=== PATIENT | male | born 1955 | race Caucasian/White ===

== ENCOUNTER → 2021-07-04 12:48 | Outpatient (BNVA) | payer MEDICARE, SELFPAY | PROVIDERS: PCP Internal Medicine; Visit Provider Psychiatry & Neurology Neurology | DX: H81.10 Benign paroxysmal vertigo, unspecified ear (principal); G20 Parkinson's disease | CPT/HCPCS: 99212 ==

== ENCOUNTER → 2021-11-09 14:17 | Outpatient (BNVA) | payer MEDICARE, BC, SELFPAY | PROVIDERS: PCP Internal Medicine; Visit Provider Nurse Practitioner Family | DX: G20 Parkinson's disease (principal); F32.A Depression, unspecified; F51.5 Nightmare disorder; H81.10 Benign paroxysmal vertigo, unspecified ear; S06.9X9D Unspecified intracranial injury with loss of consciousness of unspecified duration, subsequent encounter | CPT/HCPCS: 99212 ==

== ENCOUNTER → 2022-05-23 15:25 | Outpatient (BNVA) | payer MEDICARE, BC, SELFPAY | PROVIDERS: PCP Internal Medicine; Visit Provider Psychiatry & Neurology Neurology | DX: G20 Parkinson's disease (principal); F32.A Depression, unspecified; F51.5 Nightmare disorder; H81.10 Benign paroxysmal vertigo, unspecified ear; S06.9X9D Unspecified intracranial injury with loss of consciousness of unspecified duration, subsequent encounter | CPT/HCPCS: 99212 ==

== ENCOUNTER → 2022-10-09 12:40 | Outpatient (BNVA) | payer MEDICARE, BC, SELFPAY | PROVIDERS: PCP Internal Medicine; Visit Provider Psychiatry & Neurology Neurology | DX: G20 Parkinson's disease (principal); H81.10 Benign paroxysmal vertigo, unspecified ear; F51.5 Nightmare disorder; F32.A Depression, unspecified; Z87.820 Personal history of traumatic brain injury | CPT/HCPCS: 99212 ==

== ENCOUNTER 2023-02-12 14:03 | Outpatient (AMB) | payer MEDICARE, BC, SELFPAY ==
--- NOTE | 2023-02-12 14:06 | MHC.OFFVIS ---
Intake Vital Signs 02/12/23 14:08 Height 6 ft Weight 220 lb 8 oz BMI 29.9 BP 122/72 Blood Pressure Location Rt brachial Position Sitting Respiration 16 Pulse 68 Pulse Source Pulse Oximeter Pulse Oximetry (%) 98 Oxygen Delivery Method Room Air Intake Visit Reasons: 4m follow up-confirmed Intake Note: Patient states he is feeling good today. Allergies No Known Allergies Allergy (Verified 02/12/23 14:05) Medication List - Last Reconciled 02/12/23 by Penny Colon MD acetaminophen (Tylenol Extra Strength) 500 mg PO Q6H PRN aspirin (Gabbie Low Dose Aspirin) 81 mg PO DAILY carbidopa-levodopa 25-100 mg (Sinemet) 1 tab PO QID celecoxib 200 mg PO DAILY citalopram 20 mg PO DAILY cyclobenzaprine 5 mg PO TID PRN divalproex (Depakote) 3 tabs bid PO 2 times a day; docusate sodium 100 mg PO DAILY ketoconazole 2% topical lidocaine 5% 2 patches topical DAILY lisinopril 30 mg PO DAILY lorazepam 0.5 mg PO TID PRN mirabegron ER (Myrbetriq) 50 mg PO DAILY oxycodone 5 mg PO BID PRN prazosin 2 mg PO BEDTIME sennosides (senna) 8.6 mg PO DAILY sildenafil 50 mg PO .prn PRN simvastatin 20 mg PO DAILY trazodone 150 mg PO BEDTIME PRN HPI HPI Comments History of Present Illness Details 67 -yr-old male presents for f/u visit.He is stable He had PT and feels his balance is ok and stopped using his cane .He is seeing pain clinic at [place] . He is also doing acupuncture for pain which is helping. Pt denies any significant interval medical history changes.No dizziness Pt's current PD medication regimen: Sinemet 1 tab QID. Do medication effects last between doses: Some wearing off around time of the next dose- may tremor more. Not bothersome enough to want to increase dose. ADL's: Ind Swallowing: Occasional fluids/saliva will go down wrong- mild. No h/o PNA. Cough: Occasional- mild Drooling: At night mild Orthostatic lightheadedness: None Constipation: None- eats raisin bran, prune juice, senna , dulcolax- which prevents any constipation. Freezing: None Stiffness: None Tremor: Stable, but worse if anxious or Sinemet dose is wearing off. Falls: None Hallucinations: None Memory: Memory is not good . 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 Sleep: Sleeps well w/ CPAP and Trazodone and Prazosin (uses for sleep and BP control).He still has vivid dreams but milder. Other: Had a case of left BPPV- which resolved w/ a course of vestibular tx. [facility] Medical History Arthritis Depression HTN (hypertension) Nightmares Occasional tremors Parkinsonism Seizures TBI (traumatic brain injury) Surgical History H/O brain surgery H/O shoulder surgery History of carpal tunnel release Family History Mother Stomach cancer Social History Alcohol intake: never Patient Tobacco Use Status: Never used Tobacco Physical Exam Vital Signs: Last Vital Signs Pulse 68 02/12/23 14:08 Resp 16 02/12/23 14:08 BP 122/72 02/12/23 14:08 Pulse Ox 98 02/12/23 14:08 Oxygen Delivery Method Room Air 02/12/23 14:08 BMI result Body Mass Index 29.9 Const General: cooperative and no acute distress Resp Effort & Inspection: normal respiratory effort and able to speak in complete sentences Neuro Other: Expression: Mild decreased expression Voice: Soft voice Tremor: none seen today Tone: right Ue 1 + cog wheel rigidity Dyskinesia: None FFM: Mild bradykinesia Foot taps: Bradykinesia Gait: Decreased arm swing , good stride can walk without a cane Psych: Pleasant affect. Psych Appearance: grossly normal Mental Status: mental status grossly normal Attitude: cooperative Thought process: Normal thought process present Assessment & Plan Assessment & Plan (1) Parkinsonism: Code(s): G20 - Parkinson's disease (2) TBI (traumatic brain injury): Code(s): S06.9X9A - Unspecified intracranial injury with loss of consciousness of unspecified duration, initial encounter (3) Depression: Code(s): F32.A - Depression, unspecified (4) Nightmares: Code(s): F51.5 - Nightmare disorder (5) Vertigo, benign paroxysmal: Code(s): H81.10 - Benign paroxysmal vertigo, unspecified ear Plan: Resolved. Plan continue exercises Continue sinemet 25/100 1 tab QID. Continue Prazosin. Medications: Refilled carbidopa-levodopa 25-100 mg (Sinemet) 1 tab PO QID 120 tabs 6RF Coding Level of Care Code Est Pt Level 4 (26124) Diagnoses Parkinsonism G20 TBI (traumatic brain injury) S06.9X9A Depression F32.A Nightmares F51.5 Vertigo, benign paroxysmal H81.10
[2023-02-12 14:08] VITALS: BP 122/72; PULSE 68; RESP 16; O2SAT 98; BMI 29.9
== END 2023-02-12 14:27 | disposition home or self-care (01) ==
PROVIDERS: Visit Provider Psychiatry & Neurology Neurology
DX: G20 Parkinson's disease (principal); S06.9X9A Unspecified intracranial injury with loss of consciousness of unspecified duration, initial encounter; F32.A Depression, unspecified; F51.5 Nightmare disorder; H81.10 Benign paroxysmal vertigo, unspecified ear
CPT/HCPCS: 99214

== ENCOUNTER → 2023-02-12 14:03 | Outpatient (BNVA) | payer MEDICARE, BC, SELFPAY | PROVIDERS: Visit Provider Psychiatry & Neurology Neurology | DX: G20 Parkinson's disease (principal); S06.9X9A Unspecified intracranial injury with loss of consciousness of unspecified duration, initial encounter; F32.A Depression, unspecified; F51.5 Nightmare disorder; H81.10 Benign paroxysmal vertigo, unspecified ear; Z79.899 Other long term (current) drug therapy | CPT/HCPCS: 99212 ==

== ENCOUNTER 2023-09-19 12:36 | Outpatient (AMB) | payer MEDICARE, BC, SELFPAY ==
--- NOTE | 2023-09-19 12:54 | A.OFFVIS_ITS ---
Intake Vital Signs 09/19/23 12:56 Height 6 ft Weight 203 lb BMI 27.5 BP 148/72 H Blood Pressure Location Rt brachial Position Sitting Respiration 16 Pulse 87 Pulse Source Pulse Oximeter Pulse Oximetry (%) 97 Oxygen Delivery Method Room Air Intake Visit Reasons: 6m follow up-CONF Intake Note: Pt presents for a 6 month follow up for Parkinsonism. [employer] Required: No Allergies No Known Allergies Allergy (Verified 09/19/23 12:55) Medication List - Last Reconciled 09/19/23 by Penny Colon MD acetaminophen (Tylenol Extra Strength) 500 mg PO Q6H PRN aspirin (Gabbie Low Dose Aspirin) 81 mg PO DAILY celecoxib 200 mg PO DAILY citalopram 20 mg PO DAILY cyclobenzaprine 5 mg PO TID PRN divalproex (Depakote) 3 tabs bid PO 2 times a day; docusate sodium 100 mg PO DAILY ketoconazole 2% topical lidocaine 5% 2 patches topical DAILY lisinopril 30 mg PO DAILY lorazepam 0.5 mg PO TID PRN mirabegron ER (Myrbetriq) 50 mg PO DAILY oxycodone 5 mg PO BID PRN prazosin 2 mg PO BEDTIME sennosides (senna) 8.6 mg PO DAILY sildenafil 50 mg PO .prn PRN simvastatin 20 mg PO DAILY Sinemet 25-100 mg (carbidopa-levodopa) 1 tab PO QID NS trazodone 150 mg PO BEDTIME PRN HPI HPI Comments History of Present Illness Details 68 -yr-old male presents for f/u visit.H garfield was admitte don August 23 for presyncope and bradycardia at [facility].He was at the dinner table, had sweating and generalized weakness and had gen body movements . He was awake - diagnosed with presyncope In ER his BP was high and had bradycardia.He was seen by cleaning staff supervisor. He had just started sinemet - different brand and the patient thinks he did not tolerate the new brand Pt denies any significant interval medical history changes.No dizziness Pt's current PD medication regimen: Sinemet 1 tab QID. Do medication effects last between doses: Some wearing off around time of the next dose- may tremor more. Not bothersome enough to want to increase dose. ADL's: Ind Swallowing: Occasional fluids/saliva will go down wrong- mild. No h/o PNA. Cough: Occasional- mild Drooling: At night mild Orthostatic lightheadedness: None Constipation: None- eats raisin bran, prune juice, senna , dulcolax- which prevents any constipation. Freezing: None Stiffness: None Tremor: Stable, but worse if anxious or Sinemet dose is wearing off. Falls: None Hallucinations: None Memory: Memory is not good . 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 Sleep: Sleeps well w/ CPAP and Trazodone and Prazosin (uses for sleep and BP control).He still has vivid dreams but milder. Other: Had a case of left BPPV- which resolved w/ a course of vestibular tx. [facility] Medical History Arthritis HTN (hypertension) Occasional tremors Seizures TBI (traumatic brain injury) Depression Nightmares Parkinsonism Surgical History H/O shoulder surgery History of carpal tunnel release H/O brain surgery Family History Mother Stomach cancer Social History Alcohol intake: never Patient Tobacco Use Status: Never used Tobacco Physical Exam Vital Signs: Last Vital Signs Pulse 87 09/19/23 12:56 Resp 16 09/19/23 12:56 BP 148/72 H 09/19/23 12:56 Pulse Ox 97 09/19/23 12:56 Oxygen Delivery Method Room Air 09/19/23 12:56 BMI result Body Mass Index 27.5 Const General: cooperative and no acute distress Resp Effort & Inspection: normal respiratory effort and able to speak in complete sentences Neuro Other: Expression: Mild decreased expression Voice: Soft voice Tremor: none seen today Tone: right Ue 1 + cog wheel rigidity Dyskinesia: None FFM: Mild bradykinesia Foot taps: Bradykinesia Gait: Decreased arm swing , good stride can walk without a cane Psych: Pleasant affect. Psych Appearance: grossly normal Mental Status: mental status grossly normal Attitude: cooperative Thought process: Normal thought process present Assessment & Plan Assessment & Plan (1) Parkinsonism: Code(s): G20 - Parkinson's disease (2) TBI (traumatic brain injury): Code(s): S06.9X9A - Unspecified intracranial injury with loss of consciousness of unspecified duration, initial encounter (3) Depression: Code(s): F32.A - Depression, unspecified (4) Nightmares: Code(s): F51.5 - Nightmare disorder (5) Vertigo, benign paroxysmal: Code(s): H81.10 - Benign paroxysmal vertigo, unspecified ear Plan: Resolved. Plan continue exercises Continue sinemet 25/100 1 tab QID.- BRAND NAME ONLY - patient ahd an adverse reaction to generic carbidopa/levodopa Continue Prazosin. Medications: Changed From carbidopa-levodopa 25-100 mg (Sinemet) 1 tab PO QID 120 tabs 6RF To Sinemet 25-100 mg (carbidopa-levodopa) Patient had a reaction to generic carbidopa/levodopa 1 tab PO QID 120 tabs 6RF NS From lisinopril 30 mg PO DAILY To lisinopril 20 mg PO DAILY Coding Level of Care Code Est Pt Level 4 (83318) Diagnoses Parkinsonism G20 TBI (traumatic brain injury) S06.9X9A Depression F32.A Nightmares F51.5 Vertigo, benign paroxysmal H81.10
[2023-09-19 12:56] VITALS: BP 148/72; PULSE 87; RESP 16; O2SAT 97; BMI 27.5
== END 2023-09-19 13:33 | disposition home or self-care (01) ==
PROVIDERS: PCP Internal Medicine; Visit Provider Psychiatry & Neurology Neurology
DX: G20.C Parkinsonism, unspecified (principal); F32.A Depression, unspecified; F51.5 Nightmare disorder; H81.12 Benign paroxysmal vertigo, left ear; Z87.820 Personal history of traumatic brain injury
CPT/HCPCS: 99214

== ENCOUNTER → 2023-09-19 12:36 | Outpatient (BNVA) | payer MEDICARE, BC, SELFPAY | PROVIDERS: PCP Internal Medicine; Visit Provider Psychiatry & Neurology Neurology | DX: S06.9X9A Unspecified intracranial injury with loss of consciousness of unspecified duration, initial encounter (principal); F32.A Depression, unspecified; F51.5 Nightmare disorder; H81.10 Benign paroxysmal vertigo, unspecified ear; G20.A1 Parkinson's disease without dyskinesia, without mention of fluctuations; X58.XXXA Exposure to other specified factors, initial encounter; Y93.9 Activity, unspecified; Y92.9 Unspecified place or not applicable; Y99.9 Unspecified external cause status | CPT/HCPCS: 99212 ==

== ENCOUNTER 2024-03-22 15:21 | Outpatient (AMB) | payer MEDICARE, BC, SELFPAY ==
--- NOTE | 2024-03-22 15:23 | MHC.OFFVIS ---
Vital Signs 03/22/24 15:24 Height 6 ft Weight 204 lb 4 oz BMI 27.7 BP 144/70 H Blood Pressure Location Rt brachial Position Sitting Respiration 16 Pulse 86 Pulse Source Pulse Oximeter Pulse Oximetry (%) 98 Oxygen Delivery Method Room Air Intake Visit Reasons: 6m follow up-CONF Intake Note: Pt presents tot he office for a 6 month follow up for Parkinsonism. [employer] Required: No Allergies No Known Allergies Allergy (Verified 03/22/24 15:24) Medication List - Last Reconciled 03/22/24 by Penny Colon MD acetaminophen (Tylenol Extra Strength) 500 mg PO Q6H PRN aspirin (Gabbie Low Dose Aspirin) 81 mg PO DAILY celecoxib 200 mg PO DAILY citalopram 20 mg PO DAILY cyclobenzaprine 5 mg PO TID PRN divalproex (Depakote) 3 tabs bid PO 2 times a day; docusate sodium 100 mg PO DAILY ketoconazole 2% topical lidocaine 5% 2 patches topical DAILY lisinopril 20 mg PO DAILY lorazepam 0.5 mg PO TID PRN mirabegron ER (Myrbetriq) 50 mg PO DAILY oxycodone 5 mg PO BID PRN prazosin 2 mg PO BEDTIME sennosides (senna) 8.6 mg PO DAILY sildenafil 50 mg PO .prn PRN simvastatin 20 mg PO DAILY Sinemet 25-100 mg (carbidopa-levodopa) 1 tab PO QID NS trazodone 150 mg PO BEDTIME PRN HPI Comments Details: 68 -yr-old male presents for f/u visit. He had a recent ( last week)emergency cholecystectomy and is doing well. Pt denies any significant interval medical history changes.No dizziness Pt's current PD medication regimen: Sinemet 1 tab QID. Do medication effects last between doses: Some wearing off around time of the next dose- may tremor more. Not bothersome enough to want to increase dose. ADL's: Ind Swallowing: Occasional fluids/saliva will go down wrong- mild. No h/o PNA. Cough: Occasional- mild Drooling: At night mild Orthostatic lightheadedness: None Constipation: None- eats raisin bran, prune juice, senna , dulcolax- which prevents any constipation. Freezing: None Stiffness: None Tremor: mild, but worse if anxious or Sinemet dose is wearing off. Falls: 1 fall when he was trying to step up on a bulkhead Gait- slower Hallucinations: None Memory: Memory is not good . 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 Sleep: Sleeps w/ CPAP and Trazodone and Prazosin (uses for sleep and BP control).He wakes up at 3 am and is not able to sleep. He still has vivid dreams but milder. Other: Had a case of left BPPV- which resolved w/ a course of vestibular tx. [facility] Medical History Arthritis HTN (hypertension) Occasional tremors Seizures TBI (traumatic brain injury) Depression Nightmares Parkinsonism Surgical History Hx laparoscopic cholecystectomy H/O shoulder surgery History of carpal tunnel release H/O brain surgery Family History Mother Stomach cancer Social History Alcohol intake: never Patient Tobacco Use Status: Never used Tobacco Physical Exam Vital Signs: Last Vital Signs Pulse 86 03/22/24 15:24 Resp 16 03/22/24 15:24 BP 144/70 H 03/22/24 15:24 Pulse Ox 98 03/22/24 15:24 Oxygen Delivery Method Room Air 03/22/24 15:24 BMI result Body Mass Index 27.7 Const General: cooperative and no acute distress Resp Effort & Inspection: normal respiratory effort and able to speak in complete sentences Neuro Other: Expression: Mild decreased expression Voice: Soft voice Tremor: none seen today Tone: right Ue 1 + cog wheel rigidity Dyskinesia: None FFM: Mild bradykinesia Foot taps: Bradykinesia Gait: Decreased arm swing , good stride can walk without a cane Psych: Pleasant affect. Psych Appearance: grossly normal Mental Status: mental status grossly normal Attitude: cooperative Thought process: Normal thought process present Assessment & Plan Assessment & Plan (1) Parkinsonism: Code(s): G20 - Parkinson's disease Category: Medical Qualifiers: Parkinsonism type: unspecified Qualified Code(s): G20.C - Parkinsonism, unspecified (2) TBI (traumatic brain injury): Code(s): S06.9X9A - Unspecified intracranial injury with loss of consciousness of unspecified duration, initial encounter Category: Medical (3) Depression: Code(s): F32.A - Depression, unspecified Category: Medical (4) Nightmares: Code(s): F51.5 - Nightmare disorder Category: Medical (5) Vertigo, benign paroxysmal: Code(s): H81.10 - Benign paroxysmal vertigo, unspecified ear Category: Medical Plan: Resolved. Plan Restart exercises after his post surgical recovery. Continue sinemet 25/100 1 tab QID.- BRAND NAME ONLY - patient had an adverse reaction to generic carbidopa/levodopa Continue Prazosin. Medications: Refilled Sinemet 25-100 mg (carbidopa-levodopa) Patient had a reaction to generic carbidopa/levodopa 1 tab PO QID 120 tabs 6RF NS Sinemet 25-100 mg (carbidopa-levodopa) Patient had a reaction to generic carbidopa/levodopa 1 tab PO QID 120 tabs 6RF NS Coding Level of Care Code Est Pt Level 4 (74034) Complex EM visit Add On G2211 Diagnoses Parkinsonism, unspecified Parkinsonism type G20.C Parkinsonism type: unspecified TBI (traumatic brain injury) S06.9X9A Depression F32.A Nightmares F51.5 Vertigo, benign paroxysmal H81.10
[2024-03-22 15:24] VITALS: BP 144/70; PULSE 86; RESP 16; O2SAT 98; BMI 27.7
== END 2024-03-22 15:51 | disposition home or self-care (01) ==
PROVIDERS: PCP Internal Medicine; Visit Provider Psychiatry & Neurology Neurology
DX: G20.C Parkinsonism, unspecified (principal); S06.9X9A Unspecified intracranial injury with loss of consciousness of unspecified duration, initial encounter; F32.A Depression, unspecified; F51.5 Nightmare disorder; H81.10 Benign paroxysmal vertigo, unspecified ear
CPT/HCPCS: 99214; G2211

== ENCOUNTER → 2024-03-22 15:21 | Outpatient (BNVA) | payer MEDICARE, BC, SELFPAY | PROVIDERS: PCP Internal Medicine; Visit Provider Psychiatry & Neurology Neurology | DX: S06.9X9A Unspecified intracranial injury with loss of consciousness of unspecified duration, initial encounter (principal); X58.XXXA Exposure to other specified factors, initial encounter; Y93.9 Activity, unspecified; Y92.9 Unspecified place or not applicable; Y99.9 Unspecified external cause status; G20.C Parkinsonism, unspecified; F51.5 Nightmare disorder; H81.10 Benign paroxysmal vertigo, unspecified ear; Z90.49 Acquired absence of other specified parts of digestive tract; F32.A Depression, unspecified | CPT/HCPCS: 99212 ==

== ENCOUNTER 2024-08-13 14:54 | Outpatient (AMB) | payer MEDICARE, BC, SELFPAY ==
--- NOTE | 2024-08-13 14:58 | MHC.OFFVIS ---
Vital Signs 08/13/24 14:59 Height 6 ft Weight 206 lb BMI 27.9 BP 134/80 Blood Pressure Location Rt brachial Position Sitting Intake Visit Reasons: 6m follow up-CONF Intake Note: patient following up for parkinson's. Sinemet medication given, had reaction to carbidopa Allergies No Known Allergies Allergy (Verified 08/13/24 15:03) Medication List - Last Reconciled 08/13/24 by Penny Colon MD acetaminophen (Tylenol Extra Strength) 500 mg PO Q6H PRN aspirin (Gabbie Low Dose Aspirin) 81 mg PO DAILY celecoxib 200 mg PO DAILY citalopram 20 mg PO DAILY cyclobenzaprine 5 mg PO TID PRN divalproex (Depakote) 3 tabs bid PO 2 times a day; docusate sodium 100 mg PO DAILY ketoconazole 2% topical lidocaine 5% 2 patches topical DAILY lisinopril 20 mg PO DAILY lorazepam 0.5 mg PO TID PRN magnesium 200 mg PO DAILY mirabegron ER (Myrbetriq) 50 mg PO DAILY oxycodone 5 mg PO BID PRN prazosin 2 mg PO BEDTIME sennosides (senna) 8.6 mg PO DAILY sildenafil 50 mg PO .prn PRN simvastatin 20 mg PO DAILY Sinemet 25-100 mg (carbidopa-levodopa) 1 tab PO QID NS trazodone 150 mg PO BEDTIME PRN HPI Comments Details: 69 -yr-old male presents for f/u visit. Pt's current PD medication regimen: Sinemet 1 tab QID. Do medication effects last between doses: Some wearing off around time of the next dose- may tremor more. Not bothersome enough to want to increase dose. ADL's: Ind Swallowing: Occasional fluids/saliva will go down wrong- mild.- scheduled for uvuloplasty on September 22 Cough: Occasional- mild Drooling: At night mild Orthostatic lightheadedness: None Constipation: None- eats raisin bran, prune juice, senna , dulcolax- which prevents any constipation. Freezing: None Stiffness: None Tremor: mild, but worse if anxious or Sinemet dose is wearing off. Falls: none , but has some near falls when he tries to turn Gait- slower Hallucinations: None Memory: Memory is not good . 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 Sleep: Sleeps w/ CPAP and Trazodone and Prazosin (uses for sleep and BP control).He wakes up at 3 am and is not able to sleep. He has occasional REM behavior disorder. [facility] Medical History Arthritis HTN (hypertension) Occasional tremors Seizures TBI (traumatic brain injury) Depression Nightmares Parkinsonism Surgical History Hx laparoscopic cholecystectomy H/O shoulder surgery History of carpal tunnel release H/O brain surgery Family History Mother Stomach cancer Social History Alcohol intake: never Patient Tobacco Use Status: Never used Tobacco Physical Exam Vital Signs: Last Vital Signs BP 134/80 08/13/24 14:59 BMI result Body Mass Index 27.9 Const General: cooperative and no acute distress Resp Effort & Inspection: normal respiratory effort and able to speak in complete sentences Neuro Other: Expression: Mild decreased expression Voice: normal Tremor: none seen today Tone: right Ue 1 + cog wheel rigidity Dyskinesia: None FFM: Mild bradykinesia Foot taps: Bradykinesia Gait: Decreased arm swing , good stride can walk without a cane Psych: Pleasant affect. Psych Appearance: grossly normal Mental Status: mental status grossly normal Attitude: cooperative Thought process: Normal thought process present Assessment & Plan Assessment & Plan (1) Parkinsonism: Code(s): G20 - Parkinson's disease Category: Medical Qualifiers: Parkinsonism type: unspecified Qualified Code(s): G20.C - Parkinsonism, unspecified (2) Depression: Code(s): F32.A - Depression, unspecified Category: Medical (3) Nightmares: Code(s): F51.5 - Nightmare disorder Category: Medical Plan Continue exercise Continue sinemet 25/100 1 tab QID.- BRAND NAME ONLY - patient had an adverse reaction to generic carbidopa/levodopa Continue Prazosin. Medications: Changed From Sinemet 25-100 mg (carbidopa-levodopa) Patient had a reaction to generic carbidopa/levodopa 1 tab PO QID 120 tabs 6RF NS To Sinemet 25-100 mg (carbidopa-levodopa) Patient had a reaction to generic carbidopa/levodopa 1 tab PO QID 90 days 360 tabs 6RF NS Coding Level of Care Code Est Pt Level 4 (10438) Complex EM visit Add On G2211 Diagnoses Parkinsonism, unspecified Parkinsonism type G20.C Parkinsonism type: unspecified Depression F32.A Nightmares F51.5
[2024-08-13 14:59] VITALS: BP 134/80; BMI 27.9
--- OUTSIDE RECORDS SUMMARY | 2024-08-13 15:03 | XMS_ITS | Encounter Summary ---
Author Name [facility] [facility] [place] Address [address] [place] [address] Care Team Providers Care Pbx Technician Name Role Phone NINO MAI Primary Care [...] Last's Name Patient's Relationship to Policy Last ANTHEM BCBS CT FEDERAL PREFERRED PROVIDER ORGANIZAT ION (PPO) BASIC SELF+ ONE Jun 23, 2020 113 [id number] [phone] STEPHEN SOMMERS PATIENT ANTHEM BCBS CT FEDERAL PREFERRED PROVIDER ORGANIZAT ION (PPO) STAND RAEANN SELF + ONE Jun 23, 2015 106 [id number] [phone] STEPHEN SOMMERS PATIENT ANTHEM BCBS FEDERAL PREFERRED PROVIDER ORGANIZAT ION (PPO) STAND RAEANN SELF+ ONE Jun 23, 2015 106 [id number] CRISTOPHER SOMMERSRayne JORDAN PATIENT BCBS [place] PREFERRED PROVIDER ORGANIZAT ION (PPO) PSHB BAS SELF PLUS 1 Jun 23, 2024 [id number] CRISTOPHER SOMMERSRayne JORDAN PATIENT [place] PREFERRED PROVIDER ORGANIZAT ION (PPO) STAND RAEANN SELF PLUS 1 Jun 23, 2015 [id number] STEPHEN SOMMERS PATIENT [place] PREFERRED PROVIDER ORGANIZAT ION (PPO) BASIC SELF+ ONE Jun 23, 2020 113 [id number] STEPHEN SOMMERS PATIENT [place] PREFERRED PROVIDER ORGANIZAT ION (PPO) STAND RAEANN SELF+ ONE Jun 23, 2015 106 [id number] [phone] STEPHEN SOMMERS PATIENT [place] DENTAL DENTAL INSURANCE BASIC Jun 23, 2020 DENTAL [id number] STEPHEN SOMMERS PATIENT [place] FEP BCBS PRESCRIPT ION CAR[place] FEPRX PLAN Jun 23, 2015 [id number] STEPHEN SOMMERS PATIENT [place] FEPRX PLAN PRESCRIPT ION [place] FEPRX Jun 23, 2015 [id number] [phone] STEPHEN SOMMERS PATIENT MEDICARE (WNR) MEDICARE () PART A May 23, 2020 PART A [id number] STEPHEN SOMMERS PATIENT MEDICARE (WNR) MEDICARE () PART B May 23, 2020 PART B [id number] STEPHEN SOMMERS PATIENT MEDICARE (WNR) MEDICARE () PART A May 23, 2020 PART A [id number] STEPHEN SOMMERS PATIENT MEDICARE (WNR) MEDICARE () PART B May 23, 2020 PART B [id number] STEPHEN SOMMERS PATIENT MEDICARE (WNR) MEDICARE () PART A May 23, 2020 PART A [id number] STEPHEN SOMMERS PATIENT MEDICARE (WNR) MEDICARE () PART B May 23, 2020 PART B [id number] [phone] [id number] STEPHEN SOMMERS PATIENT Selected Encounter This section includes the information on record at [place] for the Encounter. Date/Time Encounter Type Encounter Description Reason Provider Source Sep 11, 2023 10:04 AM QNHP OL DIG ASSMT&MGMT 11-20 CLINICAL PHARMACY ICD-10-CM G20.C Parkinsonism, unspecified NIDA AMOS IHE Encounter Template Text not used by [place] Assessments - Encounter Diagnoses This section includes the primary and secondary diagnoses documented for the Encounter. Date/Time Primary/Secondary Diagnosis Diagnosis Name Provider Source Sep 11, 2023 10:19 AM PRIMARY Parkinsonism, unspecified NIDA AMOS [facility] Plan of Treatment: Future Appointments (+ 6 months) and Future Tests (+/- 45 days) The Plan of Treatment section includes future care activities for the [facility] [place] [facility] This section includes future appointments and future orders which are active, pending or scheduled. Future Appointments This section includes appointments that were scheduled to occur 6 months from the date of the Encounter, up to a maximum of 20 appointments. The data comes from all [place] treatment facilities. Appointment Date/Time Appointment Type Appointme nt Facility Name Sep 19, 2023 12:55 PM AMBULATORY - MEDICINE [place] [facility] [place] [facility] Oct 02, 2023 01:00 PM AMBULATORY - MEDICINE [facility] [place] [facility] Oct 06, 2023 10:30 AM AMBULATORY - MEDICINE [facility] Oct 15, 2023 02:30 PM AMBULATORY - REHAB MEDICIN E [place] [facility] [place] [facility] Oct 17, 2023 07:55 PM AMBULATORY - MEDICINE [facility] [place] [facility] November 12, 2023 01:30 PM AMBULATORY - REHAB MEDICIN E [place] [facility] [place] [facility] November 13, 2023 02:00 PM AMBULATORY - PSYCHIATRY [facility] Dec 02, 2023 01:00 PM AMBULATORY - MEDICINE [facility] Dec 16, 2023 01:30 PM [facility] Jan 21, 2024 03:00 PM AMBULATORY - MEDICINE [place] [facility] [place] [facility] Feb 12, 2024 02:00 PM AMBULATORY - PSYCHIATRY [facility] Feb 20, 2024 08:30 AM [facility] Lab Results: +/- 30 days of the encounter This section includes the Chemistry and Hematology Lab Results on record with [place] for the patient. Radiology Reports and Pathology Reports are provided separately, in subsequent sections. Lab Results This section contains the Chemistry/Hematology Results that were resulted 30 days before or 30 daysafter the date of the Encounter. Date/Time Source Result Type Result - Unit Interpretation Reference Range Comment Sep 15, 2023 12:33 PM [facility] HEMOGLOBIN A1C PANEL Specimen Type: BLOOD Comment: Values obtained from A1C measurements can vary. For atypical A1C assays, a reported value of 7.0 could actually be between 6.72 and 7.28 if measured by a reference method. A reported value of 9.0 could actually be between 8.73 and 9.27. Ref: http://www.ngs p.org/CAPdata. asp Ordering Provider: HOWARD AVELAR Report Released Date/Time: Sep 08, 2023 01:58 PM Reporting Lab: [address] [address] Performing Lab: [address] [address] HEMOGLOBIN A1C 5.0 4.0-5.6 Sep 15, 2023 12:33 PM [facility] MAGNESIUM Specimen Type: SERUM No comment entered. Ordering Provider: HOWARD AVELAR Report Released Date/Time: Sep 08, 2023 01:58 PM Reporting Lab: [facility] [address] [address] Performing Lab: [address] [address] MAGNESIUM 1.9 mg/dL 1.6-2.6 Sep 15, 2023 12:33 PM [facility] TSH Specimen Type: SERUM No comment entered. Ordering Provider: HOWARD AVELAR Report Released Date/Time: Sep 08, 2023 01:58 PM Reporting Lab: [address] [address] Performing Lab: [address] [address] TSH 1.35 u[IU]/mL 0.35-5.00 Sep 15, 2023 12:33 PM [facility] CALCIUM Specimen Type: SERUM No comment entered. Ordering Provider: HOWARD AVELAR Report Released Date/Time: Sep 08, 2023 01:58 PM Reporting Lab: [facility] [address] [facility] [address] Performing Lab: [facility] [address] [address] CALCIUM 9.3 mg/dL 8.5-10.2 Sep 15, 2023 12:33 PM [facility] VITAMIN D (25-OH) Specimen Type: SERUM No comment entered. Ordering Provider: HOWARD AVELAR Report Released Date/Time: Sep 08, 2023 01:58 PM Reporting Lab: [facility]ETS [address] [address] Performing Lab: [facility]USE[address] [address] VITAMIN D (25-OH) 14 ng/mL L 20-50 Sep 15, 2023 12:33 PM [facility] LIPID PANEL, NON FASTING Specimen Type: SERUM No comment entered. Ordering Provider: HOWARD AVELAR Report Released Date/Time: Sep 08, 2023 01:58 PM Reporting Lab: [facility] [address] [facility] [address] Performing Lab: [facility]USE[address] [address] CHOLESTEROL 175 mg/dL TRIGLYCERIDE 192 mg/dL H 0-150 LDL calculated 88 mg/dL 0-129 CHOL/HDL 3.6 HDL CHOLESTEROL 49 mg/dL 40-60 Sep 15, 2023 12:33 PM [facility] LIVER FUNCTION Specimen Type: SERUM No comment entered. Ordering Provider: HOWARD AVELAR Report Released Date/Time: Sep 08, 2023 01:58 PM Reporting Lab: [facility]N [facility]ITAL[facility]ETS [address] [address] Performing Lab: [facility]ITALUSETS [address] [address] PROTEIN,TOTAL 6.7 g/dL 6.0-8.3 ALBUMIN 3.6 g/dL 3.5-5.0 ALKALINE PHOSPHATASE 35 U/L L 40-150 AST 11 U/L 5-34 ALT 8 U/L BILIRUBIN, TOTAL 0.4 mg/dL 0.2-1.2 Sep 15, 2023 12:33 PM [facility] PSA Specimen Type: SERUM No comment entered. Ordering Provider: HOWARD AVELAR Report Released Date/Time: Sep 08, 2023 02:00 PM Reporting Lab: [address] [address] Performing Lab: [address] [address] PSA 1.83 ng/mL 0.00-4.00 Sep 15, 2023 12:33 PM [facility] BASIC METABOLIC PANEL (non-fasting) Specimen Type: SERUM No comment entered. Ordering Provider: HOWARD AVELAR Report Released Date/Time: Sep 08, 2023 01:58 PM Reporting Lab: [facility] [address] [address] Performing Lab: [address] [address] UREA NITROGEN 20 mg/dL 7-25 GLUCOSE 108 mg/dL H 65-100 SODIUM 139 mmol/L 135-145 POTASSIUM 4.5 mmol/L 3.5-5.0 CHLORIDE 103 mmol/L 100-110 CO2 29 meq/L 20-30 CREATININE, Serum 0.86 mg/dL 0.50-1.40 eGFR(CKD-EPI 2020) >90 mL/min >60 Sep 15, 2023 12:33 PM [facility] URINALYSIS Specimen Type: URINE Comment: If Glucose = >500 and Ketones are positive, please alert the Physician. Ordering Provider: HOWARD AVELAR Report Released Date/Time: Sep 08, 2023 01:59 PM Reporting Lab: [address] [address] Performing Lab: [address] [place] [address] UA COLOR Yellow Yellow UA APPEARANCE Clear Clear UA GLUCOSE NEGATIVE mg/dL Negative UA KETONES TRACE mg/dL Negative UA BLOOD NEGATIVE mg/dL Negative UA PROTEIN 30 mg/dL Negative UA NITRITE NEGATIVE mg/dL Negative UA BILIRUBIN NEGATIVE mg/dL Negative UA SPECIFIC GRAVITY 1.044 H 1.016-1.02 2 UA pH 6.0 5.0-9.0 UA UROBILINOGEN <2.0 mg/dL <2.0 UA LEUKOCYTE NEGATIVE Negative Sep 15, 2023 12:33 PM [facility] CBC AND DIFF (AUTO) Specimen Type: BLOOD No comment entered. Ordering Provider: HOWARD AVELAR Report Released Date/Time: Sep 08, 2023 01:58 PM Reporting Lab: [address] [address] Performing Lab: [address] [address] WBC 6.55 10*3/uL 4.50-11.00 RBC 4.40 10*6/uL 4.23-5.66 HGB 13.6 g/dL 12.8-17 HCT 41.0 39.2-50.4 MCV 93.2 fL 82-99 MCHC 33.2 g/dL 30.8-35.1 PLT 172 10*3/uL 140-360 RDW-CV 11.5 L 12.0-16.0 Pratt, Abs 0.58 10*3/uL 0.30-1.10 MCH 30.9 pg 26.2-32.6 Neut % 49.8 43.7-75.8 Lymph % 38.8 14.0-42.3 Pratt % 8.9 5.1-13.7 Eos % 1.1 0.4-6.8 Baso % 0.9 0.1-2.0 Neut, Abs 3.27 10*3/uL 2.20-7.60 Lymph, Abs 2.54 10*3/uL 1.00-3.20 Eos, Abs 0.07 10*3/uL 0.03-0.44 Baso, Abs 0.06 10*3/uL 0.01-0.13 Immature Gran % 0.5 0.0-0.7 Immature Gran, Abs 0.03 10*3/uL 0.00-0.06 Advance Directives: All historical and current Section Date Range: From patient's date of to the date document was created. This section includes ALL of a patient's completed or amended VA Advance and Rescinded Directives. The entries below indicate that a directive exists for the patient, but an actual copy is not included with this document. The data comes from all [place] facilities. Date Advance Directives Provider Source Dec 25, 2010 ADVANCE DIRECTIVE DIONNE HOGUE [facility] Radiology Reports: +/- 30 days of the encounter Radiology Reports For cases when an order for radiology services may have been completed prior to the date of the Encounter, the report list includes the Radiology Reports that were completed up to 30 days before dateof the Encounter. For cases when an order for radiology services may have been completed after the date of the Encounter, the report list also includes the Radiology Reports that were completed up to30 days after date of the Encounter. The data comes from all [place] treatment facilities. Date/Time Radiology Report Provider Source Oct 09, 2023 01:36 PM HIP 2-3 VIEWS (RIGHT) WITH OR WITHOUT PELVIS: CARA SOMMERS [id number] -[id number] M Exm Date: OCT 09, 2023@13:36 Req Phys: HOWARD AVELAR Loc: CWM/SO/PACT 1 SEWER CLEANER (Req'g Loc) Img Loc: [facility] 1 Service: Unknown (Case [id number] COMPLETE) HIP 2-3 VIEWS (RIGHT) WITH OR WIT(RAD Detailed) CPT:01712 CPT Modifiers : RT RIGHT SIDE Reason for Study: fall onto right hip/back. Persistant pain Clinical History: Parkinsons. chronic back pain Report Status: Verified Date Reported: OCT 10, 2023 Date Verified: OCT 10, 2023 Desktop Support Engineer E-Sig: Report: HIP 2-3 VIEWS (RIGHT) WITH OR WITHOUT PELVIS HISTORY: fall onto right hip/back. Persistent pain COMPARISON: None TECHNIQUE: Single view of the pelvis and 2 view(s) of the right hip, submitted to the [place] National Teleradiology Program (NTP) for interpretation. FINDINGS: No displaced fracture or traumatic malalignment of the right hip. Bilateral hip arthrosis. No radiopaque foreign bodies in the soft tissues. Impression: No displaced fracture or traumatic malalignment of the right hip. READING PHYSICIAN: Jorge [id number] 10/10/2023 10:26 PDT [facility] National Teleradiology Program [phone] (For Medical Practitioner Use Only) Attention Patients / Veterans: If you have questions or concerns about these test results, please contact your ordering provider or primary care team. Primary Diagnostic Code: NO ALERT REQUIRED Primary Interpreting Staff: RADIOLOGY,OUTSIDE SERVICE, Staff Physician / RADIOLOGY,OUTSIDE SERVICE [place] [facility] [place] [facility] Oct 09, 2023 01:36 PM SPINE LUMBOSACRAL MIN 2 VIEWS: CARA SOMMERS [id number] -[id number] M Exm Date: OCT 09, 2023@13:36 Req Phys: HOWARD AVELAR Loc: CWM/SO/PACT 1 SEWER CLEANER (Req'g Loc) Img Loc: [facility] 1 Service: Unknown (Case [id number] COMPLETE) SPINE LUMBOSACRAL MIN 2 VIEWS (RAD Detailed) CPT:25617 Reason for Study: fall onto right hip/back. Persistant pain Clinical History: Parkinsons. chronic back pain Report Status: Verified Date Reported: OCT 10, 2023 Date Verified: OCT 10, 2023 Desktop Support Engineer E-Sig: Report: SPINE LUMBOSACRAL MIN 2 VIEWS HISTORY: fall onto right hip/back. Persistent pain COMPARISON: 03/15/2016 lumbar MRI TECHNIQUE: 3 view(s) of the lumbar spine, submitted to the [place] National Teleradiology Program (NTP) for interpretation. FINDINGS: Five [id number]-[id number] lumbar-type vertebrae. Acute angulation of the sacrum, which appears to have been present on the prior lumbar MRI. Normal alignment with preserved lumbar lordosis. No significant listhesis. Mild disc space narrowing of the L5-S1 vertebral bodies. Unremarkable sacroiliac joints. No significant vascular calcifications. Normal bowel gas pattern. Impression: 1. No displaced fracture of the lumbar spine. 2. Acute angulation of the sacrum, which was partially imaged on a 03/15/2016 lumbar MRI and is favored to reflect sequelae of prior trauma. However if there is point tenderness in this location on physical exam, follow up pelvic CT could be performed to exclude superimposed acute sacral fracture. READING PHYSICIAN: Jorge [id number] 10/10/2023 10:30 PDT [facility] National Teleradiology Program [phone] (For Medical Practitioner Use Only) Attention Patients / Veterans: If you have questions or concerns about these test results, please contact your ordering provider or primary care team. Primary Diagnostic Code: SIGNIFICANT ABNORMALITY, ATTN NEEDED Primary Interpreting Staff: RADIOLOGY,OUTSIDE SERVICE, Staff Physician / RADIOLOGY,OUTSIDE SERVICE [place] [facility] Encounter Notes: All associated encounter notes This section contains the clinical notes associated to the Encounter. Date/Time Encounter Note(s) Provider Source Sep 11, 2023 10:04 AM PHARMACY CONSULT: LOCAL TITLE: CONSULT REPORT/PRIOR AUTH FACILITY PADR STANDARD TITLE: PHARMACY CONSULT DATE OF NOTE: SEP 11, 2023@10:04 ENTRY DATE: SEP 11, 2023@10:04:14 AUTHOR: TATY AMOS COSIGNER: URGENCY: STATUS: COMPLETED The medical record has been reviewed with regard to this restricted drug request. Medication requested: CARBIDOPA 25/LEVODOPA (SINEMET) 100MG TAB *BRAND NAME* Medication indication: Parkinsons Medical history relevant to this request: Pt with Parkinsons, receiving Neurology care nonVA. NonVA Neurology notes not available for review. Pt has also been receiving carbidopa/levodopa nonVA. Per consult: Adverse reaction to generic Sinemet including presyncope and autonomic dysfunction requiring hospitalization Hospital course per notes: Patient is a 68-year-old male with history of Parkinson's disease, ? traumatic brain injury, hypertension who presented to the emergency room with his for an episode of presyncope and found to have sinus bradycardia in 50s. Presyncope likely from recent change in medicine to generic carbidopa- levodopa. Will send new prescript for brand name to pharmacy. Orthostatic vitals normal. Symptoms improved overnight. Telemetry with HRs 70-80s without further symptoms. Cardiology evaluated and no further interventions. At this time, unable to provide approval for BRAND ONLY Sinemet as additional information is needed. It is unclear if pt had a recent change to carbidopa/levodopa dosing or formulation (i.e. SA to IR) that may have contributed to this event or other change to medications resulting in potential for increase in levodopa which may have resulted in orthostasis. It is unlikely that a change from brand to generic would be the cause of a new ADR. If receiving IR formulation, may consider SA formulation for decrease potential for orthostasis. The request does not meet criteria - Compelling evidence for the requested indication is lacking /caesar/ Taty Amos, PharmD, [facility] Clinical Statistical Secretary Signed: 09/11/2023 10:19 TATY AMOS [facility]
--- OUTSIDE RECORDS SUMMARY | 2024-08-13 15:03 | XMS_ITS | Encounter Summary ---
Author Name [facility] [place] [facility] [place] Address [address] [place] [id number] Care Team Providers Care Director Of Strategic Partnerships Name Role Phone NINO MAI Primary Care [...] BASIC SELF+ ONE Jun 23, 2020 [id number] [phone] STEPHEN SOMMERS PATIENT ANTHEM BCBS CT FEDERAL PREFERRED PROVIDER ORGANIZAT ION (PPO) STAND RAEANN SELF + ONE Jun 23, 2015 106 [id number] [phone] STEPHEN SOMMERS PATIENT ANTHEM BCBS FEDERAL PREFERRED PROVIDER ORGANIZAT ION (PPO) STAND RAEANN SELF+ ONE Jun 23, 2015 106 [id number] CRISTOPHER SOMMERSRayne JORDAN PATIENT BCBS [place] FEP PREFERRED PROVIDER ORGANIZAT ION (PPO) PSHB BAS SELF PLUS 1 Jun 23, 2024 [id number] STEPHEN SOMMERS PATIENT [place] PREFERRED PROVIDER ORGANIZAT ION (PPO) STAND RAEANN SELF PLUS 1 Jun 23, 2015 106 [id number] STEPHEN SOMMERS PATIENT [place] PREFERRED PROVIDER ORGANIZAT ION (PPO) BASIC SELF+ ONE Jun 23, 2020 113 [id number] 62 STEPHEN SOMMERS PATIENT [place] PREFERRED PROVIDER ORGANIZAT ION (PPO) STAND RAEANN SELF+ ONE Jun 23, 2015 106 [id number] 62 STEPHEN SOMMERS PATIENT [place] FEP DENTAL DENTAL INSURANCE BASIC Jun 23, 2020 DENTAL [id number] STEPHEN SOMMERS PATIENT [place] FEP BCBS PRESCRIPT ION CAREM ARK FEPRX PLAN Jun 23, 2015 [id number] STEPHEN SOMMERS PATIENT [place] FEPRX PLAN PRESCRIPT ION CAREM [place] FEPRX Jun 23, 2015 [id number] STEPHEN SOMMERS PATIENT MEDICARE (WNR) MEDICARE () PART A May 23, 2020 PART A [id number] STEPHEN SOMMERS PATIENT MEDICARE (WNR) MEDICARE () PART B May 23, 2020 PART B [id number] STEPHEN SOMMERS PATIENT MEDICARE (WNR) MEDICARE () PART A May 23, 2020 PART A [id number] STEPHEN SOMMERS PATIENT MEDICARE (WNR) MEDICARE () PART B May 23, 2020 PART B [id number] STEPHEN SOMMERS PATIENT MEDICARE (WNR) MEDICARE () PART A May 23, 2020 PART A [id number] STEPHEN SOMMERS PATIENT MEDICARE (WNR) MEDICARE () PART B May 23, 2020 PART B [id number] STEPHEN SOMMERS PATIENT Selected Encounter This section includes the information on record at [place] for the Encounter. Date/Time Encounter Type Encounter Description Reason Provider Source Dec 16, 2023 01:30 PM OFF/OP EST MAY X REQ PHY/QHP PRIMARY CARE/MEDICINE ICD-10-CM I10 Essential (primary) hypertension [place] [facility] Encounter Template Text not used by [facility] Assessments - Encounter Diagnoses This section includes the primary and secondary diagnoses documented for the Encounter. Date/Time Primary/Secondary Diagnosis Diagnosis Name Provider Source Jan 13, 2024 01:23 PM PRIMARY Essential (primary) hypertension [facility] Plan of Treatment: Future Appointments (+ 6 months) and Future Tests (+/- 45 days) The Plan of Treatment section includes future care activities for the patient from all [place] treatmentfacilities. This section includes future appointments and future orders which are active, pending or scheduled. Future Appointments This section includes appointments that were scheduled to occur 6 months from the date of the Encounter, up to a maximum of 20 appointments. The data comes from all [place] treatment facilities. Appointment Date/Time Appointment Type Appointme nt Facility Name Jan 21, 2024 03:00 PM AMBULATORY - MEDICINE [facility] [place] [facility] Feb 12, 2024 02:00 PM AMBULATORY - PSYCHIATRY [facility] Feb 20, 2024 08:30 AM AMBULATORY - [place] [facility]IC[facility] [place] [facility] [place] [facility] Mar 26, 2024 08:00 AM AMBULATORY - MEDICINE [facility] [place] [facility] Apr 06, 2024 10:50 AM AMBULATORY - MEDICINE [facility] [place] [facility] Apr 19, 2024 03:30 PM AMBULATORY - MEDICINE [facility] [place] [facility] May 26, 2024 02:30 PM [facility] Lab Results: +/- 30 days of the encounter This section includes the Chemistry and Hematology Lab Results on record with [place] for the patient. Radiology Reports and Pathology Reports are provided separately, in subsequent sections. Lab Results This section contains the Chemistry/Hematology Results that were resulted 30 days before or 30 daysafter the date of the Encounter. Date/Time Source Result Type Result - Unit Interpretation Reference Range Comment November 18, 2023 12:55 PM [facility] VALPROIC ACID Specimen Type: PLASMA No comment entered. Ordering Provider: VALERIANO HURT Report Released Date/Time: Aug 21, 2023 04:03 PM Reporting Lab: [facility] [address] [id number] Performing Lab: [place] [facility] [address] [address] VALPROIC ACID 64.9 ug/mL 50.0-120.0 Vital Signs: All taken on the encounter date This section contains inpatient and outpatient Vital Signs collected on the date of the Encounter. Date/Time Temperature Pulse Blood Pressure Respiratory Rate SP02 Pain Height Weight Body Mass Index Source Dec 16, 2023 01:20 PM 90 135/76 16 [address] [facility] Social History: Smoking Status (Most current) and Tobacco Use (All prior to encounter date) This section includes the most current, and the historical, smoking and tobacco- related health factors from the [place] facility where the Encounter took place. Current Smoking Status This section includes the most current smoking, or tobacco-related health factor, from the [place] facility where the Encounter took place. Date/Time Current Smoking Status Comment Facil ity Dec 20, 2020 01:30 PM VA-TOBACCO NEVER USED [facility] Tobacco Use History This section includes a history of the smoking, or tobacco-related health factors, that were collected on or before the date of the Encounter. The data comes from the [place] facility where the Encounter took place. Date/Time Smoking Status/Tobacco Use Comment F acility Dec 08, 2019 09:02 AM VA-TOBACCO FORMER USER [facility] Dec 08, 2019 09:02 AM VA-TOBACCO QUIT 15 YRS OR MORE [facility] Sep 10, 2018 07:42 AM VA-TOBACCO FORMER USER [facility] Sep 10, 2018 07:42 AM VA-TOBACCO QUIT 15 YRS OR MORE [facility] Dec 05, 2017 02:07 PM QUIT TOBACCO USE > 7 YEARS AGO [facility] Jan 17, 2017 09:55 AM QUIT TOBACCO USE > 7 YEARS AGO [facility] Jan 30, 2016 08:10 AM QUIT TOBACCO USE > 7 YEARS AGO quit 1988 [facility] Dec 25, 2010 10:36 AM QUIT TOBACCO USE > 7 YEARS AGO Pt. stated he quit in 1988! [facility] Advance Directives: All historical and current Section Date Range: From patient's date of to the date document was created. This section includes ALL of a patient's completed or amended [place] Advance and Rescinded Directives. The entries below indicate that a directive exists for the patient, but an actual copy is not included with this document. The data comes from all [place] facilities. Date Advance Directives Provider Source Dec 25, 2010 ADVANCE DIRECTIVE DIONNE HOGUE [facility] Encounter Notes: All associated encounter notes [...] identity was verified using two identifiers, per [place] Policy: Full Name, Full SSN CARA SOMMERS [...] NEGATIVE Bilirubin, Urine (AX 4280): NEGATIVE Specific Mentcle, (AX 4280): 1.044 H pH, Urine (HY3920): 6.0 Urobilinogen, Urine (AX 4280): <2.0 Leukocyte [...] 30.9 Neut %: 49.8 Lymph %: 38.8 Mcdowell %: 8.9 Eos %: 1.1 Baso %: 0.9 Neut, Abs: 3.27 Lymph, Abs: 2.54 Mcdowell, Abs: 0.58 Eos, Abs: 0.07 Baso, Abs: 0.06 Immature Granulocytes %: 0.5 Immature Granulocytes, Abs: 0.03 Knowledge Assessment: good Patient received education on the following topics today: HTN/Stroke & his personal risk factors Diet: Caffeine Intake: Alcohol Intake: Tobacco: Exercise: Other habits: Life style modifications encouraged: Barriers to learning: None If other, list here: Strategy/motivation for lifestyle change: Referral to [facility] peer partner: No Patient verbalized understanding: Yes Patient agreed with plan: Yes PCP notified: Yes P: Return to clinic/ Return to PCP clinic Clinician plan: As needed. Total time spent in pt care and education was 30 minutes. /caesar/ SAMMY [place] RN REGISTERED NURSE Signed: 12/16/2023 14:11 SAMMY [place]
--- OUTSIDE RECORDS SUMMARY | 2024-08-13 15:03 | XMS_ITS | Encounter Summary ---
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 reconciliation. INCLUDED IN THIS LIST: Alphabetical list of active outpatient prescriptions dispensed from this [place] (local) and dispensed from another [place] or [facility] facility (remote) as well as inpatient orders (local, pending and active), local clinic medications, locally documented non-VA medications, and local prescriptions that have or been discontinued in the past 90 days. - Discrepancies were identified, addressed, and discussed with the patient/caregiver at this encounter. Discrepancies: chart updated - All changes in medications, including all non-VA/Herbal/OTC medications were entered into [facility]S. - If there were any medications the patient should no longer take, they were discontinued. - The patient/caregiver was instructed to update this list, discard old lists, and take this list to the next appointment, whether with a VA or non-VA provider. BMI>30/>24.99 High Risk: At this visit, the health risks of obesity were reviewed and discussed with the , and the benefits of a weight management treatment program, such as [facility] was discussed and offered to the [place]. After discussing the health risks of being overweight or obese and providing information about available weight management treatment, and offering a referral to [facility] or another weight management treatment program outside the [facility], the patient DECLINES REFERRAL to [facility] or any other weight management treatment program at this time. HTN Assess for Elevated BP>=140/90: Repeat blood pressure: 160/90 The patient's blood pressure is usually adequately controlled. No medication changes are indicated at this time. Comment: f/u nursing visit in 2 weeks /caesar/ NINO MAI MD PHYSICIAN Signed: 12/07/2023 12:09 Receipt Acknowledged By: 12/08/2023 09:28 /edwardo PETTY 12/08/2023 ADDENDUM STATUS: COMPLETED POST OFFICE CLERK REQUESTED RECORDS. /edwardo PETTY Signed: 12/08/2023 09:28 12/09/2023 ADDENDUM STATUS: COMPLETED MRI lumbar spine report received, available in PCP rightfax folder for review. /edwardo Owens RN Registered Nurse Signed: 12/09/2023 10:37 Receipt Acknowledged By: 01/17/2024 21:57 /edwardo MAI MD PHYSICIAN 03/19/2024 ADDENDUM STATUS: COMPLETED Discharge note from [facility] dated 03/13/2024 received, sent to [facility]. [place] admitted for acute cholecystitis, had laparoscopic cholecystecomy, discharged to home next day. Also received ED note dated 03/16/2024, sent to [facility]. [place] experiencing throat discomfort after uvula injury during intubation for above. Advised to follow up with ENT. /es/ Macario Lefer-Quick, RN Registered Nurse Signed: 03/19/2024 08:49 DANILO MAI [place]
--- OUTSIDE RECORDS SUMMARY | 2024-08-13 15:03 | XMS_ITS | Encounter Summary ---
Author Name [facility] [place] [facility] [place] Address [address] [place] [address] Care Team Providers Care Wafer Slicer Name Role Phone NINO MAI Primary Care [...] BASIC SELF+ ONE Jun 23, 2020 113 [id number] [phone] STEPHEN SOMMERS PATIENT ANTHEM BCBS CT FEDERAL PREFERRED PROVIDER ORGANIZAT ION (PPO) STAND RAEANN SELF + ONE Jun 23, 2015 106 [id number] [phone] STEPHEN SOMMERS PATIENT ANTHEM BCBS FEDERAL PREFERRED PROVIDER ORGANIZAT ION (PPO) STAND RAEANN SELF+ ONE Jun 23, 2015 106 [id number] CRISTOPHER SOMMERSRayne JORDAN PATIENT BCBS [place] FEP PREFERRED PROVIDER ORGANIZAT ION (PPO) PSHB BAS SELF PLUS 1 Jun 23, 2024 [id number] STEPHEN SOMMERS PATIENT [place] F[place] PREFERRED PROVIDER ORGANIZAT ION (PPO) STAND RAEANN SELF PLUS 1 Jun 23, 2015 106 [id number] STEPHEN SOMMERS PATIENT [place] FEP PREFERRED PROVIDER ORGANIZAT ION (PPO) BASIC SELF+ ONE Jun 23, 2020 113 [id number] STEPHEN SOMMERS PATIENT [place] F[place] PREFERRED PROVIDER ORGANIZAT ION (PPO) STAND RAEANN SELF+ ONE Jun 23, 2015 106 [id number] [phone] STEPHEN SOMMERS PATIENT [place] FEP DENTAL DENTAL INSURANCE BASIC Jun 23, 2020 DENTAL [id number] STEPHEN SOMMERS PATIENT [place] FEP BCBS PRESCRIPT ION CAREM ARK FEPRX PLAN Jun 23, 2015 [id number] STEPHEN SOMMERS PATIENT [place] FEPRX PLAN PRESCRIPT ION CAREM ARK FEPRX Jun 23, 2015 [id number] STEPHEN SOMMERS PATIENT MEDICARE (WNR) MEDICARE () PART A May 23, 2020 PART A [id number] STEPHEN SOMMERS PATIENT MEDICARE (WNR) MEDICARE () PART B May 23, 2020 PART B [id number] STEPHEN SOMMERS PATIENT MEDICARE (WNR) MEDICARE () PART A May 23, 2020 PART A [id number] STEPHEN SOMMERS PATIENT MEDICARE (WNR) MEDICARE () PART B May 23, 2020 PART B [id number] STEPHEN SOMMERS PATIENT MEDICARE (WNR) MEDICARE () PART A May 23, 2020 PART A [id number] STEPHEN SOMMERS PATIENT MEDICARE (WNR) MEDICARE () PART B May 23, 2020 PART B [id number] [id number] STEPHEN SOMMERS PATIENT Selected Encounter This section includes the information on record at [place] for the Encounter. Date/Time Encounter Type Encounter Description Reason Pro vider Source Jul 20, 2024 01:37 PM Outpatient Encounter PRIMARY CARE/MEDICINE IHE Encounter Template Text not used by [place] Plan of Treatment: Future Appointments (+ 6 months) and Future Tests (+/- 45 days) The Plan of Treatment section includes future care activities for the patient [facility] [place] [facility] This section includes future appointments and future orders which are active, pending or scheduled. Future Appointments This section includes appointments that were scheduled to occur 6 months from the date of the Encounter, up to a maximum of 20 appointments. The data comes from all [facility]. Appointment Date/Time Appointment Type Appointme nt Facility Name Jul 28, 2024 09:30 AM [facility] Jul 30, 2024 02:00 PM AMBULATORY - MEDICINE [facility] Aug 27, 2024 02:30 PM AMBULATORY - PSYCHIATRY [facility] Aug 30, 2024 02:30 PM AMBULATORY - MEDICINE [facility] Oct 18, 2024 08:00 AM AMBULATORY - NONE [facility] Active, Pending, and Scheduled Orders This section includes a listing of several types of active, pending, and scheduled orders, including clinic medications orders, diagnostic test orders, procedure orders and consult orders; where the start date of the order is 45 days before the date of the Encounter or 45 days after the date of theEncounter. The data comes from all [facility]. Test Date/Time Test Type Test Details Facility Name Jul 23, 2024 12:00 AM Laboratory - Chemistry Order URINALYSIS URINE [facility] Jul 23, 2024 12:00 AM Laboratory - Chemistry Order PSA BLOOD (SST-SERUM) [facility] Jul 23, 2024 12:00 AM Laboratory - Chemistry Order LIPID PANEL FASTING BLOOD (SST-SERUM) [facility] Jul 23, 2024 12:00 AM Laboratory - Chemistry Order LIVER FUNCTION BLOOD (SST-SERUM) [facility] Jul 23, 2024 12:00 AM Laboratory - Chemistry Order CBC AND DIFF (AUTO) BLOOD (LAV-BLOOD) [facility] Jul 23, 2024 12:00 AM Laboratory - Chemistry Order BASIC METABOLIC PANEL (fasting) BLOOD (SST-SERUM) [facility] Jul 23, 2024 12:00 AM Laboratory - Chemistry Order HEMOGLOBIN A1C PANEL BLOOD (LAV-BLOOD) [facility] Jul 23, 2024 12:00 AM Laboratory - Chemistry Order [facility] 04[facility]32 PM Consult Order RESPIRATORY THERAPY/ NHM OUTPT Cons Personal Vehicle Advisor's Choice [facility] Social History: Smoking Status (Most current) and Tobacco Use (All prior to encounter date) This section includes the most current, and the historical, smoking and tobacco- related health factors from the [place] facility where the Encounter took place. Current Smoking Status This section includes the most current smoking, or tobacco-related health factor, from the [place] facility where the Encounter took place. Date/Time Current Smoking Status Comment Facil ity Apr 17, 2023 01:59 PM [place]-TOBACCO QUIT 15 YRS OR MORE [facility] Tobacco Use History This section includes a history of the smoking, or tobacco-related health factors, that were collected on or before the date of the Encounter. The data comes from the [place] facility where the Encounter took place. Date/Time Smoking Status/Tobacco Use Comment F acility Apr 17, 2023 01:59 PM [place]-TOBACCO QUIT 15 YRS OR MORE [facility] Jan 09, 2022 08:40 AM [place]-TOBACCO FORMER USER [facility] Jan 09, 2022 08:40 AM [place]-TOBACCO QUIT 15 YRS OR MORE [facility] Advance Directives: All historical and current Section Date Range: From patient's date of to the date document was created. This section includes ALL of a patient's completed or amended [place] Advance and Rescinded Directives. The entries below indicate that a directive exists for the patient, but an actual copy is not included with this document. The data comes from all [place] facilities. Date Advance Directives Provider Source Dec 25, 2010 ADVANCE DIRECTIVE DIONNE HOGUE [facility] Encounter Notes: All associated encounter notes This section contains the clinical notes associated to the Encounter. Date/Time Encounter Note(s) Provider Source Jul 20, 2024 01:37 PM MEDICATION MGT NOT E: LOCAL TITLE: OUTPATIENT MEDICATION REQUEST STANDARD TITLE: MEDICATION MGT NOTE DATE OF NOTE: JUL 20, 2024@13:37 ENTRY DATE: JUL 20, 2024@13:37:17 AUTHOR: SIMIN WASHINGTON COSIGNER: URGENCY: STATUS: COMPLETED Medication Request Date of Request: Jun Is this a New Medication? No PLEASE RENEW AND MAIL 1) ACETAMINOPHEN 500MG TAB TAKE TWO TABLETS BY MOUTH TWICE ACTIVE DAILY Indication: FOR PAIN /es/ SIMIN WASHINGTON LPN LPN Signed: 07/20/2024 13:38 Receipt Acknowledged By: 07/22/2024 00:19 /caesar/ NINO MAI MD PHYSICIAN SIMIN WASHINGTON
--- OUTSIDE RECORDS SUMMARY | 2024-08-13 15:04 | XMS_ITS ---
Author Name [facility] Organization [facility] [place] Address [address] [place] [address] Care Team Providers Care Network Consultant Name Role Phone NINO MAI Primary Care [...] BASIC SELF+ ONE Jun 23, 2020 113 [id number] [phone] STEPHEN SOMMERS PATIENT ANTHEM BCBS CT FEDERAL PREFERRED PROVIDER ORGANIZAT ION (PPO) STAND RAEANN SELF + ONE Jun 23, 2015 106 [id number] [phone] STEPHEN SOMMERS PATIENT ANTHEM BCBS FEDERAL PREFERRED PROVIDER ORGANIZAT ION (PPO) STAND RAEANN SELF+ ONE Jun 23, 2015 106 [id number] STEPHEN SOMMERS PATIENT BCBS [place] F[place] PREFERRED PROVIDER ORGANIZAT ION (PPO) PSHB BAS SELF PLUS 1 Jun 23, 2024 [id number] STEPHEN SOMMERS PATIENT [place] PREFERRED PROVIDER ORGANIZAT ION (PPO) STAND RAEANN SELF PLUS 1 Jun 23, 2015 106 [id number] STEPHEN SOMMERS PATIENT [place] PREFERRED PROVIDER ORGANIZAT ION (PPO) BASIC SELF+ ONE Jun 23, 2020 113 [id number] STEPHEN SOMMERS PATIENT [place] PREFERRED PROVIDER ORGANIZAT ION (PPO) STAND RAEANN SELF+ ONE Jun 23, 2015 106 [id number] STEPHEN SOMMERS PATIENT [place] DENTAL DENTAL INSURANCE BASIC Jun 23, 2020 DENTAL [id number] [phone] STEPHEN SOMMERS PATIENT [place] FEP BCBS PRESCRIPT ION CAREM ARK FEPRX PLAN Jun 23, 2015 [id number] STEPHEN SOMMERS PATIENT [place] FEPRX PLAN PRESCRIPT ION CAREM [place] FEPRX Jun 23, 2015 [id number] [phone] STEPHEN SOMMERS PATIENT MEDICARE (WNR) MEDICARE () PART A May 23, 2020 PART A [id number] STEPHEN SOMMERS PATIENT MEDICARE (WNR) MEDICARE () PART B May 23, 2020 PART B [id number] STEPHEN SOMMERS PATIENT MEDICARE (WNR) MEDICARE () PART A May 23, 2020 PART A [id number] STEPHEN SOMMERS PATIENT MEDICARE (WNR) MEDICARE () PART B May 23, 2020 PART B [id number] STEPHEN SOMMERS PATIENT MEDICARE (WNR) MEDICARE () PART A May 23, 2020 PART A [id number] STEPHEN SOMMERS PATIENT MEDICARE (WNR) MEDICARE () PART B May 23, 2020 PART B [id number] [phone] STEPHEN SOMMERS PATIENT Selected Encounter This section includes the information on record at DC for the Encounter. Date/Time Encounter Type Encounter Description Reason Provider Source Jul 28, 2024 09:30 AM OFFICE O/P EST LOW 20 MIN PM&RS PHYSICIAN ICD-10-CM G20.C Parkinsonism, unspecified BIBI GLASGOW [facility] Encounter Template Text not used by DC Assessments - Encounter Diagnoses This section includes the primary and secondary diagnoses documented for the Encounter. Date/Time Primary/Secondary Diagnosis Diagnosis Name Provider Source Jul 31, 2024 08:47 AM PRIMARY Parkinsonism, unspecified BIBI GLASGOW [facility] Jul 31, 2024 08:47 AM SECONDARY Other spondylosis, lumbar region BIBI GLASGOW [facility] Plan of Treatment: Future Appointments (+ 6 months) and Future Tests (+/- 45 days) The Plan of Treatment section includes future care activities for the patient from all [facility] This section includes future appointments and future orders which are active, pending or scheduled. Future Appointments This section includes appointments that were scheduled to occur 6 months from the date of the Encounter, up to a maximum of 20 appointments. The data comes from all [facility]. Appointment Date/Time Appointment Type Appointme nt Facility Name Jul 30, 2024 02:00 PM AMBULATORY - MEDICINE [facility] Aug 27, 2024 02:30 PM AMBULATORY - PSYCHIATRY [facility] Aug 30, 2024 02:30 PM AMBULATORY - MEDICINE [facility] Oct 18, 2024 08:00 AM AMBULATORY - NONE [facility] Active, Pending, and Scheduled Orders This section includes a listing of several types of active, pending, and scheduled orders, including clinic medications orders, diagnostic test orders, procedure orders and consult orders; where the start date of the order is 45 days before the date of the Encounter or 45 days after the date of theEncounter. The data comes from all [facility]. Test Date/Time Test Type Test Details Facility Name Jul 23, 2024 12:00 AM Laboratory - Chemistry Order URINALYSIS URINE [facility] Jul 23, 2024 12:00 AM Laboratory - Chemistry Order PSA BLOOD (SST-SERUM) [facility] Jul 23, 2024 12:00 AM Laboratory - Chemistry Order LIPID PANEL FASTING BLOOD (SST-SERUM) [facility] Jul 23, 2024 12:00 AM Laboratory - Chemistry Order LIVER FUNCTION BLOOD (SST-SERUM) [facility] Jul 23, 2024 12:00 AM Laboratory - Chemistry Order CBC AND DIFF (AUTO) BLOOD (LAV-BLOOD) [facility] Jul 23, 2024 12:00 AM Laboratory - Chemistry Order BASIC METABOLIC PANEL (fasting) BLOOD (SST-SERUM) [facility] Jul 23, 2024 12:00 AM Laboratory - Chemistry Order HEMOGLOBIN A1C PANEL BLOOD (LAV-BLOOD) [facility] Jul 23, 2024 12:00 AM Laboratory - Chemistry Order TSH BLOOD (SST-SERUM) [facility] Aug 02, 2024 04:32 PM Consult Order RESPIRATORY THERAPY/ [facility]M OUTPT Cons Resource Development Director's Choice [facility] Social History: Smoking Status (Most current) and Tobacco Use (All prior to encounter date) This section includes the most current, and the historical, smoking and tobacco- related health factors from the [place] facility where the Encounter took place. Current Smoking Status This section includes the most current smoking, or tobacco-related health factor, from the [place] facility where the Encounter took place. Date/Time Current Smoking Status Comment Facil ity Apr 17, 2023 01:59 PM DC-TOBACCO QUIT 15 YRS OR MORE [facility] Tobacco Use History This section includes a history of the smoking, or tobacco-related health factors, that were collected on or before the date of the Encounter. The data comes from the [place] facility where the Encounter took place. Date/Time Smoking Status/Tobacco Use Comment F acility Apr 17, 2023 01:59 PM DC-TOBACCO QUIT 15 YRS OR MORE [facility] Jan 09, 2022 08:40 AM DC-TOBACCO FORMER USER [facility] Jan 09, 2022 08:40 AM DC-TOBACCO QUIT 15 YRS OR MORE [facility] Advance Directives: All historical and current Section Date Range: From patient's date of to the date document was created. This section includes ALL of a patient's completed or amended [place] Advance and Rescinded Directives. The entries below indicate that a directive exists for the patient, but an actual copy is not included with this document. The data comes from all [place] facilities. Date Advance Directives Provider Source Dec 25, 2010 [facility] Encounter Notes: All associated encounter notes This section contains the clinical notes associated to the Encounter. Date/Time Encounter Note(s) Provider Source Jul 28, 2024 09:39 AM PHYSICAL MEDICINE REHAB PHYSICIAN NOTE: LOCAL TITLE: PM&R FOLLOW-UP STANDARD TITLE: PHYSICAL MEDICINE REHAB PHYSICIAN NOTE DATE OF NOTE: JUL 28, 2024@09:39 ENTRY DATE: JUL 28, 2024@09:40:21 AUTHOR: RIO GLASGOW COSIGNER: URGENCY: STATUS: COMPLETED [facility] Video Connect (VVC) Standard Documentation VVC Clinician Resources Only: E911 (Emergency Call Relay Center): [phone] National Veterans Crisis Line - 988 then press #1. CW Suicide Coordinator [phone], Ext. [phone]; Back-up Ext. [phone] [place] Police, Forrest RIVERA [phone] Introduction: Visit is being conducted by DC Blyk. identified with 2 identifiers: [X] Full Name [X] Date of [ ] VA ID Card Emergency Plan: confirmed and/or provided the following information in case of emergency or technology failure. PATIENT PHONE - [phone] PHONE NUMBER [CELLULAR] - Is patient phone number correct, if not, enter below: Interior's phone number: CARA SOMMERS [address], [place], [address] Interior's present location and address for appointment: home Interior's emergency contact name and phone number: on file reported that location is private and safe: Yes Informed Consent: Interior informed of the risks and benefits of Telehealth video care. has the right to refuse video services. If refuses video visit, a [id number] visit will be scheduled. verbalized consent for this video visit: Yes Interior provided consent for any other persons present for visit: N/A If yes, who and relationship to patient: Secure visit: Visit was locked for security and privacy:Yes Subjective: Significant improvement after L5-S1 interlaminar injection. Patient reports the followin% improvement after epidural injection. He is walking more comfortably and standing more comfortably. He is not having nearly the same degree of back pain. Much of his pain was associated with axial spine pain. Last radicular symptoms. He notices that pain levels usually are not exceeding greater than 5 out of 10 on an analog scale at their worst. More typically he has had a 3. He generally feels the back is much better than it had been. Even at the time of the previous injection he felt that his back had considerably improved. Both he and his are working on weight reduction due to some health concerns that she has had. He is doing his best to aid in that. He did have questions today regarding healthful eating habits. Medications reviewed and reconciled Objective: Patient appears well and does not appear to be ill, converses appropriately, nondysarthric. is capable of transitioning without demonstration of severe dyscomfort. speech. Breathing unlabored. No appearance of distress A/P: 69-year-old with discogenic low back pain and lumbar radiculopathy. The radicular symptoms have dissipated. Low back pain is minimal at this time. He will proceed with epidural injection, repeat caudal to be scheduled in October. Encouraged to continue with walking program. Additionally encouraged to work on regulating diet. We did offer him the opportunity to meet with a road supervisor of engines but he declined. Several of books were suggested that may aid in understanding the importance of fiber rich diet and optimizing metabolism. For repeat FAIZA in Oct, 2024 Follow up: The has the following upcoming VA bookings and is on the following medications : 07/30/2024 14:00 SPR PODIATRY 1 08/12/2024 14:00 CWM/SO/VVC/MHC/LARROW 08/30/2024 14:30 CWM/SO/PACT 5 04/25/2025 15:30 NHM OPTOMETRY 1 PM MDM: 25 minutes Rio Glasgow PA-C Medication Reconciliation: Outpatient: Has the patient been taking medications as documented in the EMLR? YES: The patient has been taking medications as documented in the EMLR. Essential Medication List for Review used to complete this medication reconciliation. INCLUDED IN THIS LIST: Alphabetical list of active outpatient prescriptions dispensed from this VA (local) and dispensed from another VA or DoD facility (remote) as well as inpatient orders (local, pending and active), local clinic medications, locally documented non-VA medications, and local prescriptions that have or been discontinued in the past 90 days. - All changes in medications, including all non-VA/Herbal/OTC medications were entered into CPRS. - If there were any medications the patient should no longer take, they were discontinued. - The patient/caregiver was instructed to update this list, discard old lists, and take this list to the next appointment, whether with a VA or non-VA provider. JLV Link Data on this list may not be complete. Please check JLV. Allergies/ADRs (Tool #5) FACILITY ALLERGY/ADR -------- [facility] NO KNOWN ALLERGIES [facility] No Known Allergies Med [facility] Jeffy (Tool #1) INCLUDED IN THIS LIST: Alphabetical list of active outpatient prescriptions dispensed from this DC (local) and dispensed from another DC or DoD facility (remote) as well as inpatient orders (local pending and active), local clinic medications, locally documented non-VA medications, and local prescriptions that have or been discontinued in the past 90 days. Non-VA Meds Last Documented On: Apr 17, 2023 NOTE The display of VA prescriptions dispensed from another VA or DoD facility (remote) is limited to active outpatient prescription entries matched to National Drug File at the originating site and may not include some items such as investigational drugs, compounds, etc. NOT INCLUDED IN THIS LIST: Medications self-entered by the patient into personal health records (i.e. [employer]) are NOT included in this list. Non-VA medications documented outside this DC, remote inpatient orders (regardless of status) and remote clinic medications are NOT included in this list. The patient and provider must always discuss medications the patient is taking, regardless of where the medication was dispensed or obtained. OUTPT ACETAMINOPHEN 500MG TAB (Status = Discontinued) TAKE TWO TABLETS BY MOUTH TWICE DAILY FOR PAIN Rx# [id number] Last Released: 02/19/24 Qty/Days Supply: Rx Expiration Date: 09/29/24 Refills Remainin Indication: FOR PAIN OUTPT ACETAMINOPHEN 500MG TAB (Status = Active) TAKE TWO TABLETS BY MOUTH TWICE DAILY FOR PAIN Rx# [id number] Last Released: Qt Supply: Rx Expiration Date: 07/23/25 Refills Remainin Indication: FOR PAIN Non-VA ASPIRIN 81MG EC TAB TAKE ONE TABLET BY MOUTH ONCE DAILY Non-VA CARBIDOPA 25/LEVODOPA 100MG TAB 100MG TABLET TAKE ONE TABLET BY MOUTH FOUR TIMES A DAY Medication prescribed by Non-VA provider. Indication: FOR PARKINSON SYMPTOMS OUTPT CHOLECALCIF 25MCG (D3-1,000UNIT) TAB (Status = Active/Suspended) TAKE ONE TABLET BY MOUTH ONCE DAILY FOR VITAMIN SUPPLEMENTATION Rx# [id number] Last Released: 05/12/24 Qty/Days Supply: Rx Expiration Date: 12/02/24 Refills Remainin Indication: FOR VITAMIN D DEFICIENCY OUTPT CITALOPRAM HYDROBROMIDE 20MG TAB (Status = Active/Suspended) TAKE ONE TAB BY MOUTH ONCE DAILY FOR MOOD Rx# [id number] Last Released: 07/13/24 Qty/Days Supply: Rx Expiration Date: 02/12/25 Refills Remainin OUTPT DOCUSATE NA 100MG CAP (Status = Active/Suspended) TAKE ONE CAPSULE BY MOUTH ONCE DAILY FOR CONSTIPATION TO SOFTEN STOOL Rx# [id number] Last Released: 05/25/24 Qty/Days Supply: Rx Expiration Date: 12/02/24 Refills Remainin Indication: FOR CONSTIPATION OUTPT FLUTICASONE PROP 50MCG 120D NASAL INHL (Status = Active/Suspended) INSTILL 2 SPRAYS INTO EACH NOSTRIL ONCE DAILY FOR NASAL IRRITATION/INFLAMMATION Rx# [id number] Last Released: 07/13/24 Qty/Days Supply: 07/22 Rx Expiration Date: 12/02/24 Refills Remainin Indication: FOR NASAL IRRITATION/INFLAMMATION OUTPT KETOROLAC TROMETHAMINE 0.5% OPH SOLN (Status = ) INSTILL 1 DROP DIRECTED TWICE DAILY INTO OPERATIVE EYE STARTING 2 DAYS BEFORE SURGERY Rx# [id number] Last Released: 09/18/23 Qty/Days Supply: Rx Expiration Date: 07/22/24 Refills Remainin OUTPT LISINOPRIL 20MG TAB (Status = Discontinued) TAKE ONE TABLET BY MOUTH ONCE DAILY FOR HIGH BLOOD PRESSURE TO CONTROL BLOOD PRESSURE Rx# [id number] Last Released: 05/12/24 Qty/Days Supply: Rx Expiration Date: 09/08/24 Refills Remainin Indication: FOR HIGH BLOOD PRESSURE OUTPT LISINOPRIL 20MG TAB (Status = Discontinued) TAKE ONE TABLET BY MOUTH ONCE DAILY FOR HIGH BLOOD PRESSURE TO CONTROL BLOOD PRESSURE Rx# [id number] Last Released: Qt Supply: Rx Expiration Date: 06/05/25 Refills Remainin Indication: FOR HIGH BLOOD PRESSURE OUTPT LISINOPRIL 20MG TAB (Status = Active/Suspended) TAKE ONE TABLET BY MOUTH ONCE DAILY FOR HIGH BLOOD PRESSURE TO CONTROL BLOOD PRESSURE Rx# [id number] Last Released: Qt Supply: Rx Expiration Date: 07/23/25 Refills Remainin Indication: FOR HIGH BLOOD PRESSURE OUTPT MIRABEGRON 50MG SA TAB (Status = Active/Suspended) TAKE ONE TABLET BY MOUTH ONCE DAILY FOR OVERACTIVE BLADDER Rx# [id number] Last Released: 06/02/24 Qty/Days Supply: Rx Expiration Date: 12/31/24 Refills Remainin Indication: FOR OVERACTIVE BLADDER Non-VA OTHER CAP/TAB TAKE MAGNESIUM BY MOUTH ONCE DAILY OUTPT PRAZOSIN HCL 2MG CAP (Status = Active) TAKE THREE CAPSULES BY MOUTH AT BEDTIME -FOR NIGHTMARES (OFF-LABEL) DO NOT TAKE ON NIGHTS THAT YOU TAKE SILDENAFIL Rx# [id number] Last Released: 04/23/24 Qty/Days Supply: Rx Expiration Date: 02/12/25 Refills Remainin OUTPT SENNOSIDES 8.6MG TAB (Status = Active/Suspended) TAKE TWO TABLETS BY MOUTH ONCE DAILY FOR CONSTIPATION Rx# [id number] Last Released: 05/12/24 Qty/Days Supply: 200 Rx Expiration Date: 12/02/24 Refills Remainin Indication: FOR CONSTIPATION OUTPT TRAZODONE HCL 50MG TAB (Status = Active) TAKE ONE TO THREE TABLETS BY MOUTH AT BEDTIME NEEDED FOR INSOMNIA ASSOCIATED WITH DEPRESSION FOR SLEEP Rx# [id number] Last Released: 07/09/24 Qty/Days Supply: 90 Rx Expiration Date: 12/31/24 Refills Remainin Indication: FOR INSOMNIA ASSOCIATED WITH DEPRESSION OUTPT VALPROIC ACID 250MG CAP (Status = Active/Suspended) TAKE THREE CAPSULES BY MOUTH TWICE DAILY FOR MOOD Rx# [id number] Last Released: 06/11/24 Qty/Days Supply: 540 Rx Expiration Date: 02/12/25 Refills Remainin SUPPLIES /caesar/ RIO GLASGOW [facility] Signed: 07/28/2024 11:02 RIO GLASGOW CNTL [facility]
--- OUTSIDE RECORDS SUMMARY | 2024-08-13 15:04 | XMS_ITS | Encounter Summary ---
Author Name [facility] [place] [facility] [place] [facility] [place] [facility] [place] Address [address] [place] [address] Care Team Providers Care Customer Data Technician Name Role Phone NINO MAI Primary [...] BASIC SELF+ ONE Jun 23, 2020 113 [id number] [phone] STEPHEN SOMMERS PATIENT ANTHEM BCBS CT FEDERAL PREFERRED PROVIDER ORGANIZAT ION (PPO) STAND RAEANN SELF + ONE Jun 23, 2015 106 [id number] [phone] STEPHEN SOMMERS PATIENT ANTHEM BCBS FEDERAL PREFERRED PROVIDER ORGANIZAT ION (PPO) STAND RAEANN SELF+ ONE Jun 23, 2015 106 [id number] STEPHEN SOMMERS PATIENT BCBS [place] FEP PREFERRED PROVIDER ORGANIZAT ION (PPO) PSHB BAS SELF PLUS 1 Jun 23, 2024 [id number] STEPHEN SOMMERS PATIENT BCBS [place] F[place] PREFERRED PROVIDER ORGANIZAT ION (PPO) STAND RAEANN SELF PLUS 1 Jun 23, 2015 106 [id number] STEPHEN SOMMERS PATIENT [place] PREFERRED PROVIDER ORGANIZAT ION (PPO) BASIC SELF+ ONE Jun 23, 2020 113 [id number] [phone] STEPHEN SOMMERS PATIENT [place] PREFERRED PROVIDER ORGANIZAT ION (PPO) STAND RAEANN SELF+ ONE Jun 23, 2015 106 [id number] STEPHEN SOMMERS PATIENT [place] DENTAL DENTAL INSURANCE BASIC Jun 23, 2020 DENTAL [id number] STEPHEN SOMMERS PATIENT [place] FEP BCBS PRESCRIPT ION CAREM ARK FEPRX PLAN Jun 23, 2015 [id number] STEPHEN SOMMERS PATIENT [place] FEPRX PLAN PRESCRIPT ION CAR[place] FEPRX Jun 23, 2015 [id number] STEPHEN SOMMERS PATIENT MEDICARE (WNR) MEDICARE () PART A May 23, 2020 PART A [id number] STEPHEN SOMMERS PATIENT MEDICARE (WNR) MEDICARE () PART B May 23, 2020 PART B [id number] STEPHEN SOMMERS PATIENT MEDICARE (WNR) MEDICARE () PART A May 23, 2020 PART A [id number] STEPHEN SOMMERS PATIENT MEDICARE (WNR) MEDICARE () PART B May 23, 2020 PART B [id number] [phone] [id number] STEPHEN SOMMERS PATIENT MEDICARE (WNR) MEDICARE () PART A May 23, 2020 PART A [id number] STEPHEN SOMMERS PATIENT MEDICARE (WNR) MEDICARE () PART B May 23, 2020 PART B [id number] STEPHEN SOMMERS PATIENT Selected Encounter This section includes the information on record at [place] for the Encounter. Date/Time Encounter Type Encounter Description Reason Provider Source Aug 21, 2023 02:00 PM OFFICE O/P EST MOD 30 MIN [facility] - IND ICD-10-CM F06.30 Mood disorder due to known physiological condition, shrutip VALERIANO HURT [facility] Encounter Template Text not used by [place] Assessments - Encounter Diagnoses This section includes the primary and secondary diagnoses documented for the Encounter. Date/Time Primary/Secondary Diagnosis Diagnosis Name Provider Source Dec 06, 2023 05:46 AM PRIMARY Mood disorder due to known physiological condition, shrutip VALERIANO HURT [facility] Dec 06, 2023 05:46 AM SECONDARY Anxiety disorder, unspecified VALERIANO HURT [facility] Dec 06, 2023 05:46 AM SECONDARY Personal history of traumatic brain injury VALERIANO HURT [facility] Plan of Treatment: Future Appointments (+ 6 months) and Future Tests (+/- 45 days) The Plan of Treatment section includes future care activities for the [facility] [place] [facility] This section includes future appointments and future orders which are active, pending or scheduled. Future Appointments This section includes appointments that were scheduled to occur 6 months from the date of the Encounter, up to a maximum of 20 appointments. The data comes from all [place] treatment facilities. Appointment Date/Time Appointment Type Appointme nt Facility Name Sep 02, 2023 10:20 AM AMBULATORY - MEDICINE [place] [facility] [place] [facility] Sep 08, 2023 02:30 PM AMBULATORY - MEDICINE [facility] [place] [facility] Sep 19, 2023 12:55 PM AMBULATORY - MEDICINE [facility] [place] [facility] Oct 02, 2023 01:00 PM AMBULATORY - MEDICINE [place] [facility] [place] [facility] Oct 06, 2023 10:30 AM [facility] Oct 15, 2023 02:30 PM [facility] [place] [facility] Oct 17, 2023 07:55 PM AMBULATORY - MEDICINE [facility] [place] [facility] November 12, 2023 01:30 PM AMBULATORY - REHAB MEDICIN [facility] [place] [facility] November 13, 2023 02:00 PM AMBULATORY - PSYCHIATRY [facility] Dec 02, 2023 01:00 PM [facility] - MEDICINE [facility] Dec 16, 2023 01:30 PM AMBULATORY - MEDICINE [facility] Jan 21, 2024 03:00 PM AMBULATORY - MEDICINE [facility] [place] [facility] Feb 12, 2024 02:00 PM AMBULATORY - PSYCHIATRY [facility] Lab Results: +/- 30 days of the encounter This section includes the Chemistry and Hematology Lab Results on record with [place] for the patient. Radiology Reports and Pathology Reports are provided separately, in subsequent sections. Lab Results This section contains the Chemistry/Hematology Results that were resulted 30 days before or 30 daysafter the date of the Encounter. Date/Time Source Result Type Result - Unit Interpretation Reference Range Comment Sep 15, 2023 12:33 PM [facility] HEMOGLOBIN A1C PANEL Specimen Type: BLOOD Comment: [...] Sep 08, 2023 01:58 PM Reporting Lab: [address] [address] Performing Lab: [address] [address] HEMOGLOBIN A1C 5.0 4.0-5.6 Sep 15, 2023 12:33 PM [facility] MAGNESIUM Specimen Type: SERUM No comment entered. Ordering Provider: HOWARD AVELAR Report Released Date/Time: Sep 08, 2023 01:58 PM Reporting Lab: [address] [address] Performing Lab: [facility] [address] MAGNESIUM 1.9 mg/dL 1.6-2.6 Sep 15, 2023 12:33 PM [facility] TSH Specimen Type: SERUM No comment entered. Ordering Provider: HOWARD AVELAR Report Released Date/Time: Sep 08, 2023 01:58 PM Reporting Lab: [address] [address] Performing Lab: [facility] [place] [facility] [address] [address] TSH 1.35 u[IU]/mL 0.35-5.00 Sep 15, 2023 12:33 PM [facility] CALCIUM Specimen Type: SERUM No comment entered. Ordering Provider: HOWARD AVELAR Report Released Date/Time: Sep 08, 2023 01:58 PM Reporting Lab: [facility] [address] [address] Performing Lab: [facility] [address] [address] CALCIUM 9.3 mg/dL 8.5-10.2 Sep 15, 2023 12:33 PM [facility] VITAMIN D (25-OH) Specimen Type: SERUM No comment entered. Ordering Provider: HOWARD AVELAR Report Released Date/Time: Sep 08, 2023 01:58 PM Reporting Lab: [facility] [address] [address] Performing Lab: [facility]ITAL[facility] [address] [address] VITAMIN D (25-OH) 14 ng/mL L 20-50 Sep 15, 2023 12:33 PM [facility] LIPID PANEL, NON FASTING Specimen Type: SERUM No comment entered. Ordering Provider: HOWARD AVELAR Report Released Date/Time: Sep 08, 2023 01:58 PM Reporting Lab: [facility] [place] [facility] [address] [address] Performing Lab: [facility]ERN [facility]ITAL[facility] [address] [address] CHOLESTEROL 175 mg/dL TRIGLYCERIDE 192 mg/dL H 0-150 LDL calculated 88 mg/dL 0-129 CHOL/HDL 3.6 HDL CHOLESTEROL 49 mg/dL 40-60 Sep 15, 2023 12:33 PM [facility] LIVER FUNCTION Specimen Type: SERUM No comment entered. Ordering Provider: HOWARD AVELAR Report Released Date/Time: Sep 08, 2023 01:58 PM Reporting Lab: [address] [address] Performing Lab: [address] [address] PROTEIN,TOTAL 6.7 g/dL 6.0-8.3 ALBUMIN 3.6 g/dL 3.5-5.0 ALKALINE PHOSPHATASE 35 U/L L 40-150 AST 11 U/L 5-34 ALT 8 U/L BILIRUBIN, TOTAL 0.4 mg/dL 0.2-1.2 Sep 15, 2023 12:33 PM [facility] PSA Specimen Type: SERUM No comment entered. Ordering Provider: HOWARD AVELAR Report Released Date/Time: Sep 08, 2023 02:00 PM Reporting Lab: [address] [address] Performing Lab: [address] [address] PSA 1.83 ng/mL 0.00-4.00 Sep 15, 2023 12:33 PM [facility] BASIC METABOLIC PANEL (non-fasting) Specimen Type: SERUM No comment entered. Ordering Provider: HOWARD AVELAR Report Released Date/Time: Sep 08, 2023 01:58 PM Reporting Lab: [address] [address] Performing Lab: [address] [address] UREA NITROGEN 20 mg/dL 7-25 GLUCOSE 108 mg/dL H 65-100 SODIUM 139 mmol/L 135-145 POTASSIUM 4.5 mmol/L 3.5-5.0 CHLORIDE 103 mmol/L 100-110 CO2 29 meq/L 20-30 CREATININE, Serum 0.86 mg/dL 0.50-1.40 eGFR(CKD-EPI 2020) >90 mL/min >60 Sep 15, 2023 12:33 PM [facility] URINALYSIS Specimen Type: URINE Comment: If Glucose = >500 and Ketones are positive, please alert the Physician. Ordering Provider: HOWARD AVELAR Report Released Date/Time: Sep 08, 2023 01:59 PM Reporting Lab: [address] [address] Performing Lab: [address] [address] UA COLOR Yellow Yellow UA APPEARANCE Clear Clear UA GLUCOSE NEGATIVE mg/dL Negative UA KETONES TRACE mg/dL Negative UA BLOOD NEGATIVE mg/dL Negative UA PROTEIN 30 mg/dL Negative UA NITRITE NEGATIVE mg/dL Negative UA BILIRUBIN NEGATIVE mg/dL Negative UA SPECIFIC GRAVITY 1.044 H 1.016-1.02 2 UA pH 6.0 5.0-9.0 UA UROBILINOGEN <2.0 mg/dL <2.0 UA LEUKOCYTE NEGATIVE Negative Sep 15, 2023 12:33 PM [facility] CBC AND DIFF (AUTO) Specimen Type: BLOOD No comment entered. Ordering Provider: HOWARD AVELAR Report Released Date/Time: Sep 08, 2023 01:58 PM Reporting Lab: [address] [address] Performing Lab: [address] [address] WBC 6.55 10*3/uL 4.50-11.00 RBC 4.40 10*6/uL 4.23-5.66 HGB 13.6 g/dL 12.8-17 HCT 41.0 39.2-50.4 MCV 93.2 fL 82-99 MCHC 33.2 g/dL 30.8-35.1 PLT 172 10*3/uL 140-360 RDW-CV 11.5 L 12.0-16.0 Rains, Abs 0.58 10*3/uL 0.30-1.10 MCH 30.9 pg 26.2-32.6 Neut % 49.8 43.7-75.8 Lymph % 38.8 14.0-42.3 Rains % 8.9 5.1-13.7 Eos % 1.1 0.4-6.8 Baso % 0.9 0.1-2.0 Neut, Abs 3.27 10*3/uL 2.20-7.60 Lymph, Abs 2.54 10*3/uL 1.00-3.20 Eos, Abs 0.07 10*3/uL 0.03-0.44 Baso, Abs 0.06 10*3/uL 0.01-0.13 Immature Gran % 0.5 0.0-0.7 Immature Gran, Abs 0.03 10*3/uL 0.00-0.06 Social History: Smoking Status (Most current) and Tobacco Use (All prior to encounter date) This section includes the most current, and the historical, smoking and tobacco- related health factors from the [place] facility where the Encounter took place. Current Smoking Status This section includes the most current smoking, or tobacco-related health factor, from the [place] facility where the Encounter took place. Date/Time Current Smoking Status Comment Facil [facility] Dec 20, 2020 01:30 PM VA-TOBACCO NEVER USED [facility] Tobacco Use History This section includes a history of the smoking, or tobacco-related health factors, that were collected on or before the date of the Encounter. The data comes from the [place] facility where the Encounter took place. Date/Time Smoking Status/Tobacco Use Comment F acility Dec 08, 2019 09:02 AM VA-TOBACCO FORMER USER [facility] Dec 08, 2019 09:02 AM VA-TOBACCO QUIT 15 YRS OR MORE [facility] Sep 10, 2018 07:42 AM VA-TOBACCO FORMER USER [facility] Sep 10, 2018 07:42 AM VA-TOBACCO QUIT 15 YRS OR MORE [facility] Dec 05, 2017 02:07 PM QUIT TOBACCO USE > 7 YEARS AGO [facility] Jan 17, 2017 09:55 AM QUIT TOBACCO USE > 7 YEARS AGO [facility] Jan 30, 2016 08:10 AM QUIT TOBACCO USE > 7 YEARS AGO quit 1988 [facility] Dec 25, 2010 10:36 AM QUIT TOBACCO USE > 7 YEARS AGO Pt. stated he quit in 1988! [facility] Advance Directives: All historical and current Section Date Range: From patient's date of to the date document was created. This section includes ALL of a patient's completed or amended [place] Advance and Rescinded Directives. The entries below indicate that a directive exists for the patient, but an actual copy is not included with this document. The data comes from all [facility]. Date Advance Directives Provider Source Dec 25, 2010 ADVANCE DIRECTIVE DIONNE HOGUE [facility] Radiology Reports: +/- 30 days of the [...] the Encounter. The data comes from all [place] treatment facilities. Date/Time Radiology Report Provider Source Jul 23, 2023 09:28 AM FLUOROSCOPIC REFUGIO NCE OF NEEDLE/SPINE: CARA SOMMERS [id number] [id number] M Exm Date: JUL 23, 2023@09:28 Req Phys: ABILIO HAGAN THI Pat Loc: [facility]/NO/MED REHAB/SPINE INJ (Re Img Loc: [facility] Service: Unknown (Case [id number] COMPLETE) FLUOROSCOPIC GUIDANCE OF NEEDLE/S(RAD Detailed) CPT:27606 Reason for Study: Medial branch blocks Clinical History: Report Status: Verified Date Reported: JUL 23, 2023 Date Verified: JUL 23, 2023 Accounting Consultant E-Sig:/ES/ARIAN MARQUES JR Report: Study: Pain injection of the lumbar spine. Findings: Fluoroscopic guidance was provided to Pain Management for interventional pain injection. No dictation provided for this study. Images captured for documentation only. Total fluoroscopy time used was 51.2 seconds. Total cumulative dose is 20.73 mGy. Impression: Fluoroscopic guidance for interventional pain injection. Primary Diagnostic Code: No immediate attention required Primary Interpreting Staff: ARIAN MARQUES JR, Radiologist (Accounting Consultant) /ARIAN BERG JR [facility] Encounter Notes: All associated encounter notes This section contains the clinical notes associated to the Encounter. Date/Time Encounter Note(s) Provider Source Aug 21, 2023 03:49 PM TELEHEALTH NOTE: LOCAL TITLE: [facility] VIDEO CONNECT PSYCHIATRIST NOTE STANDARD TITLE: TELEHEALTH NOTE DATE OF NOTE: AUG 21, 2023@15:49 ENTRY DATE: AUG 21, 2023@15:49:46 AUTHOR: VALERIANO HURT EXP COSIGNER: URGENCY: STATUS: COMPLETED [facility] Video Connect (VVC) Standard Documentation VVC Clinician Resources Only: E911 (Emergency Call Relay Center): [phone] National [facility] Crisis Line - 988 then press #1. MIGUEL Suicide Coordinator [phone], Ext. [phone]; Back-up Ext. [phone] [place] Police, Forrest RIVERA [phone] Introduction: Visit is being conducted by [place] [facility]. identified with 2 identifiers: [X] Full Name [X] Date of [ ] VA ID Card Emergency Plan: confirmed and/or provided the following information in case of emergency or technology failure. PATIENT PHONE - [phone] PHONE NUMBER [CELLULAR] - Is patient phone number correct, if not, enter below: [place]'s phone number: CARA SOMMERS [address], [place], [address] [place]'s present location and address for appointment: home 's emergency contact name and phone number: see cover [place] reported that location is private and safe: Yes Informed Consent: informed of the risks and benefits of Telehealth video care. has the right to refuse video services. If refuses video visit, a [id number] visit will be scheduled. verbalized consent for this video visit: Yes [place] provided consent for any other persons present for visit: Yes If yes, who and relationship to patient: Secure visit: Visit was locked for security and privacy:Yes Time spent: 21-30 minutes >16 mins supportive therapy. The presents today for follow-up. PATIENT REPORT: [place] presents with good self-care. Mood is good. He denies depressed mood. He denies symptoms of hypomania, though notes that he's becoming more goal-driven )he minimizes, states it's due to change of season). has no concerns beyond just her keeping an eye on this. Chronic low back pain is a stressor--he has a consult for RFA (radiofrequency ablation) next week. He has not had n acuouncture visit lately due to cataract surgery (which was successful). He is conversational. He is hopeful. He brightens appropriately. has motivations and interests. He denies irritability. Sleep is good. 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 Further, he and have been doing projects around the house. He does not report current anger or irritability. He feels that he's maintained the skills he learned in group. He is using his light therapy box on most days. Anxiety is manageable. He sees Neurology regularly (Dr. Penny Colon). He denies dizziness. He has good supports. He hopes to get back to [place] this summer ([place] [facility]--[address] He is aware of need for follow-up VPA level. presents with good self-care. He was cooperative with questions asked. Cognitive exam was grossly intact. TP was logical and organized. TC was pertinent to topic. Speech was of regular rate, rhythm, volume, and somewhat monotone. Mood was even. Affect was full and with good range. He denied SI and HI. Insight and judgment were intact. SOCIAL HISTORY: [employer] FROM Jan TO Dec spends some time discussing the dysfunction in his family. His 91 yo father lives with his sister. He rarely gets to see him. His children live in [place]. He reports a good relationship with them. He and his like to spend time in [place] (her parents, now , lived there) SUICIDE RISK ASSESSMENT: SUICIDE INQUIRY: IDEATION: Denies ideation. Do you currently have any homicidal ideation? No ACTIVE OUTPATIENT MEDICATIONS (including Supplies): Active Outpatient Medications (including Supplies): ACETAMINOPHEN 500MG TAB TAKE TWO TABLETS BY MOUTH TWICE ACTIVE DAILY FOR PAIN CELECOXIB 200MG CAP TAKE ONE CAPSULE BY MOUTH ONCE DAILY ACTIVE NEEDED FOR ARTHRITIS CITALOPRAM HYDROBROMIDE 20MG TAB TAKE ONE TAB BY MOUTH ACTIVE ONCE DAILY FOR MOOD CITALOPRAM HYDROBROMIDE 20MG TAB TAKE ONE TAB BY MOUTH PENDING ONCE DAILY FOR MOOD DICLOFENAC NA 1% TOP GEL APPLY 4 GRAMS TOPICALLY FOUR ACTIVE TIMES A DAY FOR OSTEOARTHRITIS - USE DOSING CARD PROVIDED IN BOX APPLY TO LOWER BACK DOCUSATE NA 100MG CAP TAKE ONE CAPSULE BY MOUTH ONCE DAILY ACTIVE (S) FOR CONSTIPATION TO SOFTEN STOOL FLUTICASONE PROP 50MCG 120D NASAL INHL INSTILL 2 SPRAYS ACTIVE INTO EACH NOSTRIL ONCE DAILY FOR NASAL IRRITATION/INFLAMMATION KETOROLAC TROMETHAMINE 0.5% OPH SOLN INSTILL 1 DROP ACTIVE (S) DIRECTED TWICE DAILY INTO OPERATIVE EYE STARTING 2 DAYS BEFORE SURGERY LISINOPRIL 30MG TAB TAKE ONE TABLET BY MOUTH ONCE DAILY TO ACTIVE (S) CONTROL BLOOD PRESSURE MIRABEGRON 50MG SA TAB TAKE ONE TABLET BY MOUTH ONCE DAILY ACTIVE (S) FOR OVERACTIVE BLADDER PRAZOSIN HCL 2MG CAP TAKE THREE CAPSULES BY MOUTH AT ACTIVE BEDTIME -FOR NIGHTMARES (OFF-LABEL) DO NOT TAKE ON NIGHTS THAT YOU TAKE SILDENAFIL PRAZOSIN HCL 2MG CAP TAKE THREE CAPSULES BY MOUTH AT PENDING BEDTIME -FOR NIGHTMARES (OFF-LABEL) DO NOT TAKE ON NIGHTS THAT YOU TAKE SILDENAFIL SIMVASTATIN 20MG TAB TAKE ONE TABLET BY MOUTH AT BEDTIME ACTIVE (S) FOR CHOLESTEROL TRAZODONE HCL 50MG TAB TAKE ONE TO THREE TABLETS BY MOUTH ACTIVE AT BEDTIME NEEDED FOR INSOMNIA ASSOCIATED WITH DEPRESSION FOR SLEEP VALPROIC ACID 250MG CAP TAKE THREE CAPSULES BY MOUTH TWICE ACTIVE (S) DAILY FOR MOOD VALPROIC ACID 250MG CAP TAKE THREE CAPSULES BY MOUTH TWICE PENDING DAILY FOR MOOD Non-VA ASPIRIN 81MG EC TAB 81MG BY MOUTH ONCE DAILY ACTIVE Non-VA CARBIDOPA 25/LEVODOPA 100MG TAB 1 TABLET BY MOUTH ACTIVE FOUR TIMES A DAY Non-VA OTHER CAP/TAB MAGNESIUM BY MOUTH ONCE DAILY ACTIVE ALLERGIES: Patient has answered NKA I discussed the findings and plan with the patient. I educated the patient about their mental health condition. repeated back the plan and education. 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 He is doing well on this dose. Level 90.2 on 12/06/22 at this dose. CBC with diff and liver panel reviewed and is normal 10/30/22. Note also that there is a long literature to support use of Depakote in TBI. I previously increased from 30 to 60-days to help prevent medicine from running out. Will recheck VPA level at next visit. He is aware. --Continue citalopram 20mg daily for mood and anxiety and because feels it is helpful for irritability (he had trouble cutting in half to make 15mg). Note hat previous episodes of anger/ reactivity probably more due to TBI and not underlying mood disorder. He is educated about signs/ symptoms of yolette/hypomania and instructed to let me know should he develop any. --Continue Trazodone 50mg to 150mg QHS PRN for sleep. He uses his CPAP nightly. Presently this is prescribed by PCP. --Continue prazosin 6mg QHS for nightmares (off-label). He feels that this is helpful. He checks his BP at least once daily at home. PCP increased dose to 6mg in early 2021. I am cautious to increase highger given risk of orthostatic hypotension in elderly male with PD. He reports occasional balance issues 2/2 to PD and does NOT feel prazosin is contributory. He is encouraged to take his time getting up. We reviewed proper safety precautions for one with PD. --Has not required lorazepam in many months. Previosuly he did well with 0.5mg bid PRN for acute anxiety. He has not required any yet but has on-hand if needed. See previous note for discussion of risks. He sees Neurology regularly (Dr. Penny Colon). Light box for phototherapy for SAD--he uses from time to time, more so in dark months. Individual therapy with Dr. Rosales--on hiatus for now, as he feels it is not necessary at the moment. Support provided. He attended Anger Management. Continue to assess for PTSD. reports extreme bullying in and especially at [employer]--reports intrusive thoughts (espeically nightmares), hypervigilence, and avoidance (avoids situations/ conversations, sensitive to rejection and has trouble with trusting others). Encouraged healthy diet and exercise. The patient denied suicidal and violent ideation, but the suicide prevention information and hotline were reviewed with the patient. The patient also understands to call 911 or to go to ER in the event of an emergency. I completed a thorough risk assessment today and in my clinical opinion he is at low risk for harm to self or others. The rationale for the psychiatric medications and the alternatives to treatment were discussed with the patient. The side effect profile of the psychiatric medications was reviewed with the patient. This also included discussion of potential drug interactions with the psychiatric medication. Patient demonstrated reasonable understanding of the medication side effects and the above issues. The benefits of psychiatric medications outweigh risks for this patient. I asked the patient to call the clinic or to come to open access if the patient does not like the effect of psychiatric medication or if has side effects with psychiatric medication. He is aware of side effects and risks associated with BZD. He does not drink. See previous note for full discussion regarding BZD. Follow-up with PCP for regular health maintenance. FOLLOW-UP: 12 weeks, sooner if needed REMINDERS: Medication Reconciliation: Outpatient: Has the patient been taking medications as documented in the EMLR? YES: The patient has been taking medications as documented in the EMLR. Essential Medication List for Review used to complete this medication reconciliation. INCLUDED IN THIS LIST: Alphabetical list of active outpatient prescriptions [facility] from this [facility] (local) and dispensed from another [place] or [facility] facility (remote) as well as inpatient orders [...] whether with a [facility] or non-[facility] provider. /caesar/ VALERIANO HURT DO Psychiatrist Signed: 08/21/2023 16:01 Receipt Acknowledged By: 08/22/2023 07:44 /caesar/ June Stovall [employer] VALERIANO HURT
--- OUTSIDE RECORDS SUMMARY | 2024-08-13 15:04 | XMS_ITS | Continuity of Care Document ---
Author Name [facility] Organization [facility] Care Team Providers Care Shirrer Name Role Phone [facility] Unavailable Unavailable Problems Combined list of problems from Department of Defense and Veterans Affairs facilities. It does not include entries that were removed or entered in error. Problem Status Onset Date Problem Type Date of Resolution Comments Source Anxiety (SNOMED [place] 09980734) Active Condition November 01, 2019 Entered By: VALERIANO HURT Comment: reviewedMar 23, 2021 Entered By: VALERIANO HURT Comment: reviewed [place] Carpal Tunnel Syndrome Active Condition Dec 25, 2010 Entered By: GABBY KOTHARI Comment: s/p harry repair [place] Constipation [facility] Cyst, ganglion Active Condition Dec Entered By: GABBY KOTHARI Comment: excised left 5th digit [place] Erectile dysfunction Active Condition [place] Hiatal hernia Active Condition [facility] Hydrocele Active Condition [place] Hyperlipidemia Active Condition [facility] Hypertension Active [facility] 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, 2010 Entered By: GABBY KOTHARI Comment: s/p right craniotomy for excision '88.due to injury [place] Lipomatosis Active Condition [facility] back pain Active Condition Aug Entered By: GABBY KOTHARI Comment: see 02/06/16 note for details [place] Low back pain Active Condition Aug Entered By: SE CRISTOPHER JONES Comment: Pain Team consult August 21, 2022 for low back pain, Parkinson's, increasing interference with activitites [place] Low Back Pain Active Condition [facility] 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 Mar 01 Entered By: VALERIANO HURT Comment: reviewedFe2020 Entered By: VALERIANO HURT Comment: reviewed [place] Overactive bladder Active Condition [place] Pain in joint involving shoulder region (ICD-9-CM 719.41) Active Condition [facility] Parkinson's disease Active Condition [facility] PD - Parkinson's disease Active Condition [place] Postnasal drip Active Condition [facility] Psoriasis Active Condition [place] Seasonal affective disorder Active Condition [facility] Shoulder Surgery Active Condition Dec 25, 2010 Entered By: GABBY KOTHARI Comment: right 1970' [place] Traumatic brain injury Active Condition Feb 06, 2016 Entered By: GABBY KOTHARI Comment: in the M[place] 30+ years ago. 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 Diagnosis [place] Diagnosis: ICD-10-CM G20.C Parkinsonism, unspecified Active Diagnosis [facility] Diagnosis: ICD-10-CM M51.86 Other intervertebral disc disorders, lumbar region Active Diagnosis [facility] Diagnosis: ICD-10-CM Z46.0 Encounter for fit/adjst of spectacles and contact lenses Active Diagnosis [facility] Diagnosis: ICD-10-CM Z96.1 Presence of intraocular lens Active Diagnosis [facility] Diagnosis: ICD-10-CM M54.9 Dorsalgia, unspecified Active Diagnosis [facility] Diagnosis: ICD-10-CM F06.30 Mood disorder due to known physiological condition, unsp Active Diagnosis [facility] Diagnosis: ICD-10-CM M54.50 Low back pain, unspecified Active Diagnosis [facility] Diagnosis: ICD-10-CM I10 Essential (primary) hypertension Active Diagnosis [place] Diagnosis: ICD-10-CM M47.896 Other spondylosis, lumbar region Active Diagnosis [facility] Diagnosis: ICD-10-CM Z87.820 Personal history of traumatic brain injury Active Diagnosis [place] Diagnosis: ICD-10-CM M51.16 Intervertebral disc disorders w radiculopathy, lumbar region Active Diagnosis [facility] [place] Diagnosis: ICD-10-CM Z46.1 Encounter for fitting and adjustment of hearing aid Active Diagnosis [facility] Diagnosis: ICD-10-CM M47.816 Spondylosis w/o myelopathy or radiculopathy, lumbar region Active Diagnosis [facility] Diagnosis: ICD-10-CM Z01.818 Encounter for other preprocedural examination Active Diagnosis [place] Diagnosis: ICD-10-CM G47.30 Sleep apnea, unspecified Active Diagnosis [facility] [place] [facility] Diagnosis: ICD-10-CM H25.813 Combined forms of age-related cataract, bilateral Active Diagnosis [facility] [place] Medications Combined list of outpatient medications from Department of Defense and Veterans Affairs facilities.Medications provided include 1) outpatient medications from the last 15 months, and 2) patient-reported medications. Medication Details Route Status Patient Instructions Prescription Expires Prescription Number Last Dispense Date Ordering Provider Order Date Order Qty Source ACETAMINOPH EN 500MG TAB TAKE TWO TABLETS BY MOUTH TWICE DAILY FOR PAIN ORAL SUSPEND ED 07/23/2025 [id number] NINO FRANCO 2024 100 [facility] ACETAMINOPH EN 500MG TAB TAKE TWO TABLETS BY MOUTH TWICE DAILY FOR PAIN ORAL DISCONT [facility] 09/29/2024 [id number] NINO FRANCO 2023 100 [facility] ACETAMINOPH EN 500MG TAB TAKE TWO TABLETS BY MOUTH TWICE DAILY FOR PAIN ORAL DISCONT [facility] 03/06/2024 [id number] AMINA KOTHARI [address] [place], [place] [address]N [facility] ASPIRIN 81MG TAB,EC TAKE ONE TABLET BY MOUTH ONCE DAILY ORAL ACTIVE AMINA KOTHARI 2020 [facility] CARBIDOPA 25MG/LEVODO PA 100MG TAB TAKE ONE TABLET BY MOUTH FOUR TIMES A DAY ORAL ACTIVE HO [facility]IL[facility] 2022 [facility] CELECOXIB 200MG CAP TAKE ONE CAPSULE BY MOUTH ONCE DAILY NEEDED FOR ARTHRITI S ORAL 02/28/2024 [id number] 4 TAYEAMINA HARRISON 2022 30 [facility] CHOLECALCIF JORI 25MCG (1,000UNIT) TAB TAKE ONE TABLET BY MOUTH ONCE DAILY FOR VITAMIN SUPPLEME NTATION ORAL ACTIVE 12/02/2024 [id number] DIALLO MONAHAN TYEJean-PierrePRIYANKJean-PierreSOFY Alba 2023 100 [place] CITALOPRAM HYDROBROMID E 20MG TAB TAKE ONE TAB BY MOUTH ONCE DAILY FOR MOOD ORAL ACTIVE 02/12/2025 [id number] 5 GEOFFREY HURT 2023 30 [place] CITALOPRAM HYDROBROMID E 20MG TAB TAKE ONE TAB BY MOUTH ONCE DAILY FOR MOOD ORAL DISCONT INUED 11/13/2024 [id number] GEOFFREY HURT NAREN 2023 30 [place] CITALOPRAM HYDROBROMID E 20MG TAB TAKE ONE TAB BY MOUTH ONCE DAILY FOR MOOD ORAL DISCONT INUED 08/21/2024 [id number] GEOFFREY HURT 2023 30 [place] CITALOPRAM HYDROBROMID E 20MG TAB TAKE ONE TAB BY MOUTH ONCE DAILY FOR MOOD ORAL DISCONT INUED 05/22/2024 [id number] 4 GEOFFREY HURT 2022 30 [place] CYCLOBENZAP RINE HCL 5MG TAB TAKE ONE TABLET BY MOUTH TWICE DAILY NEEDED FOR MUSCLE SPASM ORAL DISCONT INUED 06/13/2024 [id number] MINAL LIMA 2022 60 [facility] DEXAMETHASO NE 0.1%/TOBRAM YCIN 0.3% SUSP,OPH INSTILL 1 DROP INTO EACH EYE FOUR TIMES A DAY FOR 2 WEEKS FOR INFLAMMA TION OF THE EYE OPHTHA LMIC 08/03/2023 [id number] AMINA KOTHARI 2023 5 [place] DOCUSATE NA 100MG CAP TAKE ONE CAPSULE BY MOUTH ONCE DAILY FOR CONSTIPA TION TO SOFTEN STOOL ORAL SUSPEND ED 12/02/2024 [id number] 5 NINO FRANCO 2023 100 [place] DOCUSATE NA 100MG CAP TAKE ONE CAPSULE BY MOUTH ONCE DAILY FOR CONSTIPA TION TO SOFTEN STOOL ORAL DISCONT INUED 07/10/2024 [id number] AMINA KOTHARI 2023 100 [place] DOCUSATE NA 100MG CAP TAKE ONE CAPSULE BY MOUTH ONCE DAILY TO SOFTEN STOOL ORAL DISCONT INUED (EDIT) 04/10/2024 [id number] AMINA KOTHARI 2022 100 [facility] FLUTICASONE PROPIONATE 50MCG/SPRAY SOLN,NASAL, 16GM INSTILL 2 SPRAYS INTO EACH NOSTRIL ONCE DAILY FOR NASAL IRRITATI ON/INFLA MMATION NASAL ACTIVE 12/02/2024 [id number] 5 NINO FRANCO 2023 1 [place] FLUTICASONE PROPIONATE 50MCG/SPRAY SOLN,NASAL, 16GM INSTILL 2 SPRAYS INTO EACH NOSTRIL ONCE DAILY FOR NASAL IRRITATI ON/INFLA MMATION NASAL DISCONT INUED 07/10/2024 [id number] AMINA KOTHARI 2023 1 [place] KETOROLAC TROMETHAMIN E 0.5% SOLN,OPH INSTILL 1 DROP DIRECTED TWICE DAILY INTO OPERATIV E EYE STARTING 2 DAYS BEFORE SURGERY NOT APPLIC ABLE 07/22/2024 [id number] Isela MEEK OSEPH 2023 10 [facility] LISINOPRIL 20MG TAB TAKE ONE TABLET BY MOUTH ONCE DAILY FOR HIGH BLOOD PRESSURE TO CONTROL BLOOD PRESSURE ORAL ACTIVE 07/23/2025 [id number] 5 SARANYAMARQUISE GILBERTALONSOTYE MCDANIELJean-PierrePRIYANKLEWIS M 2024 90 [place] LISINOPRIL 20MG TAB TAKE ONE TABLET BY MOUTH ONCE DAILY FOR HIGH BLOOD PRESSURE TO CONTROL BLOOD PRESSURE ORAL DISCONT INUED 06/05/2025 [id number] 5 SARANYAKARINATYE DÍAZJean-PierrePRIYANKJean-PierreSOFY Willis 2024 90 [place] LISINOPRIL 20MG TAB TAKE ONE TABLET BY MOUTH ONCE DAILY FOR HIGH BLOOD PRESSURE TO CONTROL BLOOD PRESSURE ORAL DISCONT INUED 09/08/2024 [id number] Raquel AVELAR 2023 90 [place] LISINOPRIL 30MG TAB TAKE ONE TABLET BY MOUTH ONCE DAILY TO CONTROL BLOOD PRESSURE ORAL DISCONT INUED (EDIT) 07/10/2024 [id number] AMINA KOTHARI 2023 90 [place] MIRABEGRON 50MG TAB,SA TAKE ONE TABLET BY MOUTH ONCE DAILY FOR OVERACTI VE BLADDER ORAL SUSPEND ED 12/31/2024 [id number] 5 CONRADSHARRON MONAHAN TYEJean-PierrePRIYANKJean-PierreSOFY M 2023 90 [place] MIRABEGRON 50MG TAB,SA TAKE ONE TABLET BY MOUTH ONCE DAILY FOR OVERACTI VE BLADDER ORAL DISCONT INUED 07/10/2024 [id number] AMINA KOTHARI 2023 90 [place] MIRABEGRON 50MG TAB,SA TAKE ONE TABLET BY MOUTH ONCE DAILY FOR OVERACTI VE BLADDER ORAL DISCONT INUED (EDIT) 01/10/2024 [id number] AMINA KOTHARI 2022 90 [facility] OTHER CAP/TAB TAKE MAGNESIU M BY MOUTH ONCE DAILY ORAL ACTIVE AMINA KOTHARI 2022 [place] PRAZOSIN HCL 2MG CAP TAKE THREE CAPSULES BY MOUTH AT BEDTIME -FOR NIGHTMAR ES (OFF-LAB EL) DO NOT TAKE ON NIGHTS THAT YOU TAKE SILDENAF IL ORAL ACTIVE 02/12/2025 [id number] GEOFFREY HURT 2023 90 [place] PRAZOSIN HCL 2MG CAP TAKE THREE CAPSULES BY MOUTH AT BEDTIME -FOR NIGHTMAR ES (OFF-LAB EL) DO NOT TAKE ON NIGHTS THAT YOU TAKE SILDENAF IL ORAL DISCONT INUED 11/13/2024 [id number] 4 GEOFFREY HURT NAREN 2023 90 [place] PRAZOSIN HCL 2MG CAP TAKE THREE CAPSULES BY MOUTH AT BEDTIME -FOR NIGHTMAR ES (OFF-LAB EL) DO NOT TAKE ON NIGHTS THAT YOU TAKE SILDENAF IL ORAL DISCONT INUED 08/21/2024 [id number] 4 GEOFFREY HURT 2023 90 [place] PRAZOSIN HCL 2MG CAP TAKE THREE CAPSULES BY MOUTH AT BEDTIME -FOR NIGHTMAR ES (OFF-LAB EL) DO NOT TAKE ON NIGHTS THAT YOU TAKE SILDENAF IL ORAL DISCONT INUED 05/22/2024 [id number] GEOFFREY HURT NAREN 2022 90 [place] SENNOSIDES 8.6MG TAB TAKE TWO TABLETS BY MOUTH ONCE DAILY FOR CONSTIPA TION ORAL ACTIVE 12/02/2024 [id number] NINO FRANCO 2023 200 [place] SIMVASTATIN 20MG TAB TAKE ONE TABLET BY MOUTH AT BEDTIME FOR CHOLESTE ROL ORAL 04/17/2024 [id number] AMINA KOTHARI 2022 90 [place] TRAZODONE HCL 50MG TAB TAKE ONE TO THREE TABLETS BY MOUTH AT BEDTIME NEEDED FOR INSOMNIA ASSOCIAT ED WITH DEPRESSI ON FOR SLEEP ORAL ACTIVE 12/31/2024 [id number] NINO FRANCO 2023 90 [place] TRAZODONE HCL 50MG TAB TAKE ONE TO THREE TABLETS BY MOUTH AT BEDTIME NEEDED FOR INSOMNIA ASSOCIAT ED WITH DEPRESSI ON FOR SLEEP ORAL DISCONT INUED 07/10/2024 [id number] AMINA KOTHARI 2023 90 [place] VALPROIC ACID 250MG CAP TAKE THREE CAPSULES BY MOUTH TWICE DAILY FOR MOOD ORAL SUSPEND ED 02/12/2025 [id number] 5 GEOFFREY HURT 2023 540 [place] VALPROIC ACID 250MG CAP TAKE THREE CAPSULES BY MOUTH TWICE DAILY FOR MOOD ORAL DISCONT INUED 11/13/2024 [id number] 4 GEOFFREY HURT NAREN 2023 540 [place] VALPROIC ACID 250MG CAP TAKE THREE CAPSULES BY MOUTH TWICE DAILY FOR MOOD ORAL DISCONT INUED 08/21/2024 [id number] 4 GEOFFREY HURT 2023 540 [place] VALPROIC ACID 250MG CAP TAKE THREE CAPSULES BY MOUTH TWICE DAILY FOR MOOD ORAL DISCONT INUED 05/22/2024 [id number] GEOFFREY HURT 2023 540 [place] VALPROIC ACID 250MG CAP TAKE THREE CAPSULES BY MOUTH TWICE DAILY FOR MOOD ORAL DISCONT INUED 02/21/2024 [id number] GEOFFREY HURT 2022 540 [place] Immunizations Combined list of available immunizations from the Department of Defense and Veterans Affairs facilities. Immunization Series Date Given Administered By Site Reaction Lot Number CVX Code Drug Ore Roaster Status Comments Source COVID-19 ([place]ER[place]), MRNA, LNP-S, PF, 50 MCG/0.5 ML (AGES 12+ YEARS) 1 2022 312 complet ed [place] [facility] IN[facility]ZA, UNSPECIFIED FORMULATION 2022 88 complet ed [place] [facility] INFLUENZA VACCINE, QUADRIVALENT, ADJUVANTED 2021 205 complet ed [place] PNEUMOCOCCAL CONJUGATE PCV20, POLYSACCHARID E [id number] CONJUGATE, ADJUVANT, PF 2021 216 complet ed [place] COVID-19 ([place]ERNA), MRNA, LNP-S, PF, 100 MCG/0.5ML DOSE OR 50 MCG/0.25ML DOSE 3 2021 207 complet ed MOD; [id number]; 2 [place] COVID-19 (MODERNA), MRNA, LNP-S, PF, 100 MCG OR 50 MCG DOSE 3 2020 207 complet ed MOD; [id number]; 2 [place] INFLUENZA, UNSPECIFIED FORMULATION 2020 88 complet ed [facility] COVID-19 ([place]), MRNA, LNP-S, PF, 100 MCG/0.5 ML DOSE 2 2020 207 complet ed MOD; [id number]; 1 [place] COVID-19 (MODERNA), MRNA, LNP-S, PF, 100 MCG/0.5 ML DOSE 1 2020 207 complet ed MOD; [id number]; 1 [place] INFLUENZA, UNSPECIFIED FORMULATION 2019 88 complet ed [facility] ZOSTER RECOMBINANT 2 2019 187 complet ed [place] TD (ADULT), 2 LF TETANUS TOXOID, PRESERVATIVE FREE, ADSORBED 2019 09 complet ed Site: Left Deltoid [place] ZOSTER RECOMBINANT 1 2019 187 complet ed [place] INFLUENZA, SEASONAL, INJECTABLE 2016 141 complet ed cvs [facility] FLU,3 YRS (HISTORICAL) 2015 88 complet ed [facility] ZOSTER (HISTORICAL) 2014 121 complet ed [facility] FLU,3 YRS (HISTORICAL) 2013 88 complet ed [facility] FLU,3 YRS (HISTORICAL) 2011 88 complet ed [facility] FLU,3 YRS (HISTORICAL) 2010 88 complet ed [facility] FLU,3 YRS (HISTORICAL) 2009 88 complet ed Pt. was seenby his civilian provider for his vaccine! [facility] TD(ADULT) UNSPECIFIED FORMULATION 2009 139 complet ed Pt. is a employee of the [employer] system and got vaccinate d! [place] [facility] [place] [facility] DTAP, UNSPECIFIED FORMULATION 2009 107 complet ed [place] [facility] [place] [facility] Results Combined list of recent chemistry, hematology and other laboratory results from Department of Defense and Veterans Affairs, ranging from 15 months to all on record, depending upon the facility. Order Name Results Value Reference Range Date Interpretation Specimen Comments Source VALPROIC ACID VALPROATE [MASS/VOLUM E] IN SERUM OR PLASMA 64.9 ug/mL 50.0 - 120.0 11/17 Specimen Type: PLASMA No comment entered. Ordering Provider: ROSELYN HURT Report Released Date/Time: Aug 21, 2023 04:03 PM Reporting Lab: [facility] [place] [facility] [address] [address] Performing Lab: [facility] [place] [address] [address] [place] HEMOGLOBI N A1C PANEL HEMOGLOBIN A1C/HEMOGLO BIN.TOTAL IN BLOOD BY HPLC 5.0 4.0 - 5.6 09/14 Specimen Type: BLOOD Comment: Values obtained from A1C measurement s can vary. For atypical A1C assays, a reported value of 7.0 could actually be between 6.72 and 7.28 if measured by a reference method. A reported value of 9.0 could actually be between 8.73 and 9.27. Ref: http://www. ngsp.org/[place] Pdata.asp Ordering Provider: ELVIA AVELAR A Report Released Date/Time: Sep 08, 2023 01:58 PM Reporting Lab: [facility] [place] [place] [facility] [address] [address] Performing Lab: [facility] [place] [place] [address] [address] [facility] [place] [facility] TSH THYROTROPIN [UNITS/VOLU ME] IN SERUM OR PLASMA 1.35 u[IU]/ mL 0.35 - 5.00 09/14 Specimen Type: SERUM No comment entered. Ordering Provider: ELVIA AVELAR A Report Released Date/Time: Sep 08, 2023 01:58 PM Reporting Lab: [facility] [address] [address] Performing Lab: [facility]ITALTRN [facility] [address] [address] [facility] MAGNESIUM MAGNESIUM [MASS/VOLUM E] IN SERUM OR PLASMA 1.9 mg/dL 1.6 - 2.6 09/14 Specimen Type: SERUM No comment entered. Ordering Provider: ELVIA AVELAR A Report Released Date/Time: Sep 08, 2023 01:58 PM Reporting Lab: [facility]ITALRUSA [facility]N [facility] [address] [address] Performing Lab: [facility] [address] [address] [facility] CALCIUM CALCIUM [MASS/VOLUM E] IN SERUM OR PLASMA 9.3 mg/dL 8.5 - 10.2 09/14 Specimen Type: SERUM No comment entered. Ordering Provider: ELVIA AVELAR A Report Released Date/Time: Sep 08, 2023 01:58 PM Reporting Lab: [facility] [address] [address] Performing Lab: [facility]ITALRUSA [facility]PITALN [facility]EN[facility] [address] [address] [facility] VITAMIN D (25-OH) 25-HYDROXYV ITAMIN D3 [MASS/VOLUM E] IN SERUM OR PLASMA 14 ng/mL 20 - 50 09/14 L Specimen Type: SERUM No comment entered. Ordering Provider: ELVIA AVELAR A Report Released Date/Time: Sep 08, 2023 01:58 PM Reporting Lab: [facility]ITALRUSA [facility]OSPITALN [facility] [address] [address] Performing Lab: [facility]N [facility]EN[facility] [address] [address] [facility] LIPID PANEL, NON FASTING CHOLESTEROL [MASS/VOLUM E] IN SERUM OR PLASMA 175 mg/dL 09/14 Specimen Type: SERUM No comment entered. Ordering Provider: ELVIA AVELAR A Report Released Date/Time: Sep 08, 2023 01:58 PM Reporting Lab: [facility] [place] [facility] [address] [address] Performing Lab: [facility] [place] [facility] [address] [address] [place] [facility] [place] [facility] LIPID PANEL, NON FASTING TRIGLYCERID E [MASS/VOLUM E] IN SERUM OR PLASMA 192 mg/dL 0 - 150 09/14 H Specimen Type: SERUM No comment entered. Ordering Provider: ELVIA AVELAR A Report Released Date/Time: Sep 08, 2023 01:58 PM Reporting Lab: [place] [facility] [place] [facility] [address] [address] Performing Lab: [facility] [facility] [address] [address] [facility] [place] [place] [facility] LIPID PANEL, NON FASTING CHOLESTEROL IN LDL [MASS/VOLUM E] IN SERUM OR PLASMA BY CALCULATION 88 mg/dL 0 - 129 09/14 Specimen Type: SERUM No comment entered. Ordering Provider: ELVIA AVELAR A Report Released Date/Time: Sep 08, 2023 01:58 PM Reporting Lab: [facility] [place] [facility] [address] [address] Performing Lab: [facility] [place] [facility] [address] [address] [facility] [place] [place] [facility] LIPID PANEL, NON FASTING CHOLESTEROL .TOTAL/CHOL ESTEROL IN HDL [MASS RATIO] IN SERUM OR PLASMA 3.6 09/14 Specimen Type: SERUM No comment entered. Ordering Provider: ELVIA AVELAR A Report Released Date/Time: Sep 08, 2023 01:58 PM Reporting Lab: [facility] [place] [facility] [address] [address] Performing Lab: [facility] [facility] [address] [address] [place] [facility] [place] [facility] LIPID PANEL, NON FASTING CHOLESTEROL IN HDL [MASS/VOLUM E] IN SERUM OR PLASMA 49 mg/dL 40 - 60 09/14 Specimen Type: SERUM No comment entered. Ordering Provider: ELVIA AVELAR A Report Released Date/Time: Sep 08, 2023 01:58 PM Reporting Lab: [facility] [place] [facility] [address] [address] Performing Lab: [facility] [facility] [address] [address] [facility] [place] [facility] PSA PROSTATE SPECIFIC AG [MASS/VOLUM E] IN SERUM OR PLASMA 1.83 ng/mL 0.00 - 4.00 09/14 Specimen Type: SERUM No comment entered. Ordering Provider: ELVIA AVELAR A Report Released Date/Time: Sep 08, 2023 02:00 PM Reporting Lab: [facility] [place] [facility] [address] [address] Performing Lab: [facility] [place] [facility] [address] [address] [place] [facility] [facility] LIVER FUNCTION PROTEIN [MASS/VOLUM E] IN SERUM OR PLASMA 6.7 g/dL 6.0 - 8.3 09/14 Specimen Type: SERUM No comment entered. Ordering Provider: ELVIA AVELAR A Report Released Date/Time: Sep 08, 2023 01:58 PM Reporting Lab: [facility] [place] [place] [facility] [address] [address] Performing Lab: [facility] [place] [facility] [address] [address] [facility] [facility] LIVER FUNCTION ALBUMIN [MASS/VOLUM E] IN SERUM OR PLASMA 3.6 g/dL 3.5 - 5.0 09/14 Specimen Type: SERUM No comment entered. Ordering Provider: ELVIA AVELAR A Report Released Date/Time: Sep 08, 2023 01:58 PM Reporting Lab: [facility] [place] [facility] [address] [address] Performing Lab: [facility] [place] [place] [facility] [address] [address] [facility] [place] [facility] LIVER FUNCTION ALKALINE PHOSPHATASE [ENZYMATIC ACTIVITY/VO LUME] IN SERUM OR PLASMA 35 U/L 40 - 150 09/14 L Specimen Type: SERUM No comment entered. Ordering Provider: ELVIA AVELAR A Report Released Date/Time: Sep 08, 2023 01:58 PM Reporting Lab: [facility] [place] [facility] [address] [phone] Performing Lab: [facility] [place] [facility] [address] [address] [facility] [place] [facility] LIVER FUNCTION ASPARTATE AMINOTRANSF ERASE [ENZYMATIC ACTIVITY/VO LUME] IN SERUM OR PLASMA 11 U/L 5 - 34 09/14 Specimen Type: SERUM No comment entered. Ordering Provider: ELVIA AVELAR A Report Released Date/Time: Sep 08, 2023 01:58 PM Reporting Lab: [facility] [place] [address] [address] Performing Lab: [facility] [place] [address] [address] [facility] [place] [facility] LIVER FUNCTION ALANINE AMINOTRANSF ERASE [ENZYMATIC ACTIVITY/VO LUME] IN SERUM OR PLASMA 8 U/L 09/14 Specimen Type: SERUM No comment entered. Ordering Provider: ELVIA AVELAR A Report Released Date/Time: Sep 08, 2023 01:58 PM Reporting Lab: [facility] [place] [address] [address] Performing Lab: [facility] [place] [address] [address] [facility] [place] [facility] LIVER FUNCTION BILIRUBIN.T OTAL [MASS/VOLUM E] IN SERUM OR PLASMA 0.4 mg/dL 0.2 - 1.2 09/14 Specimen Type: SERUM No comment entered. Ordering Provider: ELVIA AVELAR A Report Released Date/Time: Sep 08, 2023 01:58 PM Reporting Lab: [facility] [place] [address] [address] Performing Lab: [facility] [place] [facility] [address] [address] [facility] BASIC METABOLIC PANEL (non-fast ing) UREA NITROGEN [MASS/VOLUM E] IN SERUM OR PLASMA 20 mg/dL 7 - 25 09/14 Specimen Type: SERUM No comment entered. Ordering Provider: ELVIA AVELAR A Report Released Date/Time: Sep 08, 2023 01:58 PM Reporting Lab: [facility]ENUSE[address] [address] Performing Lab: [facility]N [facility]ENUSE[address] [address] [facility] BASIC METABOLIC PANEL (non-fast ing) GLUCOSE [MASS/VOLUM E] IN SERUM OR PLASMA 108 mg/dL 65 - 100 09/14 H Specimen Type: SERUM No comment entered. Ordering Provider: ELVIA AVELAR A Report Released Date/Time: Sep 08, 2023 01:58 PM Reporting Lab: [facility]ENUSE[address] [address] Performing Lab: [facility] [address] [address] [facility] BASIC METABOLIC PANEL (non-fast ing) SODIUM [MOLES/VOLU ME] IN SERUM OR PLASMA 139 mmol/L 135 - 145 09/14 Specimen Type: SERUM No comment entered. Ordering Provider: ELVIA AVELAR A Report Released Date/Time: Sep 08, 2023 01:58 PM Reporting Lab: [facility]ITALRL TRN [facility]ILDRENUSE[address] [address] Performing Lab: [facility]N [facility]DRENUSE[address] [address] [facility] BASIC METABOLIC PANEL (non-fast ing) POTASSIUM [MOLES/VOLU ME] IN SERUM OR PLASMA 4.5 mmol/L 3.5 - 5.0 09/14 Specimen Type: SERUM No comment entered. Ordering Provider: ELVIA AVELAR A Report Released Date/Time: Sep 08, 2023 01:58 PM Reporting Lab: [facility] [place] [facility] [address] [address] Performing Lab: [facility] [place] [facility] [address] [address] [place] [facility] [place] [facility] BASIC METABOLIC PANEL (non-fast ing) CHLORIDE [MOLES/VOLU ME] IN SERUM OR PLASMA 103 mmol/L 100 - 110 09/14 Specimen Type: SERUM No comment entered. Ordering Provider: ELVIA AVELAR A Report Released Date/Time: Sep 08, 2023 01:58 PM Reporting Lab: [facility] [place] [facility] [address] [address] Performing Lab: [place] [facility] [place] [facility] [address] [address] [facility]ENUSE [facility] BASIC METABOLIC PANEL (non-fast ing) CARBON DIOXIDE, TOTAL [MOLES/VOLU ME] IN SERUM OR PLASMA 29 meq/L 20 - 30 09/14 Specimen Type: SERUM No comment entered. Ordering Provider: ELVIA AVELAR A Report Released Date/Time: Sep 08, 2023 01:58 PM Reporting Lab: [facility] [place] [facility] [address] [address] Performing Lab: [place] [facility] [place] [facility] [address] [address] [facility]ENUSE [facility] BASIC METABOLIC PANEL (non-fast ing) CREATININE [MASS/VOLUM E] IN SERUM OR PLASMA 0.86 mg/dL 0.50 - 1.40 09/14 Specimen Type: SERUM No comment entered. Ordering Provider: ELVIA AVELAR A Report Released Date/Time: Sep 08, 2023 01:58 PM Reporting Lab: [facility] [place] [facility] [address] [address] Performing Lab: [place] [facility] [facility] [address] [address] [facility] [place] [place] [facility] BASIC METABOLIC PANEL (non-fast ing) GLOMERULAR FILTRATION RATE/1.73 SQ M.PREDICTED [VOLUME RATE/AREA] IN SERUM, PLASMA OR BLOOD BY CREATININE- BASED FORMULA (CKD-EPI 2020) >90mL/ min 60 09/14 Specimen Type: SERUM No comment entered. Ordering Provider: ELVIA AVELAR Report Released Date/Time: Sep 08, 2023 01:58 PM Reporting Lab: [facility] [place] [facility] [address] [address] Performing Lab: [facility] [place] [facility] [address] [address] [facility] [place] [facility] Vital Signs Combined list of inpatient and outpatient Vital Signs from Department of Defense and Veterans Affairs, ranging from 12 months to all on record, depending upon the facility. Vital Sign Value Date Comments Source SYSTOLIC BLOOD PRESSURE 150 05/26/20 14:22:57 [facility] [place] [facility] DIASTOLIC BLOOD PRESSURE 88 14:22:57 [facility] [place] [facility] PULSE OXIMETRY 97 05/26/2024 14:22:57 [facility] [place] [facility] PAIN 2 05/26/2024 14:22:57 [facility] [place] [facility] PULSE 75 05/26/2024 14:22:57 [facility] [place] [facility] RESPIRATION 20 05/26/2024 14:22:57 [facility] [place] [facility] SYSTOLIC BLOOD PRESSURE 135 12/16/19 24 13:20:38 [place] DIASTOLIC BLOOD PRESSURE 76 024 13:20:38 [place] PULSE OXIMETRY 97 12/16/2023 13:20:38 [place] PULSE 90 12/16/2023 13:20:38 [place] RESPIRATION 16 12/16/2023 13:20:38 [place] SYSTOLIC BLOOD PRESSURE 160 12/02/19 13:32:34 [place] DIASTOLIC BLOOD PRESSURE 90 024 13:32:34 [place] PULSE OXIMETRY 97 12/02/2023 13:32:34 [place] WEIGHT 208 12/02/2023 13:32:34 [place] BMI 28 kg/m2 12/02/2023 13:32:34 [place] TEMPERATURE 98 12/02/2023 13:32:34 [place] PULSE 72 12/02/2023 13:32:34 [place] PULSE OXIMETRY 94 11/12/2023 13:26:18 [facility] [place] [facility] WEIGHT 202 11/12/2023 13:26:18 [facility] [place] [facility] BMI 27 kg/m2 11/12/2023 13:26:18 [facility] [place] [facility] PAIN 8 11/12/2023 13:26:18 [facility] [place] [facility] PULSE 84 11/12/2023 13:26:18 [facility] [place] [facility] RESPIRATION 20 11/12/2023 13:26:18 [facility] [place] [facility] SYSTOLIC BLOOD PRESSURE 174 10/06/19 24 10:41:46 [place] DIASTOLIC BLOOD PRESSURE 102 024 10:41:46 [place] PULSE OXIMETRY 96 10/06/2023 10:41:46 [place] WEIGHT 200 10/06/2023 10:41:46 [place] BMI 27 kg/m2 10/06/2023 10:41:46 [place] TEMPERATURE 97.4 10/06/2023 10:41:46 [place] PULSE 90 10/06/2023 10:41:46 [place] RESPIRATION 20 10/06/2023 10:41:46 [place] Encounters Combined list of: 1) Encounters from Department of Veterans Affairs facilities going backup to the last 18 months, not all [place] inpatient encounters are included; 2) Encounters from the Department of Defense facilities going backup to 280 months. 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, unsCHARLOTTE Summers 02/20 [facility] [place] [facility] [place] En[facility] [id number] 02/26 [facility] [place] [facility] [place] [facility] Outpatient Encounter [id number] 02/27 [facility] [place] [facility] [facility] [place] OFF[facility] O/P EST MOD 30-39 MIN [id number] Diagnos is: ICD-10- CM M54.50 Low back pain, unspeci fied KUPFERSCHM ID,BRENT B 02/27 [facility] [place] [facility] [place] En[facility] [id number] 02/28 [facility] [place] [facility] [place] En[facility] [id number] 03/05 [facility] [place] [facility] [place] En[facility] [id number] 03/10 [facility] [place] [facility] [place] En[facility] [id number] 03/19 [facility] [place] [facility] [place] Encounter [id number] 04/03 [facility] [place] [facility] [facility] [place] En[facility] [id number] 04/09 [facility] [place] [place] Encounter [id number] 04/14 [facility] [place] [facility] [facility] [place] EYE EXAM&TX ESTAB PT 1/>VST [id number] Diagnos is: ICD-10- CM H25.813 Combine d forms of age-rel ated catarac t, bilater al MERHAR,FLORI H B 04/15 [facility] [place] [facility] [place] [facility] Outpatient Encounter [id number] 04/15 [facility] [place] [facility] [facility] [place] [facility] FIT SPECTACLES MULTIFOCAL [id number] Diagnos is: ICD-10- CM Z46.0 Encount er for fit/adj st of spectac les and contact lenses JEANETH SANDOVAL 04/15 [facility] [place] [facility] [place] [facility] Outpatient Encounter [id number] 04/17 [facility] [place] [facility] OFFICE O/P EST LOW 20-29 MIN [id number] Diagnos is: ICD-10- CM G20.C Dariusz onism, unspeci fied PAULA KOTHARI 04/17 [place] [facility] [place] [facility] OFFICE O/P EST LOW 20-29 MIN [id number] Diagnos is: ICD-10- CM M47.896 Other spondyl osis, lumbar region Raquel LIMA 04/18 [facility] [place] [facility] [place] [facility] SPECIAL SUPPLIES PHYS/QHP [id number] Diagnos is: ICD-10- CM G47.30 Sleep apnea, unspeci fied BRENDA LEHMAN E 04/29 [facility] [place] [facility] [place] [facility] OFFICE O/P EST HI 40-54 MIN [id number] Diagnos is: ICD-10- CM 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, lumbar region ABILIO HAGAN 04/30 [facility] [place] [facility] [place] En[facility] [id number] 04/30 [facility] [place] [facility] [facility] [place] En[facility] [id number] 05/01 [facility] [place] [facility] [place] En[facility] [id number] Raquel LIMA 05/16 [facility] [place] Encounter [id number] Diagnos is: ICD-10- CM M47.896 Other spondyl osis, lumbar region Raquel LIMA 05/16 [facility] [place] [facility] OFFICE O/P EST MOD 30-39 MIN [id number] Diagnos is: ICD-10- CM F06.30 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, unsp LARZULMA,CHARLOTTE AN 05/22 [place] [facility] [id number] 05/28 [facility] [place] [place] [facility] OFFICE O/P EST MOD 30-39 MIN [id number] Diagnos is: ICD-10- CM M54.50 Low back pain, unspeci fied KUPFERSCHM ID,BRENT B 05/29 [facility] [place] [place] [facility] OFFICE O/P EST LOW 20-29 MIN [id number] Diagnos is: ICD-10- CM M54.50 Low back pain, unspeci fied Raquel LIMA 06/13 [facility] [place] En[facility] [id number] 06/27 [facility] [place] [place] Encounter [id number] 07/04 [facility] [place] En[facility] [id number] 07/09 [facility] [place] [place] En[facility] [id number] 07/09 [facility] [place] [facility] [place] En[facility] [id number] 07/10 [facility] [place] [facility] OFFICE O/P EST MOD 30 MIN [id number] Diagnos is: ICD-10- CM Z01.818 Encount er for other preproc edural examina PAULA Sierra 07/10 [place] [facility] Encounter [id number] 07/15 [facility] [place] En[facility] [id number] 07/22 [facility] [place] [facility] [place] OFFICE O/P EST HI 40 MIN [id number] Diagnos is: ICD-10- CM 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, lumbar region ABILIO HAGAN 07/23 [facility] [place] En[facility] [id number] 07/23 [facility] [place] En[facility] [id number] 07/30 [facility] [place] [facility] [facility] En[facility] [id number] 07/31 [facility] [place] OFF[facility] O/P EST MOD 30 MIN [id number] Diagnos is: ICD-10- CM M47.896 Other spondyl osis, lumbar region Raquel LIMA 08/01 [facility] [place] En[facility] [id number] 08/15 [facility] [place] [place] OFFICE O/P EST MOD 30 MIN [id number] Diagnos is: ICD-10- CM F06.30 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, unsp LICHA,CHARLOTTE AN [place] [facility] En[facility] [id number] 08/25 [facility] [place] En[facility] [id number] 08/25 [facility] [place] En[facility] [id number] 08/26 [facility] [place] En[facility] [id number] 09/01 [facility] [place] En[facility] [id number] 09/01 [facility] [place] [facility] [facility] En[facility] [id number] 09/04 [facility] [place] [facility] [facility] [id number] Diagnos is: ICD-10- CM G20.C Dariusz onism, unspeci fied VALENTINO,DA VID A 09/07 [place] [facility] En[facility] [id number] 09/07 [facility] [place] [facility] [place] [facility] QNHP OL DIG ASSMT&MGMT - [id number] Diagnos is: ICD-10- CM G20.C Dariusz onism, unspeci fied JORGE ATKINS ISTIE J 09/10 [facility] [place] En[facility] [id number] 09/12 [facility] [place] En[facility] [id number] 09/18 [facility] [place] En[facility] [id number] 09/18 [facility] [place] En[facility] [id number] 09/28 [facility] [place] [id number] 09/30 [facility] [place] [facility] [place] [facility] OFFICE O/P EST MOD 30 MIN [id number] Diagnos is: ICD-10- CM M54.50 Low back pain, unspeci fied KUPFERSCHM ID,BRENT B 10/01 [facility] [place] En[facility] [id number] 10/05 [facility] [place] [place] OFF[place] O/P [place] HI 40 MIN [id number] Diagnos is: ICD-10- CM G20.C Dariusz onism, unspeci fied AVELAR,DA VID A 10/05 [place] [facility] HEARING AID REPAIR/MOD IFYING [id number] Diagnos is: ICD-10- CM Z46.1 Encount er for fitting and adjustm ent of hearing aid KAIN BEATTY 10/14 [facility] En[facility] [id number] 10/16 [facility] [place] En[facility] [id number] 10/23 [facility] [place] OFFICE O/[place] HI 40 MIN [id number] Diagnos is: ICD-10- CM 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, lumbar region HAGAN,QUE ERVIN THI 11/11 [facility] [place] En[facility] [id number] 11/11 [facility] [place] OFFICE O/P EST MOD 30 MIN [id number] Diagnos is: ICD-10- CM Z87.820 Persona l history of traumat ic brain injury CHARLOTTE HURT 11/12 [place] [facility] HC PRO PHONE CALL 5-10 MIN [id number] Diagnos is: ICD-10- CM M47.896 Other spondyl osis, lumbar region RA CAMMY MONTENEGRO 11/27 [facility] En[facility] [id number] 12/01 [facility] [place] [place] [facility] [place] OFF[place] O/P EST MOD 30 MIN [id number] Diagnos is: ICD-10- CM I10 Essenti al (primar y) hyperte nsion NADMARQUISEB GRETA,OG LANETTE M 12[facility]01 [facility] EST OCTOBER X REQ PHY/QHP [id number] Diagnos is: ICD-10- CM I10 Essenti al (primar y) hyperte nsion SAMMY BRENNAN 12/15 [place] [facility] En[facility] [id number] 12/15 [facility] En[facility] [id number] 12/16 [facility] Encounter [id number] 12/22 [facility] [place] En[facility] [id number] 12/28 [facility] Encounter [id number] 01/19 [facility] OFF[facility] O/P EST MOD 30 MIN [id number] Diagnos is: ICD-10- CM M54.50 Low back pain, unspeci fied BOONESCHM ID,BRENT B 01/20 [facility] En[facility] [id number] 01/26 [facility] [place] [facility] [place] OFFICE O/P EST MOD 30 MIN [id number] Diagnos is: ICD-10- CM F06.30 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, unsp LICHA,CHARLOTTE AN 02/11 [place] [facility] OFFICE O/P EST LOW 20 MIN [id number] Diagnos is: ICD-10- CM M54.9 Dorsalg ia, unspeci fiRaquel Van 02/19 [facility] En[facility] [id number] 02/23 [facility] En[facility] [id number] 1.03/12 [facility] En[facility] [id number] 03/12 [facility] En[facility] [id number] 03/15 [facility] En[facility] [id number]/16 [facility] En[facility] [id number] 03/17 [facility] En[facility] [id number] 03/19 [facility] En[facility] [id number] 03/26 [facility] Out[facility] Encounter [id number] 04/06 [facility] Encounter [id number] 1.04/06 [facility] COMPRE OPH EXAM EST PT 1/ [id number] 1. Diagnos is: ICD-10- CM Z96.1 Presenc e of intraoc ular lens MERHAR,FLORI H B 04/19 [facility] FIT SPECTACLES MULTIFOCAL [id number] 1. Diagnos is: ICD-10- CM Z46.0 Encount er for fit/adj st of spectac les and contact lenses MERHAR,FLORI H B 04/19 [facility] OFFICE O/P EST HI 40 MIN [id number] Diagnos is: ICD-10- CM M51.86 Other interve rtebral disc disorde rs, lumbar region ABILIO HAGAN THI 05/26 [facility] Out[facility] Encounter [id number] 05/26 [facility] Out[facility]counter [id number] 06/01 [facility] Out[facility]counter [id number] 07/20 [facility] Outpatient Encounter [id number] 07/20 [facility] [facility] Out[facility]counter [id number]/20 [facility]counter [id number]/21 [facility] Out[facility]counter [id number] 07/23 [facility] OFFICE O/P EST LOW 20 MIN [id number] Diagnos is: ICD-10- CM G20.C Dariusz onism, unspeci Raquel Tobin 07/28 [facility] NEW LOW 30 MIN [id number] Diagnos is: ICD-10- CM M72.2 Plantar fascial fibroma MARGARITA Garcia 07/30 [facility] [place] Social History Combined list of available smoking, tobacco, and other social history from [facility] and [facility] facilities. Social History Type Response Date Comment Source Tobacco smoking status [facility] FORMER USER 04/17/2023 [facility] History of tobacco use VA-TOBACCO QUIT 15 YRS OR MORE 04/17/2023 [facility] History of tobacco use VA-TOBACCO FORMER USER 01/09/2022 [facility] History of tobacco use [facility] NEVER USED 12/20/2020 [place] History of tobacco use [place] FORMER US[place] 12/08/2019 [place] History of tobacco use [place] FORMER US[place] 09/10/2018 [place] History of tobacco use QUIT TOBACCO USE > 7 YEARS AGO 12/05/2017 [place] History of tobacco use QUIT TOBACCO USE > 7 YEARS AGO 01/17/2017 [place] History of tobacco use QUIT TOBACCO USE > 7 YEARS AGO 01/30/2016 quit 1988 [place] History of tobacco use QUIT TOBACCO USE > 7 YEARS AGO 12/25/2010 Pt. stated he quit in 1988! [place] Plan of Care List of future care activities from [facility] facilities. Additional future care activities may be listed in the Assessment and Plan section. Date/Time Care Activity Care Activity Detail Facili 08/27/2024 AMBULATORY - PSYCHIATRY AMBULATORY - PSYC HIATRY [place] 08/30/2024 AMBULATORY - MEDICINE AMBULATORY - MEDICI [place] 10/18/2024 AMBULATORY - NONE AMBULATORY - NONE [place] [facility] RAIMUNDON RUBÉN [facility] 07/23/2024 Laboratory - Surgical Supervisor ry Order URINALYSIS URINE [facility] 07/23/2024 Laboratory - Surgical Supervisor ry Order PSA BLOOD (SST-SERUM) [facility] 07/23/2024 Laboratory - Surgical Supervisor ry Order BASIC METABOLIC PANEL (fasting) BLOOD (SST-SERUM) [facility] 07/23/2024 Laboratory - Surgical Supervisor ry Order LIPID PANEL FASTING BLOOD (SST-SERUM) [facility] 07/23/2024 Laboratory - Surgical Supervisor ry Order CBC AND DIFF (AUTO) BLOOD (LAV-BLOOD) [facility] 07/23/2024 Laboratory - Surgical Supervisor ry Order LIVER FUNCTION BLOOD (SST-SERUM) [facility] 07/23/2024 Laboratory - Surgical Supervisor ry Order HEMOGLOBIN A1C PANEL BLOOD (LAV-BLOOD) [facility] 07/23/2024 Laboratory - Surgical Supervisor ry Order TSH BLOOD (SST-SERUM) [facility] 08/02/2024 Consult Order RESPIRATORY THER APY/ NHM OUTPT Cons [facility] [place] [facility] Advance Directives List of completed, amended, or rescinded Advance Directives on record at [facility] facilities. An actual copy of the Directive is not included. Date Advance Directive Provider Source 12/25/2010 ADVANCE DIRECTIVE DIONNE HOGUE
--- OUTSIDE RECORDS SUMMARY | 2024-08-13 15:04 | XMS_ITS | Clinical Summary ---
Author Organization [facility] Address [address] [place], [place] [id number] Care Team Providers Care Ip Architect Name Role Phone Basilio Saini MD Primary Care Provider [phone] Allergies No known active allergies Medications Medication Sig Dispensed Refills Start Date End Date Status valproic acid (DEPAKENE) 250 MG capsule 0 06/10/2018 Active traZODone (DESYREL) 100 MG tablet 0 06/08/2018 Active lisinopril (PRINIVIL,ZESTRIL) tablet 40 mg 0 04/30/2018 Active carbidopa-levodopa (SINEMET) 25-100 MG per tablet Take 1 tablet by mouth 3 (three) times a day. 6 06/22/2018 Active MYRBETRIQ 50 MG TB24 0 05/21/2018 Acti ve prazosin (MINIPRESS) 2 MG capsule 0 06/10/2018 Active Active Problems Problem Noted Date Diagnosed Date Postop check 09/11/2018 Subacromial bursitis 07/01/2018 Calcific tendinitis of right shoulder 07/01/2018 Family History Medical History Relation Name Comments Arthritis Mother Relation Name Status Comments Mother Social History Tobacco Use Types Packs/Day Years Used Date Smoking Tobacco: Former Cigarettes Smokeless Tobacco: Never Alcohol Use Standard Drinks/Week Comments No 0 (1 standard drink = 0.6 oz pur e alcohol) Sex and Gender Information Value Date Recorded Sex Assigned at Not on file Gender Identity Not on file Sexual Orientation Not on file Last Filed Vital Signs Vital Sign Reading Time Taken Comments Blood Pressure - - Pulse - - Temperature - - Respiratory Rate - - Oxygen Saturation - - Inhaled Oxygen Concentration - - Weight 102.1 kg (225 lb) 07/01/2018 10:34 AM EST Height 182.9 cm (6') 07/01/2018 10:34 AM EST Body Mass Index 30.52 07/01/2018 10:34 AM EST Plan of Treatment Health Maintenance Due Date Last Done Comments Hepatitis C Screening 1955 COVID-19 Vaccine (#1) 1955 Depression Screening 1967 BMI Counseling 1973 Preventative Health Evaluation 1973 DTap / Tdap / Td (1 - Tdap) 1974 Colon Cancer Screening (Colonoscopy) 2000 Shingrix-Zoster Vaccine (1 of 2) 2005 Fall Risk Assessment 2020 Pneumococcal Vaccine (1 of 1 - PCV) 2020 Influenza Vaccine (#1) 2024 RSV Adult > 60+ Yrs or Pregn ant (1 - 1-dose 75+ series) 2030 Hepatitis B Vaccines Aged Out No long er eligible based on patient's age to complete this topic RSV Ped < 20 months Aged Out No longe r eligible based on patient's age to complete this topic Care Teams Ip Architect Relationship Specialty Start Date End Date Basilio Saini MD [address] [place] [address] PCP - General Internal Medicine 06/02/18
--- OUTSIDE RECORDS SUMMARY | 2024-08-13 15:04 | XMS_ITS ---
Author Name [facility] [place] Address [address] [place] [address] Care Team Providers Care Product Development Assistant Name Role Phone NINO MAI Primary Care [...] BASIC SELF+ ONE Jun 23, 2020 [id number] [phone] STEPHEN SOMMERS PATIENT ANTHEM BCBS CT FEDERAL PREFERRED PROVIDER ORGANIZAT ION (PPO) STAND RAEANN SELF + ONE Jun 23, 2015 106 [id number] [phone] STEPHEN SOMMERS PATIENT ANTHEM BCBS FEDERAL PREFERRED PROVIDER ORGANIZAT ION (PPO) STAND RAEANN SELF+ ONE Jun 23, 2015 106 [id number] STEPHEN SOMMERS PATIENT BCBS [place] FEP PREFERRED PROVIDER ORGANIZAT ION (PPO) PSHB BAS SELF PLUS 1 Jun 23, 2024 [id number] STEPHEN SOMMERS PATIENT BCBS [place] F[place] PREFERRED PROVIDER ORGANIZAT ION (PPO) STAND RAEANN SELF PLUS 1 Jun 23, 2015 106 [id number] STEPHEN SOMMERS PATIENT [place] F[place] PREFERRED PROVIDER ORGANIZAT ION (PPO) BASIC SELF+ ONE Jun 23, 2020 113 [id number] STEPHEN SOMMERS PATIENT [place] PREFERRED PROVIDER ORGANIZAT ION (PPO) STAND RAEANN SELF+ ONE Jun 23, 2015 106 [id number] STEPHEN SOMMERS PATIENT [place] F[place] DENTAL DENTAL INSURANCE BASIC Jun 23, 2020 DENTAL [id number] [phone] STEPHEN SOMMERS PATIENT [place] FEP BCBS PRESCRIPT ION CAREM ARK FEPRX PLAN Jun 23, 2015 [id number] STEPHEN SOMMERS PATIENT [place] FEPRX PLAN PRESCRIPT ION CAREM ARK FEPRX Jun 23, 2015 [id number] [phone] STEPHEN SOMMERS PATIENT MEDICARE (WNR) MEDICARE () PART A May 23, 2020 PART A [id number] STEPHEN SOMMERS PATIENT MEDICARE (WNR) MEDICARE () PART B May 23, 2020 PART B [id number] STEPHEN SOMMERS PATIENT MEDICARE (WNR) MEDICARE () PART A May 23, 2020 PART A [id number] STEPHEN SOMMERS PATIENT MEDICARE (WNR) MEDICARE () PART B May 23, 2020 PART B [id number] STEPHEN SOMMERS PATIENT MEDICARE (WNR) MEDICARE () PART A May 23, 2020 PART A [id number] STEPHEN SOMMERS PATIENT MEDICARE (WNR) MEDICARE () PART B May 23, 2020 PART B [id number] [phone] [id number] STEPHEN SOMMERS PATIENT Selected Encounter This section includes the information on record at [place] for the Encounter. Date/Time Encounter Type Encounter Description Reason Provider Source Jan 21, 2024 03:00 PM OFFICE O/P EST MOD 30 MIN PAIN CLINIC ICD-10-CM M54.50 Low back pain, unspecified KUPFERSCHMID,S ETH B IHE Encounter Template Text not used by [place] Assessments - Encounter Diagnoses This section includes the primary and secondary diagnoses documented for the Encounter. Date/Time Primary/Secondary Diagnosis Diagnosis Name Provider Source Jan 21, 2024 03:41 PM PRIMARY Low back pain, unspecified [facility] Jan 21, 2024 03:41 PM SECONDARY Mood disorder due to known physiological condition, unsp [facility] Plan of Treatment: Future Appointments (+ 6 months) and Future Tests (+/- 45 days) The Plan of Treatment section includes future care activities for the patient from all [place] [facility]. This section includes future appointments and future orders which are active, pending or scheduled. Future Appointments This section includes appointments that were scheduled to occur 6 months from the date of the Encounter, up to a maximum of 20 appointments. The data comes from all [place] treatment facilities. Appointment Date/Time Appointment Type Appointme Facility Name Feb 12, 2024 02:00 PM AMBULATORY - PSYCHIATRY [facility] Feb 20, 2024 08:30 AM [facility] Mar 26, 2024 08:00 AM AMBULATORY - MEDICINE [facility] [place] [facility] Apr 06, 2024 10:50 AM AMBULATORY - MEDICINE [facility] [place] [facility] Apr 19, 2024 03:30 PM AMBULATORY - MEDICINE [facility] [place] [facility] May 26, 2024 02:30 PM [facility] Social History: Smoking Status (Most current) and Tobacco Use (All prior to encounter date) This section includes the most current, and the historical, smoking and tobacco- related health factors from the [facility] facility where the Encounter took place. Current Smoking Status This section includes the most current smoking, or tobacco-related health factor, from the [place] facility where the Encounter took place. Date/Time Current Smoking Status Sri arguelles Apr 17, 2023 01:59 PM VA-TOBACCO FORMER USER [facility] Tobacco Use History This section includes a history of the smoking, or tobacco-related health factors, that were collected on or before the date of the Encounter. The data comes from the [place] facility where the Encounter took place. Date/Time Smoking Status/Tobacco Use Comment Shreyas hernandes Apr 17, 2023 01:59 PM AR-TOBACCO QUIT 15 YRS OR MORE [facility] Jan 09, 2022 08:40 AM AR-TOBACCO FORMER USER [facility] Jan 09, 2022 08:40 AM AR-TOBACCO QUIT 15 YRS OR MORE [facility] Advance Directives: All historical and current Section Date Range: From patient's date of to the date document was created. This section includes ALL of a patient's completed or amended [place] Advance and Rescinded Directives. The entries below indicate that a directive exists for the patient, but an actual copy is not included with this document. The data comes from all [place] facilities. Date Advance Directives Provider Source Dec 25, 2010 ADVANCE DIRECTIVE DIONNE HOGUE [facility] Encounter Notes: All associated encounter notes This section contains the clinical notes associated to the Encounter. Date/Time Encounter Note(s) Provider Source Jan 21, 2024 03:04 PM PAIN MEDICINE OUTPATIENT NOTE: LOCAL TITLE: PAIN CLINIC NOTE STANDARD TITLE: PAIN MEDICINE OUTPATIENT NOTE DATE OF NOTE: JAN 21, 2024@15:04 ENTRY DATE: JAN 21, 2024@15:04:48 AUTHOR: BRENT JONES EXP COSIGNER: URGENCY: STATUS: COMPLETED CURRENT ======= Epidural injection in October was very helpful, still working. Able to do activities. Back is still killing me. Going to [facility] for additional injections to see if RFAs may help. Out with friends a lot but pain can interfere. Admitted August 23 for 3 days due to Parkinson med reaction. Anatoliy present. PAIN-RELATED MEDICATIONS Acetaminophen Celecoxib Citalopram Diclofenac gel Prazosin Trazodone Valproic acid for mood stabilization Oxycodone 5 mg, #16 per month PAIN-RELATED CONDITIONS Low back pain Parkinson's History of TBI Depression Sleep apnea, CPAP SOCIAL HISTORY Joined service at 17; injured back after 2 years. General discharge, honorable (3 months early) 2013, Anatoliy (4th ) and are involved Muslim. Baptized in 1988. 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 ) 3rd marriage 23 years, then . Daughter by first marriage, 3 grandchildren - in [place], 7 great grandchildren! Remote relationship. 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 PLAN === Mr. Sommers is a 67 year old with Parkinson's Disease, and worsening, chronic low back pain. He remains an active person. Moving to a healthier diet with less sugar, less saturated fats, salt; lost weight (225 to 199). Does not need walking staff as much. 01/21/2024 CHRONIC BACK PAIN Lasting relief from [facility] in October Not using oxycodone MOOD Stable Parkinson's Stable No follow up needed. He can call in case of change. 10/02/2023 PAIN, PARKINSON'S, BIPOLAR DISORDER, SLEEP APNEA waiting for injections and possible RFAs. F/U November after he knows if treatments worked. Continues to minimize use of oxycodone. -Concerned about possible effect on his bipolar. Social and active with rastafari. and I formulated the plan through shared medical-decision making. [place] repeated the plan back to me and had no further questions at end of appointment. APPOINTMENT LENGTH: 30 minutes FOLLOW-UP: Not needed 02/12/2024 14:00 CWM/SO/VVC/MHC/LARROW 04/19/2024 15:30 CWM/NO/OPTOMETRY/MERHAR 07/20/2024 13:30 CWM/SO/PACT 5 === MEDICATION and RECONCILIATION === Active Outpatient Medications (including Supplies): Active Outpatient Medications Status 1) ACETAMINOPHEN 500MG TAB TAKE TWO TABLETS BY MOUTH ACTIVE TWICE DAILY FOR PAIN 2) CELECOXIB 200MG CAP TAKE ONE CAPSULE BY MOUTH ONCE ACTIVE DAILY NEEDED FOR ARTHRITIS 3) CHOLECALCIF 25MCG (D3-1,000UNIT) TAB TAKE ONE TABLET ACTIVE (S) BY MOUTH ONCE DAILY FOR VITAMIN SUPPLEMENTATION [...] TAKE TWO TABLETS BY MOUTH ONCE ACTIVE (S) DAILY FOR CONSTIPATION 12) SIMVASTATIN 20MG TAB TAKE ONE TABLET BY MOUTH AT ACTIVE BEDTIME FOR CHOLESTEROL 13) TRAZODONE HCL 50MG TAB TAKE ONE TO THREE TABLETS BY ACTIVE MOUTH AT BEDTIME NEEDED FOR INSOMNIA ASSOCIATED WITH DEPRESSION FOR SLEEP 14) VALPROIC ACID 250MG CAP TAKE THREE CAPSULES BY MOUTH ACTIVE (S) TWICE DAILY FOR MOOD Active Non-VA Medications Status 1) Non-VA ASPIRIN 81MG EC TAB 81MG BY MOUTH ONCE DAILY ACTIVE 2) Non-VA CARBIDOPA 25/LEVODOPA 100MG TAB 1 TABLET BY ACTIVE MOUTH FOUR TIMES A DAY 3) Non-VA OTHER CAP/TAB MAGNESIUM BY MOUTH ONCE DAILY ACTIVE 17 Total Medications ACTIVE PROBLEMS Active problems - Computerized Problem List is the source for the followin. Constipation 2. Vitamin D Deficiency ([facility] [id number]) 3. Overactive bladder 4. Postnasal drip 5. PD - Parkinson's disease 6. Low back pain 7. Seasonal affective disorder 8. Erectile dysfunction 9. Parkinson's disease 10. Hypertension 11. Traumatic brain injury 12. Hyperlipidemia 13. Low back pain 14. Mood disorder due to a general medical condition 15. Pain in joint involving shoulder region 16. Low Back Pain 17. Hydrocele 18. Hiatal hernia 19. leptomeningeal cyst 20. Carpal Tunnel Syndrome 21. Ulnar Neuropathy 22. Shoulder Surgery 23. Cyst, ganglion 24. Psoriasis 25. Anxiety (SNOMED CT 19842307) 26. Lipomatosis Appointment length includes time with , completing clinical reminders, reviewing relevant information in EMR, review of PDMP, ordering appropriate tests, prescribing medications, coordinating care, and completing the medical record. [place] [facility] (VVC) Standard Documentation V[facility] Clinician Resources Only: E911 (Emergency Call Relay Center): [phone] [employer] Crisis Line - 988 then press #1. MIGUEL Suicide Coordinator [phone], Ext. [phone]; Back-up Ext. [phone] [place] Police, [place] RIVERA [phone] Introduction: Visit is being conducted by [place] [facility]. identified with 2 identifiers: [X] Full Name [X] Date of [ ] VA ID Card Emergency Plan: confirmed and/or provided the following information in case of emergency or technology failure. PATIENT PHONE - [phone] PHONE NUMBER [CELLULAR] - Is patient phone number correct, if not, enter below: [place]'s phone number: CARA SOMMERS [address], [place], [address] 's present location and address for appointment: Home [place]'s emergency contact name and phone number: Listed [place] reported that location is private and safe: Yes Informed Consent: [place] informed of the risks and benefits of Telehealth video care. has the right to refuse video services. If refuses video visit, a [id number] visit will be scheduled. [place] verbalized consent for this video visit: Yes provided consent for any other persons present for visit: No If yes, who and relationship to patient: Secure visit: Visit was locked for security and privacy:Yes VVC appointment completed by telephone due to technical difficulties on side. /caesar/ BRENT JONES MD PHYSICIAN Signed: 01/21/2024 15:41 BRENT JONES [place] [facility]
--- OUTSIDE RECORDS SUMMARY | 2024-08-13 15:04 | XMS_ITS | Encounter Summary ---
Author Name [facility] [place] [facility] [place] [facility] [facility] [place] Address [address] [place] [address] Care Team Providers Care It Integration Architect Name Role Phone NINO MAI Primary Care [...] Policy Last's Name Patient's Relationship to Policy Lsat ANTHEM BCBS CT FEDERAL PREFERRED PROVIDER ORGANIZAT ION (PPO) BASIC SELF+ ONE Jun 23, 2020 113 [id number] [phone] STEPHEN SOMMERS PATIENT ANTHEM BCBS CT FEDERAL PREFERRED PROVIDER ORGANIZAT ION (PPO) STAND RAEANN SELF + ONE Jun 23, 2015 106 [id number] [phone] STEPHEN SOMMERS PATIENT ANTHEM BCBS FEDERAL PREFERRED PROVIDER ORGANIZAT ION (PPO) STAND RAEANN SELF+ ONE Jun 23, 2015 106 [id number] STEPHEN SOMMERS PATIENT BCBS [place] F[place] PREFERRED PROVIDER ORGANIZAT ION (PPO) PSHB BAS SELF PLUS 1 Jun 23, 2024 [id number] STEPHEN SOMMERS PATIENT [place]BS [place] PREFERRED PROVIDER ORGANIZAT ION (PPO) STAND RAEANN SELF PLUS 1 Jun 23, 2015 106 [id number] STEPHEN SOMMERS PATIENT [place] PREFERRED PROVIDER ORGANIZAT ION (PPO) BASIC SELF+ ONE Jun 23, 2020 113 [id number] [phone] STEPHEN SOMMERS PATIENT [place] PREFERRED PROVIDER ORGANIZAT ION (PPO) STAND RAEANN SELF+ ONE Jun 23, 2015 106 [id number] STEPHEN SOMMERS PATIENT [place] DENTAL DENTAL INSURANCE BASIC Jun 23, 2020 DENTAL [id number] [phone] STEPHEN SOMMERS PATIENT [place] FEP BCBS PRESCRIPT ION CAREM ARK FEPRX PLAN Jun 23, 2015 [id number] STEPHEN SOMMERS PATIENT [place] FEPRX PLAN PRESCRIPT ION CAR[place] FEPRX Jun 23, 2015 [id number] STEPHEN SOMMERS PATIENT MEDICARE (WNR) MEDICARE () PART A May 23, 2020 PART A [id number] STEPHEN SOMMERS PATIENT MEDICARE (WNR) MEDICARE () PART B May 23, 2020 PART B [id number] STEPHEN SOMMERS PATIENT MEDICARE (WNR) MEDICARE () PART B May 23, 2020 PART B [id number] STEPHEN SOMMERS PATIENT MEDICARE (WNR) MEDICARE () PART A May 23, 2020 PART A [id number] STEPHEN SOMMERS PATIENT MEDICARE (WNR) MEDICARE () PART A May 23, 2020 PART A [id number] STEPHEN SOMMERS PATIENT MEDICARE (WNR) MEDICARE () PART B May 23, 2020 PART B [id number] STEPHEN SOMMERS PATIENT Selected Encounter This section includes the information on record at [place] for the Encounter. Date/Time Encounter Type Encounter Description Reason Provider Source November 13, 2023 02:00 PM OFFICE O/P EST MOD 30 MIN [facility] - IND ICD-10-CM Z87.820 Personal history of traumatic brain injury VALERIANO HURT [place] Encounter Template Text not used by [facility] Assessments - Encounter Diagnoses This section includes the primary and secondary diagnoses documented for the Encounter. Date/Time Primary/Secondary Diagnosis Diagnosis Name Provider Source Dec 06, 2023 05:54 AM PRIMARY Personal history of traumatic brain injury VALERIANO HURT [facility] Dec 06, 2023 05:54 AM SECONDARY Anxiety disorder, unspecified VALERIANO HURT [facility] Dec 06, 2023 05:54 AM SECONDARY Mood disorder due to known physiological condition, unsp VALERIANO HURT [facility] Dec 06, 2023 05:54 AM SECONDARY Parkinsonism, unspecified VALERIANO HURT [facility] Plan of Treatment: Future Appointments (+ 6 months) and Future Tests (+/- 45 days) The Plan of Treatment section includes future care activities for the patient from all [place] treatmentfacilities. This section includes future appointments and future orders which are active, pending or scheduled. Future Appointments This section includes appointments that were scheduled to occur 6 months from the date of the Encounter, up to a maximum of 20 appointments. The data comes from all [place] treatment facilities. Appointment Date/Time Appointment Type Appointme nt Facility Name Dec 02, 2023 01:00 PM AMBULATORY - MEDICINE [facility] Dec 16, 2023 01:30 PM AMBULATORY - MEDICINE [facility] Jan 21, 2024 03:00 PM [facility] [place] [facility] [facility] [place] [facility] Feb 12, 2024 02:00 PM AMBULATORY - PSYCHIATRY [facility] Feb 20, 2024 08:30 AM AMBUL[facility] - [place] [facility] [facility] [place] [facility] Mar 26, 2024 08:00 AM [place] [facility] [place] [facility] Apr 06, 2024 10:50 AM [facility] [place] [facility] [place] [facility] Apr 19, 2024 03:30 PM [place] [facility] [place] [facility] Lab Results: +/- 30 days of the encounter This section includes the Chemistry and Hematology Lab Results on record with [place] for the patient. Radiology Reports and Pathology Reports are provided separately, in subsequent sections. Lab Results This section contains the Chemistry/Hematology Results that were resulted 30 days before or 30 daysafter the date of the Encounter. Date/Time Source Result Type Result - Unit Interpretation Reference Range Comment November 18, 2023 12:55 PM [facility] VALPROIC ACID Specimen Type: PLASMA No comment entered. Ordering Provider: VALERIANO HURT Report Released Date/Time: Aug 21, 2023 04:03 PM Reporting Lab[facility] [address] [facility] [address] Performing Lab: [facility] [address] [facility] [address] VALPROIC ACID 64.9 ug/mL 50.0-120.0 Social History: Smoking Status (Most current) and Tobacco Use (All prior to encounter date) This section includes the most current, and the historical, smoking and tobacco- related health factors from the [place] facility where the Encounter took place. Current Smoking Status This section includes the most current smoking, or tobacco-related health factor, from the [place] facility where the Encounter took place. Date/Time Current Smoking Status Comment Facil Dec 20, 2020 01:30 PM VA-TOBACCO NEVER USED [facility] Tobacco Use History This section includes a history of the smoking, or tobacco-related health factors, that were collected on or before the date of the Encounter. The data comes from the [place] facility where the Encounter took place. Date/Time Smoking Status/Tobacco Use Comment F acility Dec 08, 2019 09:02 AM VA-TOBACCO FORMER USER [facility] Dec 08, 2019 09:02 AM VA-TOBACCO QUIT 15 YRS OR MORE [facility] Sep 10, 2018 07:42 AM VA-TOBACCO FORMER USER [facility] Sep 10, 2018 07:42 AM VA-TOBACCO QUIT 15 YRS OR MORE [facility] Dec 05, 2017 02:07 PM QUIT TOBACCO USE > 7 YEARS AGO [facility] Jan 17, 2017 09:55 AM QUIT TOBACCO USE > 7 YEARS AGO [facility] Jan 30, 2016 08:10 AM QUIT TOBACCO USE > 7 YEARS AGO quit 1988 [facility] Dec 25, 2010 10:36 AM QUIT TOBACCO USE > 7 YEARS AGO Pt. stated he quit in 1988! [facility] Advance Directives: All historical and current Section Date Range: From patient's date of to the date document was created. This section includes ALL of a patient's completed or amended [place] Advance and Rescinded Directives. The entries below indicate that a directive exists for the patient, but an actual copy is not included with this document. The data comes from all [facility] facilities. Date Advance Directives Provider Source Dec 25, 2010 ADVANCE DIRECTIVE [facility]ION[facility] HOG[facility] Radiology Reports: +/- 30 days [...] the Encounter. The data comes from all [place] treatment facilities. Date/Time Radiology Report Provider Source November 12, 2023 02:01 PM FLUOROSCOPIC REFUGIO NCE OF NEEDLE/SPINE: CARA SOMMERS [id number] -[id number] M Exm Date: NOVEMBER 12, 2023@14:01 Req Phys: ABILIO HAGAN Loc: [facility]/NO/MED REHAB/SPINE INJ (Re Img Loc: [facility]/BUILDING 1 Service: Unknown [facility] , (Case [id number] COMPLETE) FLUOROSCOPIC GUIDANCE OF NEEDLE/S(RAD Detailed) CPT:84343 Reason for Study: interlaminar epidural steroid injection Clinical History: Report Status: Verified Date Reported: NOVEMBER 12, 2023 Date Verified: NOVEMBER 12, 2023 Production Laborer E-Sig:/ES/ARIAN MARQUES JR Report: Study: Pain injection [...] Primary Interpreting Staff: ARIAN MARQUES JR, Radiologist (Production Laborer) /ARIAN BERG JR [facility] Oct 17, 2023 07:55 PM OUTSIDE MRI LUMBAR SPINE: CARA SOMMERS [id number] -[id number] M Exm Date: OCT 17, 2023@19:55 Req Phys: HOWARD AVELAR Loc: [facility]/SO/PACT 1 [facility] OPERATOR (Req'g Loc) Img Loc: OUTSIDE GENERAL RADIOLOGY Service: Unknown (Case [id number] COMPLETE) OUTSIDE MRI LUMBAR SPINE (RAD Detailed) CPT:79509 Reason for Study: Low back pain Clinical History: Report Status: Electronically Filed Date Reported: OCT 17, 2023 Report: Community care exam; see CPRS/JLV for outside radiology report/results Impression: Community care exam; see CPRS/JLV for outside radiology report/results Primary Diagnostic Code: VERIFIED BY: / *ELECTRONICALLY FILED* [facility] Encounter Notes: All associated encounter notes This section contains the clinical notes associated to the Encounter. Date/Time Encounter Note(s) Provider Source November 13, 2023 03:21 PM TELEHEALTH NOTE: LOCAL TITLE: [facility] NOTE STANDARD TITLE: TELEHEALTH NOTE DATE OF NOTE: NOVEMBER 13, 2023@15:21 ENTRY DATE: NOVEMBER 13, 2023@15:21:31 AUTHOR: VALERIANO HURT EXP COSIGNER: URGENCY: STATUS: COMPLETED [facility] ([facility]) Standard Documentation [facility] Clinician Resources Only: E911 (Emergency Call Relay Center): [phone] National Veterans Crisis Line - 988 then press #1. [facility] Suicide Coordinator [phone], Ext. [phone]; Back-up Ext. [phone] [place] PoliceMIGUEL [place] [phone] Introduction: Visit is being conducted by [place] [employer]. Venus identified with 2 identifiers: [X] Full Name [X] Date of [ ] VA ID Card Emergency Plan: Venus confirmed and/or provided the following information in case of emergency or technology failure. PATIENT PHONE - [phone] PHONE NUMBER [CELLULAR] - Is patient phone number correct, if not, enter below: 's phone number: CARA SOMMERS [address], [place], [address] Venus's present location and address for appointment: home Venus's emergency contact name and phone number: see cover reported that location is private and safe: Yes Informed Consent: Venus informed of the risks and benefits of Telehealth video care. has the right to refuse video services. If refuses video visit, a uzje-yo-[id number] visit will be scheduled. Venus verbalized consent for this video visit: Yes Venus provided consent for any other persons present for visit: Yes If yes, who and relationship to patient: Secure visit: Visit was locked for security and privacy:Yes Time spent: 21-30 minutes >16 mins supportive therapy. The presents today for follow-up. His is present for a portion of the interview. PATIENT REPORT: presents with good self-care. There are no symptoms of yolette or psyhcosis. Mood is fair. He discusses recent uptick in anger/ irritability. There are stressors. Several friends and family in [place] have passed. discusses how he's had a hard time accepting some physical limitations he's encountered due to his Parkinson Disease. They changed congregations at their [employer], and this too has been an adjustment for Lorenzo. Chronic pain is a stressor. he had a back injection yesterday, and he is hopeful. He has a f/up appointment regarding potential RFA (radiofrequency ablation). There is no depression. There is no hopelessness or subjective sense of helplessness. He is conversational. He is hopeful. He brightens appropriately. Venus has motivations and interests. He enjoys fishing. Sleep is good. We discussed his skills learned in Anger Managament. I offered to refer him again--he declines. He's not interested offer of linking him with therapist. He sees Neurology regularly (Dr. Penny Colon). He denies dizziness. He has good supports. He is aware of need for follow-up VPA level. presents with good self-care. He was cooperative with questions asked. Cognitive exam was grossly intact. TP was logical and organized. TC was pertinent to topic. Speech was of regular rate, rhythm, volume, and somewhat monotone. Mood was fair. Affect was restrcited. He denied SI and HI. Insight and judgment were intact. SOCIAL HISTORY: [facility] FROM Jan TO Dec Roddy spends some time discussing the dysfunction in his family. His 91 yo father lives with his sister. He rarely gets to see him. His children live in [place]. He reports a good relationship with them. He and his like to spend time in [place] (her parents, now , lived there) SUICIDE [...] BY MOUTH PENDING ONCE DAILY FOR MOOD DOCUSATE NA 100MG CAP TAKE ONE CAPSULE BY MOUTH ONCE DAILY ACTIVE (S) FOR CONSTIPATION TO SOFTEN STOOL FLUTICASONE PROP 50MCG 120D NASAL INHL INSTILL 2 SPRAYS ACTIVE INTO EACH NOSTRIL ONCE DAILY FOR NASAL IRRITATION/INFLAMMATION KETOROLAC TROMETHAMINE 0.5% OPH SOLN INSTILL 1 DROP ACTIVE DIRECTED TWICE DAILY INTO OPERATIVE EYE STARTING 2 DAYS BEFORE SURGERY LISINOPRIL 20MG TAB TAKE ONE TABLET BY MOUTH ONCE DAILY ACTIVE (S) FOR HIGH BLOOD PRESSURE TO CONTROL BLOOD PRESSURE MIRABEGRON 50MG SA TAB [...] ONE TABLET BY MOUTH AT BEDTIME ACTIVE FOR CHOLESTEROL TRAZODONE HCL 50MG TAB TAKE ONE TO THREE TABLETS BY MOUTH ACTIVE AT BEDTIME NEEDED FOR INSOMNIA ASSOCIATED WITH DEPRESSION FOR SLEEP VALPROIC ACID 250MG CAP TAKE THREE CAPSULES BY MOUTH TWICE ACTIVE DAILY FOR MOOD VALPROIC ACID 250MG CAP [...] and at [employer]) Secondary: Parkinson Disease PLAN: Recent anger/ irritability appear situationally-bound and due to recent adjustment in [employer] and NOT due to bipolar disorder. He presents with fair mood/ not depressed and without symptoms of yolette or psychosis. --Continue Valproic acid 750mg bid for mood. He is doing well on this dose. Level 90.2 on 12/06/22 at this dose. CBC with diff and liver panel reviewed and is normal 08/26/23. Note also that there is a long literature to support use of Depakote in TBI. I previously increased from 30 to 60-days to help prevent medicine from running out. Venus came for labwork recently but VPA order was not drawn. He agrees to come back within the next 1- 2 weeks to have this blood work done. --Continue citalopram 20mg daily for mood and [...] proper safety precautions for one with PD. T/c quetiapine for irritability should it get to the point angélica crume felt medication is necessary. For now will monitor. I encouraged skills. He declines offer to do Anger Management again. He declines offer to link with individual therapist. --Has not required lorazepam in many months. [...] maintenance. FOLLOW-UP: 12 weeks, sooner if needed Medication Reconciliation: Outpatient: Has the patient been [...] provider. /caesar/ VALERIANO HURT DO Psychiatrist Signed: 11/13/2023 15:33 VALERIANO HURT
--- OUTSIDE RECORDS SUMMARY | 2024-08-13 15:04 | XMS_ITS | Encounter Summary ---
Author Name [facility] [place] [facility] [place] Address [address] [place] [address] Care Team Providers Care Legend Maker Name Role Phone NINO MAI Primary Care [...] BASIC SELF+ ONE Jun 23, 2020 113 [id number] [phone] STEPHEN SOMMERS PATIENT ANTHEM BCBS CT FEDERAL PREFERRED PROVIDER ORGANIZAT ION (PPO) STAND RAEANN SELF + ONE Jun 23, 2015 106 [id number] STEPHEN SOMMERS PATIENT ANTHEM BCBS FEDERAL PREFERRED PROVIDER ORGANIZAT ION (PPO) STAND RAEANN SELF+ ONE Jun 23, 2015 106 [id number] STEPHEN SOMMERS PATIENT BCBS [place] FEP PREFERRED PROVIDER ORGANIZAT ION (PPO) PSHB BAS SELF PLUS 1 Jun 23, 2024 [id number] STEPHEN SOMMERS PATIENT BCBS [place] FEP PREFERRED PROVIDER ORGANIZAT ION (PPO) STAND RAEANN SELF PLUS 1 Jun 23, 2015 106 [id number] 62 STEPHEN SOMMERS PATIENT [place] F[place] PREFERRED PROVIDER ORGANIZAT ION (PPO) BASIC SELF+ ONE Jun 23, 2020 113 [id number] 62 STEPHEN SOMMERS PATIENT [place] PREFERRED PROVIDER ORGANIZAT ION (PPO) STAND RAEANN SELF+ ONE Jun 23, 2015 106 [id number] 62 STEPHEN SOMMERS PATIENT [place] DENTAL DENTAL INSURANCE BASIC Jun 23, 2020 DENTAL [id number] 62 STEPHEN SOMMERS PATIENT [employer] FEP BCBS PRESCRIPT ION CAREM ARK FEPRX PLAN Jun 23, 2015 [id number] STEPHEN SOMMERS PATIENT [employer] FEPRX PLAN PRESCRIPT ION CAREM ARK FEPRX Jun 23, 2015 [id number] 62 STEPHEN SOMMERS PATIENT MEDICARE (WNR) MEDICARE () PART A May 23, 2020 PART A [id number] STEPHEN SOMMERS PATIENT MEDICARE (WNR) MEDICARE () PART B May 23, 2020 PART B [id number] [id number] STEPHEN SOMMERS PATIENT MEDICARE (WNR) MEDICARE () PART A May 23, 2020 PART A [id number] STEPHEN SOMMERS PATIENT MEDICARE (WNR) MEDICARE () PART B May 23, 2020 PART B [id number] STEPHEN SOMMERS PATIENT MEDICARE (WNR) MEDICARE () PART A May 23, 2020 PART A [id number] STEPHEN SOMMERS PATIENT MEDICARE (WNR) MEDICARE () PART B May 23, 2020 PART B [id number] STEPHEN SOMMERS PATIENT Selected Encounter This section includes the information on record at [place] for the Encounter. Date/Time Encounter Type Encounter Description Reason Provider Source Jul 30, 2024 02:00 PM OFFICE O/P NEW LOW 30 MIN PODIATRY ICD-10-CM M72.2 Plantar fascial fibromatosis CIRILO WHITTINGTON [facility] Encounter Template Text not used by [facility] Assessments - Encounter Diagnoses This section includes the primary and secondary diagnoses documented for the Encounter. Date/Time Primary/Secondary Diagnosis Diagnosis Name Provider Source Jul 30, 2024 04:14 PM PRIMARY Plantar fascial fibromatosis CIRILO WHITTINGTON Jul 30, 2024 04:14 PM SECONDARY Pain in right foot CIRILO WHITTINGTON [place] Plan of Treatment: Future Appointments (+ 6 months) and Future Tests (+/- 45 days) The Plan of Treatment section includes future care activities for the patient [facility] [place] [facility] This section includes future appointments and future orders which are active, pending or scheduled. Future Appointments This section includes appointments that were scheduled to occur 6 months from the date of the Encounter, up to a maximum of 20 appointments. The data comes from all [place] treatment facilities. Appointment Date/Time Appointment Type Appointme nt Facility Name Aug 27, 2024 02:30 PM AMBULATORY - PSYCHIATRY [facility] Aug 30, 2024 02:30 PM AMBULATORY - MEDICINE [facility] Oct 18, 2024 08:00 AM AM[facility]ULATORY - NONE [facility] Active, Pending, and Scheduled Orders This section includes a listing of several types of active, pending, and scheduled orders, including clinic medications orders, diagnostic test orders, procedure orders and consult orders; where the start date of the order is 45 days before the date of the Encounter or 45 days after the date of theEncounter. The data comes from all [place] [facility]. Test Date/Time Test Type Test Details Facility Name Jul 23, 2024 12:00 AM Laboratory - Chemistry Order URINALYSIS URINE [facility] Jul 23, 2024 12:00 AM Laboratory - Chemistry Order PSA BLOOD (SST-SERUM) [facility] Jul 23, 2024 12:00 AM Laboratory - Chemistry Order BASIC METABOLIC PANEL (fasting) BLOOD (SST-SERUM) [facility] Jul 23, 2024 12:00 AM Laboratory - Chemistry Order LIPID PANEL FASTING BLOOD (SST-SERUM) [facility] Jul 23, 2024 12:00 AM Laboratory - Chemistry Order LIVER FUNCTION BLOOD (SST-SERUM) [facility] Jul 23, 2024 12:00 AM Laboratory - Chemistry Order CBC AND DIFF (AUTO) BLOOD (LAV-BLOOD) [facility] Jul 23, 2024 12:00 AM Laboratory - Chemistry Order HEMOGLOBIN A1C PANEL BLOOD (LAV-BLOOD) [facility] Jul 23, 2024 12:00 AM Laboratory - Chemistry Order TSH BLOOD (SST-SERUM) [facility] Aug 02, 2024 04:32 PM Consult Order RESPIRATORY THERAPY/ [facility] OUTPT Cons Dress Marker's Choice [facility] Social History: Smoking Status (Most current) and Tobacco Use (All prior to encounter date) This section includes the most current, and the historical, smoking and tobacco- related health factors from the [place] facility where the Encounter took place. Current Smoking Status This section includes the most current smoking, or tobacco-related health factor, from the [place] facility where the Encounter took place. Date/Time Current Smoking Status Comment Facil [facility] Dec 20, 2020 01:30 PM VA-TOBACCO NEVER USED [place] Tobacco Use History This section includes a history of the smoking, or tobacco-related health factors, that were collected on or before the date of the Encounter. The data comes from the [place] facility where the Encounter took place. Date/Time Smoking Status/Tobacco Use Comment F acility Dec 08, 2019 09:02 AM VA-TOBACCO FORMER USER [place] Dec 08, 2019 09:02 AM VA-TOBACCO QUIT 15 YRS OR MORE [place] Sep 10, 2018 07:42 AM VA-TOBACCO FORMER USER [place] Sep 10, 2018 07:42 AM VA-TOBACCO QUIT 15 YRS OR MORE [place] Dec 05, 2017 02:07 PM QUIT TOBACCO USE > 7 YEARS AGO [place] Jan 17, 2017 09:55 AM QUIT TOBACCO USE > 7 YEARS AGO [place] Jan 30, 2016 08:10 AM QUIT TOBACCO USE > 7 YEARS AGO quit 1988 [place] Dec 25, 2010 10:36 AM QUIT TOBACCO USE > 7 YEARS AGO Pt. stated he quit in 1988! [place] Advance Directives: All historical and current Section Date Range: From patient's date of to the date document was created. This section includes ALL of a patient's completed or amended [place] Advance and Rescinded Directives. The entries below indicate that a directive exists for the patient, but an actual copy is not included with this document. The data comes from all [facility]. Date Advance Directives Provider Source Dec 25, 2010 ADVANCE DIRECTIVE DIONNE HOGUE [facility] Encounter Notes: All associated encounter notes This section contains the clinical notes associated to the Encounter. Date/Time Encounter Note(s) Provider Source Jul 30, 2024 12:46 PM PODIATRY CONSULT: LOCAL TITLE: CONSULT REPORT/PODIATRY STANDARD TITLE: PODIATRY CONSULT DATE OF NOTE: JUL 30, 2024@12:46 ENTRY DATE: JUL 30, 2024@12:46:14 AUTHOR: CIRILO WHITTINGTON EXP COSIGNER: URGENCY: STATUS: COMPLETED NAME: CARA SOMMERS DATE: JUL 30, 2024 : May PCP: NINO MAI LAST SEEN: INITIAL CONSULT VISIT TODAY NOTE: HAS RECEIVED BOTH COVID VACCINE DOSES +3 BOOSTERS AT [facility] HPI: Pt. is a 69 yo alert WDWN CAUC MALE who presents for initial podiatric examination with Dr. Whittington for treatment of a presenting complaint of a painful PLANTAR FASCIITIS-HEEL SPUR PER PCP infected ingrown toenail. Patient has NOT BEEN SEEN BY PODIATRY FOR THIS CONDITION Patient has been referred by: DR. MAI Location of symptoms are: MEDIAL PLANTAR RT CALCANEUS POST TRAUMA SEVERAL WEEKS AGO BUT WAS ALSO SEEN BY 'S METER TESTER AND X-RAYS REVEALED A PLANTAR CALCANEAL SPUR AND HE WAS PROVIDED WITH OTC INSERTS THAT ARE SOMEWHAT EFFECTIVE IN PAIN RELIEF Onset of symptoms has been FEB 2024 due to this being a recent condition that has been exacerbating over the past few weeks. Duration of symptoms is daily with periods of exacerbation and remission. Description of symptoms is of A SHARP SHOOTING PAIN UPON INITIAL WEIGHT BEARING AFTER PERIODS OF REST (POST- STATIS DYSKINESIA). Contributing factors are: shoes and increased activity TRAUMA. Previous treatment: OUTSIDE METER TESTER: INJECTION (NOT EFFECTIVE) INSERTS (MILDLY EFFECTIVE) & X-RAYS PMH: Active problems - Computerized Problem List is the source for the followin. Constipation 2. Vitamin D Deficiency ([facility] [id number]) 3. Overactive bladder 4. Postnasal drip 5. [...] ganglion 24. Psoriasis 25. Anxiety (SNOMED CT [id number]) 26. Lipomatosis *NOTE: REVIEWED ABOVE, NOTING NON-CONTRIBUTORY TO THE CC Family History: Non-contributory Social History: N/A Current medications: Active Outpatient Medications (including Supplies): *NOTE: DENIES ANY RECENT CHANGES IN MEDS UPON QUESTIONING TODAY-SEE RECONCILIATION PERFOMED THIS DATE BELOW TOBACCO USE = NONE Active Outpatient Medications Status ====== 1) ACETAMINOPHEN 500MG TAB TAKE TWO TABLETS BY MOUTH TWICE ACTIVE DAILY Indication: FOR PAIN 2) CHOLECALCIF 25MCG (D3-1,000UNIT) TAB TAKE ONE TABLET BY ACTIVE (S) MOUTH ONCE DAILY FOR VITAMIN SUPPLEMENTATION Indication: FOR VITAMIN D DEFICIENCY 3) CITALOPRAM HYDROBROMIDE 20MG TAB TAKE ONE TAB BY MOUTH ONCE ACTIVE (S) DAILY FOR MOOD 4) DOCUSATE NA 100MG CAP TAKE ONE CAPSULE BY MOUTH ONCE DAILY ACTIVE (S) TO SOFTEN STOOL Indication: FOR CONSTIPATION 5) FLUTICASONE PROP 50MCG 120D NASAL INHL INSTILL 2 SPRAYS INTO ACTIVE (S) EACH NOSTRIL ONCE DAILY Indication: FOR NASAL IRRITATION/INFLAMMATION 6) LISINOPRIL 20MG TAB TAKE ONE TABLET BY MOUTH ONCE DAILY TO ACTIVE (S) CONTROL BLOOD PRESSURE Indication: FOR HIGH BLOOD PRESSURE 7) MIRABEGRON 50MG SA TAB TAKE ONE TABLET BY MOUTH ONCE DAILY ACTIVE (S) Indication: FOR OVERACTIVE BLADDER 8) PRAZOSIN HCL 2MG CAP TAKE THREE CAPSULES BY MOUTH AT BEDTIME ACTIVE -FOR NIGHTMARES (OFF-LABEL) DO NOT TAKE ON NIGHTS THAT YOU TAKE SILDENAFIL 9) SENNOSIDES 8.6MG TAB TAKE TWO TABLETS BY MOUTH ONCE DAILY ACTIVE (S) Indication: FOR CONSTIPATION 10) TRAZODONE HCL 50MG TAB TAKE ONE TO THREE TABLETS BY MOUTH AT ACTIVE BEDTIME NEEDED FOR SLEEP Indication: FOR INSOMNIA ASSOCIATED WITH DEPRESSION 11) VALPROIC ACID 250MG CAP TAKE THREE CAPSULES BY MOUTH TWICE ACTIVE (S) DAILY FOR MOOD Active Non-VA Medications Status ====== 1) Non-VA ASPIRIN 81MG EC TAB 81MG BY MOUTH ONCE DAILY ACTIVE 2) Non-VA CARBIDOPA 25/LEVODOPA 100MG TAB 1 TABLET BY MOUTH ACTIVE FOUR TIMES A DAY Indication: FOR PARKINSON SYMPTOMS 3) Non-VA OTHER CAP/TAB MAGNESIUM BY MOUTH ONCE DAILY ACTIVE 14 Total Medications Allergies:Patient has answered NKA Previous Surgery/Hospitalization: N/A TO THE CC HEIGHT:208 lb [94.35 kg] (12/02/2023 13:32) WEIGHT:72 in [182.9 cm] (10/05/2020 16:23) REVIEW OF SYSTEMS: DEFERRED BEING NON-CONTRIBUTORY TO THE CC & I HAVE REVIEWED THE PCP NOTES & PMH WELL. O: DERMATOLOGICAL: Exam reveals skin color, TEMP & text to be WNL. There is absence of hair noted. Nails are WNLAND NOT IN NEED OF ATTENTION AT THIS TIMEE. There are no superficial painful hyperkeratotic lesions noted at this time. There are no rashes, ulcers, indurations or nodules noted. VASCULAR: Exam reveals DP & PT pulses to be +2equal & symmetrical bilateral. CFT is < 3 sec x 10. There are no superficial varices noted and there is no edema noted. MUSCULOSKELETAL: Exam reveals muscle strength and tone to be equal & symmetrical bilaterally & WNL for an individual of this age and present physical-medical condition. There is pain free ROM at all joints distal to and including the ankle. THERE IS A LLD WITH THE RT 1/4'-1/2 SHORTER THAN THE LEFT NEUROLOGICAL: Exam reveals S/D, vibratory, light touch & proprioception sensations to be equal & symmetrical bilaterally & WNL for an individual of this age and present physical-medical status. Protective sensation utilizing a [place]-Isabel lOg monofilament is 10/10 bilateral. BIOMECHANICAL: Exam is deferred at this time due to the presence of pain. A: Clinical Impression is painful PLANTAR FASCIITIS IN TH EPRESENCE OF PLANTAR CAKCANEAL SPUR RT FOOT. P: Treatment consists of STS CASTING FOR CUSTOM ORTHOSES & DISPENSING A PAIR OF M 10-10 1/2 POWER STEP INSERTS IN AN ATTEMPT TO PROVIDE MORE IMMEDIATE RELIEF. All care rendered without complications & the patient is progressing well after podiatric care this date and will be scheduled for REASSESSMENTY AFTER RECEIVING ECUSTOM ORTHOSES IN 4-6 WEEKS AND W/C IF IN NEED OF CARE PRIOR TO THAT TIME. Return to Clinic: W/C *DISCUSSED NEW PROTOCOLS AND W/C ANATOLIY FOR RESCHEDULING WHEN APPROPRIATE I DISCUSSED THE FINDINGS & PLAN WITH PATIENT (UNCHANGED SINCE PREVIOUS VISIT) & PATIENT AGREES AND UNDERSTANDS PLAN Medication Reconciliation: PERFORMED TODAY - SEE BELOW. Outpatient: Has the patient been taking medications as documented in the EMLR? YES: The patient has been taking medications as documented in the EMLR. Essential Medication List for Review used to complete this medication reconciliation. INCLUDED IN THIS LIST: Alphabetical list of active outpatient prescriptions dispensed from this [place] (local) and dispensed from another [place] or DoD facility (remote) as well as [...] complete. Please check JLV. Allergies/ADRs (Tool #5) Suicide Screen: C-SSRS Screening [place]-Suicide Severity Rating Scale (C-SSRS Screener) 1. Over the past month, have you wished you were or wished you could go to sleep and not wake up? No 2. Over the past month, have you had any actual thoughts of killing yourself? No 3. Over the past month, have you been thinking about how you might do this? Response not required due to responses to other questions. 4. Over the past month, have you had these thoughts and had some intention of acting on them? Response not required due to responses to other questions. 5. Over the past month, have you started to work out or worked out the details of how to kill yourself? Response not required due to responses to other questions. 6. If yes, at any time in the past month did you intend to carry out this plan? Response not required due to responses to other questions. 7. In your lifetime, have you ever done anything, started to do anything, or prepared to do anything to end your life (for example, collected pills, obtained a gun, gave away valuables, went to the roof but didn't jump)? No 8. If YES, was this within the past 3 months? Response not required due to responses to other questions. /caesar/ CIRILO WHITTINGTON DPM METER TESTER Signed: 07/30/2024 16:15 CIRILO WHITTINGTON
--- OUTSIDE RECORDS SUMMARY | 2024-08-13 15:05 | XMS_ITS | Encounter Summary ---
Author Name [facility] [place] [facility] [place] Address [address] [place] [address] Care Team Providers Care Dust Collector Treater Name Role Phone NINO MAI Primary Care [...] BASIC SELF+ ONE Jun 23, 2020 113 [id number] [phone] STEPHEN SOMMERS PATIENT ANTHEM BCBS CT FEDERAL PREFERRED PROVIDER ORGANIZAT ION (PPO) STAND RAEANN SELF + ONE Jun 23, 2015 106 [id number] STEPHEN SOMMERS PATIENT ANTHEM BCBS FEDERAL PREFERRED PROVIDER ORGANIZAT ION (PPO) STAND RAEANN SELF+ ONE Jun 23, 2015 106 [id number] 62 CRISTOPHER SOMMERSRayne JORDAN PATIENT BCBS [place] FEP PREFERRED PROVIDER ORGANIZAT ION (PPO) PSHB BAS SELF PLUS 1 Jun 23, 2024 33C [id number] STEPHEN SOMMERS PATIENT BCBS [place] FEP PREFERRED PROVIDER ORGANIZAT ION (PPO) STAND RAEANN SELF PLUS 1 Jun 23, 2015 [id number] STEPHEN SOMMERS PATIENT [place] F[place] PREFERRED PROVIDER ORGANIZAT ION (PPO) BASIC SELF+ ONE Jun 23, 2020 113 [id number] 62 STEPHEN SOMMERS PATIENT [place] PREFERRED PROVIDER ORGANIZAT ION (PPO) STAND RAEANN SELF+ ONE Jun 23, 2015 106 [id number] 62 STEPHEN SOMMERS PATIENT [place] DENTAL DENTAL INSURANCE BASIC Jun 23, 2020 DENTAL [id number] STEPHEN SOMMERS PATIENT [place] FEP BCBS PRESCRIPT ION CAREM ARK FEPRX PLAN Jun 23, 2015 [id number] STEPHEN SOMMERS PATIENT [place] FEPRX PLAN PRESCRIPT ION CAREM ARK FEPRX Jun 23, 2015 [id number] 62 STEPHEN SOMMERS PATIENT MEDICARE (WNR) MEDICARE () PART A May 23, 2020 PART A [id number] STEPHEN SOMMERS PATIENT MEDICARE (WNR) MEDICARE () PART B May 23, 2020 PART B [id number] STEPHEN SOMMERS PATIENT MEDICARE (WNR) MEDICARE () PART A May 23, 2020 PART A [id number] STEPHEN SOMMERS PATIENT MEDICARE (WNR) MEDICARE () PART B May 23, 2020 PART B [id number] STEPHEN SOMMERS PATIENT MEDICARE (WNR) MEDICARE () PART A May 23, 2020 PART A [id number] STEPHEN SOMMERS PATIENT MEDICARE (WNR) MEDICARE () PART B May 23, 2020 PART B [id number] STEPHEN SOMMERS PATIENT Selected Encounter This section includes the information on record at [place] for the Encounter. Date/Time Encounter Type Encounter Description Reason Pro vider Source Jul 20, 2024 08:49 AM Outpatient Encounter PRIMARY CARE/MEDICINE [facility] Encounter Template Text not used by [place] Plan of Treatment: Future Appointments (+ 6 months) and Future Tests (+/- 45 days) The Plan of Treatment section includes future care activities for the patient from all [place] [facility] This section includes future appointments and future orders which are active, pending or scheduled. Future Appointments This section includes appointments that were scheduled to occur 6 months from the date of the Encounter, up to a maximum of 20 appointments. The data comes from all [facility]. Appointment Date/Time Appointment Type Appointme nt Facility Name Jul 28, 2024 09:30 AM [facility] Jul 30, 2024 02:00 PM AMBULATORY - MEDICINE [facility] Aug 27, 2024 02:30 PM AMBULATORY - PSYCHIATRY [facility] Aug 30, 2024 02:30 PM AMBULATORY - MEDICINE [facility] Oct 18, 2024 08:00 AM AMBULATORY - NONE [facility] Active, Pending, and Scheduled Orders This section includes a listing of several types of active, pending, and scheduled orders, including clinic medications orders, diagnostic test orders, procedure orders and consult orders; where the start date of the order is 45 days before the date of the Encounter or 45 days after the date of theEncounter. The data comes from all [facility]. Test Date/Time Test Type Test Details Facility Name Jul 23, 2024 12:00 AM Laboratory - Chemistry Order URINALYSIS URINE [facility] Jul 23, 2024 12:00 AM Laboratory - Chemistry Order PSA BLOOD (SST-SERUM) [facility] Jul 23, 2024 12:00 AM Laboratory - Chemistry Order BASIC METABOLIC PANEL (fasting) BLOOD (SST-SERUM) [facility] Jul 23, 2024 12:00 AM Laboratory - Chemistry Order LIPID PANEL FASTING BLOOD (SST-SERUM) [facility] Jul 23, 2024 12:00 AM Laboratory - Chemistry Order LIVER FUNCTION BLOOD (SST-SERUM) [facility] Jul 23, 2024 12:00 AM Laboratory - Chemistry Order CBC AND DIFF (AUTO) BLOOD (LAV-BLOOD) [facility] Jul 23, 2024 12:00 AM Laboratory - Chemistry Order HEMOGLOBIN A1C PANEL BLOOD (LAV-BLOOD) [facility] Jul 23, 2024 12:00 AM Laboratory - Chemistry [facility] Consult Order RESPIRATORY THERAPY/ [facility] OUTPT Cons Hydraulic Assembler's Choice [facility] Social History: Smoking Status (Most current) and Tobacco Use (All prior to encounter date) This section includes the most current, and the historical, smoking and tobacco- related health factors from the [place] facility where the Encounter took place. Current Smoking Status This section includes the most current smoking, or tobacco-related health factor, from the [place] facility where the Encounter took place. Date/Time Current Smoking Status Comment Facil ity Apr 17, 2023 01:59 PM VA-TOBACCO FORMER USER [facility] Tobacco Use History This section includes a history of the smoking, or tobacco-related health factors, that were collected on or before the date of the Encounter. The data comes from the [place] facility where the Encounter took place. Date/Time Smoking Status/Tobacco Use Comment F acility Apr 17, 2023 01:59 PM VA-TOBACCO QUIT 15 YRS OR MORE [facility] Jan 09, 2022 08:40 AM [facility] Jan 09, 2022 08:40 AM [place]-TOBACCO QUIT 15 YRS OR MORE [facility] Advance Directives: All historical and current Section Date Range: From patient's date of to the date document was created. This section includes ALL of a patient's completed or amended [place] Advance and Rescinded Directives. The entries below indicate that a directive exists for the patient, but an actual copy is not included with this document. The data comes from all [place] facilities. Date Advance Directives Provider Source Dec 25, 2010 ADVANCE [address] DIONNE HOGUE [facility] Encounter Notes: All associated encounter notes This section contains the clinical notes associated to the Encounter. Date/Time Encounter Note(s) Provider Source Jul 20, 2024 08:49 AM ADMINISTRATIVE NOT E: LOCAL TITLE: ADMINISTRATIVE NOTE STANDARD TITLE: ADMINISTRATIVE NOTE DATE OF NOTE: JUL 20, 2024@08:49 ENTRY DATE: JUL 20, 2024@08:49:47 AUTHOR: OLIVA MALAVE EXP COSIGNER: URGENCY: STATUS: COMPLETED ADMINISTRATIVE NOTE Has ADDENDA Called to reschedule appointment with Primary Care PHONE NUMBER [[email or web address]] - PATIENT PHONE - [phone] Appointment type: Office, [facility] ====== OTHER:Informed Vet that his appt scheduled for 1:30pm today was cancelled. PT requested the below refills/Renewals mailed. Tylenol Lisinopril Upcoming Appointments: 07/28/2024 09:30 CWM/NO/VVC/MED REHAB PROV 08/12/2024 14:00 CWM/SO/VVC/MHC/LARROW 04/25/2025 15:30 NHM OPTOMETRY 1 PM /es/ Oliva Malave ADVANCED PASTRY COOK APPRENTICE Signed: 07/20/2024 08:52 Receipt Acknowledged By: 07/20/2024 13:38 /caesar/ SIMIN WASHINGTON LPN LPN 07/22/2024 00:20 /es/ NINO MAI MD PHYSICIAN 07/23/2024 19:14 /es/ RAY ANDERSN,RN-BC REGISTERED NURSE (RN) for [place] 07/20/2024 ADDENDUM STATUS: COMPLETED Med request initiated for Tylenol, however lisinopril is active/ suspend at this time. /caesar/ SIMIN WASHINGTON LPN LPN Signed: 07/20/2024 13:39 OLIVA MALAVE
--- OUTSIDE RECORDS SUMMARY | 2024-08-13 15:05 | XMS_ITS | Encounter Summary ---
Author Name [facility] [place] Organization [facility] [place] Address [address] [place] [address] Care Team Providers Care Lien Searcher Name Role Phone NINO MAI Primary Care [...] BASIC SELF+ ONE Jun 23, 2020 113 [id number] [phone] STEPHEN SOMMERS PATIENT ANTHEM BCBS CT FEDERAL PREFERRED PROVIDER ORGANIZAT ION (PPO) STAND RAEANN SELF + ONE Jun 23, 2015 106 [id number] [phone] STEPHEN SOMMERS PATIENT ANTHEM BCBS FEDERAL PREFERRED PROVIDER ORGANIZAT ION (PPO) STAND RAEANN SELF+ ONE Jun 23, 2015 106 [id number] STEPHEN SOMMERS PATIENT BCBS [place] FEP PREFERRED PROVIDER ORGANIZAT ION (PPO) PSHB BAS SELF PLUS 1 Jun 23, [phone] [id number] STEPHEN SOMMERS PATIENT [place] F[place] PREFERRED PROVIDER ORGANIZAT ION (PPO) STAND RAEANN SELF PLUS 1 Jun 23, 2015 106 [id number] 62 STEPHEN SOMMERS PATIENT [place] PREFERRED PROVIDER ORGANIZAT ION (PPO) BASIC SELF+ ONE Jun 23, 2020 113 [id number] 62 STEPHEN SOMMERS PATIENT [place] PREFERRED PROVIDER ORGANIZAT ION (PPO) STAND RAEANN SELF+ ONE Jun 23, 2015 106 [id number] 62 STEPHEN SOMMERS PATIENT [place] F[place] DENTAL DENTAL INSURANCE BASIC Jun 23, 2020 DENTAL [id number] [phone] STEPHEN SOMMERS PATIENT [place] FEP BCBS PRESCRIPT ION CAREM ARK FEPRX PLAN Jun 23, 2015 [id number] STEPHEN SOMMERS PATIENT [place] FEPRX PLAN PRESCRIPT ION CAR[employer] FEPRX Jun 23, 2015 [id number] STEPHEN SOMMERS PATIENT MEDICARE (WNR) MEDICARE () PART A May 23, 2020 PART A [id number] STEPHEN SOMMERS PATIENT MEDICARE (WNR) MEDICARE () PART B May 23, 2020 PART B [id number] STEPHEN SOMMERS PATIENT MEDICARE (WNR) MEDICARE () PART A May 23, 2020 PART A [id number] [id number] STEPHEN SOMMERS PATIENT MEDICARE (WNR) MEDICARE () PART B May 23, 2020 PART B [id number] STEPHEN SOMMERS PATIENT MEDICARE (WNR) MEDICARE () PART A May 23, 2020 PART A [id number] STEPHEN SOMMERS PATIENT MEDICARE (WNR) MEDICARE (M) PART B May 23, 2020 PART B [id number] STEPHEN SOMMERS PATIENT Selected Encounter This section includes the information on record at [place] for the Encounter. Date/Time Encounter Type Encounter Description Reason Pro vider Source Jul 20, 2024 01:30 PM Outpatient Encounter PRIMARY CARE/MEDICINE IHE Encounter Template Text not used by [place] Plan of Treatment: Future Appointments (+ 6 months) and Future Tests (+/- 45 days) The Plan of Treatment section includes future care activities for the patient from all [place] [facility]. This section includes future appointments and future orders which are active, pending or scheduled. Future Appointments This section includes appointments that were scheduled to occur 6 months from the date of the Encounter, up to a maximum of 20 appointments. The data comes from all [facility]. Appointment Date/Time Appointment Type Appointme nt Facility Name Jul 28, 2024 09:30 AM [facility] Jul 30, 2024 02:00 PM AMBULATORY - MEDICINE [facility] Aug 27, 2024 02:30 PM AMBULATORY - PSYCHIATRY [facility] Aug 30, 2024 02:30 PM AMBULATORY - MEDICINE [facility] Oct 18, 2024 08:00 AM AMBULATORY - NONE [facility] Active, Pending, and Scheduled Orders This section includes a listing of several types of active, pending, and scheduled orders, including clinic medications orders, diagnostic test orders, procedure orders and consult orders; where the start date of the order is 45 days before the date of the Encounter or 45 days after the date of theEncounter. The data comes from all [facility]. Test Date/Time Test Type Test Details Facility Name Jul 23, 2024 12:00 AM Laboratory - Chemistry Order URINALYSIS URINE [facility] Jul 23, 2024 12:00 AM Laboratory - Chemistry Order PSA BLOOD (SST-SERUM) [facility] Jul 23, 2024 12:00 AM Laboratory - Chemistry Order BASIC METABOLIC PANEL (fasting) BLOOD (SST-SERUM) [facility] Jul 23, 2024 12:00 AM Laboratory - Chemistry Order LIPID PANEL FASTING BLOOD (SST-SERUM) [facility] Jul 23, 2024 12:00 AM Laboratory - Chemistry Order LIVER FUNCTION BLOOD (SST-SERUM) [facility] Jul 23, 2024 12:00 AM Laboratory - Chemistry Order CBC AND DIFF (AUTO) BLOOD (LAV-BLOOD) [facility] Jul 23, 2024 12:00 AM Laboratory - Chemistry Order HEMOGLOBIN A1C PANEL BLOOD (LAV-BLOOD) [facility] Jul 23, 2024 12:00 AM Laboratory - Chemistry Order TSH BLOOD (SST-SERUM) [facility] Aug 02, 2024 04:32 PM Consult Order RESPIRATORY THERAPY/ [facility] OUTPT Cons Disability Examiner's Choice [place] [facility] Social History: Smoking Status (Most current) and Tobacco Use (All prior to encounter date) This section includes the most current, and the historical, smoking and tobacco- related health factors from the [place] facility where the Encounter took place. Current Smoking Status This section includes the most current smoking, or tobacco-related health factor, from the [place] facility where the Encounter took place. Date/Time Current Smoking Status Comment Facil it Dec 20, 2020 01:30 PM VA-TOBACCO NEVER USED [facility] Tobacco Use History This section includes a history of the smoking, or tobacco-related health factors, that were collected on or before the date of the Encounter. The data comes from the [place] facility where the Encounter took place. Date/Time Smoking Status/Tobacco Use Comment F acility Dec 08, 2019 09:02 AM VA-TOBACCO FORMER USER [facility] Dec 08, 2019 09:02 AM VA-TOBACCO QUIT 15 YRS OR MORE [facility] Sep 10, 2018 07:42 AM VA-TOBACCO FORMER USER [facility] Sep 10, 2018 07:42 AM VA-TOBACCO QUIT 15 YRS OR MORE [facility] Dec 05, 2017 02:07 PM QUIT TOBACCO USE > 7 YEARS AGO [facility] Jan 17, 2017 09:55 AM QUIT TOBACCO USE > 7 YEARS AGO [facility] Jan 30, 2016 08:10 AM QUIT TOBACCO USE > 7 YEARS AGO quit 1988 [facility] Dec 25, 2010 10:36 AM QUIT TOBACCO USE > 7 YEARS AGO Pt. stated he quit in 1988! [facility] Advance Directives: All historical and current Section Date Range: From patient's date of to the date document was created. This section includes ALL of a patient's completed or amended [place] Advance and Rescinded Directives. The entries below indicate that a directive exists for the patient, but an actual copy is not included with this document. The data comes from all [facility]. Date Advance Directives Provider Source Dec 25, 2010 ADVANCE DIRECTIVE DIONNE HOGUE [facility] Encounter Notes: All associated encounter notes This section contains the clinical notes associated to the Encounter. Date/Time Encounter Note(s) Provider Source Jul 19, 2024 02:52 PM ADMINISTRATIVE NOT E: LOCAL TITLE: ADMINISTRATIVE NOTE STANDARD TITLE: ADMINISTRATIVE NOTE DATE OF NOTE: JUL 19, 2024@14:52 ENTRY DATE: JUL 19, 2024@14:52:24 AUTHOR: GRETCHEN ERICKSON EXP COSIGNER: URGENCY: STATUS: COMPLETED [facility] [address] [place] [id number] [phone] * CARA ANISHA SOMMERS [address] [place] [id number] Date: JUL 19, 2024 re: This is a reminder of your upcoming PCP appt with NINO MAI Appointment Date: Jun@13:30 Appointment Type: In-person visit Fasting blood work NON fasting blood work LEFT MESSAGE ON VOICEMAIL TO CONFIRM APPT Sincerely, Office Staff for: NINO MAI Primary Care Provider [facility] [address] [place] [id number] T [phone] F [phone] Upcoming Appointments: 07/20/2024 13:30 CWM/SO/PACT 5 07/28/2024 09:30 CWM/NO/VVC/MED REHAB PROV 08/12/2024 14:00 CWM/SO/VVC/MHC/LARROW 04/25/2025 15:30 NHM OPTOMETRY 1 PM APPOINTMENT [facility] [place] (SPOPC OR SO = [place], [address] [place] [address]) (GOPC OR GO = [address]) (NHM or NO = [facility]) (VVC - Video Call) (Tel-X Telephone Visit) (TH - Telehealth) /caesar/ GRETCHEN PETTY Signed: 07/19/2024 14:53 GRETCHEN ERICKSON
--- OUTSIDE RECORDS SUMMARY | 2024-08-13 15:05 | XMS_ITS ---
Author Name [facility] [place] [facility] [place] Address [address] [place] [address] Care Team Providers Care Mail Agent Name Role Phone NINO MAI Primary Care [...] BASIC SELF+ ONE Jun 23, 2020 113 [id number] [phone] STEPHEN SOMMERS PATIENT ANTHEM BCBS CT FEDERAL PREFERRED PROVIDER ORGANIZAT ION (PPO) STAND RAEANN SELF + ONE Jun 23, 2015 106 [id number] [phone] STEPHEN SOMMERS PATIENT ANTHEM BCBS FEDERAL PREFERRED PROVIDER ORGANIZAT ION (PPO) STAND RAEANN SELF+ ONE Jun 23, 2015 106 [id number] STEPHEN SOMMERS PATIENT BCBS [place] FEP PREFERRED PROVIDER ORGANIZAT ION (PPO) PSHB BAS SELF PLUS 1 Jun 23, 2024 [id number] STEPHEN SOMMERS PATIENT BCBS [place] F[place] PREFERRED PROVIDER ORGANIZAT ION (PPO) STAND RAEANN SELF PLUS 1 Jun 23, 2015 106 [id number] STEPHEN SOMMERS PATIENT [place] PREFERRED PROVIDER ORGANIZAT ION (PPO) BASIC SELF+ ONE Jun 23, 2020 113 [id number] STEPHEN SOMMERS PATIENT [place] PREFERRED PROVIDER ORGANIZAT ION (PPO) STAND RAEANN SELF+ ONE Jun 23, 2015 106 [id number] 62 STEPHEN SOMMERS PATIENT [place] DENTAL DENTAL INSURANCE BASIC Jun 23, 2020 DENTAL [id number] [phone] STEPHEN SOMMERS PATIENT [place] FEP BCBS PRESCRIPT ION CAREM ARK FEPRX PLAN Jun 23, 2015 [id number] STEPHEN SOMMERS PATIENT [place] FEPRX PLAN PRESCRIPT ION CAREM AR[place] FEPRX Jun 23, 2015 [id number] [phone] STEPHEN SOMMERS PATIENT MEDICARE (WNR) MEDICARE () PART A May 23, 2020 PART A [id number] STEPHEN SOMMERS PATIENT MEDICARE (WNR) MEDICARE () PART B May 23, 2020 PART B [id number] STEPHEN SOMMERS PATIENT MEDICARE (WNR) MEDICARE () PART A May 23, 2020 PART A [id number] STEPHEN SOMMERS PATIENT MEDICARE (WNR) MEDICARE () PART B May 23, 2020 PART B [id number] STEPHEN SOMMERS PATIENT MEDICARE (WNR) MEDICARE () PART A May 23, 2020 PART A [id number] STEPHEN SOMMERS PATIENT MEDICARE (WNR) MEDICARE () PART B May 23, 2020 PART B [id number] STEPHEN SOMMERS PATIENT Selected Encounter This section includes the information on record at [place] for the Encounter. Date/Time Encounter Type Encounter Description Reason Provider Source May 26, 2024 02:30 PM OFFICE O/P EST HI 40 MIN PM&RS PHYSICIAN ICD-10-CM M51.86 Other intervertebral disc disorders, lumbar region ABILIO HAGAN [facility] Encounter Template Text not used by [place] Assessments - Encounter Diagnoses This section includes the primary and secondary diagnoses documented for the Encounter. Date/Time Primary/Secondary Diagnosis Diagnosis Name Provider Source Jul 06, 2024 11:26 AM PRIMARY Other intervertebral disc disorders, lumbar region [facility] [place] [facility] Jul 06, 2024 11:26 AM SECONDARY Low back pain, unspecified [facility] [place] [facility] Jul 06, 2024 11:26 AM SECONDARY Spondylosis w/o myelopathy or radiculopathy, lumbar region [facility] [place] [facility] Plan of Treatment: Future Appointments (+ 6 months) and Future Tests (+/- 45 days) The Plan of Treatment section includes future care activities for the patient from [facility] [place] [facility] This section includes future appointments and future orders which are active, pending or scheduled. Future Appointments This section includes appointments that were scheduled to occur 6 months from the date of the Encounter, up to a maximum of 20 appointments. The data comes from all [place] treatment facilities. Appointment Date/Time Appointment Type Appointme nt Facility Name Jul 28, 2024 09:30 AM [facility] [place] [facility] Jul 30, 2024 02:00 PM AMBULATORY - MEDICINE [facility] Aug 27, 2024 02:30 PM AMBULATORY - PSYCHIATRY [facility] Aug 30, 2024 02:30 PM AMBULATORY - MEDICINE [facility] Oct 18, 2024 08:00 AM AMBULATORY - NONE [facility] Active, Pending, and Scheduled Orders This section includes a listing of several types of active, pending, and scheduled orders, including clinic medications orders, diagnostic test orders, procedure orders and consult orders; where the start date of the order is 45 days before the date of the Encounter or 45 days after the date of theEncounter. The data comes from all [place] treatment [facility]. Test Date/Time Test Type Test Details Facility Name Apr 17, 2024 12:00 AM Laboratory - Chemi stry Order URINALYSIS URINE [facility] Apr 17, 2024 12:00 AM Laboratory - Chemi stry Order PSA BLOOD (SST-SERUM) [facility] Apr 17, 2024 12:00 AM Laboratory - Chemi stry Order LIPID PANEL FASTING BLOOD (SST-SERUM) [facility] Apr 17, 2024 12:00 AM Laboratory - Chemi stry Order BASIC METABOLIC PANEL (fasting) BLOOD (SST-SERUM) [facility] Apr 17, 2024 12:00 AM Laboratory - Chemi stry Order LIVER FUNCTION BLOOD (SST-SERUM) [facility] Apr 17, 2024 12:00 AM Laboratory - Chemi stry Order CBC AND DIFF (AUTO) BLOOD (LAV-BLOOD) [facility] Apr 17, 2024 12:00 AM Laboratory - Chemi stry Order HEMOGLOBIN A1C PANEL BLOOD (LAV-BLOOD) [facility] Apr 17, 2024 12:00 AM Laboratory - Chemi stry Order TSH BLOOD (SST-SERUM) [facility] Vital Signs: All taken on the encounter date This section contains inpatient and outpatient Vital Signs collected on the date of the Encounter. Date/Time Temperature Pulse Blood Pressure Respiratory Rate SP02 Pain Height Weight Body Mass Index Source May 26, 2024 03:27 PM 78 138/72 20 97 0 [place] [facility] May 26, 2024 02:22 PM 75 150/88 20 97 2 [facility] Social History: Smoking Status (Most current) and Tobacco Use (All prior to encounter date) This section includes the most current, and the historical, smoking and tobacco- related health factors from the [place] facility where the Encounter took place. Current Smoking Status This section includes the most current smoking, or tobacco-related health factor, from the [place] facility where the Encounter took place. Date/Time Current Smoking Status Comment Facil ity Apr 17, 2023 01:59 PM VA-TOBACCO FORMER USER [place] [facility] Tobacco Use History This section includes a history of the smoking, or tobacco-related health factors, that were collected on or before the date of the Encounter. The data comes from the [place] facility where the Encounter took place. Date/Time Smoking Status/Tobacco Use Comment F acility Apr 17, 2023 01:59 PM VA-TOBACCO QUIT 15 YRS OR MORE [place] [facility] Jan 09, 2022 08:40 AM [place]-TOBACCO FORMER USER [facility] Jan 09, 2022 08:40 AM [place]-TO[place]AC[place] QUIT 15 YRS OR MORE [facility] Advance Directives: All historical and current Section Date Range: From patient's date of to the date document was created. This section includes ALL of a patient's completed or amended [place] Advance and Rescinded Directives. The entries below indicate that a directive exists for the patient, but an actual copy is not included with this document. The data comes from all [place] facilities. Date Advance Directives Provider Source Dec 25, 2010 ADVANCE DIRECTIVE DIONNE HOGUE Marisol VEGA [facility] Radiology Reports: +/- 30 days of [...] the Encounter. The data comes from all [place] treatment facilities. Date/Time Radiology Report Provider Source May 26, 2024 03:06 PM FLUOROSCOPIC REFUGIO NCE OF NEEDLE/SPINE: CARA SOMMERS [id number] -[id number] M Exm Date: MAY 26, 2024@15:06 Req Phys: ABILIO HAGAN THI Pat Loc: CWM/NO/MED REHAB/SPINE INJ (Re Img Loc: [facility]/BUILDING 1 Service: Unknown [place] [address] (Case [id number] COMPLETE) FLUOROSCOPIC GUIDANCE OF NEEDLE/S(RAD Detailed) CPT:88463 Reason for Study: interlaminar epidural steroid injection Clinical History: Report Status: Verified Date Reported: MAY 26, 2024 Date Verified: MAY 26, 2024 Finishing Pan Operator E-Sig:/ES/ARIAN MARQUES JR Report: Study: Pain injection of the lumbar spine. Findings: Fluoroscopic guidance was provided to Pain Management for interventional pain injection. No dictation provided for this study. Images captured for documentation only. Total fluoroscopy time used was 8.2 seconds. Total cumulative air kerma dose is 4.89 mGy. Impression: Fluoroscopic guidance for interventional pain injection. Primary Diagnostic Code: No immediate attention required Primary Interpreting Staff: ARIAN MARQUES JR, Radiologist (Finishing Pan Operator) /ARIAN BERG JR [facility] Encounter Notes: All associated encounter notes This section contains the clinical notes associated to the Encounter. Date/Time Encounter Note(s) Provider Source May 26, 2024 03:01 PM PHYSICAL MEDICINE REHAB NOTE: LOCAL TITLE: PM&R BACK/JOINT PROCEDURE NOTE STANDARD TITLE: PHYSICAL MEDICINE REHAB NOTE DATE OF NOTE: MAY 26, 2024@15:01 ENTRY DATE: MAY 26, 2024@15:01:29 AUTHOR: ABILIO HAGAN EXP COSIGNER: URGENCY: STATUS: COMPLETED PROCEDURE NOTE: LUMBAR/SACRAL TRANSFORAMINAL EPIDURAL STEROID INJECTION PROCEDURE: 1) L5-S1 interlaminar epidural steroid injection 2) Fluoroscopic needle guidance REASON FOR PROCEDURE: Low back pain due to lumbar disc degeneration and lumbar spondylosis PHYSICIAN: Abilio Hagan DO MEDICATIONS INJECTED: 8 mg of Dexamethasone + 1 ml of 1% Lidocaine + 2 mL of 0.9% preservative-free normal saline. Lot #: [id number] Exp: LOCAL ANESTHETIC INJECTED: 1 mL of 1% lidocaine Total lidocaine used: 20 mg CONTRAST AGENT USED: 1 mL of Omnipaque 300 Contrast AGENT WASTED: 0 mL of Omnipaque 300 SEDATION MEDICATIONS: None ESTIMATED BLOOD LOSS: None COMPLICATIONS: None HISTORY: Carmel presents today for follow-up of chronic low back pain. Patient had significant (over 80%) pain relief status post L5-S1 interlaminar epidural steroid injection 11/12/2023 lasting until at least February when pain slowly started to return. He reports having had cholecystectomy on 03/12/2024 with decreased activities during the recovery period. After this time, he developed right plantar fasciitis, which contributed to increased pain in the right low back. Presently, pain is only in the low back without radiation into the lower extremities. Pain wrosens with prolonged sitting and improves when laying down. Pain is rated at 3/10 on average, but can be moderately severe with activities. Denies any new weakness, numbness, or in the lower extremities. Denies fever, chills, recent vaccinations, or tingling recent illnesses. Request to proceed with today's injection. EXAM: Awake, alert, in no apparent distress. Tenderness in the lumbosacral region, right>left, with PSM hypertonicity. Mildly decreased ROM in all planes tested. Symmetrical reflexes, no sensory deficits. Gets up from a seated position and on/off exam table with mild difficulties. No focal weakness of the lower extremities. Ambulates with a slightly forward flexed posture and some degree of rigidity. INFORMED CONSENT: verbal and written consent in iMed. TIME OUT NOTE TIME: MAY 26, 2024@15:05 correctly stated: [X]Full name: CARA SOMMERS [X]Last 4 of #: [id number] [X]: May STAFF NAME: Alberta Zamora LPN LOCATION: Marked site of injection on low back. TECHNIQUE: Time-out was taken to identify the correct patient, procedure and side prior to starting the procedure. Lying in a prone position, the patient was prepped and draped in the usual sterile fashion using ChloraPrep and a fenestrated drape. The area to be injected was determined under fluoroscopic guidance. Local anesthetic was given by raising a skin wheal and going down to the hub of a 30-gauge 0.5-inch needle. A 3.5-inch 20-gauge Tuohy needle was introduced under intermittent fluoroscopic guidance. The needle was advanced through the ligamentum flavum using the loss of resistance technique. Once the tip of the needle was thought to be in the desired position, the Omnipaque 300 was injected and showed epidural spread and there was no vascular runoff. After a negative aspiration, the medication was then injected. The procedure was completed without complications and was tolerated well. The patient was monitored after the procedure. The patient (or responsible democrat) was given post-procedure and discharge instructions to follow at home. The patient was discharged in stable condition. Pre-procedure pain level: 3/10 Post-procedure pain level: 0/10 ASSESSMENT/PLAN: 68-year-old presenting with lumbar spondylosis and intervertebral disc degeneration. - L5-S1 interlaminar injection provided. - Discharge instructions provided. - Follow-up with PM&R PA in 2-4 weeks. - Continue to work on pacing of activities, as well as strengthening and maintaining mobility given history of Parkinson's disease. Daily ambulation as tolerated, rest breaks as needed. - No change with medications. - Contact me with any issues/questions MDM: 45 minutes Medication Reconciliation: Outpatient: Has the patient been taking medications as documented in the EMLR? YES: The patient has been taking medications as documented in the EMLR. Essential Medication List for Review used to complete this medication reconciliation. INCLUDED IN THIS LIST: Alphabetical list of active outpatient prescriptions dispensed from this [place] (local) and dispensed from another [place] or [place] facility (remote) as well as [...] with a VA or non-VA provider. /caesar/ ABILIO HAGAN DO NUTRITIONAL ASSISTANT Signed: 05/26/2024 15:43 ABILIO HAGAN [place] [facility] [place] [facility] May 26, 2024 03:00 PM DISCHARGE NOTE: LOCAL TITLE: DISCHARGE INSTRUCTIONS/OUTPATIENT STANDARD TITLE: DISCHARGE NOTE DATE OF NOTE: MAY 26, 2024@15:00 ENTRY DATE: MAY 26, 2024@15:00:17 AUTHOR: ABILIO HAGAN EXP COSIGNER: URGENCY: STATUS: COMPLETED Your ATTENDING PHYSICIAN for today's injection is: Abilio Hagan DO Reason for Visit: L5-S1 interlaminar epidural steroid injection - Physical/Activity Limitations: No strenous activity for 24 Hours - Diet: Resume Previous Diet - Medication reconciliation performed. Active Outpatient Medications (including Supplies): Active Outpatient Medications Status 1) ACETAMINOPHEN 500MG TAB TAKE TWO TABLETS BY MOUTH ACTIVE TWICE DAILY FOR PAIN 2) CHOLECALCIF 25MCG (D3-1,000UNIT) TAB TAKE ONE TABLET ACTIVE BY MOUTH ONCE DAILY FOR VITAMIN SUPPLEMENTATION 3) CITALOPRAM HYDROBROMIDE 20MG TAB TAKE ONE TAB BY ACTIVE MOUTH ONCE DAILY FOR MOOD 4) DOCUSATE NA 100MG CAP TAKE ONE CAPSULE BY MOUTH ONCE ACTIVE DAILY FOR CONSTIPATION TO SOFTEN STOOL 5) FLUTICASONE PROP 50MCG 120D NASAL INHL INSTILL 2 ACTIVE SPRAYS INTO EACH NOSTRIL ONCE DAILY FOR NASAL IRRITATION/INFLAMMATION 6) KETOROLAC TROMETHAMINE 0.5% OPH SOLN INSTILL 1 DROP ACTIVE DIRECTED TWICE DAILY INTO OPERATIVE EYE STARTING 2 DAYS BEFORE SURGERY 7) LISINOPRIL 20MG TAB TAKE ONE TABLET BY MOUTH ONCE ACTIVE DAILY FOR HIGH BLOOD PRESSURE TO CONTROL BLOOD PRESSURE 8) MIRABEGRON 50MG SA TAB TAKE ONE TABLET BY MOUTH ONCE ACTIVE (S) DAILY FOR OVERACTIVE BLADDER 9) PRAZOSIN HCL 2MG CAP TAKE THREE CAPSULES BY MOUTH AT ACTIVE BEDTIME -FOR NIGHTMARES (OFF-LABEL) DO NOT TAKE ON NIGHTS THAT YOU TAKE SILDENAFIL 10) SENNOSIDES 8.6MG TAB TAKE TWO TABLETS BY MOUTH ONCE ACTIVE DAILY FOR CONSTIPATION 11) TRAZODONE HCL 50MG TAB TAKE ONE TO THREE TABLETS BY ACTIVE MOUTH AT BEDTIME NEEDED FOR INSOMNIA ASSOCIATED WITH DEPRESSION FOR SLEEP 12) VALPROIC ACID 250MG CAP TAKE THREE CAPSULES BY MOUTH ACTIVE (S) TWICE DAILY FOR MOOD Active Non-VA Medications Status 1) Non-VA ASPIRIN 81MG EC TAB 81MG BY MOUTH ONCE DAILY ACTIVE 2) Non-VA CARBIDOPA 25/LEVODOPA 100MG TAB 1 TABLET BY ACTIVE MOUTH FOUR TIMES A DAY 3) Non-VA OTHER CAP/TAB MAGNESIUM BY MOUTH ONCE DAILY ACTIVE 15 Total Medications No changes to current medications Resume your prior meds at you next regular scheduled dose except Aspirin, Plavix, Warfarin which can be restarted the next day if you are taking these medications. Medication Education 1. Take medications in the exact amount ordered by the clinician. Do not take more or less. 2. Keep each medication in the original and separate containers. 3. Ice every 2 hours as needed for post injection soreness/pain. Keep on for 15 minutes. Do not use heat within the first 48 hours unless specifically instructed by your doctor. 4. Keep a complete list of all your medications and share with all your health care providers, include all over the counter medications, vitamins or supplements. 5. Do not drink alcoholic beverage, drive or operate machinery, cook or make important decisions for twenty-four (24) hours. A responsible adult should remain with you for the next twenty-four hours and you should REST quietly during this time. Recommended plan for follow up: As scheduled Please call TELEPHONE ASSISTANCE if you experience: Fever 101.5, Dizziness or light-headedness, Redness, discharge, warmth to the touch or foul smelling discharge from wound, Shortness of breath, Nausea, vomiting, diarrhea, or no bowel movement for more than 48 hrs, Newly onset headache, Changes in behavior If you feel the medications are making you sick, your symptoms worsen or you are experiencing problems contact: TELEPHONE ASSISTANCE at [phone] or extension [phone] Or [phone] extension [phone] (MOE Pinzon) or extension [phone] (PETRA Madden) If you are in an emotional crisis, feeling suicidal or having any troubling or self-destructive or violent impulses - please call [phone] (or [phone]); press 1 for Veterans to ask for help 24hours per day. Discharge Instructions printed and given to patient: No. Verbal instructions provided due to COVID-19 restrictions. Patient/Caregiver verbalizes understanding of discharge instructions: Yes Diagnostic studies discussed with patient: N/A I have discussed these instructions with the patient/responsible adult and/or demonstrated appropriate care for the patient post discharge. A copy of these discharge instructions have been printed and given to the patient at the time of discharge. /caesar/ ABILIO HAGAN DO NUTRITIONAL ASSISTANT Signed: 05/26/2024 15:00 ABILIO HAGAN [facility]
--- OUTSIDE RECORDS SUMMARY | 2024-08-13 15:05 | XMS_ITS | Encounter Summary ---
Author Name [facility] [place] [facility] [place] [facility] [place] [facility] [place] Address [address] [place] [address] Care Team Providers [facility] [place] Expedition Guide Name Role Phone NINO MAI Primary Care [...] BASIC SELF+ ONE Jun 23, 2020 [id number] [phone] STEPHEN SOMMERS PATIENT ANTHEM BCBS CT FEDERAL PREFERRED PROVIDER ORGANIZAT ION (PPO) STAND RAEANN SELF + ONE Jun 23, 2015 106 [id number] [phone] STEPHEN SOMMERS PATIENT ANTHEM BCBS FEDERAL PREFERRED PROVIDER ORGANIZAT ION (PPO) STAND RAEANN SELF+ ONE Jun 23, 2015 106 [id number] STEPHEN SOMMERS PATIENT BCBS [place] FEP PREFERRED PROVIDER ORGANIZAT ION (PPO) PSHB BAS SELF PLUS 1 Jun 23, 2024 [id number] STEPHEN SOMMERS PATIENT BCBS [place] F[place] PREFERRED PROVIDER ORGANIZAT ION (PPO) STAND RAEANN SELF PLUS 1 Jun 23, 2015 106 [id number] STEPHEN SOMMERS PATIENT [place] PREFERRED PROVIDER ORGANIZAT ION (PPO) BASIC SELF+ ONE Jun 23, 2020 113 [id number] STEPHEN SOMMERS PATIENT [place] PREFERRED PROVIDER ORGANIZAT ION (PPO) STAND RAEANN SELF+ ONE Jun 23, 2015 106 [id number] [phone] STEPHEN SOMMERS PATIENT [place] F[place] DENTAL DENTAL INSURANCE BASIC Jun 23, 2020 DENTAL [id number] [phone] STEPHEN SOMMERS PATIENT [place] FEP BCBS PRESCRIPT ION CAREM ARK FEPRX PLAN Jun 23, 2015 [id number] STEPHEN SOMMERS PATIENT [place] FEPRX PLAN PRESCRIPT ION CAREM ARK FEPRX Jun 23, 2015 [id number] STEPHEN SOMMERS PATIENT MEDICARE (WNR) MEDICARE () PART A May 23, 2020 PART A [id number] STEPHEN SOMMERS PATIENT MEDICARE (WNR) MEDICARE () PART B May 23, 2020 PART B [id number] STEPHEN SOMMERS PATIENT MEDICARE (WNR) MEDICARE () PART A May 23, 2020 PART A [id number] STEPHEN SOMMERS PATIENT MEDICARE (WNR) MEDICARE () PART B May 23, 2020 PART B [id number] [phone] [id number] STEPHEN SOMMERS PATIENT MEDICARE (WNR) MEDICARE () PART A May 23, 2020 PART A [id number] STEPHEN SOMMERS PATIENT MEDICARE (WNR) MEDICARE () PART B May 23, 2020 PART B [id number] STEPHEN SOMMERS PATIENT Selected Encounter This section includes the information on record at [place] for the Encounter. Date/Time Encounter Type Encounter Description Reason Provider Source Oct 06, 2023 10:30 AM OFFICE O/P EST HI 40 MIN PRIMARY CARE/MEDICINE ICD-10-CM G20.C Parkinsonism, unspecified HOWARD AVELAR Haylee Encounter Template Text not used by [place] Assessments - Encounter Diagnoses This section includes the primary and secondary diagnoses documented for the Encounter. Date/Time Primary/Secondary Diagnosis Diagnosis Name Provider Source October 29, 2023 11:08 AM PRIMARY Parkinsonism, unspecified HOWARD AVELAR October 29, 2023 11:08 AM SECONDARY Essential (primary) hypertension HOWARD AVELAR [place] October 29, 2023 11:08 AM SECONDARY Low back pain, unspecified HOWARD AVELAR [place] Plan of Treatment: Future Appointments (+ 6 months) and Future Tests (+/- 45 days) The Plan of Treatment section includes future care activities for the patient from all [place] [facility]. This section includes future appointments and future orders which are active, pending or scheduled. Future Appointments This section includes appointments that were scheduled to occur 6 months from the date of the Encounter, up to a maximum of 20 appointments. The data comes from all [place] treatment facilities. Appointment Date/Time Appointment Type Appointme nt Facility Name Oct 15, 2023 02:30 PM AMBULATORY - [facility]ICIN [facility] [place] [facility] Oct 17, 2023 07:55 PM AMBULATORY - MEDICINE [place] [facility] [place] [facility] November 12, 2023 01:30 PM AMBULATORY - REHAB MEDICIN E [facility] [place] [facility] November 13, 2023 02:00 PM AMBULATORY - PSYCHIATRY [facility] Dec 02, 2023 01:00 PM AMBULATORY - MEDICINE [facility] Dec 16, 2023 01:30 PM AMBULATORY - MEDICINE [facility] Jan 21, 2024 03:00 PM AMBULATORY - MEDICINE [place] [facility] [place] [facility] Feb 12, 2024 02:00 PM AMBULATORY - PSYCHIATRY [facility] Feb 20, 2024 08:30 AM AMBULATORY - REHAB MEDICIN E [facility] [place] [facility] Mar 26, 2024 08:00 AM AMBULATORY - MEDICINE [place] [facility] [place] [facility] Apr 06, 2024 10:50 AM AMBULATORY - MEDICINE NM [facility] [place] [facility] Lab Results: +/- 30 days of the encounter This section includes the Chemistry and Hematology Lab Results on record with [place] for the patient. Radiology Reports and Pathology Reports are provided separately, in subsequent sections. Lab Results This section contains the Chemistry/Hematology Results that were resulted 30 days before or 30 daysafter the date of the Encounter. Date/Time Source Result Type Result - Unit Interpretation Reference Range Comment Sep 15, 2023 12:33 PM [facility] HEMOGLOBIN A1C PANEL Specimen Type: BLOOD [...] Sep 08, 2023 01:58 PM Reporting Lab: [address] [address] Performing Lab: [facility] [address] HEMOGLOBIN A1C 5.0 4.0-5.6 Sep 15, 2023 12:33 PM [facility] MAGNESIUM Specimen Type: SERUM No comment entered. Ordering Provider: HOWARD AVELAR Report Released Date/Time: Sep 08, 2023 01:58 PM Reporting Lab: [facility] [address] [address] Performing Lab: [facility] [address] MAGNESIUM 1.9 mg/dL 1.6-2.6 Sep 15, 2023 12:33 PM [facility] TSH Specimen Type: SERUM No comment entered. Ordering Provider: HOWARD AVELAR Report Released Date/Time: Sep 08, 2023 01:58 PM Reporting Lab[facility] [address] [address] Performing Lab: [facility] [address] [address] TSH 1.35 u[IU]/mL 0.35-5.00 Sep 15, 2023 12:33 PM [facility] CALCIUM Specimen Type: SERUM No comment entered. Ordering Provider: HOWARD AVELAR Report Released Date/Time: Sep 08, 2023 01:58 PM Reporting Lab: [facility] [place] [facility] [address] [facility] [address] Performing Lab: [facility] [place] [facility] [address] [facility] [address] CALCIUM 9.3 mg/dL 8.5-10.2 Sep 15, 2023 12:33 PM [facility] VITAMIN D (25-OH) Specimen Type: SERUM No comment entered. Ordering Provider: HOWARD AVELAR Report Released Date/Time: Sep 08, 2023 01:58 PM Reporting Lab: [facility] [place] [facility] [address] [facility] [address] Performing Lab: [facility] [address] [address] VITAMIN D (25-OH) 14 ng/mL L 20-50 Sep 15, 2023 12:33 PM [facility] LIPID PANEL, NON FASTING Specimen Type: SERUM No comment entered. Ordering Provider: HOWARD AVELAR Report Released Date/Time: Sep 08, 2023 01:58 PM Reporting Lab: [facility] [address] [facility] [address] Performing Lab: [facility] [address] [address] CHOLESTEROL 175 mg/dL TRIGLYCERIDE 192 mg/dL H 0-150 LDL calculated 88 mg/dL 0-129 CHOL/HDL 3.6 HDL CHOLESTEROL 49 mg/dL 40-60 Sep 15, 2023 12:33 PM [facility] PSA Specimen Type: SERUM No comment entered. Ordering Provider: HOWARD AVELAR Report Released Date/Time: Sep 08, 2023 02:00 PM Reporting Lab: [facility] [address] [address] Performing Lab: [facility] [address] [address] PSA 1.83 ng/mL 0.00-4.00 Sep 15, 2023 12:33 PM [facility] LIVER FUNCTION Specimen Type: SERUM No comment entered. Ordering Provider: HOWARD AVELAR Report Released Date/Time: Sep 08, 2023 01:58 PM Reporting Lab: [address] [address] Performing Lab: [address] [address] PROTEIN,TOTAL 6.7 g/dL 6.0-8.3 ALBUMIN 3.6 g/dL 3.5-5.0 ALKALINE PHOSPHATASE 35 U/L L 40-150 AST 11 U/L 5-34 ALT 8 U/L BILIRUBIN, TOTAL 0.4 mg/dL 0.2-1.2 Sep 15, 2023 12:33 PM [facility] BASIC METABOLIC PANEL (non-fasting) Specimen Type: SERUM No comment entered. Ordering Provider: HOWARD AVELAR Report Released Date/Time: Sep 08, 2023 01:58 PM Reporting Lab: [address] [address] Performing Lab: [address] [address] UREA NITROGEN 20 mg/dL 7-25 GLUCOSE 108 mg/dL H 65-100 SODIUM 139 mmol/L 135-145 POTASSIUM 4.5 mmol/L 3.5-5.0 CHLORIDE 103 mmol/L 100-110 CO2 29 meq/L 20-30 CREATININE, Serum 0.86 mg/dL 0.50-1.40 eGFR(CKD-EPI 2020) >90 mL/min >60 Sep 15, 2023 12:33 PM [facility] URINALYSIS Specimen Type: URINE Comment: If Glucose = >500 and Ketones are positive, please alert the Physician. Ordering Provider: HOWARD AVELAR Report Released Date/Time: Sep 08, 2023 01:59 PM Reporting Lab: [address] [address] Performing Lab: [facility] [address] [facility] [address] UA COLOR Yellow Yellow UA APPEARANCE Clear Clear UA GLUCOSE NEGATIVE mg/dL Negative UA KETONES TRACE mg/dL Negative UA BLOOD NEGATIVE mg/dL Negative UA PROTEIN 30 mg/dL Negative UA NITRITE NEGATIVE mg/dL Negative UA BILIRUBIN NEGATIVE mg/dL Negative UA SPECIFIC GRAVITY 1.044 H 1.016-1.02 2 UA pH 6.0 5.0-9.0 UA UROBILINOGEN <2.0 mg/dL <2.0 UA LEUKOCYTE NEGATIVE Negative Sep 15, 2023 12:33 PM [facility] CBC AND DIFF (AUTO) Specimen Type: BLOOD No comment entered. Ordering Provider: HOWARD AVELAR Report Released Date/Time: Sep 08, 2023 01:58 PM Reporting Lab: [facility] [address] [facility] [address] Performing Lab: [facility] [address] [address] WBC 6.55 10*3/uL 4.50-11.00 RBC 4.40 10*6/uL 4.23-5.66 HGB 13.6 g/dL 12.8-17 HCT 41.0 39.2-50.4 MCV 93.2 fL 82-99 MCHC 33.2 g/dL 30.8-35.1 PLT 172 10*3/uL 140-360 RDW-CV 11.5 L 12.0-16.0 [place], Abs 0.58 10*3/uL 0.30-1.10 MCH 30.9 pg 26.2-32.6 Neut % 49.8 43.7-75.8 Lymph % 38.8 14.0-42.3 [place] % 8.9 5.1-13.7 Eos % 1.1 0.4-6.8 Baso % 0.9 0.1-2.0 Neut, Abs 3.27 10*3/uL 2.20-7.60 Lymph, Abs 2.54 10*3/uL 1.00-3.20 Eos, Abs 0.07 10*3/uL 0.03-0.44 Baso, Abs 0.06 10*3/uL 0.01-0.13 Immature Gran % 0.5 0.0-0.7 Immature Gran, Abs 0.03 10*3/uL 0.00-0.06 Vital Signs: All taken on the encounter date This section contains inpatient and outpatient Vital Signs collected on the date of the Encounter. Date/Time Temperature Pulse Blood Pressure Respiratory Rate SP02 Pain Height Weight Body Mass Index Source Oct 06, 2023 10:44 AM 150/87 [facility] Oct 06, 2023 10:41 AM 206 28 [facility] Oct 06, 2023 10:41 AM 97.4 90 174/102 20 96 200 27 [facility] Social History: Smoking Status (Most current) and Tobacco Use (All prior to encounter date) This section includes the most current, and the historical, smoking and tobacco- related health factors from the [place] facility where the Encounter took place. Current Smoking Status This section includes the most current smoking, or tobacco-related health factor, from the [place] facility where the Encounter took place. Date/Time Current Smoking Status Comment Facil [facility] Dec 20, 2020 01:30 PM VA-TOBACCO NEVER USED [facility] Tobacco Use History This section includes a history of the smoking, or tobacco-related health factors, that were collected on or before the date of the Encounter. The data comes from the [place] facility where the Encounter took place. Date/Time Smoking Status/Tobacco Use Comment F acility Dec 08, 2019 09:02 AM VA-TOBACCO FORMER USER [facility] Dec 08, 2019 09:02 AM VA-TOBACCO QUIT 15 YRS OR MORE [facility] Sep 10, 2018 07:42 AM VA-TOBACCO FORMER USER [facility] Sep 10, 2018 07:42 AM VA-TOBACCO QUIT 15 YRS OR MORE [facility] Dec 05, 2017 02:07 PM QUIT TOBACCO USE > 7 YEARS AGO [facility] Jan 17, 2017 09:55 AM QUIT TOBACCO USE > 7 YEARS AGO [facility] Jan 30, 2016 08:10 AM QUIT TOBACCO USE > 7 YEARS AGO quit 1988 [facility] Dec 25, 2010 10:36 AM QUIT TOBACCO USE > 7 YEARS AGO Pt. stated he quit in 1988! [facility] Advance Directives: All historical and current Section Date Range: From patient's date of to the date document was created. This section includes ALL of a patient's completed or amended [place] Advance and Rescinded Directives. The entries below indicate that a directive exists for the patient, but an actual copy is not included with this document. The data comes from all [place] facilities. Date Advance Directives Provider Source Dec 25, 2010 ADVANCE DIRECTIVE DIONNE HOGUE [facility] Radiology Reports: +/- 30 days of [...] the Encounter. The data comes from all [place] treatment facilities. Date/Time Radiology Report Provider Source Oct 17, 2023 07:55 PM OUTSIDE MRI LUMBAR SPINE: CARA SOMMERS [id number] -1955 M Exm Date: OCT 17, 2023@19:55 Req Phys: HOWARD AVELAR Loc: [facility]WM/SO/PACT 1 INTERSTATE PLANNER (Req'g Loc) Img Loc: OUTSIDE GENERAL RADIOLOGY Service: Unknown (Case [id number] COMPLETE) OUTSIDE MRI LUMBAR SPINE (RAD Detailed) CPT:29651 Reason for Study: Low back pain Clinical History: Report Status: Electronically Filed Date Reported: OCT 17, 2023 Report: Community care exam; see CPRS/JLV for outside radiology report/results Impression: Community care exam; see CPRS/JLV for outside radiology report/results Primary Diagnostic Code: VERIFIED BY: / *ELECTRONICALLY FILED* [facility] Oct 09, 2023 01:36 PM HIP 2-3 VIEWS (RIGHT) WITH OR WITHOUT PELVIS: CARA SOMMERS [id number] -1955 M Exm Date: OCT 09, 2023@13:36 Req Phys: HOWARD AVELAR Loc: CWM/SO/PACT 1 INTERSTATE PLANNER (Req'g Loc) Img Loc: [facility] 1 Service: Unknown (Case [id number] COMPLETE) HIP 2-3 VIEWS (RIGHT) WITH OR WIT(RAD Detailed) CPT:03728 CPT Modifiers : RT RIGHT SIDE Reason for Study: fall onto right hip/back. Persistant pain Clinical History: Parkinsons. chronic back pain Report Status: Verified Date Reported: OCT 10, 2023 Date Verified: OCT 10, 2023 Jack Winder E-Sig: Report: HIP 2-3 VIEWS (RIGHT) WITH OR WITHOUT PELVIS HISTORY: fall onto right hip/back. Persistent pain COMPARISON: None TECHNIQUE: Single view of the pelvis and 2 view(s) of the right hip, submitted to the [place] [employer] [facility] ([facility]) for interpretation. FINDINGS: No displaced fracture or traumatic malalignment of the right hip. Bilateral hip arthrosis. No radiopaque foreign bodies in the soft tissues. Impression: No displaced fracture or traumatic malalignment of the right hip. READING PHYSICIAN: Jorge Contreras -[phone] 10/10/2023 10:26 PDT [facility] [employer] [facility] [phone] (For Medical Practitioner Use Only) Attention Patients / Veterans: If you have questions or concerns about these test results, please contact your ordering provider or primary care team. Primary Diagnostic Code: NO ALERT REQUIRED Primary Interpreting Staff: RADIOLOGY,OUTSIDE SERVICE, Staff Physician / RADIOLOGY,OUTSIDE SERVICE [facility] [place] [facility] Oct 09, 2023 01:36 PM SPINE LUMBOSACRAL MIN 2 VIEWS: CARA SOMMERS [id number] -1955 M Exm Date: OCT 09, 2023@13:36 Req Phys: HOWARD AVELAR Loc: CWM/SO/PACT 1 [facility]STATE PLANNER (Req'g Loc) Img Loc: [facility] 1 Service: Unknown (Case [id number] COMPLETE) SPINE LUMBOSACRAL MIN 2 VIEWS (RAD Detailed) CPT:70299 Reason for Study: fall onto right hip/back. Persistant pain Clinical History: Parkinsons. chronic back pain Report Status: Verified Date Reported: OCT 10, 2023 Date Verified: OCT 10, 2023 Jack Winder E-Sig: Report: SPINE LUMBOSACRAL MIN 2 VIEWS HISTORY: fall onto right hip/back. Persistent pain COMPARISON: 03/15/2016 lumbar MRI TECHNIQUE: 3 view(s) of the lumbar spine, submitted to the [place] [employer] [facility] ([facility]) for interpretation. FINDINGS: Five [id number] lumbar-type vertebrae. Acute angulation of the sacrum, [...] superimposed acute sacral fracture. READING PHYSICIAN: Jorge Contreras -[phone] 10/10/2023 10:30 PDT [facility] [phone] (For Medical Practitioner Use Only) Attention Patients / Veterans: If you have questions or concerns about these test results, please contact your ordering provider or primary care team. Primary Diagnostic Code: SIGNIFICANT ABNORMALITY, ATTN NEEDED Primary Interpreting Staff: RADIOLOGY,OUTSIDE SERVICE, Staff Physician / RADIOLOGY,OUTSIDE SERVICE [facility] Encounter Notes: All associated encounter notes This section contains the clinical notes associated to the Encounter. Date/Time Encounter Note(s) Provider Source Oct 06, 2023 11:10 AM PRIMARY CARE NURSE PRACTITIONER OUTPATIENT NOTE: LOCAL TITLE: NURSE PRACTITIONER OUTPATIENT NOTE STANDARD TITLE: PRIMARY CARE NURSE PRACTITIONER OUTPATIENT NOTE DATE OF NOTE: OCT 06, 2023@11:10 ENTRY DATE: OCT 06, 2023@11:10:13 AUTHOR: HOWARD AVELAR COSIGNER: URGENCY: STATUS: COMPLETED NURSE PRACTITIONER OUTPATIENT NOTE Has ADDENDA PRIMARY CARE VISIT CARA ANISHA SOMMERS, is a 68 yo WHITE MALE [place] who presents at the [place] [facility]. TYPE OF VISIT: Face to face 68-year-old male with Parkinson's disease, HTN, HLD, chronic back pain, anxiety, and history of TBI presented to the outpatient clinic regular follow-up. He was hospitalized 3/3 for presyncope and bradycardia. Symptoms were thought secondary to autonomic dysfunction as a result of of generic Sinemet. He was switched to brand-name Sinemet by neurology and has experienced no symptoms since. On discharge, lisinopril was changed to 15 mg every other day and 30 mg on opposite days. He underwent bilateral cataract procedure in July. Today he is accompanied by his . He is reporting a fall a couple of weeks ago onto his buttocks. Today he complains of pain in the right hip and lower back intermittently. Taking Tylenol for relief. No lower extremity weakness or bowel/bladder incontinence. No tingling in the extremities. No recent labs to review. I do note proteinuria in 2022. All medications were reconciled during this visit. Recent labs and diagnostic studies were reviewed with the . All medications were reconciled during this visit. HEALTHCARE PROVIDERS: Social Hx: MARITAL STATUS - HISTORY: PERIOD OF SERVICE - [facility] FROM Jan TO Dec COMBAT SERVICE INDICATED: No MEDICAL HISTORY Active Problem Postnasal drip R09.82 07/10/2023 GABBY KOTHARI PD - Parkinson's disease G20.C 04/17/2023 GABBY KOTHARI Low back pain M54.50 08/29/2022 GABBY KOTHAIR Seasonal affective disorder R69. 05/29/2020 VALERIANO HURT Erectile dysfunction F52.21 02/18/2019 GABBY KOTHARI Parkinson's disease G20. 02/19/2018 GABBY KOTHARI Hypertension I10. 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 12/25/2010 GABBY KOTHARI Carpal Tunnel Syndrome 354.0 12/25/2010 GABBY KOTHARI Ulnar Neuropathy 354.2 12/25/2010 GABBY KOTHARI Shoulder Surgery 799.9 12/25/2010 GABBY KOTHARI Cyst, ganglion 727.43 12/25/2010 GABBY KOTHARI Psoriasis 696.1 12/25/2010 GABBY KOTHARI Anxiety (SNOMED CT [id number]) F41.9 03/23/2021 VALERIANO HURT Lipomatosis 272.8 12/25/2010 GABBY KOTHARI VITAL SIGNS: Temperature 97.4 F [36.3 C] (10/06/2023 10:41) Blood Pressure 150/87 (10/06/2023 10:44) Pulse 90 (10/06/2023 10:41) Respiration 20 (10/06/2023 10:41) Pain 2 (07/23/2023 10:11) BMI BMI: 28.0 Weight 206 lb [93.44 kg] (10/06/2023 10:41) Pulse Oximetry 96% (10/06/2023 10:41) ASSISTIVE DEVICES: REVIEW OF SYSTEMS: CONSTITUTIONAL: No fevers, chills, weight loss/gain ENT: No sore throat, sneezing, congestion, rhinorrhea, anosmia, or ageusia. CARDIOVASCULAR: No chest pain, palpitations, or increased pedal edema RESPIRATORY: No SOB, cough, sputum, wheeze. GASTROINTESTINAL: Denies abd pain, N/V/D. No melena or hematochezia. No tenesmus or constipation. GENITOURINARY: No burning micturition. No urinary frequency or urgency. No nocturia. MUSCULOSKELETAL: No myalgias or arthralgias. PSYCHIATRIC: No new anxiety or depression. No sleep disturbance. NEUROLOGIC: No headaches, dizziness, numbness or tingling in the extremities, or unilateral weakness. EXAMINATION General: Well-appearing in no obvious distress. Mental Status: Alert and oriented x4. Head: Normocephalic. Eyes: PERRLA. EOMI. Anicteric sclerae. ENT: Moist oral mucosa. Posterior pharynx unremarkable Neck: Supple. No JVD. No LAD. No bruit. Lungs: CTA. Normal chest excursion. Eupneic respirations. CV: Heart tones S1, S2. RRR. No M/G/R. No peripheral edema GI: Abdomen is soft and nontender. No palpable mass. : No CVA tenderness. Ext/Back: No lower back point tenderness. No gross deformities. Neuro: CN II through XII grossly intact. Normal speech. Normal gait. Integument: Skin warm and dry. No rashes or lesions on visible areas. Psych: Normal mood and affect. Normal judgment. ALLERGIES: ========= Patient has answered NKA >> HEALTH MAINTENANCE PREVENTIVE MEDICINE GOALS Info Only: [facility] [employer] DUE NOW BMI>30/>24.99 High Risk Jul 09 Medication Reconciliation DUE NOW HTN Assess for Elevated BP>=140/90 DUE NOW ASSESSMENT/PLAN: Active problems - Computerized Problem List is the source for the followin. Postnasal drip 2. PD - Parkinson's disease: Recently hospitalized with presyncope and bradycardia due to underlying autonomic dysfunction in the face of PD. Neurology thought symptoms were secondary to generic Sinemet and recommended brand-name Sinemet. Still awaiting recent office visit notes from neurology. 3. Low back pain: Chronic issue. States he fell a couple of weeks ago onto his buttock and now complains of intermittent right lower back pain. No point tenderness on exam. He denies any lower extremity weakness, tingling, numbness, or bowel or bladder incontinence. Using acetaminophen for pain relief which has been effective. Will obtain x-ray of LS spine and hip. 4. Seasonal affective disorder 5. Erectile dysfunction 6. Parkinson's disease 7. Hypertension: Blood pressure above target today at 150/87. Asymptomatic without headache, visual disturbance, dizziness, chest pain. Recently switched lisinopril to 20 mg daily. Agrees to keep a log at home and return to the clinic in 1 month for blood pressure check and labs. 8. Traumatic brain injury 9. Hyperlipidemia: Continue simvastatin 20 mg daily. 10. Low back pain 11. Mood disorder due to a general medical condition 12. Pain in joint involving shoulder region 13. Low Back Pain 14. Hydrocele 15. 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 Shoulder Surgery 20. Cyst, ganglion 21. Psoriasis 22. Anxiety (SNOMED CT [id number]): Maintained by [facility] on valproic acid and trazodone. 23. Lipomatosis FOLLOW UP: RTC Below & sooner PRN UPCOMING APPOINTMENTS: 10/24/2023 08:30 C[facility]/NO/VVC/MED REHAB PROV 11/13/2023 14:00 [facility]/SO/VVC/MHC/LARROW 11/28/2023 14:00 [facility]/SO/VVC/MHC/LARROW 12/02/2023 13:00 [facility]/SO/PACT 5 12/18/2023 13:30 [facility]/NO/VVC/PAIN [facility] 04/19/2024 15:30 CWM/NO/OPTOMETRY/MERHAR 40 minutes spent in patient evaluation, data review, and patient education. All medications were reconciled during this visit. No barriers; Patient understands and agrees to current treatment plan. If pt has any questions, concerns, or changes in current health status he/she will call [facility] /caesar/ HOWARD AVELAR NP NURSE PRACTITIONER Signed: 10/13/2023 09:12 10/13/2023 ADDENDUM STATUS: COMPLETED X-rays of right hip and LS-spine resulted. Hip without evidence of acute fracture. LS spine as follows: 1. No displaced fracture of the lumbar spine. 2. Acute angulation of the sacrum, which was partially imaged on a 03/15/2016 lumbar MRI and is favored to reflect sequelae of prior trauma. However if there is point tenderness in this location on physical exam, follow up pelvic CT could be performed to exclude superimposed acute sacral fracture. Appears to be an old injury potentially aggravated by the fall a couple of weeks ago. He is having no lower extremity weakness, numbness, or tingling. Will redo MRI LS spine to rule out any acute pathology requiring intervention. /caesar/ HWOARD AVELAR NP NURSE PRACTITIONER Signed: 10/13/2023 09:18 HOWARD AVELAR
--- OUTSIDE RECORDS SUMMARY | 2024-08-13 15:05 | XMS_ITS ---
Author Name [facility] Address [address] [place] [address] Care Team Providers Care Linoleum Installer Name Role Phone NINO MAI Primary Care [...] BASIC SELF+ ONE Jun 23, 2020 113 [id number] [phone] STEPHEN SOMMERS PATIENT ANTHEM BCBS CT FEDERAL PREFERRED PROVIDER ORGANIZAT ION (PPO) STAND RAEANN SELF + ONE Jun 23, 2015 106 [id number] [phone] STEPHEN SOMMERS PATIENT ANTHEM BCBS FEDERAL PREFERRED PROVIDER ORGANIZAT ION (PPO) STAND RAEANN SELF+ ONE Jun 23, 2015 106 [id number] CRISTOPHER SOMMERSRayne JORDAN PATIENT BCBS [place] FEP PREFERRED PROVIDER ORGANIZAT ION (PPO) PSHB BAS SELF PLUS 1 Jun 23, [id number] [id number] STEPHEN SOMMERS PATIENT [place]BS [place] F[place] PREFERRED PROVIDER ORGANIZAT ION (PPO) STAND RAEANN SELF PLUS 1 Jun 23, 2015 106 [id number] STEPHEN SOMMERS PATIENT [place] FEP PREFERRED PROVIDER ORGANIZAT ION (PPO) BASIC SELF+ ONE Jun 23, 2020 113 [id number] [phone] STEPHEN SOMMERS PATIENT [place] FEP PREFERRED PROVIDER ORGANIZAT ION (PPO) STAND RAEANN SELF+ ONE Jun 23, 2015 106 [id number] STEPHEN SOMMERS PATIENT [place] FEP DENTAL DENTAL INSURANCE BASIC Jun 23, 2020 DENTAL [id number] [phone] STEPHEN SOMMERS PATIENT [place] FEP BCBS PRESCRIPT ION CAREM ARK FEPRX PLAN Jun 23, 2015 [id number] STEPHEN SOMMERS PATIENT [place] FEPRX PLAN PRESCRIPT ION CAR[place] FEPRX Jun 23, 2015 [id number] STEPHEN SOMMERS PATIENT MEDICARE (WNR) MEDICARE () PART A May 23, 2020 PART A [id number] STEPHEN SOMMERS PATIENT MEDICARE (WNR) MEDICARE () PART B May 23, 2020 PART B [id number] STEPHEN SOMMERS PATIENT MEDICARE (WNR) MEDICARE () PART A May 23, 2020 PART A [id number] STEPHEN SOMMERS PATIENT MEDICARE (WNR) MEDICARE () PART B May 23, 2020 PART B [id number] STEPHEN SOMMERS PATIENT MEDICARE (WNR) MEDICARE () PART A May 23, 2020 PART A [id number] [phone] STEPHEN SOMMERS PATIENT MEDICARE (WNR) MEDICARE () PART B May 23, 2020 PART B [id number] STEPHEN SOMMERS PATIENT Selected Encounter This section includes the information on record at [place] for the Encounter. Date/Time Encounter Type Encounter Description Reason Pro vider Source Jul 23, 2024 12:59 PM Outpatient Encounter PRIMARY CARE/MEDICINE IHE Encounter Template Text not used by [place] Plan of Treatment: Future Appointments (+ 6 months) and Future Tests (+/- 45 days) The Plan of Treatment section includes [facility] care activities [facility] the [facility] This section includes future appointments and future orders which are active, pending or scheduled. Future Appointments This section includes appointments that were scheduled to occur 6 months from the date of the Encounter, up to a maximum of 20 appointments. The data comes from all [facility]. Appointment Date/Time Appointment Type Appointme nt Facility Name Jul 28, 2024 09:30 AM [facility] Jul 30, 2024 02:00 PM AMBULATORY - MEDICINE [facility] Aug 27, 2024 02:30 PM AMBULATORY - PSYCHIATRY [facility] Aug 30, 2024 02:30 PM AMBULATORY - MEDICINE [facility] Oct 18, 2024 08:00 AM AMBULATORY - NONE [facility] Active, Pending, and Scheduled Orders This section includes a listing of several types of active, pending, and scheduled orders, including clinic medications orders, diagnostic test orders, procedure orders and consult orders; where the start date of the order is 45 days before the date of the Encounter or 45 days after the date of theEncounter. The data comes from all [facility]. Test Date/Time Test Type Test Details Facility Name Jul 23, 2024 12:00 AM Laboratory - Chemistry Order URINALYSIS URINE [facility] Jul 23, 2024 12:00 AM Laboratory - Chemistry Order PSA BLOOD (SST-SERUM) [facility] Jul 23, 2024 12:00 AM Laboratory - Chemistry Order BASIC METABOLIC PANEL (fasting) BLOOD (SST-SERUM) [facility] Jul 23, 2024 12:00 AM Laboratory - Chemistry Order LIPID PANEL FASTING BLOOD (SST-SERUM) [facility] Jul 23, 2024 12:00 AM Laboratory - Chemistry Order LIVER FUNCTION BLOOD (SST-SERUM) [facility] Jul 23, 2024 12:00 AM Laboratory - Chemistry Order CBC AND DIFF (AUTO) BLOOD (LAV-BLOOD) [facility] Jul 23, 2024 12:00 AM Laboratory - Chemistry Order HEMOGLOBIN A1C PANEL BLOOD (LAV-BLOOD) [facility] Jul 23, 2024 12:00 AM Laboratory - Chemistry [facility] Consult Order RESPIRATORY THERAPY/ [facility] OUTPT [facility] [employer] [place] [facility] Social History: Smoking Status (Most current) and Tobacco Use (All prior to encounter date) This section includes the most current, and the historical, smoking and tobacco- related health factors from the [place] facility where the Encounter took place. Current Smoking Status This section includes the most current smoking, or tobacco-related health factor, from the [place] facility where the Encounter took place. Date/Time Current Smoking Status Comment Facil ity Apr 17, 2023 01:59 PM VA-TOBACCO FORMER USER [facility] Tobacco Use History This section includes a history of the smoking, or tobacco-related health factors, that were collected on or before the date of the Encounter. The data comes from the [place] facility where the Encounter took place. Date/Time Smoking Status/Tobacco Use Comment F acility Apr 17, 2023 01:59 PM [facility] 15 [facility]RS [facility] Jan 09, 2022 08:40 AM [facility] Jan 09, 2022 08:40 AM HI-TOBACCO QUIT 15 YRS OR MORE [facility] Advance Directives: All historical and current Section Date Range: From patient's date of to the date document was created. This section includes ALL of a patient's completed or amended [place] Advance and Rescinded Directives. The entries below indicate that a directive exists for the patient, but an actual copy is not included with this document. The data comes from all [place] facilities. Date Advance Directives Provider Source Dec 25, 2010 ADVANCE DIRECTIVE DIONNE HOGUE [facility] Encounter Notes: All associated encounter notes This section contains the clinical notes associated to the Encounter. Date/Time Encounter Note(s) Provider Source Jul 23, 2024 12:59 PM PRIMARY CARE NOTE: LOCAL TITLE: WALK-IN NOTE PRIMARY CARE (T) STANDARD TITLE: PRIMARY CARE NOTE DATE OF NOTE: JUL 23, 2024@12:59 ENTRY DATE: JUL 23, 2024@13:01:15 AUTHOR: GRETCHEN ERICKSON EXP COSIGNER: URGENCY: STATUS: COMPLETED <====Click to Start Advanced Medical Support [place] presents to the Primary Care clinic with the following request: [ ]Medication Renewal/Refill [ ]Consultation with Team RN [ ]Symptoms [ X ]Other The states they are: [ ]Waiting [ X ]Not Waiting No Walk in visit scheduled with PACT Nurse [ X ] At this encounter the [place]'s demographics were verified. [ X ] At this encounter the 's Insurance information was verified. [ X ] At this encounter the below scheduled visits for the were discussed and appointment reminder card was offered. Future appointments: 07/28/2024 09:30 [facility] 1 08/12/2024 14:00 CWM/SO/[facility]VC/MHC/LARROW 04/25/2025 15:30 [facility] OPTOMETRY 1 PM 1. 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 [facility] Informed to contact ENT provider and have Preop clearance form faxed over. [facility] [id number] [address], [address] [facility] [address] [phone] [facility] [phone] 2. [place] requesting referral to Pain Management Nurse. He has Plantar Fascitis since February. Had cortisone injection but getting worse. 3. has CPAP machine from [employer]. He has had it over 8 years and is stating he should be due to have a new one. 4. is requesting labwork and a PSA. His last labs were done in August of 2023. /es/ GRETCHEN PETTY Signed: 07/23/2024 13:09 Receipt Acknowledged By: 07/26/2024 09:21 /es/ SIMIN WASHINGTON LPN LPN 07/23/2024 13:25 /es/ CATARINO GANT RN REGISTERED NURSE for GRETCHEN ODEN
--- OUTSIDE RECORDS SUMMARY | 2024-08-13 15:05 | XMS_ITS | Encounter Summary ---
Author Name [facility] [place] [facility] [place] Address [address] [place] [address] Care Team Providers Care Mechanical Engineering Intern Name Role Phone NINO MAI Primary Care [...] BASIC SELF+ ONE Jun 23, 2020 113 [id number] [phone] STEPHEN SOMMERS PATIENT ANTHEM BCBS CT FEDERAL PREFERRED PROVIDER ORGANIZAT ION (PPO) STAND RAEANN SELF + ONE Jun 23, 2015 106 [id number] [phone] STEPHEN SOMMERS PATIENT ANTHEM BCBS FEDERAL PREFERRED PROVIDER ORGANIZAT ION (PPO) STAND RAEANN SELF+ ONE Jun 23, 2015 106 [id number] STEPHEN SOMMERS PATIENT BCBS [place] FEP PREFERRED PROVIDER ORGANIZAT ION (PPO) PSHB BAS SELF PLUS 1 Jun 23, 2024 [id number] STEPHEN SOMMERS PATIENT BCBS [place] F[place] PREFERRED PROVIDER ORGANIZAT ION (PPO) STAND RAEANN SELF PLUS 1 Jun 23, 2015 106 [id number] STEPHEN SOMMERS PATIENT [place] PREFERRED PROVIDER ORGANIZAT ION (PPO) BASIC SELF+ ONE Jun 23, 2020 113 [id number] [phone] STEPHEN SOMMERS PATIENT [place] PREFERRED PROVIDER ORGANIZAT ION (PPO) STAND RAEANN SELF+ ONE Jun 23, 2015 106 [id number] [phone] STEPHEN SOMMERS PATIENT [place] DENTAL DENTAL INSURANCE BASIC Jun 23, 2020 DENTAL [id number] STEPHEN SOMMERS PATIENT [place] FEP BCBS PRESCRIPT ION CAREM ARK FEPRX PLAN Jun 23, 2015 [id number] STEPHEN SOMMERS PATIENT [place] FEPRX PLAN PRESCRIPT ION CAREM ARK FEPRX Jun 23, 2015 [id number] STEPHEN SOMMERS PATIENT MEDICARE (WNR) MEDICARE () PART A May 23, 2020 PART A [id number] STEPHEN SOMMERS PATIENT MEDICARE (WNR) MEDICARE () PART B May 23, 2020 PART B [id number] STEPEHN SOMMERS PATIENT MEDICARE (WNR) MEDICARE () PART A May 23, 2020 PART A [id number] [phone] STEPHEN SOMMERS PATIENT MEDICARE (WNR) MEDICARE () PART B May 23, 2020 PART B [id number] STEPHEN SOMMERS PATIENT MEDICARE (WNR) MEDICARE () PART A May 23, 2020 PART A [id number] STEPHEN SOMMERS PATIENT MEDICARE (WNR) MEDICARE () PART B May 23, 2020 PART B [id number] STEPHEN SOMMERS PATIENT Selected Encounter This section includes the information on record at [place] for the Encounter. Date/Time Encounter Type Encounter Description Reason Provider Source Sep 08, 2023 02:30 PM OFFICE O/P EST HI 40 MIN PRIMARY CARE/MEDICINE ICD-10-CM G20.C Parkinsonism, unspecified HOWARD AVELAR [facility] Encounter Template Text not used by [place] Assessments - Encounter Diagnoses This section includes the primary and secondary diagnoses documented for the Encounter. Date/Time Primary/Secondary Diagnosis Diagnosis Name Provider Source Sep 19, 2023 09:14 AM PRIMARY Parkinsonism, unspecified HOWARD AVELAR [place] Sep 19, 2023 09:14 AM SECONDARY Essential (primary) hypertension HOWARD AVELAR [place] Sep 19, 2023 09:14 AM SECONDARY Hyperlipidemia, unspecified HOWARD AVELAR [place] Sep 19, 2023 09:14 AM SECONDARY Low back pain, unspecified HOWARD AVELAR [place] Plan of Treatment: Future Appointments (+ 6 months) and Future Tests (+/- 45 days) The Plan of Treatment section includes future care activities for the patient from all [place] [facility]. This section includes future appointments and future orders which are active, pending or scheduled. Future Appointments This section includes appointments that were scheduled to occur 6 months from the date of the Encounter, up to a maximum of 20 appointments. The data comes from all [place] treatment facilities. Appointment Date/Time Appointment Type Appointme nt Facility Name Sep 19, 2023 12:55 PM [place]ORY [place] [facility] [place] [facility] Oct 02, 2023 01:00 PM AM[place]IC[place] [facility] [place] [facility] Oct 06, 2023 10:30 AM [facility]ULATORY - MEDICINE [facility] Oct 15, 2023 02:30 PM AMBULATORY - [facility]H[place] MEDICIN [place] [facility] [place] [facility] Oct 17, 2023 07:55 PM AM[place]ULATORY [place]ICINE [place] [facility] [place] [facility] November 12, 2023 01:30 PM AMBULATORY - REHAB MEDICIN E [facility] [place] [facility] November 13, 2023 02:00 PM AMBULATORY - PSYCHIATRY [facility] Dec 02, 2023 01:00 PM [facility]ULATORY - MEDICINE [facility] Dec 16, 2023 01:30 PM AMBULATORY - MEDICINE [facility] Jan 21, 2024 03:00 PM AMBUL[place]ORY [place]ICINE [place] [facility] [place] [facility] Feb 12, 2024 02:00 PM AMBULATORY - PSYCHIATRY [facility] Feb 20, 2024 08:30 AM [facility]BUL[facility] Lab Results: +/- 30 days of the encounter This section includes the Chemistry and Hematology Lab Results on record with [place] for the patient. Radiology Reports and Pathology Reports are provided separately, in subsequent sections. Lab Results This section contains the Chemistry/Hematology Results that were resulted 30 days before or 30 daysafter the date of the Encounter. Date/Time Source Result Type Result - Unit Interpretation Reference Range Comment Sep 15, 2023 12:33 PM [facility] HEMOGLOBIN A1C PANEL Specimen Type: BLOOD [...] Sep 08, 2023 01:58 PM Reporting [facility] [address] [address] Performing Lab: [facility] [address] [address] HEMOGLOBIN A1C 5.0 4.0-5.6 Sep 15, 2023 12:33 PM [facility] MAGNESIUM Specimen Type: SERUM No comment entered. Ordering Provider: HOWARD AVELAR Report Released Date/Time: Sep 08, 2023 01:58 PM Reporting Lab: [facility] [place] [facility] [address] [address] Performing Lab: [facility] [address] [address] MAGNESIUM 1.9 mg/dL 1.6-2.6 Sep 15, 2023 12:33 [address] [facility] TSH Specimen Type: SERUM No comment entered. Ordering Provider: HOWARD AVELAR Report Released Date/Time: Sep 08, 2023 01:58 PM Reporting Lab: [facility] [address] [address] Performing Lab: [facility] [address] [address] TSH 1.35 u[IU]/mL 0.35-5.00 Sep 15, 2023 12:33 [address] [facility] CALCIUM Specimen Type: SERUM No comment entered. Ordering Provider: HOWARD AVELAR Report Released Date/Time: Sep 08, 2023 01:58 PM Reporting Lab: [facility] [address] [address] Performing Lab: [facility] [address] [address] CALCIUM 9.3 mg/dL 8.5-10.2 Sep 15, 2023 12:33 PM [facility] VITAMIN D (25-OH) Specimen Type: SERUM No comment entered. Ordering Provider: HOWARD AVELAR Report Released Date/Time: Sep 08, 2023 01:58 PM Reporting Lab: [facility] [address] [address] Performing Lab: [facility] [address] [address] VITAMIN D (25-OH) 14 ng/mL L 20-50 Sep 15, 2023 12:33 PM [facility] LIPID PANEL, NON FASTING Specimen Type: SERUM No comment entered. Ordering Provider: HOWARD AVELAR Report Released Date/Time: Sep 08, 2023 01:58 PM Reporting Lab: [facility] [address] [address] Performing Lab: [facility] [address] [address] CHOLESTEROL 175 mg/dL TRIGLYCERIDE 192 mg/dL H 0-150 LDL calculated 88 mg/dL 0-129 CHOL/HDL 3.6 HDL CHOLESTEROL 49 mg/dL 40-60 Sep 15, 2023 12:33 PM [facility] PSA Specimen Type: SERUM No comment entered. Ordering Provider: HOWARD AVELAR Report Released Date/Time: Sep 08, 2023 02:00 PM Reporting Lab: [facility] [address] [address] Performing Lab: [address] [address] PSA 1.83 ng/mL 0.00-4.00 Sep 15, 2023 12:33 PM [facility] LIVER FUNCTION Specimen Type: SERUM No comment entered. Ordering Provider: HOWARD AVELAR Report Released Date/Time: Sep 08, 2023 01:58 PM Reporting Lab: [address] [address] Performing Lab: [address] [address] PROTEIN,TOTAL 6.7 g/dL 6.0-8.3 ALBUMIN 3.6 g/dL 3.5-5.0 ALKALINE PHOSPHATASE 35 U/L L 40-150 AST 11 U/L 5-34 ALT 8 U/L BILIRUBIN, TOTAL 0.4 mg/dL 0.2-1.2 Sep 15, 2023 12:33 PM [facility] BASIC METABOLIC PANEL (non-fasting) Specimen Type: SERUM No comment entered. Ordering Provider: HOWARD AVELAR Report Released Date/Time: Sep 08, 2023 01:58 PM Reporting Lab: [address] [address] Performing Lab: [address] [address] UREA NITROGEN 20 mg/dL 7-25 GLUCOSE 108 mg/dL H 65-100 SODIUM 139 mmol/L 135-145 POTASSIUM 4.5 mmol/L 3.5-5.0 CHLORIDE 103 mmol/L 100-110 CO2 29 meq/L 20-30 CREATININE, Serum 0.86 mg/dL 0.50-1.40 eGFR(CKD-EPI 2020) >90 mL/min >60 Sep 15, 2023 12:33 PM [facility] URINALYSIS Specimen Type: URINE Comment: If Glucose = >500 and Ketones are positive, please alert the Physician. Ordering Provider: HOWARD AVELAR Report Released Date/Time: Sep 08, 2023 01:59 PM Reporting Lab: [address] [address] Performing Lab: [address] [address] UA COLOR Yellow Yellow UA APPEARANCE Clear Clear UA GLUCOSE NEGATIVE mg/dL Negative UA KETONES TRACE mg/dL Negative UA BLOOD NEGATIVE mg/dL Negative UA PROTEIN 30 mg/dL Negative UA NITRITE NEGATIVE mg/dL Negative UA BILIRUBIN NEGATIVE mg/dL Negative UA SPECIFIC GRAVITY 1.044 H 1.016-1.02 2 UA pH 6.0 5.0-9.0 UA UROBILINOGEN <2.0 mg/dL <2.0 UA LEUKOCYTE NEGATIVE Negative Sep 15, 2023 12:33 PM [facility] CBC AND DIFF (AUTO) Specimen Type: BLOOD No comment entered. Ordering Provider: HOWARD AVELAR Report Released Date/Time: Sep 08, 2023 01:58 PM Reporting Lab: [address] [address] Performing Lab: [address] [address] WBC 6.55 10*3/uL 4.50-11.00 RBC 4.40 10*6/uL 4.23-5.66 HGB 13.6 g/dL 12.8-17 HCT 41.0 39.2-50.4 MCV 93.2 fL 82-99 MCHC 33.2 g/dL 30.8-35.1 PLT 172 10*3/uL 140-360 RDW-CV 11.5 L 12.0-16.0 Dauphin, Abs 0.58 10*3/uL 0.30-1.10 MCH 30.9 pg 26.2-32.6 Neut % 49.8 43.7-75.8 Lymph % 38.8 14.0-42.3 [place]hin % 8.9 5.1-13.7 Eos % 1.1 0.4-6.8 [...] and tobacco- related health factors from the [place] facility where the Encounter took place. Current Smoking Status This section includes the most current smoking, or tobacco-related health factor, from the [place] facility where the Encounter took place. Date/Time Current Smoking Status Comment Facil [facility] Dec 20, 2020 01:30 PM VA-TOBACCO NEVER USED [place] Tobacco Use History This section includes a history of the smoking, or tobacco-related health factors, that were collected on or before the date of the Encounter. The data comes from the [place] facility where the Encounter took place. Date/Time Smoking Status/Tobacco Use Comment F acility Dec 08, 2019 09:02 AM VA-TOBACCO FORMER USER [place] Dec 08, 2019 09:02 AM VA-TOBACCO QUIT 15 YRS OR MORE [place] Sep 10, 2018 07:42 AM VA-TOBACCO FORMER USER [place] Sep 10, 2018 07:42 AM VA-TOBACCO QUIT 15 YRS OR MORE [place] Dec 05, 2017 02:07 PM QUIT TOBACCO USE > 7 YEARS AGO [place] Jan 17, 2017 09:55 AM QUIT TOBACCO USE > 7 YEARS AGO [place] Jan 30, 2016 08:10 AM QUIT TOBACCO USE > 7 YEARS AGO quit 1988 [place] Dec 25, 2010 10:36 AM QUIT TOBACCO USE > 7 YEARS AGO Pt. stated he quit in 1988! [place] Advance Directives: All historical and current Section Date Range: From patient's date of to the date document was created. This section includes ALL of a patient's completed or amended [place] Advance and Rescinded Directives. The entries below indicate that a directive exists for the patient, but an actual copy is not included with this document. The data comes from all [facility]. Date Advance Directives Provider Source Dec 25, 2010 ADVANCE DIRECTIVE DIONNE HOGUE [facility] Encounter Notes: All associated encounter notes This section contains the clinical notes associated to the Encounter. Date/Time Encounter Note(s) Provider Source Sep 12, 2023 10:16 AM ADDENDUM: LOCAL TITLE: Addendum STANDARD TITLE: ADDENDUM DATE OF NOTE: SEP 12, 2023@10:16:44 ENTRY DATE: SEP 12, 2023@10:16:45 AUTHOR: HOWARD AVELAR COSIGNER: URGENCY: STATUS: COMPLETED Prior authorization consult for brand-name Sinemet was denied by pharmacist. I attempted to telephone the patient to advise him of this outcome but, unfortunately was only able to leave a voice message requesting he call the clinic back. /es/ HOWARD AVELAR NP NURSE PRACTITIONER Signed: 09/12/2023 10:18 Receipt Acknowledged By: 09/16/2023 11:43 /caesar/ CLEMENTE GAMEZ RN REGISTERED NURSE ======== --- Original Document --- 09/08/23 NURSE PRACTITIONER OUTPATIENT NOTE: PRIMARY CARE VISIT CARA SOMMERS, is a 68 yo WHITE MALE [place] who [facility] the [place] [facility]. TYPE OF VISIT: Face to face [...] Today he is accompanied by his . The patient reports he is feeling fine since discharge. He is concerned about obtaining brand-name Sinemet [facility] as this was recommended by neurology. No recent labs to review. I do note proteinuria in 2022. All medications were reconciled during this visit. HEALTHCARE PROVIDERS: PCP: [facility] MH: [facility], Dr. Reyes Neuro: Dr. Freeman; f/u appointment next week Social Hx: The is and lives with his . He stopped smoking in 1987. No alcohol or MJ. Walks regularly. HISTORY: PERIOD OF SERVICE - [employer] FROM Jan TO Dec COMBAT SERVICE INDICATED: No VITAL SIGNS: Temperature 98.3 F [36.8 C] (09/08/2023 15:24) Blood Pressure 134/76 (09/08/2023 15:24) Pulse 81 (09/08/2023 15:24) Respiration 20 (09/08/2023 15:24) Pain 2 (07/23/2023 10:11) BMI BMI: 27.5 Weight 202 lb [91.63 kg] (09/08/2023 15:24) Pulse Oximetry 96% (09/08/2023 15:24) ASSISTIVE DEVICES: None REVIEW OF SYSTEMS: CONSTITUTIONAL: No fevers, chills, [...] Neck: Supple. No JVD. No LAD. No bruit appreciated. Lungs: CTA. Normal chest excursion. Eupneic respirations. CV: Heart tones S1, S2. RRR. No M/G/R. No peripheral edema GI: Abdomen is soft and nontender. No palpable mass. : No CVA tenderness. Ext: No cyanosis or clubbing. No gross deformities. Neuro: Mild tremor. CN II through XII grossly intact. Normal speech. Integument: Skin warm and dry. No concerning lesions or rashes. Psych: Normal mood and affect. Normal judgment. ALLERGIES: ========= Patient has answered NKA >> HEALTH MAINTENANCE PREVENTIVE MEDICINE GOALS Info Only: [facility] Video Connect Capable DUE NOW BMI>30/>24.99 High Risk Jul 09 Medication Reconciliation DUE NOW ASSESSMENT/PLAN: Active problems - Computerized Problem List is the source for the followin. Postnasal drip 2. PD - Parkinson's disease: Recently hospitalized with presyncope and bradycardia due to underlying autonomic dysfunction in the face of PD. Neurology thought symptoms were secondary to generic Sinemet and recommended brand-name Sinemet. He would like to receive [facility] med through the [facility]. Prior authorization request placed. Requesting most recent office visit notes from neurology. 3. Low back pain: Managed at home with acetaminophen and heating pad. 4. Seasonal affective disorder 5. Erectile dysfunction 6. Parkinson's disease 7. Hypertension: Blood pressure on target today 134/76. He has switched his dose of her hospital recommendations to 15 and 30 mg on alternating days. I will change to 20 mg daily for consistency and to decrease chance for medication error. The patient agrees to this change. He will keep a log at home and return to the clinic in 1 month for blood pressure check and labs. 8. Traumatic brain injury 9. Hyperlipidemia: Continue simvastatin 20 mg daily. Check LFTs and lipid panel today. 10. Low back pain 11. Mood disorder due to a general medical condition 12. Pain in joint involving shoulder region 13. Low Back Pain 14. Hydrocele 15. 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 Shoulder Surgery 20. Cyst, ganglion 21. Psoriasis 22. Anxiety (SNOMED CT 74814953): Maintained by [facility] on valproic acid and trazodone. 23. Lipomatosis FOLLOW UP: RTC Below & sooner PRN UPCOMING APPOINTMENTS: 10/02/2023 13:00 CWM/NO/VVC/PAIN MD CLINIC 10/06/2023 10:30 CWM/SO/PACT EIGHT SENIOR CONSTRUCTION ESTIMATOR 10/31/2023 08:30 CWM/NO/VVC/MED REHAB PROV 11/13/2023 14:00 CWM/SO/VVC/MHC/LARROW 11/28/2023 14:00 CWM/SO/VVC/MHC/LARROW 04/19/2024 15:30 CWM/NO/OPTOMETRY/MERHAR 04/20/2024 14:30 CWM/SO/PACT 4 45 minutes spent in patient evaluation, data review, and patient education. All medications were reconciled during this visit. No barriers; Patient understands and agrees to current treatment plan. If pt has any questions, concerns, or changes in current health status he/she will call or come in to the [facility]. /edwardo AVELAR NP NURSE PRACTITIONER Signed: 09/12/2023 10:13 09/12/2023 ADDENDUM STATUS: COMPLETED Team: Please request office visit notes from neurology, Dr. Freeman. Thank you. /caesar/ HOWARD AVELAR NP NURSE PRACTITIONER Signed: 09/12/2023 10:13 Receipt Acknowledged By: 09/12/2023 11:19 /caesar/ DINESH SALDAÑA ADVANCE LASTING FLOORWORKER 09/12/2023 ADDENDUM STATUS: COMPLETED THIS GIN POLE OPERATOR SENT FAX REQUEST TO [phone] DR JAMMIE ARMENTA NEUROLOGY and SLEEP ON 09/09/23 10:06am 2ND REQUEST SENT 09/12/23 /edwardo SALDAÑA ADVANCE LASTING FLOORWORKER Signed: 09/12/2023 11:19 HOWARD AVELAR [facility] 22, 2024 10:13 AM ADDENDUM: LOCAL TITLE: Addendum STANDARD TITLE: ADDENDUM DATE OF NOTE: SEP 12, 2023@10:13:12 ENTRY DATE: SEP 12, 2023@10:13:12 AUTHOR: HOWARD AVELAR COSIGNER: URGENCY: STATUS: COMPLETED Team: Please request office visit notes from neurology, Dr. Freeman. Thank you. /es/ HOWARD AVELAR NP NURSE PRACTITIONER Signed: 09/12/2023 10:13 Receipt Acknowledged By: 09/12/2023 11:19 /es/ DINESH SALDAÑA PANA LASTING FLOORWORKER ======== --- Original Document --- 09/08/23 NURSE PRACTITIONER OUTPATIENT NOTE: PRIMARY CARE VISIT CARA SOMMERS, is a 68 yo WHITE MALE [place] who [facility] the [place] [facility]. TYPE OF VISIT: Face to face [...] Today he is accompanied by his . The patient reports he is feeling fine since discharge. He is concerned about obtaining brand-name Sinemet [facility] the [facility] as this was recommended by neurology. No recent labs to review. I do note proteinuria in 2022. All medications were reconciled during this visit. HEALTHCARE PROVIDERS: PCP: [facility] MH: Dr. Amy DEWEY Neuro: Dr. Freeman; f/u appointment next week Social Hx: The is and lives with his . He stopped smoking in 1987. No alcohol or MJ. Walks regularly. HISTORY: PERIOD OF SERVICE - [employer] FROM Jan TO Dec COMBAT SERVICE INDICATED: No VITAL SIGNS: Temperature 98.3 F [36.8 C] (09/08/2023 15:24) Blood Pressure 134/76 (09/08/2023 15:24) Pulse 81 (09/08/2023 15:24) Respiration 20 (09/08/2023 15:24) Pain 2 (07/23/2023 10:11) BMI BMI: 27.5 Weight 202 lb [91.63 kg] (09/08/2023 15:24) Pulse Oximetry 96% (09/08/2023 15:24) ASSISTIVE DEVICES: None REVIEW OF SYSTEMS: CONSTITUTIONAL: No fevers, chills, [...] Neck: Supple. No JVD. No LAD. No bruit appreciated. Lungs: CTA. Normal chest excursion. Eupneic respirations. CV: Heart tones S1, S2. RRR. No M/G/R. No peripheral edema GI: Abdomen is soft and nontender. No palpable mass. : No CVA tenderness. Ext: No cyanosis or clubbing. No gross deformities. Neuro: Mild tremor. CN II through XII grossly intact. Normal speech. Integument: Skin warm and dry. No concerning lesions or rashes. Psych: Normal mood and affect. Normal judgment. ALLERGIES: ========= Patient has answered NKA >> HEALTH MAINTENANCE PREVENTIVE MEDICINE GOALS Info Only: [facility] Video Connect Capable DUE NOW BMI>30/>24.99 High Risk Jul 09 Medication Reconciliation DUE NOW ASSESSMENT/PLAN: Active problems - Computerized Problem List is the source for the followin. Postnasal drip 2. PD - Parkinson's disease: Recently hospitalized with presyncope and bradycardia due to underlying autonomic dysfunction in the face of PD. Neurology thought symptoms were secondary to generic Sinemet and recommended brand-name Sinemet. He would [facility] to [facility]. Prior authorization request placed. Requesting most recent office visit notes from neurology. 3. Low back pain: Managed at home with acetaminophen and heating pad. 4. Seasonal affective disorder 5. Erectile dysfunction 6. Parkinson's disease 7. Hypertension: Blood pressure on target today 134/76. He has switched his dose of her hospital recommendations to 15 and 30 mg on alternating days. I will change to 20 mg daily for consistency and to decrease chance for medication error. The patient agrees to this change. He will keep a log at home and return to the clinic in 1 month for blood pressure check and labs. 8. Traumatic brain injury 9. Hyperlipidemia: Continue simvastatin 20 mg daily. Check LFTs and lipid panel today. 10. Low back pain 11. Mood disorder due to a general medical condition 12. Pain in joint involving shoulder region 13. Low Back Pain 14. Hydrocele 15. 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 Shoulder Surgery 20. Cyst, ganglion 21. Psoriasis 22. Anxiety (SNOMED CT 76031923): Maintained by [facility] on valproic acid and trazodone. 23. Lipomatosis FOLLOW UP: RTC Below & sooner PRN UPCOMING APPOINTMENTS: 10/02/2023 13:00 CWM/NO/VVC/PAIN MD CLINIC 10/06/2023 10:30 CWM/SO/PACT EIGHT SENIOR CONSTRUCTION ESTIMATOR 10/31/2023 08:30 CWM/NO/VVC/MED REHAB PROV 11/13/2023 14:00 CWM/SO/VVC/MHC/LARROW 11/28/2023 14:00 CWM/SO/VVC/MHC/LARROW 04/19/2024 15:30 CWM/NO/OPTOMETRY/MERHAR 04/20/2024 14:30 CWM/SO/PACT 4 45 minutes spent in patient evaluation, data review, and patient education. All medications were reconciled during this visit. No barriers; Patient understands and agrees to current treatment plan. If pt has any questions, concerns, or changes in current health status he/she will call or come [facility] to the [facility]. /caesar/ HOWARD AVELAR NP NURSE PRACTITIONER Signed: 09/12/2023 10:13 09/12/2023 ADDENDUM STATUS: COMPLETED Prior authorization consult for brand-name Sinemet was denied by pharmacist. I attempted to telephone the patient to advise him of this outcome but, unfortunately was only able to leave a voice message requesting he call the clinic back. /caesar/ HOWARD AVELAR NP NURSE PRACTITIONER Signed: 09/12/2023 10:18 Receipt Acknowledged By: * AWAITING SIGNATURE * CLEMENTE GAMEZ 09/12/2023 ADDENDUM STATUS: COMPLETED THIS GIN POLE OPERATOR SENT FAX REQUEST TO [phone] DR JAMMIE ARMENTA NEUROLOGY and SLEEP ON 09/09/23 10:06am 2ND REQUEST SENT 09/12/23 /caesar/ DINESH SALDAÑA ADVANCE LASTING FLOORWORKER Signed: 09/12/2023 11:19 HOWARD AVELAR [facility] 18, 2024 03:42 PM PRIMARY CARE NURSE PRACTITIONER OUTPATIENT NOTE: LOCAL TITLE: NURSE PRACTITIONER OUTPATIENT NOTE STANDARD TITLE: PRIMARY CARE NURSE PRACTITIONER OUTPATIENT NOTE DATE OF NOTE: SEP 08, 2023@15:42 ENTRY DATE: SEP 08, 2023@15:42:32 AUTHOR: HOWARD AVELAR COSIGNER: URGENCY: STATUS: COMPLETED NURSE PRACTITIONER OUTPATIENT NOTE Has ADDENDA PRIMARY CARE VISIT CARA ANISHA SOMMERS, is a 68 yo WHITE MALE who [facility] the [place] [facility]. TYPE OF VISIT: Face to face [...] Today he is accompanied by his . The patient reports he is feeling fine since discharge. He is concerned about obtaining brand-name Sinemet [facility] as this was recommended by neurology. No recent labs to review. I do note proteinuria in 2022. All medications were reconciled during this visit. HEALTHCARE PROVIDERS: PCP: [facility] MH: Dr. Amy DEWEY Neuro: Dr. Freeman; f/u appointment next week Social Hx: The is and lives with his . He stopped smoking in 1987. No alcohol or MJ. Walks regularly. HISTORY: PERIOD OF SERVICE - [employer] FROM Jan TO Dec COMBAT SERVICE INDICATED: No VITAL SIGNS: Temperature 98.3 F [36.8 C] (09/08/2023 15:24) Blood Pressure 134/76 (09/08/2023 15:24) Pulse 81 (09/08/2023 15:24) Respiration 20 (09/08/2023 15:24) Pain 2 (07/23/2023 10:11) BMI BMI: 27.5 Weight 202 lb [91.63 kg] (09/08/2023 15:24) Pulse Oximetry 96% (09/08/2023 15:24) ASSISTIVE DEVICES: None REVIEW OF SYSTEMS: CONSTITUTIONAL: No fevers, chills, [...] Neck: Supple. No JVD. No LAD. No bruit appreciated. Lungs: CTA. Normal chest excursion. Eupneic respirations. CV: Heart tones S1, S2. RRR. No M/G/R. No peripheral edema GI: Abdomen is soft and nontender. No palpable mass. : No CVA tenderness. Ext: No cyanosis or clubbing. No gross deformities. Neuro: Mild tremor. CN II through XII grossly intact. Normal speech. Integument: Skin warm and dry. No concerning lesions or rashes. Psych: Normal mood and affect. Normal judgment. ALLERGIES: ========= Patient has answered NKA >> HEALTH MAINTENANCE PREVENTIVE MEDICINE GOALS Info Only: [facility] DUE NOW BMI>30/>24.99 High Risk Jul 09 Medication Reconciliation DUE NOW ASSESSMENT/PLAN: Active problems - Computerized Problem List is the source for the followin. Postnasal drip 2. PD - Parkinson's disease: Recently hospitalized with presyncope and bradycardia due to underlying autonomic dysfunction in the face of PD. Neurology thought symptoms were secondary to generic Sinemet and recommended brand-name Sinemet. [facility]. Prior authorization request placed. Requesting most recent office visit notes from neurology. 3. Low back pain: Managed at home with acetaminophen and heating pad. 4. Seasonal affective disorder 5. Erectile dysfunction 6. Parkinson's disease 7. Hypertension: Blood pressure on target today 134/76. He has switched his dose of her hospital recommendations to 15 and 30 mg on alternating days. I will change to 20 mg daily for consistency and to decrease chance for medication error. The patient agrees to this change. He will keep a log at home and return to the clinic in 1 month for blood pressure check and labs. 8. Traumatic brain injury 9. Hyperlipidemia: Continue simvastatin 20 mg daily. Check LFTs and lipid panel today. 10. Low back pain 11. Mood disorder due to a general medical condition 12. Pain in joint involving shoulder region 13. Low Back Pain 14. Hydrocele 15. 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 Shoulder Surgery 20. Cyst, ganglion 21. Psoriasis 22. Anxiety (SNOMED CT 26613227): Maintained by [facility] on valproic acid and trazodone. 23. Lipomatosis FOLLOW UP: RTC Below & sooner PRN UPCOMING APPOINTMENTS: 10/02/2023 13:00 CWM/NO/VVC/PAIN MD CLINIC 10/06/2023 10:30 CWM/SO/PACT EIGHT SENIOR CONSTRUCTION ESTIMATOR 10/31/2023 08:30 CWM/NO/VVC/MED REHAB PROV 11/13/2023 14:00 CWM/SO/VVC/MHC/LARROW 11/28/2023 14:00 CWM/SO/VVC/MHC/LARROW 04/19/2024 15:30 CWM/NO/OPTOMETRY/MERHAR 04/20/2024 14:30 CWM/SO/PACT 4 45 minutes spent in patient evaluation, data review, and patient education. All medications were reconciled during this visit. No barriers; Patient understands and agrees to current treatment plan. If pt has any questions, concerns, or changes in current health status he/she will call or come [facility]. /caesar/ HOWARD AVELAR NP NURSE PRACTITIONER Signed: 09/12/2023 10:13 09/12/2023 ADDENDUM STATUS: COMPLETED Team: Please request office visit notes from neurology, Dr. Freeman. Thank you. /edwardo AVELAR NP NURSE PRACTITIONER Signed: 09/12/2023 10:13 Receipt Acknowledged By: 09/12/2023 11:19 /edwardo SALDA[employer] LASTING FLOORWORKER 09/12/2023 ADDENDUM STATUS: COMPLETED Prior authorization consult for brand-name Sinemet was denied by pharmacist. I attempted to telephone the patient to advise him of this outcome but, unfortunately was only able to leave a voice message requesting he call the clinic back. /caesar/ HOWARD AVELAR NP NURSE PRACTITIONER Signed: 09/12/2023 10:18 Receipt Acknowledged By: * AWAITING SIGNATURE * CLEMENTE GAMEZ 09/12/2023 ADDENDUM STATUS: COMPLETED THIS GIN POLE OPERATOR SENT FAX REQUEST TO [phone] DR JAMMIE ARMENTA [facility]UROLOG[facility] and SLEEP ON 09/09/23 10:06am 2ND REQUEST SENT 09/12/23 /edwardo [employer] LASTING FLOORWORKER Signed: 09/12/2023 11:19 HOWARD AVELAR
--- OUTSIDE RECORDS SUMMARY | 2024-08-13 15:05 | XMS_ITS ---
Author Name [facility] [place] Organization [facility] [place] [place] [facility] [place] Address [address] [place] [address] Care Team Providers Care Flatwork Folder Name Role Phone NINO MAI Primary Care [...] BASIC SELF+ ONE Jun 23, 2020 113 [id number] [phone] STEPHEN SOMMERS PATIENT ANTHEM BCBS CT FEDERAL PREFERRED PROVIDER ORGANIZAT ION (PPO) STAND RAEANN SELF + ONE Jun 23, 2015 106 [id number] [phone] STEPHEN SOMMERS PATIENT ANTHEM BCBS FEDERAL PREFERRED PROVIDER ORGANIZAT ION (PPO) STAND RAEANN SELF+ ONE Jun 23, 2015 106 [id number] STEPHEN SOMMERS PATIENT BCBS [place] FEP PREFERRED PROVIDER ORGANIZAT ION (PPO) PSHB BAS SELF PLUS 1 Jun 23, 2024 [id number] STEPHEN SOMMERS PATIENT BCBS [place] F[place] PREFERRED PROVIDER ORGANIZAT ION (PPO) STAND RAEANN SELF PLUS 1 Jun 23, 2015 106 [id number] STEPHEN SOMMERS PATIENT [place] PREFERRED PROVIDER ORGANIZAT ION (PPO) BASIC SELF+ ONE Jun 23, 2020 113 [id number] [phone] STEPHEN SOMMERS PATIENT [place] PREFERRED PROVIDER ORGANIZAT ION (PPO) STAND RAEANN SELF+ ONE Jun 23, 2015 106 [id number] STEPHEN SOMMERS PATIENT [place] DENTAL DENTAL INSURANCE BASIC Jun 23, 2020 DENTAL [id number] [phone] STEPHEN SOMMERS PATIENT [place] FEP BCBS PRESCRIPT ION CAREM ARK FEPRX PLAN Jun 23, 2015 [id number] STEPHEN SOMMERS PATIENT [place] FEPRX PLAN PRESCRIPT ION CAREM ARK FEPRX Jun 23, 2015 [id number] [phone] STEPHEN SOMMERS PATIENT MEDICARE (WNR) MEDICARE () PART A May 23, 2020 PART A [id number] STEPHEN SOMMERS PATIENT MEDICARE (WNR) MEDICARE () PART B May 23, 2020 PART B [id number] STEPHEN SOMMERS PATIENT MEDICARE (WNR) MEDICARE () PART B May 23, 2020 PART B [id number] STEPHEN SOMMERS PATIENT MEDICARE (WNR) MEDICARE () PART A May 23, 2020 PART A [id number] STEPHEN SOMMERS PATIENT MEDICARE (WNR) MEDICARE () PART A May 23, 2020 PART A [id number] STEPHEN SOMMERS PATIENT MEDICARE (WNR) MEDICARE () PART B May 23, 2020 PART B [id number] STEPHEN SOMMERS PATIENT Selected Encounter This section includes the information on record at [place] for the Encounter. Date/Time Encounter Type Encounter Description Reason Provider Source Oct 02, 2023 01:00 PM OFFICE O/P EST MOD 30 MIN PAIN CLINIC ICD-10-CM M54.50 Low back pain, unspecified KUPFERSCHMID,S ETH B IHE Encounter Template Text not used by [place] Assessments - Encounter Diagnoses This section includes the primary and secondary diagnoses documented for the Encounter. Date/Time Primary/Secondary Diagnosis Diagnosis Name Provider Source Oct 03, 2023 02:21 PM PRIMARY Low back pain, unspecified KUPFERSCHMID, BRENT B [place] [facility] [place] [facility] Oct 03, 2023 02:21 PM SECONDARY Mood disorder due to known physiological condition, unsp KUPFERSCHMID, BRENT B [facility] [place] [facility] Oct 03, 2023 02:21 PM SECONDARY Parkinsonism, unspecified KUPFERSCHMID, BRENT B [place] [facility] [place] [facility] Plan of Treatment: Future Appointments (+ 6 months) and Future Tests (+/- 45 days) The Plan of Treatment section includes future care activities for the patient [facility] [place] [facility] This section includes future appointments and future orders which are active, pending or scheduled. Future Appointments This section includes appointments that were scheduled to occur 6 months from the date of the Encounter, up to a maximum of 20 appointments. The data comes from all [place] treatment facilities. Appointment Date/Time Appointment Type Appointme nt Facility Name Oct 06, 2023 10:30 AM AMBULATORY - MEDICINE [facility] Oct 15, 2023 02:30 PM AMBULATORY - REHAB MEDICIN [facility] [place] [facility] Oct 17, 2023 07:55 PM AMBULATORY - MEDICINE NM [facility] [place] [facility] November 12, 2023 01:30 PM AMBULATORY - REHAB MEDICIN E [facility] [place] [facility] November 13, 2023 02:00 PM AMBULATORY - PSYCHIATRY [facility] Dec 02, 2023 01:00 PM AMBULATORY - MEDICINE [facility] Dec 16, 2023 01:30 PM AMBULATORY - MEDICINE [facility] Jan 21, 2024 03:00 PM AMBULATORY - MEDICINE NM [facility] [place] [facility] Feb 12, 2024 02:00 PM AMBULATORY - PSYCHIATRY [facility] Feb 20, 2024 08:30 AM AMBULATORY - REHAB MEDICIN E [facility] [place] [facility] Mar 26, 2024 08:00 AM AMBULATORY - MEDICINE [facility] [place] Lab Results: +/- 30 days of the [...] Range Comment Sep 15, 2023 12:33 PM [facility] HEMOGLOBIN A1C PANEL Specimen Type: BLOOD Comment: [...] Sep 08, 2023 01:58 PM Reporting Lab: [facility] [address] [facility] [address] Performing Lab: [address] [address] HEMOGLOBIN A1C 5.0 4.0-5.6 Sep 15, 2023 12:33 PM [facility] TSH Specimen Type: SERUM No comment entered. Ordering Provider: HOWARD AVELAR Report Released Date/Time: Sep 08, 2023 01:58 PM Reporting Lab: [facility] [address] [facility] [address] Performing Lab: [facility] [address] TSH 1.35 u[IU]/mL 0.35-5.00 Sep 15, 2023 12:33 PM [facility] CALCIUM Specimen Type: SERUM No comment entered. Ordering Provider: HOWARD AVELAR Report Released Date/Time: Sep 08, 2023 01:58 PM Reporting Lab: [address] [address] Performing Lab: [facility] [address] [facility] [address] CALCIUM 9.3 mg/dL 8.5-10.2 Sep 15, 2023 12:33 PM [facility] VITAMIN D (25-OH) Specimen Type: SERUM No comment entered. Ordering Provider: HOWARD AVELAR Report Released Date/Time: Sep 08, 2023 01:58 PM Reporting Lab: [facility] [address] [facility] [address] Performing Lab: [facility] [address] [address] VITAMIN D (25-OH) 14 ng/mL L 20-50 Sep 15, 2023 12:33 PM [facility] MAGNESIUM Specimen Type: SERUM No comment entered. Ordering Provider: HOWARD AVELAR Report Released Date/Time: Sep 08, 2023 01:58 PM Reporting Lab: [facility] [address] Performing Lab: [address] [address] MAGNESIUM 1.9 mg/dL 1.6-2.6 Sep 15, 2023 12:33 PM [facility] LIPID PANEL, NON FASTING Specimen Type: SERUM No comment entered. Ordering Provider: HOWARD AVELAR Report Released Date/Time: Sep 08, 2023 01:58 PM Reporting Lab: [facility] [address] Performing Lab: [facility] [address] CHOLESTEROL 175 mg/dL TRIGLYCERIDE 192 mg/dL H 0-150 LDL calculated 88 mg/dL 0-129 CHOL/HDL 3.6 HDL CHOLESTEROL 49 mg/dL 40-60 Sep 15, 2023 12:33 PM [facility] LIVER FUNCTION Specimen Type: SERUM No comment entered. Ordering Provider: HOWARD AVELAR Report Released Date/Time: Sep 08, 2023 01:58 PM Reporting Lab: [facility] [address] [facility] [address] Performing Lab: [address] [address] PROTEIN,TOTAL 6.7 g/dL 6.0-8.3 ALBUMIN 3.6 g/dL 3.5-5.0 ALKALINE PHOSPHATASE 35 U/L L 40-150 AST 11 U/L 5-34 ALT 8 U/L BILIRUBIN, TOTAL 0.4 mg/dL 0.2-1.2 Sep 15, 2023 12:33 PM [facility] BASIC METABOLIC PANEL (non-fasting) Specimen Type: SERUM No comment entered. Ordering Provider: HOWARD AVELAR Report Released Date/Time: Sep 08, 2023 01:58 PM Reporting Lab: [address] [address] Performing Lab: [address] [address] UREA NITROGEN 20 mg/dL 7-25 GLUCOSE 108 mg/dL H 65-100 SODIUM 139 mmol/L 135-145 POTASSIUM 4.5 mmol/L 3.5-5.0 CHLORIDE 103 mmol/L 100-110 CO2 29 meq/L 20-30 CREATININE, Serum 0.86 mg/dL 0.50-1.40 eGFR(CKD-EPI 2020) >90 mL/min >60 Sep 15, 2023 12:33 PM [facility] PSA Specimen Type: SERUM No comment entered. Ordering Provider: HOWARD AVELAR Report Released Date/Time: Sep 08, 2023 02:00 PM Reporting Lab: [address] [address] Performing Lab: [address] [address] PSA 1.83 ng/mL 0.00-4.00 Sep 15, 2023 12:33 PM [facility] URINALYSIS Specimen Type: URINE Comment: If Glucose = >500 and Ketones are positive, please alert the Physician. Ordering Provider: HOWARD AVELAR Report Released Date/Time: Sep 08, 2023 01:59 PM Reporting Lab: [address] [address] Performing Lab: [address] [address] UA COLOR Yellow Yellow UA APPEARANCE Clear Clear UA GLUCOSE NEGATIVE mg/dL Negative UA KETONES TRACE mg/dL Negative UA BLOOD NEGATIVE mg/dL Negative UA PROTEIN 30 mg/dL Negative UA NITRITE NEGATIVE mg/dL Negative UA BILIRUBIN NEGATIVE mg/dL Negative UA SPECIFIC GRAVITY 1.044 H 1.016-1.02 2 UA pH 6.0 5.0-9.0 UA UROBILINOGEN <2.0 mg/dL <2.0 UA LEUKOCYTE NEGATIVE Negative Sep 15, 2023 12:33 PM [facility] CBC AND DIFF (AUTO) Specimen Type: BLOOD No comment entered. Ordering Provider: HOWARD AVELAR Report Released Date/Time: Sep 08, 2023 01:58 PM Reporting Lab: [address] [address] Performing Lab: [address] [address] WBC 6.55 10*3/uL 4.50-11.00 RBC 4.40 10*6/uL 4.23-5.66 HGB 13.6 g/dL 12.8-17 HCT 41.0 39.2-50.4 MCV 93.2 fL 82-99 MCHC 33.2 g/dL 30.8-35.1 PLT 172 10*3/uL 140-360 RDW-CV 11.5 L 12.0-16.0 [place], Abs 0.58 10*3/uL 0.30-1.10 MCH 30.9 pg 26.2-32.6 Neut % 49.8 43.7-75.8 Lymph % 38.8 14.0-42.3 [place] % 8.9 5.1-13.7 Eos % 1.1 0.4-6.8 [...] Facil ity Apr 17, 2023 01:59 PM [place]-TOBACCO FORMER USER [facility] Tobacco Use History This section includes a history of the smoking, or tobacco-related health factors, that were collected on or before the date of the Encounter. The data comes from the [place] facility where the Encounter took place. Date/Time Smoking Status/Tobacco Use Comment F acility Apr 17, 2023 01:59 PM [place]-TOBACCO QUIT 15 YRS OR MORE [facility] Jan 09, 2022 08:40 AM [place]-TOBACCO FOR[facility]ER [facility] Jan 09, 2022 08:40 AM [place]-TOBACCO QUIT 15 YRS OR MORE [facility] Advance Directives: All historical and [...] ADVANCE DIRECTIVE DIONNE HOGUE [facility] Radiology Reports: +/- 30 days [...] PM OUTSIDE MRI LUMBAR SPINE: CARA SOMMERS [id number] -1955 M Exm Date: OCT 17, 2023@19:55 Req Phys: HOWARD AVELAR Loc: CWM/SO/PACT 1 PAYROLL ANALYST (Req'g Loc) Img Loc: OUTSIDE GENERAL RADIOLOGY Service: Unknown (Case [id number] COMPLETE) OUTSIDE MRI LUMBAR SPINE (RAD Detailed) CPT:68607 Reason for Study: Low back pain Clinical History: Report Status: Electronically Filed Date Reported: OCT 17, 2023 Report: Community care exam; see CPRS/JLV for outside radiology report/results Impression: Community care exam; see CPRS/JLV for outside radiology report/results Primary Diagnostic Code: VERIFIED BY: / *ELECTRONICALLY FILED* [place] [facility] Oct 09, 2023 01:36 PM HIP 2-3 VIEWS (RIGHT) WITH OR WITHOUT PELVIS: CAAR SOMMESR [id number] -1955 M Exm Date: OCT 09, 2023@13:36 Req Phys: HOWARD AVELAR Loc: CWM/SO/PACT 1 PAYROLL ANALYST (Req'g Loc) Img Loc: [facility] 1 Service: Unknown (Case [id number] COMPLETE) HIP 2-3 VIEWS (RIGHT) WITH OR WIT(RAD Detailed) CPT:88042 CPT Modifiers : RT RIGHT SIDE Reason for Study: fall onto right hip/back. Persistant pain Clinical History: Parkinsons. chronic back pain Report Status: Verified Date Reported: OCT 10, 2023 Date Verified: OCT 10, 2023 Packing Machine Tender E-Sig: Report: HIP 2-3 VIEWS (RIGHT) WITH OR WITHOUT PELVIS HISTORY: fall onto right hip/back. Persistent pain COMPARISON: None TECHNIQUE: Single view of the pelvis and 2 view(s) of the right hip, submitted to the [place] National Teleradiology Program (NTP) for interpretation. FINDINGS: No displaced fracture or traumatic malalignment of the right hip. Bilateral hip arthrosis. No radiopaque foreign bodies in the soft tissues. Impression: No displaced fracture or traumatic malalignment of the right hip. READING PHYSICIAN: Jorge Contreras -[id number] 10/10/2023 10:26 PDT [facility] National Teleradiology Program [phone] (For Medical Practitioner Use Only) Attention Patients / Veterans: If you have questions or concerns about these test results, please contact your ordering provider or primary care team. Primary Diagnostic Code: NO ALERT REQUIRED Primary Interpreting Staff: RADIOLOGY,OUTSIDE SERVICE, Staff Physician / RADIOLOGY,OUTSIDE SERVICE [place] [facility] [place] [facility] Oct 09, 2023 01:36 PM SPINE LUMBOSACRAL MIN 2 VIEWS: CARA SOMMERS [id number] -1955 M Exm Date: OCT 09, 2023@13:36 Req Phys: HOWARD AVELAR Loc: CWM/SO/PACT 1 PAYROLL ANALYST (Req'g Loc) Img Loc: [facility] 1 Service: Unknown (Case [id number] COMPLETE) SPINE LUMBOSACRAL MIN 2 VIEWS (RAD Detailed) CPT:51026 Reason for Study: fall onto right hip/back. Persistant pain Clinical History: Parkinsons. chronic back pain Report Status: Verified Date Reported: OCT 10, 2023 Date Verified: OCT 10, 2023 Packing Machine Tender E-Sig: Report: SPINE LUMBOSACRAL MIN 2 VIEWS HISTORY: fall onto right hip/back. Persistent pain COMPARISON: 03/15/2016 lumbar MRI TECHNIQUE: 3 view(s) of the lumbar spine, submitted to the [place] National Teleradiology Program (NTP) for interpretation. FINDINGS: Five ooc-jep-leeuaek lumbar-type vertebrae. Acute angulation of the sacrum, [...] acute sacral fracture. READING PHYSICIAN: Jorge Contreras -[id number] 10/10/2023 10:30 PDT [facility] National Teleradiology Program [phone] (For Medical Practitioner Use Only) Attention Patients / Veterans: If you have questions or concerns about these test results, please contact your ordering provider or primary care team. Primary Diagnostic Code: SIGNIFICANT ABNORMALITY, ATTN NEEDED Primary Interpreting Staff: RADIOLOGY,OUTSIDE SERVICE, Staff Physician / RADIOLOGY,OUTSIDE SERVICE [place] [facility] Encounter Notes: All associated encounter notes This section contains the clinical notes associated to the Encounter. Date/Time Encounter Note(s) Provider Source Oct 02, 2023 01:04 PM PAIN MEDICINE OUTPATIENT NOTE: LOCAL TITLE: PAIN CLINIC NOTE STANDARD TITLE: PAIN MEDICINE OUTPATIENT NOTE DATE OF NOTE: OCT 02, 2023@13:04 ENTRY DATE: OCT 02, 2023@13:04:37 AUTHOR: BRENT JONES EXP COSIGNER: URGENCY: STATUS: COMPLETED CURRENT ======= Back is still killing me. Going to [facility] for additional injections to see if RFAs may help. Out with friends a lot but pain can interfere. Admitted August 23 for 3 days due to Parkinson med reaction. Zulema present. PAIN-RELATED MEDICATIONS Acetaminophen Celecoxib Citalopram Diclofenac gel Prazosin Trazodone Valproic acid for mood stabilization Oxycodone 5 mg, #16 per month PAIN-RELATED CONDITIONS Low back pain Parkinson's History of TBI Depression SOCIAL HISTORY Joined service at 17; injured back after 2 years. General discharge, honorable (3 months early) 2013, Zulema (4th ) and are involved [employer]. Baptized in 1988. 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 ) 3rd marriage 23 years, then . Daughter by first marriage, 3 grandchildren - in [place], 7 great grandchildren! Remote relationship. 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 EXAM Parkinsonion facie Quiet today PLAN ===== Mr. Sommers is a 67 year old with Parkinson's Disease, and worsening, chronic low back pain. He remains an active person. Moving to a healthier diet with less sugar, less saturated fats, salt; lost weight (225 to 199). Does not need walking staff as much. 10/02/2023 PAIN, PARKINSON'S, BIPOLAR DISORDER, SLEEP APNEA waiting for injections and possible RFAs. F/U November after he knows if treatments worked. Continues to minimize use of oxycodone. -Concerned about possible effect on his bipolar. Social and active with jain. Bailey and I formulated the plan through shared medical-decision making. Bailey repeated the plan back to me and had no further questions at end of appointment. APPOINTMENT LENGTH: 35 minutes FOLLOW-UP: 10 weeks 10/06/2023 10:30 CWM/SO/PACT 1 PAYROLL ANALYST 10/24/2023 08:30 CWM/NO/VVC/MED REHAB PROV 11/13/2023 14:00 CWM/SO/VVC/MHC/LARROW 11/28/2023 14:00 CWM/SO/VVC/MHC/LARROW 04/19/2024 15:30 CWM/NO/OPTOMETRY/MERHAR ===== MEDICATION and RECONCILIATION ==== Active Outpatient Medications (including Supplies): Active Outpatient Medications Status 1) ACETAMINOPHEN 500MG TAB TAKE TWO TABLETS BY MOUTH ACTIVE TWICE DAILY FOR PAIN 2) CELECOXIB 200MG CAP TAKE ONE CAPSULE BY MOUTH ONCE ACTIVE DAILY NEEDED FOR ARTHRITIS 3) CITALOPRAM HYDROBROMIDE 20MG TAB TAKE ONE [...] TABLET BY MOUTH ONCE ACTIVE DAILY FOR OVERACTIVE BLADDER 9) PRAZOSIN HCL 2MG CAP TAKE THREE CAPSULES BY MOUTH AT ACTIVE BEDTIME -FOR NIGHTMARES (OFF-LABEL) DO NOT TAKE ON NIGHTS THAT YOU TAKE SILDENAFIL 10) SIMVASTATIN 20MG TAB TAKE ONE TABLET BY MOUTH AT ACTIVE BEDTIME FOR CHOLESTEROL 11) TRAZODONE HCL 50MG TAB TAKE ONE [...] MOUTH ONCE DAILY ACTIVE 15 Total Medications ACTIVE PROBLEMS Active problems - Computerized Problem List is the source for the followin. Postnasal drip 2. PD - Parkinson's disease 3. Low back pain 4. Seasonal affective disorder 5. Erectile dysfunction 6. Parkinson's disease 7. Hypertension 8. Traumatic brain injury 9. Hyperlipidemia 10. Low back pain 11. Mood disorder due to a general medical condition 12. Pain in joint involving shoulder region 13. Low Back Pain 14. Hydrocele 15. 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 Shoulder Surgery 20. Cyst, ganglion 21. Psoriasis 22. Anxiety (SNOMED CT [id number]) 23. Lipomatosis Appointment length includes time with Bailey, completing clinical reminders, reviewing relevant information in EMR, review of PDMP, ordering appropriate tests, prescribing medications, coordinating care, and completing the medical record. [place] [employer] Risk ([employer]) Standard Documentation [facility] Clinician Resources Only: E911 (Emergency Call Relay Center): [phone] National Veterans Crisis Line - 988 then press #1. [facility] Suicide Coordinator [phone], Ext. [phone]; Back-up Ext. [phone] [place] Police, Forrest RIVERA [phone] Introduction: Visit is being conducted by [employer]. identified with 2 identifiers: [X] Full Name [X] Date of [ ] VA ID Card Emergency Plan: Bailey confirmed and/or provided the following information in case of emergency or technology failure. PATIENT PHONE - [phone] PHONE NUMBER [CELLULAR] - Is patient phone number correct, if not, enter below: 's phone number: CARA SOMMERS [address], [place], [address] 's present location and address for appointment: Home Bailey's emergency contact name and phone number: Listed Bailey reported that location is private and safe: Yes Informed Consent: Bailey informed of the risks and benefits of Telehealth video care. has the right to refuse video services. If refuses video visit, a [id number] visit will be scheduled. Bailey verbalized consent for this video visit: Yes provided consent for any other persons present for visit: Yes If yes, who and relationship to patient: Zulema Secure visit: Visit was locked for security and privacy:Yes /caesar/ BRENT JONES MD PHYSICIAN Signed: 10/03/2023 14:21 BRENT JONES [place] [facility]
--- OUTSIDE RECORDS SUMMARY | 2024-08-13 15:05 | XMS_ITS | Encounter Summary ---
Author Name [facility] [place] [facility] [place] Address [address] [place] [id number] Care Team Providers Care Fish Technologist Name Role Phone NINO MAI Primary Care [...] BASIC SELF+ ONE Jun 23, 2020 113 [id number] [phone] STEPHEN SOMMERS PATIENT ANTHEM BCBS CT FEDERAL PREFERRED PROVIDER ORGANIZAT ION (PPO) STAND RAEANN SELF + ONE Jun 23, 2015 106 [id number] [phone] STEPHEN SOMMERS PATIENT ANTHEM BCBS FEDERAL PREFERRED PROVIDER ORGANIZAT ION (PPO) STAND RAEANN SELF+ ONE Jun 23, 2015 106 [id number] STEPHEN SOMMERS PATIENT BCBS [place] FEP PREFERRED PROVIDER ORGANIZAT ION (PPO) PSHB BAS SELF PLUS 1 Jun 23, 2024 [id number] STEPHEN SOMMERS PATIENT [place]BS [place] PREFERRED PROVIDER ORGANIZAT ION (PPO) STAND RAEANN SELF PLUS 1 Jun 23, 2015 106 [id number] STEPHEN SOMMERS PATIENT [place] PREFERRED PROVIDER ORGANIZAT ION (PPO) BASIC SELF+ ONE Jun 23, 2020 113 [id number] STEPHEN SOMMERS PATIENT [place] PREFERRED PROVIDER ORGANIZAT ION (PPO) STAND RAEANN SELF+ ONE Jun 23, 2015 106 [id number] [phone] STEPHEN SOMMERS PATIENT [place] F[place] DENTAL DENTAL INSURANCE BASIC Jun 23, 2020 DENTAL [id number] STEPHEN SOMMERS PATIENT [place] FEP BCBS PRESCRIPT ION CAREM ARK FEPRX PLAN Jun 23, 2015 [id number] STEPHEN SOMMERS PATIENT CAREMARK FEPRX PLAN PRESCRIPT ION CAREM ARK FEPRX Jun 23, 2015 [id number] STEPHEN SOMMERS PATIENT MEDICARE (WNR) MEDICARE () PART A May 23, 2020 PART A [id number] STEPHEN SOMMERS PATIENT MEDICARE (WNR) MEDICARE () PART B May 23, 2020 PART B [id number] STEPHEN SOMMERS PATIENT MEDICARE (WNR) MEDICARE () PART A May 23, 2020 PART A [id number] STEPHEN SOMMERS PATIENT MEDICARE (WNR) MEDICARE () PART B May 23, 2020 PART B [id number] STEPHEN SOMMERS PATIENT MEDICARE (WNR) MEDICARE () PART A May 23, 2020 PART A [id number] STEPHEN SOMMERS PATIENT MEDICARE (WNR) MEDICARE () PART B May 23, 2020 PART B [id number] STEPHEN SOMMERS PATIENT Selected Encounter This section includes the information on record at [place] for the Encounter. Date/Time Encounter Type Encounter Description Reason Provider Source Apr 19, 2024 03:30 PM COMPRE OPH EXAM EST PT 1/> OPTOMETRY ICD-10-CM Z96.1 Presence of intraocular lens RENNYHAR,HUSAM B IHE Encounter Template Text not used by VA Assessments - Encounter Diagnoses This section includes the primary and secondary diagnoses documented for the Encounter. Date/Time Primary/Secondary Diagnosis Diagnosis Name Provider Source May 06, 2024 01:47 PM PRIMARY Presence of intraocular lens MERJOVANNY,HUSAM B [facility] [place] [facility] May 06, 2024 01:47 PM SECONDARY Puckering of macula, bilateral MERHAR,HUSAM B [facility] [place] [facility] May 06, 2024 01:47 PM SECONDARY Regular astigmatism, bilateral MERHAR,HUSAM B [facility] [place] [facility] Plan of Treatment: Future Appointments (+ 6 months) and Future Tests (+/- 45 days) The Plan of Treatment section includes future care activities for the patient [facility] This section includes future appointments and future orders which are active, pending or scheduled. Future Appointments This section includes appointments that were scheduled to occur 6 months from the date of the Encounter, up to a maximum of 20 appointments. The data comes from all [place] treatment facilities. Appointment Date/Time Appointment Type Appointme nt Facility Name May 26, 2024 02:30 PM AMBULATORY - REHAB MEDICIN E [facility] [place] [facility] Jul 28, 2024 09:30 AM AMBULATORY - REHAB MEDICIN E [facility] [place] [facility] Jul 30, 2024 02:00 PM AMBULATORY - MEDICINE [facility] Aug 27, 2024 02:30 PM AMBULATORY - PSYCHIATRY [facility] Aug 30, 2024 02:30 PM AMBULATORY - MEDICINE [facility] Oct 18, 2024 08:00 AM AMBULATORY - NONE [facility] [place] [facility] Active, Pending, and Scheduled Orders This section includes a listing of several types of active, pending, and scheduled orders, including clinic medications orders, diagnostic test orders, procedure orders and consult orders; where the start date of the order is 45 days before the date of the Encounter or 45 days after the date of theEncounter. The data comes from all [place] treatment facilities. Test Date/Time Test Type Test Details Facility Name Apr 17, 2024 12:00 AM Laboratory - Chemi stry Order URINALYSIS URINE [facility] Apr 17, 2024 12:00 AM Laboratory - Chemi stry Order PSA BLOOD (SST-SERUM) [facility] Apr 17, 2024 12:00 AM Laboratory - Chemi stry Order BASIC METABOLIC PANEL (fasting) BLOOD (SST-SERUM) [facility] Apr 17, 2024 12:00 AM Laboratory - Chemi stry Order LIPID PANEL FASTING BLOOD (SST-SERUM) [facility] Apr 17, 2024 12:00 AM Laboratory - Chemi stry Order LIVER FUNCTION BLOOD (SST-SERUM) [facility] Apr 17, 2024 12:00 AM Laboratory - Chemi stry Order CBC AND DIFF (AUTO) BLOOD (LAV-BLOOD) [facility] Apr 17, 2024 12:00 AM Laboratory - Chemi stry Order HEMOGLOBIN A1C PANEL BLOOD (LAV-BLOOD) [facility] Apr 17, 2024 12:00 AM Laboratory - Chemi stry Order TSH BLOOD (SST-SERUM) [facility] Social History: Smoking Status (Most current) and Tobacco Use (All prior to encounter date) This section includes the most current, and the historical, smoking and tobacco- related health factors from the [place] facility where the Encounter took place. Current Smoking Status This section includes the most current smoking, or tobacco-related health factor, from the PA facility where the Encounter took place. Date/Time Current Smoking Status Comment Facil ity Apr 17, 2023 01:59 PM VA-TOBACCO FORMER USER [facility] Tobacco Use History This section includes a history of the smoking, or tobacco-related health factors, that were collected on or before the date of the Encounter. The data comes from the [place] facility where the Encounter took place. Date/Time Smoking Status/Tobacco Use Comment F acility Apr 17, 2023 01:59 PM [facility] Jan 09, 2022 08:40 AM VA-TOBACCO FORMER USER [facility] Jan 09, 2022 08:40 AM PA-TOBACCO QUIT 15 YRS OR MORE [facility] Advance Directives: All historical and current Section Date Range: From patient's date of to the date document was created. This section includes ALL of a patient's completed or amended VA Advance and Rescinded Directives. The entries below indicate that a directive exists for the patient, but an actual copy is not included with this document. The data comes from all [place] facilities. Date Advance Directives Provider Source Dec 25, 2010 ADVANCE DIRECTIVE MYKELDIONNE Marisol [facility] Encounter Notes: All associated encounter notes This section contains the clinical notes associated to the Encounter. Date/Time Encounter Note(s) Provider Source Apr 19, 2024 03:27 PM OPTOMETRY NOTE: LOCAL TITLE: OPTOMETRY NOTE STANDARD TITLE: OPTOMETRY NOTE DATE OF NOTE: APR 19, 2024@15:27 ENTRY DATE: APR 19, 2024@15:27:45 AUTHOR: HUSAM RUSSELL EXP COSIGNER: URGENCY: STATUS: COMPLETED 68 WHITE MALE NOT OR Last eye exam: 03/2023 Reason for Visit/CC: patient here for a comprehensive eye exam. Since last visit he had cataract surgery OU with Dr. Ba, very happy with results but would like new glasses now. OHx: pseudophakia OU epiretinal membrane OD>OS posterior vitreous detachment OU h/o likely concussion with photophobia (-) Pain: (-) COCHRAN: (-) Diplopia: (-) Flashes: (-) Floaters: (-) Amaurosis Fugax/Tia's: (+) Eye Injury: FB removed OS (+) Eye Surgery: Schwartz tube OD, CE OU (-) TBI (-) FOHx: MHx: Code Description K59.00 Constipation ([facility] [id number]) E55.9 Vitamin D Deficiency ([facility] [id number]) N32.81 Overactive bladder ([facility] [id number]) R09.82 Postnasal drip ([facility] [id number]) G20.C PD - Parkinson's disease ([facility] [id number]) M54.50 Low back pain ([facility] [id number]) R69. Seasonal affective disorder ([facility] [id number]) F52.21 Erectile dysfunction ([facility] [id number]) G20.C Parkinson's disease ([facility] [id number]) I10. Hypertension ([facility] 77973636) Z87.820 Traumatic brain injury ([facility] 118589972) E78.5 Hyperlipidemia ([facility] [id number]) M47.896 Low back pain (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 [id number]) 272.8 Lipomatosis (ICD-9-CM 272.8) Other: SYSTEMIC MEDICATIONS/OCULAR MEDICATIONS: Active and Recently Outpatient Medications (excluding Supplies): Active Outpatient Medications Status 1) ACETAMINOPHEN [...] MOUTH ONCE ACTIVE (S) DAILY FOR CONSTIPATION 11) TRAZODONE HCL 50MG TAB TAKE ONE TO THREE TABLETS BY ACTIVE MOUTH AT BEDTIME NEEDED FOR INSOMNIA ASSOCIATED WITH DEPRESSION FOR SLEEP 12) VALPROIC ACID 250MG CAP TAKE THREE CAPSULES BY MOUTH ACTIVE TWICE DAILY FOR MOOD Inactive Outpatient Medications Status 1) SIMVASTATIN 20MG TAB TAKE ONE TABLET BY MOUTH AT BEDTIME FOR CHOLESTEROL Active Non-VA Medications Status 1) Non-VA ASPIRIN 81MG EC TAB 81MG BY MOUTH ONCE DAILY ACTIVE 2) Non-VA CARBIDOPA 25/LEVODOPA 100MG TAB 1 TABLET BY ACTIVE MOUTH FOUR TIMES A DAY 3) Non-VA OTHER CAP/TAB MAGNESIUM BY MOUTH ONCE DAILY ACTIVE 16 Total Medications ALLERGIES: Patient has answered NKA LAST BP: 135/76 (12/16/2023 13:20) PERTINENT LABS: HEMOGLOBIN A1C; BLOOD Nasrin. Date: 09/15/23 12:33 10/30/22 14:37 Test Name Result Units Range HEMOGLOBIN A1C 5.0 5.1 % 4.0 - 5.6 ++++++++++++++++++++++++++ ++++++++++++++++++++++++++ ++++++++++++++++++++++++++ + Patient history, visual acuity, entrance testing, refraction and tonometry all performed now by dental laboratory technician apprentice and reviewed by attending provider. Dilation drops instilled by dental laboratory technician apprentice after angle assessment and dilation warning given with verbal consent obtained. ++++++++++++++++++++++++++ ++++++++++++++++++++++++++ ++++++++++++++++++++++++++ + Final Rx: OD +0.25 -0.50 x 095 OS +0.50 -0.50 x 100 Add: +2.25 SLE: Lids/Lashes: clear OU Conjunctiva: white and quiet OU Corneas: clear OD, small central scar OS Iris: flat and clear OU Anterior Chamber: deep and quiet OU Angles: open OU Lens: PCIOL OU tr PCO OU DFE: Vitreous: Syneresis OU, PVD OU C/D (Size and Rim Description) OD 0.40 pink & healthy OS 0.40 pink & healthy Macula OD flat, tr ERM OS flat, tr ERM A/V: normal caliber OU Posterior Pole: clear OU Periphery: Flat and intact (-)holes, tears, detachments 360 OU significant peripheral drusen and reticular changes OU especially superior nasal OD and temp OS Assessment/Plan: 1. Pseudophakia OU - excellent surgical result, monitor 2. epiretinal membrane OU, not visually significant. Monitor 3. regular astigmatism OU - order new trifocals clear and sun RTC 1 year or earlier PRN patient offered and declined printed medication list Medication Reconciliation: Outpatient: Has the patient been [...] JLV. Allergies/ADRs (Tool #5) FACILITY ALLERGY/ADR -------- [facility] NO KNOWN ALLERGIES [facility] No Known Allergies Med [facility] (Tool #1) INCLUDED IN THIS LIST: Alphabetical list of active outpatient prescriptions dispensed from this PA (local) and dispensed from another [place] or [facility] facility (remote) as well as inpatient orders [...] the patient into personal health records (i.e. [facility]) are NOT included in this list. Non-VA medications documented outside this [place], remote inpatient orders (regardless of status) and remote clinic medications are NOT included in this list. The patient and provider must always discuss medications the patient is taking, regardless of where the medication was dispensed or obtained. OUTPT ACETAMINOPHEN 500MG TAB (Status = Active) TAKE TWO TABLETS BY MOUTH TWICE DAILY FOR PAIN Rx# [id number] Last Released: 02/19/24 Qty/Days Supply: Rx Expiration Date: 09/29/24 Refills Remainin Indication: FOR PAIN Non-VA ASPIRIN 81MG EC TAB TAKE ONE TABLET BY MOUTH ONCE DAILY Non-VA CARBIDOPA 25/LEVODOPA 100MG TAB 100MG TABLET TAKE ONE TABLET BY MOUTH FOUR TIMES A DAY Medication prescribed by Non-VA provider. Indication: FOR PARKINSON SYMPTOMS OUTPT CELECOXIB 200MG CAP (Status = ) TAKE ONE CAPSULE BY MOUTH ONCE DAILY NEEDED FOR ARTHRITIS Rx# [id number] Last Released: 08/09/23 Qty/Days Supply: Rx Expiration Date: 02/28/24 Refills Remainin Indication: PAIN OUTPT CHOLECALCIF 25MCG (D3-1,000UNIT) TAB (Status = Active/Suspended) TAKE ONE TABLET BY MOUTH ONCE DAILY FOR VITAMIN SUPPLEMENTATION Rx# [id number] Last Released: 02/12/24 Qty/Days Supply: Rx Expiration Date: 12/02/24 Refills Remainin Indication: FOR VITAMIN D DEFICIENCY OUTPT CITALOPRAM HYDROBROMIDE 20MG TAB (Status = Discontinued) TAKE ONE TAB BY MOUTH ONCE DAILY FOR MOOD Rx# [id number] Last Released: 01/26/24 Qty/Days Supply: Rx Expiration Date: 11/13/24 Refills Remainin OUTPT CITALOPRAM HYDROBROMIDE 20MG TAB (Status = Active) TAKE ONE TAB BY MOUTH ONCE DAILY FOR MOOD Rx# [id number] Last Released: 02/19/24 Qty/Days Supply: Rx Expiration Date: 02/12/25 Refills Remainin OUTPT DOCUSATE NA 100MG CAP (Status = Active) TAKE ONE CAPSULE BY MOUTH ONCE DAILY FOR CONSTIPATION TO SOFTEN STOOL Rx# [id number] Last Released: 03/03/24 Qty/Days Supply: Rx Expiration Date: 12/02/24 Refills Remainin Indication: FOR CONSTIPATION OUTPT FLUTICASONE PROP 50MCG 120D NASAL INHL (Status = Active) INSTILL 2 SPRAYS INTO EACH NOSTRIL ONCE DAILY FOR NASAL IRRITATION/INFLAMMATION Rx# [id number] Last Released: 02/19/24 Qty/Days Supply: 07/22 Rx Expiration Date: 12/02/24 Refills Remainin Indication: FOR NASAL IRRITATION/INFLAMMATION OUTPT KETOROLAC TROMETHAMINE 0.5% OPH SOLN (Status = Active) INSTILL 1 DROP DIRECTED TWICE DAILY INTO OPERATIVE EYE STARTING 2 DAYS BEFORE SURGERY Rx# [id number] Last Released: 09/18/23 Qty/Days Supply: Rx Expiration Date: 07/22/24 Refills Remainin OUTPT LISINOPRIL 20MG TAB (Status = Active/Suspended) TAKE ONE TABLET BY MOUTH ONCE DAILY FOR HIGH BLOOD PRESSURE TO CONTROL BLOOD PRESSURE Rx# [id number] Last Released: 02/12/24 Qty/Days Supply: Rx Expiration Date: 09/08/24 Refills Remainin Indication: FOR HIGH BLOOD PRESSURE OUTPT MIRABEGRON 50MG SA TAB (Status = Active) TAKE ONE TABLET BY MOUTH ONCE DAILY FOR OVERACTIVE BLADDER Rx# [id number] Last Released: 03/18/24 Qty/Days Supply: Rx Expiration Date: 12/31/24 Refills Remainin Indication: FOR OVERACTIVE BLADDER Non-VA OTHER CAP/TAB TAKE MAGNESIUM BY MOUTH ONCE DAILY OUTPT PRAZOSIN HCL 2MG CAP (Status = Discontinued) TAKE THREE CAPSULES BY MOUTH AT BEDTIME -FOR NIGHTMARES (OFF-LABEL) DO NOT TAKE ON NIGHTS THAT YOU TAKE SILDENAFIL Rx# [id number] Last Released: 01/26/24 Qty/Days Supply: Rx Expiration Date: 11/13/24 Refills Remainin OUTPT PRAZOSIN HCL 2MG CAP (Status = Active) TAKE THREE CAPSULES BY MOUTH AT BEDTIME -FOR NIGHTMARES (OFF-LABEL) DO NOT TAKE ON NIGHTS THAT YOU TAKE SILDENAFIL Rx# [id number] Last Released: 02/19/24 Qty/Days Supply: Rx Expiration Date: 02/12/25 Refills Remainin OUTPT SENNOSIDES 8.6MG TAB (Status = Active/Suspended) TAKE TWO TABLETS BY MOUTH ONCE DAILY FOR CONSTIPATION Rx# [id number] Last Released: 02/12/24 Qty/Days Supply: Rx Expiration Date: 12/02/24 Refills Remainin Indication: FOR CONSTIPATION OUTPT SIMVASTATIN 20MG TAB (Status = ) TAKE ONE TABLET BY MOUTH AT BEDTIME FOR CHOLESTEROL Rx# [id number] Last Released: 12/26/23 Qty/Days Supply: Rx Expiration Date: 04/17/24 Refills Remainin Indication: FOR HIGH CHOLESTEROL OUTPT TRAZODONE HCL 50MG TAB (Status = Active) TAKE ONE TO THREE TABLETS BY MOUTH AT BEDTIME NEEDED FOR INSOMNIA ASSOCIATED WITH DEPRESSION FOR SLEEP Rx# [id number] Last Released: 02/19/24 Qty/Days Supply: Rx Expiration Date: 12/31/24 Refills Remainin Indication: FOR INSOMNIA ASSOCIATED WITH DEPRESSION OUTPT VALPROIC ACID 250MG CAP (Status = Discontinued) TAKE THREE CAPSULES BY MOUTH TWICE DAILY FOR MOOD Rx# [id number] Last Released: 01/05/24 Qty/Days Supply: Rx Expiration Date: 11/13/24 Refills Remainin OUTPT VALPROIC ACID 250MG CAP (Status = Active) TAKE THREE CAPSULES BY MOUTH TWICE DAILY FOR MOOD Rx# [id number] Last Released: 03/18/24 Qty/Days Supply: Rx Expiration Date: 02/12/25 Refills Remainin SUPPLIES /caesar/ HUSAM RUSSELL OD Donor Specialist Signed: 04/19/2024 16:12 HUSAM RUSSELL [facility] [place] [facility] Apr 19, 2024 10:12 AM OPTOMETRY TECHNICI AN NOTE: LOCAL TITLE: OPTOMETRY BOBBIN DISKER NOTE STANDARD TITLE: OPTOMETRY BOBBIN DISKER NOTE DATE OF NOTE: APR 19, 2024@10:12 ENTRY DATE: APR 19, 2024@10:12:43 AUTHOR: RAUL SUH EXP COSIGNER: URGENCY: STATUS: COMPLETED Active problems - Computerized Problem List is the source for the followin. Constipation 2. Vitamin D Deficiency ([facility] [id number]) 3. Overactive bladder 4. Postnasal drip 5. [...] ganglion 24. Psoriasis 25. Anxiety (SNOMED CT [id number]) 26. Lipomatosis Active Outpatient Medications (including Supplies): Active Outpatient [...] MOUTH ONCE ACTIVE (S) DAILY FOR CONSTIPATION 11) TRAZODONE HCL 50MG TAB TAKE ONE TO THREE TABLETS BY ACTIVE MOUTH AT BEDTIME NEEDED FOR INSOMNIA ASSOCIATED WITH DEPRESSION FOR SLEEP 12) VALPROIC ACID 250MG CAP TAKE THREE CAPSULES BY MOUTH ACTIVE TWICE DAILY FOR MOOD Active Non-VA Medications Status 1) Non-VA ASPIRIN 81MG EC TAB 81MG BY MOUTH ONCE DAILY ACTIVE 2) Non-VA CARBIDOPA 25/LEVODOPA 100MG TAB 1 TABLET BY ACTIVE MOUTH FOUR TIMES A DAY 3) Non-VA OTHER CAP/TAB MAGNESIUM BY MOUTH ONCE DAILY ACTIVE 15 Total Medications Allergies: Patient has answered NKA All medications including those prescribed by outside VA's, community providers, and all OTC meds were reviewed and reconciled with patient to the best of their abilities. This 68 year old MALE is seen today for a CEE. Medical, eye, personal, and social history are all reviewed and is contributory or is not contributory to today's visit. Optometry Clinical Nutritionist Attending Provider Note: Date of Last Exam:04/16/2023 Location: [facility] Chief Complaint:I had my gall bladder out urgently 03/13/2024. Doing better now, but it was a painful infection. My eyes are good after catarct surgery. But I need readers and computer glasses. Also complains of gritty feeling, and sticky in am OD only. HISTORY AND REVIEW OF SYSTEMS: OHX: 1. Epiretinal membrane OU 2. IOL OU (Dr Ba) 07/2023 3. Posterior Vitreous Detachment OU 4. Hx of likely concussion with photophobia (-) Pain: (-) COCHRAN: (-) Diplopia: (+) Flashes:OU when turn my head, not new. (-) Floaters: (-) Amaurosis Fugax/Tia's: (+) Eye Injury: FB removed OS (rust) (+) Eye Surgery: IOL OU 07/2023 (-) TBI DIABEIC: No LAST A1C: PERTINENT LABS: HEMOGLOBIN A1C TREND Collection DT Spec HGBA1c 09/15/2023 12:33 BLOOD 5.0 10/30/2022 14:37 BLOOD 5.1 10/12/2021 10:26 BLOOD 5.3 08/02/2020 08:08 BLOOD 4.9 08/24/2019 10:11 BLOOD 5.2 NEW ALLERGIES TO REPORT: No EYE MEDICATION(S): CURRENT RX WITH BCVA: DVA: (x)SC ( )CC ( )Phoropter ( )CL OD: 20/20-2 slowly OS: 20/20-1 slowly NVA OU: 20/ AUTO REFR: OD:+0.25 -.075 x 97 OS:+0.75 -1.00 x 93 MANIFEST REFRACTION(MRx): OD:+0.50 -0.75 x 95 20/15-1 OS:+1.00 -0.75 x 100 20/15-3 ADD:+2.25 OU 20/20 (likes this for 14-18 ) CVF: Appear FTFC OU EOMS: Appear Full OU PUPILS: Appear ERRL(-)APD INTRAOCULAR PRESSURE (IOP) METHOD: Goldmann Time:3:47 OD:13 OS:13 ANTERIOR CHAMBER (AC): Penlight or slit lamp (if available) exam appears unremarkable. Pupils are dilated. Dilation and driving precautions reviewed with patient and patient expresses understanding. Medication: 1% Tropicamide, 2.5% Phenylephrine OU Time:3:48 Visual Imaging Performed Today:None Additional Comments:wants near, and computer glasses /es/ RAUL SUH OPTOMETRY TECH Signed: 04/19/2024 15:53 RAUL SUH [facility]
--- OUTSIDE RECORDS SUMMARY | 2024-08-13 15:05 | XMS_ITS | Encounter Summary ---
Author Name [place] Address [address] [place] [address] Care Team Providers Care Spice Grinder Name Role Phone NINO MAI Primary Care [...] BASIC SELF+ ONE Jun 23, 2020 113 [id number] [phone] STEPHEN SOMMERS PATIENT ANTHEM BCBS CT FEDERAL PREFERRED PROVIDER ORGANIZAT ION (PPO) STAND RAEANN SELF + ONE Jun 23, 2015 106 [id number] [phone] STEPHEN SOMMERS PATIENT ANTHEM BCBS FEDERAL PREFERRED PROVIDER ORGANIZAT ION (PPO) STAND RAEANN SELF+ ONE Jun 23, 2015 106 [id number] 62 CRISTOPHER SOMMERSRayne JORDAN PATIENT BCBS [place] FEP PREFERRED PROVIDER ORGANIZAT ION (PPO) PSHB BAS SELF PLUS 1 Jun 23, 2024 [id number] STEPHEN SOMMERS PATIENT BCBS [place] F[place] PREFERRED PROVIDER ORGANIZAT ION (PPO) STAND RAEANN SELF PLUS 1 Jun 23, 2015 106 [id number] 62 STEPHEN SOMMERS PATIENT [place] F[place] PREFERRED PROVIDER ORGANIZAT ION (PPO) BASIC SELF+ ONE Jun 23, 2020 113 [id number] 62 STEPHEN SOMMERS PATIENT [place] F[place] PREFERRED PROVIDER ORGANIZAT ION (PPO) STAND RAEANN SELF+ ONE Jun 23, 2015 106 [id number] 62 STEPHEN SOMMERS PATIENT [place] F[place] DENTAL DENTAL INSURANCE BASIC Jun 23, 2020 DENTAL [id number] 62 STEPHEN SOMMERS PATIENT [place] FEP BCBS PRESCRIPT ION CAREM ARK FEPRX PLAN Jun 23, 2015 [id number] STEPHEN SOMMERS PATIENT [place] FEPRX PLAN PRESCRIPT ION CAREM ARK FEPRX Jun 23, 2015 [id number] STEPHEN SOMMERS PATIENT MEDICARE (WNR) MEDICARE () PART A May 23, 2020 PART A [id number] STEPHEN SOMMERS PATIENT MEDICARE (WNR) MEDICARE () PART B May 23, 2020 PART B [id number] STEPHEN SOMMERS PATIENT MEDICARE (WNR) MEDICARE () PART A May 23, 2020 PART A [id number] STEPHEN SOMMERS PATIENT MEDICARE (WNR) MEDICARE () PART B May 23, 2020 PART B [id number] STEPHEN SOMMERS PATIENT MEDICARE (WNR) MEDICARE () PART A May 23, 2020 PART A [id number] STEPHEN SOMMERS PATIENT MEDICARE (WNR) MEDICARE () PART B May 23, 2020 PART B [id number] STEPHEN SOMMERS PATIENT Selected Encounter This section includes the information on record at [place] for the Encounter. Date/Time Encounter Type Encounter Description Reason Pro vider Source Jul 21, 2024 09:59 AM Outpatient Encounter PRIMARY CARE/MEDICINE IHE Encounter Template Text not used by [place] Plan of Treatment: Future Appointments (+ 6 months) and Future Tests (+/- 45 days) The Plan of Treatment section includes future care activities for the patient from all [place] [facility] This section includes future appointments and future orders which are active, pending or scheduled. Future Appointments This section includes appointments that were scheduled to occur 6 months from the date of the Encounter, up to a maximum of 20 appointments. The data comes from all [facility]. Appointment Date/Time Appointment Type Appointme nt Facility Name Jul 28, 2024 09:30 AM [facility] Jul 30, 2024 02:00 PM AMBULATORY - MEDICINE [facility] Aug 27, 2024 02:30 PM AMBULATORY - PSYCHIATRY [facility] Aug 30, 2024 02:30 PM AMBULATORY - MEDICINE [facility] Oct 18, 2024 08:00 AM AMBULATORY - NONE [facility] Active, Pending, and Scheduled Orders This section includes a listing of several types of active, pending, and scheduled orders, including clinic medications orders, diagnostic test orders, procedure orders and consult orders; where the start date of the order is 45 days before the date of the Encounter or 45 days after the date of theEncounter. The data comes from all [facility]. Test Date/Time Test Type Test Details Facility Name Jul 23, 2024 12:00 AM Laboratory - Chemistry Order URINALYSIS URINE [facility] Jul 23, 2024 12:00 AM Laboratory - Chemistry Order BASIC METABOLIC PANEL (fasting) BLOOD (SST-SERUM) [facility] Jul 23, 2024 12:00 AM Laboratory - Chemistry Order LIPID PANEL FASTING BLOOD (SST-SERUM) [facility] Jul 23, 2024 12:00 AM Laboratory - Chemistry Order LIVER FUNCTION BLOOD (SST-SERUM) [facility] Jul 23, 2024 12:00 AM Laboratory - Chemistry Order CBC AND DIFF (AUTO) BLOOD (LAV-BLOOD) [facility] Jul 23, 2024 12:00 AM Laboratory - Chemistry Order PSA BLOOD (SST-SERUM) [facility] Jul 23, 2024 12:00 AM Laboratory - Chemistry Order HEMOGLOBIN A1C PANEL BLOOD (LAV-BLOOD) [facility] Jul 23, 2024 12:00 AM Laboratory - Chemistry Order TSH [facility]LO[facility] 04:32 PM Consult Order RESPIRATORY THERAPY/ [facility] OUTPT Cons Sustainability Consultant's Choice [facility] Social History: Smoking Status (Most current) and Tobacco Use (All prior to encounter date) This section includes the most current, and the historical, smoking and tobacco- related health factors from the [place] facility where the Encounter took place. Current Smoking Status This section includes the most current smoking, or tobacco-related health factor, from the [place] facility where the Encounter took place. Date/Time Current Smoking Status Comment Facil ity Apr 17, 2023 01:59 PM [place]-TOBACCO QUIT 15 YRS OR MORE [facility] Tobacco Use History This section includes a history of the smoking, or tobacco-related health factors, that were collected on or before the date of the Encounter. The data comes from the [place] facility where the Encounter took place. Date/Time Smoking Status/Tobacco Use Comment F acility Apr 17, 2023 01:59 PM [place]-TOBACCO QUIT 15 YRS OR MORE [facility] Jan 09, 2022 08:40 AM [place]-TOBACCO FORMER USER [facility] Jan 09, 2022 08:40 AM [place]-TOBACCO QUIT 15 YRS OR MORE [facility] Advance Directives: All historical and current Section Date Range: From patient's date of to the date document was created. This section includes ALL of a patient's completed or amended [place] Advance and Rescinded Directives. The entries below indicate that a directive exists for the patient, but an actual copy is not included with this document. The data comes from all [place] facilities. Date Advance Directives Provider Source Dec 25, 2010 ADVANCE [address] DIONNE HOGUE [facility] Encounter Notes: All associated encounter notes This section contains the clinical notes associated to the Encounter. Date/Time Encounter Note(s) Provider Source Jul 21, 2024 10:00 AM LETTERS: LOCAL TITLE: PATIENT LETTER (T) STANDARD TITLE: LETTERS DATE OF NOTE: JUL 21, 2024@10:00 ENTRY DATE: JUL 21, 2024@10:00:12 AUTHOR: GRETCHEN ERICKSON EXP COSIGNER: URGENCY: STATUS: COMPLETED [facility] Toll Free Number Primary Care Telephone Assistance can be reached at extension [phone] [facility] scheduling can be reached at extension [phone] [facility] scheduling can be reached at ext [phone] CARA ANISHA SOMMERS [address], [place], [address] Date: 07/21/2024 Dear Argyle: MATTHIEU Thank you for choosing [facility] as your primary choice for health care. As a partner in your health care, we are attempting to contact you because we have been unsuccessful in reaching you by phone. WE ARE ATTEMPTING TO REACH YOU TO RESCHEDULE YOUR APPOINTMENT FROM 07/20/24 THAT WAS CANCELLED BY THE CLINIC. 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 Please call us at [phone] to speak with a staff member who can assist you with RESCHEDULING your appointment. Thank you for your service and we look forward to hearing from you soon. Sincerely; [facility] staff Primary Care Provider : NINO FRANCO M.D. [address] [place] [address] [phone] Sincerely, Your Primary Care Team [facility] [address] [id number] [place] [address] [facility] [address] [place] [address] [place] [address] [phone] [facility] [address] [facility],[address] [place] [id number] [place] [address] GRETCHEN ERICKSON HENDRIX Jul 21, 2024 09:59 AM ADMINISTRATIVE NOT E: LOCAL TITLE: ADMINISTRATIVE NOTE STANDARD TITLE: ADMINISTRATIVE NOTE DATE OF NOTE: JUL 21, 2024@09:59 ENTRY DATE: JUL 21, 2024@09:59:29 AUTHOR: GRETCHEN ERICKSON EXP COSIGNER: URGENCY: STATUS: COMPLETED AMSA unable to reach the . Left message on voicemail to contact PC to reschedule cancelled by clinic appointment with provider Letter sent to the . /caesar/ GRETCHEN PETTY Signed: 07/21/2024 10:00 GRETCHEN ERICKSON
--- OUTSIDE RECORDS SUMMARY | 2024-08-13 15:05 | XMS_ITS ---
Author Name [facility] [place] Address [address] [place] [address] Care Team Providers Care Spine Supervisor Name Role Phone NINO MAI Primary Care [...] BASIC SELF+ ONE Jun 23, 2020 113 [id number] [phone] STEPHEN SOMMERS PATIENT ANTHEM BCBS CT FEDERAL PREFERRED PROVIDER ORGANIZAT ION (PPO) STAND RAEANN SELF + ONE Jun 23, 2015 106 [id number] [phone] STEPHEN SOMMERS PATIENT ANTHEM BCBS FEDERAL PREFERRED PROVIDER ORGANIZAT ION (PPO) STAND RAEANN SELF+ ONE Jun 23, 2015 106 [id number] 62 STEPHEN SOMMERS PATIENT BCBS [place] FEP PREFERRED PROVIDER ORGANIZAT ION (PPO) PSHB BAS SELF PLUS 1 Jun 23, 2024 33C [id number] STEPHEN SOMMERS PATIENT BCBS [place] FEP PREFERRED PROVIDER ORGANIZAT ION (PPO) STAND RAEANN SELF PLUS 1 Jun 23, 2015 106 [id number] 62 STEPHEN SOMMERS PATIENT [place] FEP PREFERRED PROVIDER ORGANIZAT ION (PPO) BASIC SELF+ ONE Jun 23, 2020 113 [id number] 62 STEPHEN SOMMERS PATIENT [place] PREFERRED PROVIDER ORGANIZAT ION (PPO) STAND RAEANN SELF+ ONE Jun 23, 2015 106 [id number] STEPHEN SOMMERS PATIENT [place] DENTAL DENTAL INSURANCE BASIC Jun 23, 2020 DENTAL [id number] [phone] STEPHEN SOMMERS PATIENT [place] FEP BCBS PRESCRIPT ION CAREM ARK FEPRX PLAN Jun 23, 2015 [id number] STEPHEN SOMMERS PATIENT [employer] FEPRX PLAN PRESCRIPT ION CAR[employer] ARK FEPRX Jun 23, 2015 [id number] [phone] STEPHEN SOMMERS PATIENT MEDICARE (WNR) MEDICARE () PART A May 23, 2020 PART A [id number] STEPHEN SOMMERS PATIENT MEDICARE (WNR) MEDICARE () PART B May 23, 2020 PART B [id number] STEPHEN SOMMERS PATIENT MEDICARE (WNR) MEDICARE () PART A May 23, 2020 PART A [id number] STEPHEN SOMMERS PATIENT MEDICARE (WNR) MEDICARE () PART B May 23, 2020 PART B [id number] STEPHEN SOMMERS PATIENT MEDICARE (WNR) MEDICARE () PART A May 23, 2020 PART A [id number] STEPHEN SOMMERS PATIENT MEDICARE (WNR) MEDICARE () PART B May 23, 2020 PART B [id number] STEPHEN SOMMERS PATIENT Selected Encounter This section includes the information on record at [place] for the Encounter. Date/Time Encounter Type Encounter Description Reason Provider Source November 12, 2023 01:30 PM OFFICE O/P EST HI 40 MIN PM&RS PHYSICIAN ICD-10-CM M51.16 Intervertebral disc disorders w radiculopathy, lumbar region ABILIO HAGAN [facility] Encounter Template Text not used by [place] Assessments - Encounter Diagnoses This section includes the primary and secondary diagnoses documented for the Encounter. Date/Time Primary/Secondary Diagnosis Diagnosis Name Provider Source Dec 08, 2023 07:59 AM PRIMARY Intervertebral disc disorders w radiculopathy, lumbar region ABILIO HAGAN [facility] [place] [facility] Dec 08, 2023 07:59 AM SECONDARY Spondylosis w/o myelopathy or radiculopathy, lumbar region ABILIO HAGAN [place] [facility] [place] [facility] Plan of Treatment: Future Appointments (+ 6 months) and Future Tests (+/- 45 days) The Plan of Treatment section includes future care activities for the patient from [facility] [place] [facility]. This section includes future appointments and future orders which are active, pending or scheduled. Future Appointments This section includes appointments that were scheduled to occur 6 months from the date of the Encounter, up to a maximum of 20 appointments. The data comes from all [place] treatment facilities. Appointment Date/Time Appointment Type Appointme nt Facility Name November 13, 2023 02:00 PM AMBULATORY - PSYCHIATRY [facility] Dec 02, 2023 01:00 PM AMBULATORY - MEDICINE [facility] Dec 16, 2023 01:30 PM AMBULATORY - MEDICINE [facility] Jan 21, 2024 03:00 PM AMBULATORY - MEDICINE [place] [facility] [facility] Feb 12, 2024 02:00 PM AMBULATORY - PSYCHIATRY [facility] Feb 20, 2024 08:30 AM AMBULATORY - REHAB MEDICIN E [place] [facility] [place] [facility] Mar 26, 2024 08:00 AM AMBULATORY - MEDICINE [place] [facility] [place] [facility] Apr 06, 2024 10:50 AM AMBULATORY - MEDICINE [place] [facility] [facility] Apr 19, 2024 03:30 PM AMBULATORY - MEDICINE [place] [facility] [place] [facility] Lab Results: +/- 30 days of the encounter This section includes the Chemistry and Hematology Lab Results on record with [place] for the patient. Radiology Reports and Pathology Reports are provided separately, in subsequent sections. Lab Results This section contains the Chemistry/Hematology Results that were resulted 30 days before or 30 daysafter the date of the Encounter. Date/Time Source Result Type Result - Unit Interpretation Reference Range Comment November 18, 2023 12:55 PM [place] VALPROIC ACID Specimen Type: PLASMA No comment entered. Ordering Provider: VALERIANO HURT Report Released Date/Time: Aug 21, 2023 04:03 PM Reporting Lab: [facility] [address] [id number] Performing Lab: [facility] [address] [id number] VALPROIC ACID 64.9 ug/mL 50.0-120.0 Vital Signs: All taken on the encounter date This section contains inpatient and outpatient Vital Signs collected on the date of the Encounter. Date/Time Temperature Pulse Blood Pressure Respiratory Rate SP02 Pain Height Weight Body Mass Index Source November 12, 2023 02:39 PM 85 122/70 18 95 5 [facility] [place] [facility] November 12, 2023 01:26 PM 84 20 94 8 202 27 [place] [facility] [facility] November 12, 2023 01:25 PM 128/80 [facility] Social History: Smoking Status (Most current) and Tobacco Use (All prior to encounter date) This section includes the most current, and the historical, smoking and tobacco- related health factors from the [place] facility where the Encounter took place. Current Smoking Status This section includes the most current smoking, or tobacco-related health factor, from the [place] facility where the Encounter took place. Date/Time Current Smoking Status Comment Facil ity Apr 17, 2023 01:59 PM [place]-TOBACCO FORMER USER [facility] Tobacco Use History This section includes a history of the smoking, or tobacco-related health factors, that were collected on or before the date of the Encounter. The data comes from the [place] facility where the Encounter took place. Date/Time Smoking Status/Tobacco Use Comment F acility Apr 17, 2023 01:59 PM VA-TOBACCO QUIT 15 YRS OR MORE [facility] Jan 09, 2022 08:40 AM VA-TOBACCO FORMER USER [facility] Jan 09, 2022 08:40 AM [place]-TOBACCO QUIT 15 YRS OR MORE [facility] Advance Directives: All historical and current Section Date Range: From patient's date of to the date document was created. This section includes ALL of a patient's completed or amended [place] Advance and Rescinded Directives. The entries below indicate that a directive exists for the patient, but an actual copy is not included with this document. The data comes from all [place] facilities. Date Advance Directives Provider Source Dec 25, 2010 ADVANCE DIRECTIVE DIONNE HOGUE [facility] Radiology Reports: +/- 30 [...] the Encounter. The data comes from all [place] treatment facilities. Date/Time Radiology Report Provider Source November 12, 2023 02:01 PM FLUOROSCOPIC REFUGIO NCE OF NEEDLE/SPINE: CARA SOMMERS [id number] -[id number] M Exm Date: NOVEMBER 12, 2023@14:01 Req Phys: ABILIO HAGAN Pat Loc: CWM/NO/MED REHAB/SPINE INJ (Re Img Loc: [facility]/BUILDING 1 Service: Unknown [facility] , (Case [id number] COMPLETE) FLUOROSCOPIC GUIDANCE OF NEEDLE/S(RAD Detailed) CPT:28775 Reason for Study: interlaminar epidural steroid injection Clinical History: Report Status: Verified Date Reported: NOVEMBER 12, 2023 Date Verified: NOVEMBER 12, 2023 Quality Assurance Tester E-Sig:/ES/ARIAN MARQUES JR Report: Study: Pain injection [...] Primary Interpreting Staff: ARIAN MARQUES JR, Radiologist (Quality Assurance Tester) /ARIAN BERG JR [facility] Oct 17, 2023 07:55 PM OUTSIDE MRI LUMBAR SPINE: CARA SOMMERS [id number] -[id number] M Exm Date: OCT 17, 2023@19:55 Req Phys: AVELARCELSO Pat Loc: CWM/SO/PACT 1 HEAD OPERATOR SULFIDE (Req'g Loc) Img Loc: OUTSIDE GENERAL RADIOLOGY Service: Unknown (Case [id number] COMPLETE) OUTSIDE MRI LUMBAR SPINE (RAD Detailed) CPT:51329 Reason for Study: Low back pain Clinical History: Report Status: Electronically Filed Date Reported: OCT 17, 2023 Report: Community care exam; see CPRS/JLV for outside radiology report/results Impression: Community care exam; see CPRS/JLV for outside radiology report/results Primary Diagnostic Code: VERIFIED BY: / *ELECTRONICALLY FILED* [facility] Encounter Notes: All associated encounter notes This section contains the clinical notes associated to the Encounter. Date/Time Encounter Note(s) Provider Source November 12, 2023 02:16 PM PHYSICAL MEDICINE REHAB NOTE: LOCAL TITLE: PM&R BACK/JOINT PROCEDURE NOTE STANDARD TITLE: PHYSICAL MEDICINE REHAB NOTE DATE OF NOTE: NOVEMBER 12, 2023@14:16 ENTRY DATE: NOVEMBER 12, 2023@14:16:42 AUTHOR: ABILIO HAGAN EXP COSIGNER: URGENCY: STATUS: COMPLETED PROCEDURE NOTE: LUMBAR/SACRAL TRANSFORAMINAL EPIDURAL STEROID INJECTION PROCEDURE: 1) L5-S1 interlaminar epidural steroid injection 2) Fluoroscopic needle guidance REASON FOR PROCEDURE: Lumbar disc degeneration and spondylosis with intermittent radicular symptoms PHYSICIAN: Abilio Hagan DO MEDICATIONS INJECTED: 8 mg of Dexamethasone + 1 ml of 1% Lidocaine + 2 mL of 0.9% preservative-free normal saline. Lot#: [id number] Exp: 08/17 LOCAL ANESTHETIC INJECTED: 1 mL of 1% lidocaine Total lidocaine used: 20 mg CONTRAST AGENT USED: 1 mL of Omnipaque 300 Contrast AGENT WASTED: 0 mL of Omnipaque 300 SEDATION MEDICATIONS: None ESTIMATED BLOOD LOSS: None COMPLICATIONS: None HISTORY: Reed presents today for follow-up to low back pain. Patient is receiving demonstrated no significant improvement after repeated medial branch blocks at [facility]. He continues to have a considerable degree of back pain worsened with sitting. He has a great deal of stiffness particularly first thing in the morning. He continues to be active walks during the day. Variable degrees of discomfort noted at times approaching 7/10 on an analog scale. He continues to use acetaminophen and Celebrex but does not find that he gets any significant relief with this. EXAM: Awake, alert, in no apparent distress. Tenderness in the lumbosacral region in the lower lumbar region. There's some ROM restrictions in all planes. He has no radicular symptoms. Symmetrical reflexes no sensory deficits. He is ambulating with a slightly forward flexed gait. Moderate hypertonicity of the paralumbar region. INFORMED CONSENT: verbal and written consent in iMed. TIME OUT NOTE TIME: NOVEMBER 12, 2023@13:53 correctly stated: [X]Full name: CARA SOMMERS [X]Last [...] after the procedure. The patient (or responsible libertarian) was given post-procedure and discharge instructions to follow at home. The patient was discharged in stable condition. Pre-procedure pain level: 8/10 Post-procedure pain level: 5/10 ASSESSMENT/PLAN: 68-year-old presenting with lumbar spondylosis and intervertebral disc degeneration. - L5-S1 interlaminar injection provided. - Discharge instructions provided. - Follow-up with PM&R PA in 2-4 weeks. - We have in the past discussed medication management on the low-dose opioid may be a reasonable for him to consider if he wishes. - Continue to work on strengthening and mobility particularly in light of the Parkinson's disease. - Family's goal is to reduce medication if at all possible, without impairing quality of life. - No change with medications. - Contact me with any issues/questions MDM: 45 minutes Patient was seen and evaluated with Rio Glasgow PA-C prior to injection. Medication Reconciliation: Outpatient: Has the patient been taking medications as documented in the EMLR? YES: The patient has been taking medications as documented in the EMLR. Essential Medication List for Review used to complete this medication reconciliation. INCLUDED IN THIS LIST: Alphabetical list of active outpatient prescriptions dispensed from this [place] (local) and dispensed from another [place] or [place] facility (remote) as well as [...] or non-VA provider. /caesar/ ABILIO HAGAN DO HAND TUFTER Signed: 11/12/2023 16:51 ABILIO HAGAN [facility] [facility] November 12, 2023 02:01 PM DISCHARGE NOTE: LOCAL TITLE: DISCHARGE INSTRUCTIONS/OUTPATIENT STANDARD TITLE: DISCHARGE NOTE DATE OF NOTE: NOVEMBER 12, 2023@14:01 ENTRY DATE: NOVEMBER 12, 2023@14:01:43 AUTHOR: ABILIO HAGAN EXP COSIGNER: URGENCY: STATUS: COMPLETED Your ATTENDING PHYSICIAN for today's injection is: Abilio Hagan DO Reason for Visit: L5-S1 Interlaminar Epidural Steroid injection - Physical/Activity Limitations: No strenous activity [...] (S) DAILY FOR CONSTIPATION TO SOFTEN STOOL 5) [...] are experiencing problems contact: TELEPHONE ASSISTANCE at [phone] or extension [phone] extension [phone] (MOE Pinzon) or extension [phone] (PETRA Madden) If you are in an emotional crisis, feeling suicidal or having any troubling or self-destructive or violent impulses - please call [phone] (or [phone]); press 1 for Veterans to ask for [...] time of discharge. /caesar/ ABILIO HAGAN DO HAND TUFTER Signed: 11/12/2023 14:01 ABILIO HAGAN [place] [facility]
--- OUTSIDE RECORDS SUMMARY | 2024-08-13 15:05 | XMS_ITS ---
Author Name [facility] [place] [facility] [place] Address [address] [place] [address] Care Team Providers Care Sample Puller Name Role Phone NINO MAI Primary Care [...] BASIC SELF+ ONE Jun 23, 2020 113 [id number] [phone] STEPHEN SOMMERS PATIENT ANTHEM BCBS CT FEDERAL PREFERRED PROVIDER ORGANIZAT ION (PPO) STAND RAEANN SELF + ONE Jun 23, 2015 106 [id number] [phone] STEPHEN SOMMERS PATIENT ANTHEM BCBS FEDERAL PREFERRED PROVIDER ORGANIZAT ION (PPO) STAND RAEANN SELF+ ONE Jun 23, 2015 106 [id number] STEPHEN SOMMERS PATIENT BCBS [place] PREFERRED PROVIDER ORGANIZAT ION (PPO) PSHB BAS SELF PLUS 1 Jun 23, 2024 [id number] STEPHEN SOMMERS PATIENT [place] PREFERRED PROVIDER ORGANIZAT ION (PPO) STAND RAEANN SELF PLUS 1 Jun 23, 2015 106 [id number] STEPHEN SOMMERS PATIENT [place] PREFERRED PROVIDER ORGANIZAT ION (PPO) BASIC SELF+ ONE Jun 23, 2020 113 [id number] [phone] STEPHEN SOMMERS PATIENT [place] PREFERRED PROVIDER ORGANIZAT ION (PPO) STAND RAEANN SELF+ ONE Jun 23, 2015 106 [id number] [phone] STEPHEN SOMMERS PATIENT [place] DENTAL DENTAL INSURANCE BASIC Jun 23, 2020 DENTAL [id number] STEPHEN SOMMERS PATIENT [place] FEP BCBS PRESCRIPT ION CAREM ARK FEPRX PLAN Jun 23, 2015 [id number] STEPHEN SOMMERS PATIENT [place] FEPRX PLAN PRESCRIPT ION CAREM [employer] FEPRX Jun 23, 2015 [id number] [phone] STEPHEN SOMMERS PATIENT MEDICARE (WNR) MEDICARE () PART A May 23, 2020 PART A [id number] STEPHEN SOMMERS PATIENT MEDICARE (WNR) MEDICARE () PART B May 23, 2020 PART B [id number] STEPHEN SOMMERS PATIENT MEDICARE (WNR) MEDICARE () PART A May 23, 2020 PART A [id number] STEPHEN SOMMERS PATIENT MEDICARE (WNR) MEDICARE () PART B May 23, 2020 PART B [id number] STEPHEN SOMMERS PATIENT MEDICARE (WNR) MEDICARE () PART A May 23, 2020 PART A [id number] STEPHEN SOMMERS PATIENT MEDICARE (WNR) MEDICARE () PART B May 23, 2020 PART B [id number] [phone] [id number] STEPHEN SOMMERS PATIENT Selected Encounter This section includes the information on record at [place] for the Encounter. Date/Time Encounter Type Encounter Description Reason Provider Source Feb 20, 2024 08:30 AM OFFICE O/P EST LOW 20 MIN PM&RS PHYSICIAN ICD-10-CM M54.9 Dorsalgia, unspecified BIBI GLASGOW [facility] Encounter Template Text not used by [place] Assessments - Encounter Diagnoses This section includes the primary and secondary diagnoses documented for the Encounter. Date/Time Primary/Secondary Diagnosis Diagnosis Name Provider Source Feb 25, 2024 01:29 PM PRIMARY Dorsalgia, unspecified BIBI GLASGOW [facility] Feb 25, 2024 01:29 PM SECONDARY Other spondylosis, lumbar region BIBI GLASGOW [facility] Plan of Treatment: Future Appointments (+ 6 months) and Future Tests (+/- 45 days) The Plan of Treatment section includes future care activities for the patient from [facility] [place] [facility] This section includes future appointments and future orders which are active, pending or scheduled. Future Appointments This section includes appointments that were scheduled to occur 6 months from the date of the Encounter, up to a maximum of 20 appointments. The data comes from all [place] treatment facilities. Appointment Date/Time Appointment Type Appointme nt Facility Name Mar 26, 2024 08:00 AM AMBULATORY - MEDICINE [facility] Apr 06, 2024 10:50 AM [facility] Apr 19, 2024 03:30 PM AMBULATORY - MEDICINE [facility] May 26, 2024 02:30 PM AMBULATORY - [facility] Jul 28, 2024 09:30 AM AMBULATORY - [facility] Jul 30, 2024 02:00 PM AMBULATORY - MEDICINE [facility] Social History: Smoking Status (Most current) and Tobacco Use (All prior to encounter date) This section includes the most current, and the historical, smoking and tobacco- related health factors from the [place] facility where the Encounter took place. Current Smoking Status This section includes the most current smoking, or tobacco-related health factor, from the [place] facility where the Encounter took place. Date/Time Current Smoking Status Sri arguelles Apr 17, 2023 01:59 PM VA-TOBACCO QUIT 15 YRS OR MORE [facility] Tobacco Use History This section includes a history of the smoking, or tobacco-related health factors, that were collected on or before the date of the Encounter. The data comes from the [place] facility where the Encounter took place. Date/Time Smoking Status/Tobacco Use Comment Shreyas aclesa Apr 17, 2023 01:59 PM VA-TOBACCO QUIT 15 YRS OR MORE [facility] Jan 09, 2022 08:40 AM [place]-TOBACCO FORMER USER [facility] Jan 09, 2022 08:40 AM [place]-TO[place]AC[place] QUIT 15 YRS OR MORE [facility] Advance Directives: All historical and current Section Date Range: From patient's date of to the date document was created. This section includes ALL of a patient's completed or amended [place] Advance and Rescinded Directives. The entries below indicate that a directive exists for the patient, but an actual copy is not included with this document. The data comes from all [place] facilities. Date Advance Directives Provider Source Dec 25, 2010 [facility] Encounter Notes: All associated encounter notes This section contains the clinical notes associated to the Encounter. Date/Time Encounter Note(s) Provider Source Feb 20, 2024 10:12 AM PHYSICAL MEDICINE REHAB PHYSICIAN NOTE: LOCAL TITLE: PM&R FOLLOW-UP STANDARD TITLE: PHYSICAL MEDICINE REHAB PHYSICIAN NOTE DATE OF NOTE: FEB 20, 2024@10:12 ENTRY DATE: FEB 20, 2024@10:12:17 AUTHOR: RIO GLASGOW EXP COSIGNER: URGENCY: STATUS: COMPLETED [place] Video Connect (VVC) Standard Documentation VVC Clinician Resources Only: E911 (Emergency Call Relay Center): [phone] National [facility] Crisis Line - 988 then press #1. MIGUEL Suicide Coordinator [phone], Ext. [phone]; Back-up Ext. [phone] [place] MIGUEL Estrada [place] [phone] Introduction: Visit is being conducted by [place] [employer] Connect. identified with 2 identifiers: [X] Full Name [X] Date of [ ] VA ID Card Emergency Plan: confirmed and/or provided the following information in case of emergency or technology failure. PATIENT PHONE - [phone] PHONE NUMBER [CELLULAR] - Is patient phone number correct, if not, enter below: Crandall's phone number: CARA SOMMERS [address], [place], [address] Crandall's present location and address for appointment: home 's emergency contact name and phone number: on file Crandall reported that location is private and safe: Yes Informed Consent: Crandall informed of the risks and benefits of Telehealth video care. Crandall has the right to refuse video services. If refuses video visit, a [id number] visit will be scheduled. Crandall verbalized consent for this video visit: Yes provided consent for any other persons present for visit: Yes If yes, who and relationship to patient: Secure visit: Visit was locked for security and privacy:Yes Patient reports the following: Improvement still noted after the L5-S1 interlaminar injection from October. He is not experiencing a great deal of discomfort. He had been referred to [facility] because he had such a great deal of relief from the previous medial branch blocks and we were going to proceed with RF and a pot in the interim his back pain has increased we provided him with an interlaminar injection and by the time that he presented to the consultation for R FNA he was no longer experiencing a great deal of back pain. His use of Tylenol has reduced and he no longer is using Celebrex. He is finding that his exercise tolerance is a bit better. He is happy with the results. He had been scheduled for repeat epidural injection but does not require this at this time. Medications reviewed and reconciled Objective: Patient appears well and does not appear to be ill, converses appropriately, nondysarthric. Crandall is capable of transitioning without demonstration of severe dyscomfort. speech. Breathing unlabored. 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 Improved after L5-S1 interlaminar injection. Repeat intralaminar injection in April if symptoms warrant. Otherwise will postpone until such time that it is necessary. Follow up: The has the following upcoming VA bookings and is on the following medications : 04/19/2024 15:30 CWM/NO/OPTOMETRY/MERHAR 07/20/2024 13:30 CWM/SO/PACT 5 08/12/2024 14:00 CWM/SO/VVC/MHC/LICHA MDM: 25 minutes Rio Glasgow PA-C /caesar/ RIO GLASGOW PAC,[facility] Signed: 02/20/2024 10:23 RIO GLASGOW [facility]
--- OUTSIDE RECORDS SUMMARY | 2024-08-13 15:05 | XMS_ITS | Continuity of Care Document ---
Author Organization [place] - [facility], [facility] Address [address] [place] [address] Care Team Providers Care Heating Element Winder Name Role Phone NINO CORREIA Referring Provider Assessment Encounter Date Assessment Date Assessment LastModified by Organization Details LastModified Time 07/21/2024 07/21/2024 68yo gentleman with parkinsons who presents with hoarseness and globus sensation in the setting of a urgent cholecystectom y/intubation in February 2024. He feels that his voice is hoarse and that he is choking on his uvula. On exam, he does have an elongated uvula. He would like to proceed with uvulectomy/uvu opalatoplasty to treat choking on his uvula. Regarding his dysphonia, I recommneded PRECIPITATION EQUIPMENT TENDER and he would like to wait until after his procedure. Not available 07/22/2024 11:36:26 Plan of Treatment Reminders Order Date Submit Date Provider Last Modified By Organization Details Last Modified Time Details Appointments SURGERY 60 2024 02:30P M ANI GOLD MD Not available Not available Not available Lab None recorded. Referral None recorded. Procedures None recorded. Surgeries palatopha ryngoplas ty (uvulopal atopharyn goplasty, uvulophar yngoplast y) (SURG) 2024 025 Not available 07/21/2024 16:18:35 Imaging None recorded. Medication Orders None recorded. Patient TargetsNo targets recorded. Patient InstructionsNo instructions recorded. Reason for Referral None Reported. Problems Name Problem SNOMED Code Status Onset Date Resolution Date Notes Provider Name and Address Organization Details Recorded Time Chronic hoarseness 0899266495198 Active 2023 ANI GOLD MD [address] [address], [place], [address], [facility] [place] 4 21:38:06 Feeling of lump in throat 265611426 Active 2023 ANI GOLD MD [address] [address], [place], [address], [facility] [place] 4 21:38:11 Disorder of uvula of palate 543059562 Active 2024 ANI GOLD MD [address] [address], [place], [address], [facility] [place] 5 16:17:00 Dysphonia 99068530 Active 2024 ANI GOLD MD [address] [address], [place], [address], [facility] [place] 5 16:19:35 Problem Notes None recorded. Procedures Surgical History Date Name Laterality Status Provider Name and Address Organization Details Recorded Time 04/06/20 24 Fiberoptic Laryngoscopy (Comprehensive) completed ANI GOLD MD [address] [address], [place], [address], [facility] 04/06/2024 21:37:45 procedure on gallbladder completed Saundra Hsieh [facility] 04/06/2024 11:17:59 Imaging Results None recorded. Procedure Notes None recorded. Medical Equipment None Reported. Allergies No known drug allergies Medications Name Sig Start Date Stop Date Status Note LastModified by Organization Details LastModified Time simvastatin 20 mg tablet Take 1 tablet every day by oral route. active Not Available Not Available No t Available lisinopril 30 mg tablet Take 1 tablet every day by oral route. active Not Available Not Available No t Available Sinemet 25 mg-100 mg tablet 1 TAB ORALLY 4 TIMES A DAY PATIENT HAD A REACTION TO GENERIC CARBIDOPA /LEVODOPA active Not Available Not Available No t Available Baby Aspirin 81 mg chewable tablet Chew 1 tablet every day by oral route. active Not Available Not Available No t Available epinephrine 0.3 mg/0.3 mL injection, auto-inject or INJECT 0.3 MG INTO MUSCLE FOR ANAPHYLAX IS, DIFFICULT Y BREATHING . SEEK MEDICAL ATTENTION active Not Available Not Available No t Available prazosin 2 mg capsule Take 1 capsule 3 times a day by oral route. active Not Available Not Available No t Available tobramycin 0.3 %-dexametha sone 0.1 % eye drops,suspe nsion INSTILL ONE DROP INTO THE RIGHT EYE FOUR TIMES A DAY FOR 2 WEEKS 04/06 completed Not Available Not Available Not Available oxycodone 5 mg tablet TAKE 1 TAB BY MOUTH EVERY 4 HOURS,FOR 3 DAYS, NEEDED FOR SEVERE PAIN 07/21 completed Not Available Not Available Not Available acetaminoph en active Not Available Not Available Not Available trazodone active Not Available Not Ann Marie ilable Not Available docusate calcium active Not Available Not Available Not Available valproic acid active Not Available Not Available Not Available Myrbetriq 50 mg tablet,exte nded release Take 1 tablet every day by oral route. active Not Available Not Available No t Available Vitals Date Recorded Body height Body weight Provider Name and Address Organization Details Last Updated DateTime 07/21/2024 182.88 cm [address] - [facility] 07/21/2024 15:27:38 Social History None recorded. Functional Status None recorded. Mental Status None recorded. Family History Nothing Reported. Medical History Condition Response Allergies/Hayfever N Heart Problems N Anxiety Y Tonsil Infections N Emphysema N Migraines N Thyroid Problems N Glaucoma N Depression Y COPD N Developmental Delay N Nasal or Sinus Problems Y Anemia N Immune System Disorder N Anesthesia Complications N Heart Attack ([place]) N Other Skin Condition Y Diabetes N Rhinitis N Bleeding Disorder N Food Allergy N Arthritis N Hearing Loss Y Hyperlipidemia N Cancer N Stroke N Dementia N Nasal polyps Y Asthma N Sleep Disorder N GERD/Reflux N High Cholesterol N Liver Disease N Headaches Y Fibromyalgia N Hypertension Y Speech Delay N Kidney Disease N Past Encounters Encounter ID Performer Location Encounter Start Date Encounter Closed Date Diagnosis/Indication Diagnosis SNOMED-CT Code Diagnosis ICD10 Code Diagnosis Note [id number] ANI GOLD MD [facility] [address] [address] 07/21/2024 15:21:59 07/21/2024 16:25:13 Disorder of uvula of palate 491496771 J39.9 Dysphonia 69164754 R49.9 Health Concerns Section Related Observation LastModified by Organization Detai ls LastModified Time None Recorded Concern Status LastModified by Organization Details LastModified Time None Recorded Payers Encounter Date Sequence Insurance Name Policy Number Policy Last Covered Member ID Last Member ID Guarantor Name 07/21/2024 2 [employer]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 In February he underwent an urgent cholecystectomy. Since that time, he has had hoarseness and a quiet voice. This has not improved overtime. He also reports globus sensation, the feeling that something is in his throat. He was told his uvula was injured during his intubation, and following the surgery he felt like he was choking on his uvula. He denies cough, dyspnea, choking with swallowing. He has a history of Parksinsons, and his feels that his voice has been quieter for some time. He continues to have these symptoms. ANI GOLD MD [address] [place] [address], [phone], [place] - [facility] 07/22/2024 11:36:42
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
== END 2024-08-13 15:30 | disposition home or self-care (01) ==
PROVIDERS: PCP Internal Medicine; Visit Provider Psychiatry & Neurology Neurology
DX: G20.C Parkinsonism, unspecified (principal); F32.A Depression, unspecified; F51.5 Nightmare disorder
CPT/HCPCS: 99214; G2211

== ENCOUNTER → 2024-08-13 14:54 | Outpatient (BNVA) | payer MEDICARE, BC, SELFPAY | PROVIDERS: PCP Internal Medicine; Visit Provider Psychiatry & Neurology Neurology | DX: G20.C Parkinsonism, unspecified (principal); F32.A Depression, unspecified; F51.5 Nightmare disorder | CPT/HCPCS: 99212 ==

== ENCOUNTER 2024-12-13 15:07 | Outpatient (AMB) | payer MEDICARE, BC, SELFPAY ==
--- OUTSIDE RECORDS SUMMARY | 2023-12-16 09:30 | XMS_ITS | Encounter Summary ---
Author Name [facility] [place] [facility] [facility] [place] Address [address] [place] [address] Care Team Providers Care Veneer Jointer Name Role Phone NINO MAI Primary Care Provide r Unavailable Insurance Providers: All historical and current Section Date Range: From patient's date of to the date document was created. This section includes the names of all active insurance providers for the patient. Insurance Provider Type of Coverage Plan Name Start of Policy Coverage End of Policy Coverage Group Number Member ID Insurance Provider's Telephone Number Policy Last's Name Patient's Relationship to Policy Last ANTHSARAI BCBS CT FEDERAL PREFERRED PROVIDER ORGANIZAT ION (PPO) PSHB BASIC SELF+ 1 Jun 23, 2024 [id number] MATTHIEUCRISTOPHERRayne JORDAN PATIENT ANTHEM BCBS FEDERAL PREFERRED PROVIDER ORGANIZAT ION (PPO) PSHB BASIC SELF+ 1 Jun 23, 2024 33 [id number] MATTHIEUCRISTOPHERRayne JORDAN PATIENT BCBS [place] FEP PREFERRED PROVIDER ORGANIZAT ION (PPO) PSHB BAS SELF PLUS 1 Jun 23, 2024 33 [id number] MATTHIEUCRISTOPHERRayne JORDAN PATIENT [place] PREFERRED PROVIDER ORGANIZAT ION (PPO) PSHB BASIC SELF+ 1 Jun 23, 2024 [id number] MATTHIEUCRISTOPHERRayne JORDAN PATIENT [place] FEP DENTAL DENTAL INSURANCE BASIC Jun 23, 2020 DENTAL [id number] STEPHEN SOMMERS PATIENT [place] FEP BS PRESCRIPT STEFANIE OLVERA ARK FEPRX PLAN Jun 23, 2015 [id number] STEPHEN SOMMERS PATIENT MEDICARE (WNR) MEDICARE () PART B May 23, 2020 PART B [id number] [phone] STEPHEN SOMMERS PATIENT MEDICARE (WNR) MEDICARE () PART A May 23, 2020 PART A [id number] STEPHEN SOMMERS PATIENT MEDICARE (WNR) MEDICARE (M) PART B May 23, 2020 PART B [id number] [phone] STEPHEN SOMMERS PATIENT MEDICARE (WNR) MEDICARE (M) PART A May 23, 2020 PART A [id number] STEPHEN SOMMERS PATIENT MEDICARE (WNR) MEDICARE (M) PART B May 23, 2020 PART B [id number] STEPHEN SOMMERS PATIENT MEDICARE (WNR) MEDICARE (M) PART A May 23, 2020 PART A [id number] [phone] STEPHEN SOMMERS PATIENT MEDICARE (WNR) MEDICARE (M) PART B May 23, 2020 PART B [id number] STEPHEN SOMMERS PATIENT MEDICARE (WNR) MEDICARE (M) PART A May 23, 2020 PART A [id number] STEPHEN SOMMERS PATIENT Selected Encounter This section includes the information on record at [place] for the Encounter. Date/Time Encounter Type Encounter Description Reason Provider Source Dec 16, 2023 01:30 PM OFF/OP EST OCTOBER X REQ PHY/QHP PRIMARY CARE/MEDICINE ICD-10-CM I10 Essential (primary) hypertension Marta [place] Haylee Encounter Template Text not used by [place] Assessments - Encounter Diagnoses This section includes the primary and secondary diagnoses documented for the Encounter. Date/Time Primary/Secondary Diagnosis Diagnosis Name Provider Source Jan 13, 2024 01:23 PM PRIMARY Essential (primary) hypertension [facility] Plan of Treatment: Future Appointments (+ 6 months) and Future Tests (+/- 45 days) The Plan of Treatment section includes future care activities for the patient [facility] [place] [facility] This section includes future appointments and future orders which are active, pending or scheduled. Future Appointments This section includes appointments that were scheduled to occur 6 months from the date of the Encounter, up to a maximum of 20 appointments. The data comes from all [place] treatment facilities. Appointment Date/Time Appointment Type Appointme nt Facility Name Jan 21, 2024 03:00 PM AM[place]ULATORY [place] [facility] [place] [facility] Feb 12, 2024 02:00 PM AMBULATORY - PSYCHIATRY [facility] Feb 20, 2024 08:30 AM AMBULATORY - REHAB MEDICIN [place] [facility] [place] [facility] Mar 26, 2024 08:00 AM AMBULATORY - MEDICINE [place] [facility] [place] [facility] Apr 06, 2024 10:50 AM AMBULATORY [place]ICINE [place] [facility] [place] [facility] Apr 19, 2024 03:30 PM AMBULATORY - MEDICINE [place] [facility] [place] [facility] May 26, 2024 02:30 PM AMBULATORY - [place]ICIN [place] [facility] [place] [facility] Lab Results: +/- 30 days of the encounter This section includes the Chemistry and Hematology Lab Results on record with [place] for the patient. Radiology Reports and Pathology Reports are provided separately, in subsequent sections. Lab Results This section contains the Chemistry/Hematology Results that were resulted 30 days before or 30 daysafter the date of the Encounter. Date/Time Source Result Type Result - Unit Interpretation Reference Range Specimen Type Comment November 18, 2023 12:55 PM [facility] VALPROIC ACID PLASMA Specimen Type: PLASMA No comment entered. Ordering Provider: VALERIANO HURT Report Released Date/Time: Aug 21, 2023 04:03 PM [facility] [address] [facility] [id number] Performing Lab: [address] [address] VALPROIC ACID 64.9 ug/mL 50.0-120.0 Vital Signs: All taken on the encounter date This section contains inpatient and outpatient Vital Signs collected on the date of the Encounter. Date/Time Temperature Pulse Blood Pressure Respiratory Rate SP02 Pain Height Weight Body Mass Index Source Dec 16, 2023 01:20 PM 90 135/[address] [facility] Social History: Smoking Status (Most current) and Tobacco Use (All prior to encounter date) This section includes the most current, and the historical, smoking and tobacco- related health factors from the [place] facility where the Encounter took place. Current Smoking Status This section includes the most current smoking, or tobacco-related health factor, from the [place] facility where the Encounter took place. Date/Time Current Smoking Status Comment Facil ity Dec 20, 2020 01:30 PM VA-TOBACCO NEVER USED [facility] Tobacco Use History This section includes a history of the smoking, or tobacco-related health factors, that were collected on or before the date of the Encounter. The data comes from the [place] facility where the Encounter took place. Date/Time Smoking Status/Tobacco Use Comment F acility Dec 08, 2019 09:02 AM VA-TOBACCO FORMER USER [facility] Dec 08, 2019 09:02 AM VA-TOBACCO QUIT 15 YRS OR MORE [facility] Sep 10, 2018 07:42 AM VA-TOBACCO FORMER USER [facility] Sep 10, 2018 07:42 AM VA-TOBACCO QUIT 15 YRS OR MORE [facility] Dec 05, 2017 02:07 PM QUIT TOBACCO USE > 7 YEARS AGO [facility] Jan 17, 2017 09:55 AM QUIT TOBACCO USE > 7 YEARS AGO [facility] Jan 30, 2016 08:10 AM QUIT TOBACCO USE > 7 YEARS AGO quit 1988 [facility] Dec 25, 2010 10:36 AM QUIT TOBACCO USE > 7 YEARS AGO Pt. stated he quit in 1988! [facility] Advance Directives: All historical and current Section Date Range: From patient's date of to the date document was created. This section includes ALL of a patient's completed or amended [place] Advance and Rescinded Directives. The entries below indicate that a directive exists for the patient, but an actual copy is not included with this document. The data comes from all [facility]. Date Advance Directives Provider Source Dec 25, [address] [facility] Encounter Notes: All associated encounter notes This section contains the clinical notes associated to the Encounter. Date/Time Encounter Note(s) Provider Source Dec 16, 2023 01:38 PM NURSING NOTE: LOCAL TITLE: PRIMARY CARE NURSE NOTE STANDARD TITLE: NURSING NOTE DATE OF NOTE: DEC 16, 2023@13:38 ENTRY DATE: DEC 16, 2023@13:38:15 AUTHOR: SAMMY [place] COSIGNER: URGENCY: STATUS: COMPLETED Patient identity was verified using two identifiers, per [place] Policy: Full Name, Full SSN CARA SOMMERS is a 68 year old who presents to the clinic for BP check and BP machine checks/inspection per NINO MAI for diagnosis of: Hypertension Visit Type: Scheduled Patient Education: Does patient require Patient Education Teaching Assessment? No Patient Education provided? Yes Learner: Patient Readiness to Learn: Patient is receptive to learning Topic/Teaching Needs: Teaching Method: Explanation, Handouts Learner's Response to Education: Able to explain education in own words A/P: Blood Pressure Check: S: Evaluation of blood pressure O: Blood Pressure Readings BP monitor reading #1 Systolic/diastolic: 135/76, Pulse: 90 BP monitor reading #2, after resting for 15 minutes: Systolic/diastolic:125/73 , Pulse: 85 Home BP monitor readings: Patient presented his wrist BP machine and Arm BP machine with records of the readings as follows: Date Wrist BP P Arm BP P 12/03/23 129/71 64 129/74 60 12/04/23 121/76 65 130/75 62 12/05/23 123/70 72 111/68 71 12/06/23 112/69 72 108/73 69 12/13/23 128/73 70 117/75 68 12/14/23 121/67 67 114/72 65 12/15/23 112/71 74 103/72 75 Today's readings at the clinic: 12/16/23 141/82 91 125/77 91 There was not much difference in the readings in 's devices (wrist monitor and arm monitor) compared to the readings obtained at the clinic. Plan is for to keep monitoring BP readings at home and report any abnormal readings or if having any symptoms. verbalized understanding and agrees with plan. Abnormal Blood Pressure Symptom Review: Patient reports: Lightheadedness: No Dizziness: No Recent Fall: No Chest Pain: No SOB: No Vision Changes: No Headache: No Edema: No Cough: No Other: A: Blood Pressure Medication Review: Changes since last appointment? No Patient-reported adherence to regimen? Yes BP medicine taken today? No, Time: state he takes his med at night. The last time taken was last night at 10PM, and will take it tonight around the same time. Active and Recently Outpatient Medications (including Supplies): Active Outpatient Medications Status ========= 1) ACETAMINOPHEN 500MG TAB TAKE TWO TABLETS BY MOUTH ACTIVE TWICE DAILY FOR PAIN 2) CELECOXIB 200MG CAP TAKE ONE CAPSULE BY MOUTH ONCE ACTIVE DAILY NEEDED FOR ARTHRITIS 3) CHOLECALCIF 25MCG (D3-1,000UNIT) TAB TAKE ONE TABLET ACTIVE BY MOUTH ONCE DAILY FOR VITAMIN SUPPLEMENTATION 4) CITALOPRAM HYDROBROMIDE 20MG TAB TAKE ONE TAB BY ACTIVE (S) MOUTH ONCE DAILY FOR MOOD 5) DOCUSATE NA 100MG CAP TAKE ONE CAPSULE BY MOUTH ONCE ACTIVE (S) DAILY FOR CONSTIPATION TO SOFTEN STOOL 6) FLUTICASONE PROP 50MCG 120D NASAL INHL INSTILL 2 ACTIVE SPRAYS INTO EACH NOSTRIL ONCE DAILY FOR NASAL IRRITATION/INFLAMMATION 7) KETOROLAC TROMETHAMINE 0.5% OPH SOLN INSTILL 1 DROP ACTIVE DIRECTED TWICE DAILY INTO OPERATIVE EYE STARTING 2 DAYS BEFORE SURGERY 8) LISINOPRIL 20MG TAB TAKE ONE TABLET BY MOUTH ONCE ACTIVE (S) DAILY FOR HIGH BLOOD PRESSURE TO CONTROL BLOOD PRESSURE 9) MIRABEGRON 50MG SA TAB TAKE ONE TABLET BY MOUTH ONCE ACTIVE (S) DAILY FOR OVERACTIVE BLADDER 10) PRAZOSIN HCL 2MG CAP TAKE THREE CAPSULES BY MOUTH AT ACTIVE (S) BEDTIME -FOR NIGHTMARES (OFF-LABEL) DO NOT TAKE ON NIGHTS THAT YOU TAKE SILDENAFIL 11) SENNOSIDES 8.6MG TAB TAKE TWO TABLETS BY MOUTH ONCE ACTIVE DAILY FOR CONSTIPATION 12) SIMVASTATIN 20MG TAB TAKE ONE TABLET BY MOUTH AT ACTIVE (S) BEDTIME FOR CHOLESTEROL 13) TRAZODONE HCL 50MG TAB TAKE ONE TO THREE TABLETS BY ACTIVE MOUTH AT BEDTIME NEEDED FOR INSOMNIA ASSOCIATED WITH DEPRESSION FOR SLEEP 14) VALPROIC ACID 250MG CAP TAKE THREE CAPSULES BY MOUTH ACTIVE (S) TWICE DAILY FOR MOOD Active Non-VA Medications Status ========= 1) Non-VA ASPIRIN 81MG EC TAB 81MG BY MOUTH ONCE DAILY ACTIVE 2) Non-VA CARBIDOPA 25/LEVODOPA 100MG TAB 1 TABLET BY ACTIVE MOUTH FOUR TIMES A DAY 3) Non-VA OTHER CAP/TAB MAGNESIUM BY MOUTH ONCE DAILY ACTIVE 17 Total Medications Nursing reviewed medications and no changes at this time. Comments: Relevant Labs: VALPROIC ACID: 64.9 Color, Urine (AX 4280): Yellow Appearance, Urine (AX 4280): Clear Glucose, Urine (AX 4280): NEGATIVE Ketones, Urine (AX 4280): TRACE Blood, Urine (AX 4280): NEGATIVE Protein, Urine (AX 4280): 30 Nitrite, Urine (AX 4280): NEGATIVE Bilirubin, Urine (AX 4280): NEGATIVE Specific [place], (AX 4280): 1.044 H pH, Urine (LF3169): 6.0 Urobilinogen, Urine (AX 4280): <2.0 Leukocyte Esterase, (AX 4280): NEGATIVE GLUCOSE: 108 H UREA NITROGEN: 20 SODIUM: 139 POTASSIUM: 4.5 CHLORIDE: 103 CO2: 29 CALCIUM: 9.3 CHOLESTEROL: 175 PROTEIN,TOTAL: 6.7 ALBUMIN: 3.6 ALKALINE PHOSPHATASE: 35 L SGOT: 11 SGPT: 8 TRIGLYCERIDE: 192 H LDL CHOL: 88 CHOL/HDL RATIO: 3.6 PROSTATIC SP ANTIGEN: 1.83 MAGNESIUM: 1.9 HDL: 49 BILIRUBIN,TOT.: 0.4 TSH (Access): 1.35 CREATININE-EGFR: 0.86 VITAMIN D TOTAL: 14 L eGFR CKD-EPI 2020: >90 HGB A1C (WR): 5.0 WBC: 6.55 RBC: 4.40 HGB: 13.6 HCT: 41.0 MCV: 93.2 MCHC: 33.2 RDW: 11.5 L PLT: 172 MCH: 30.9 Neut %: 49.8 Lymph %: 38.8 Clay %: 8.9 Eos %: 1.1 Baso %: 0.9 Neut, Abs: 3.27 Lymph, Abs: 2.54 Clay, Abs: 0.58 Eos, Abs: 0.07 Baso, Abs: 0.06 Immature Granulocytes %: 0.5 Immature Granulocytes, Abs: 0.03 Knowledge Assessment: good Patient received education on the following topics today: HTN/Stroke & his personal risk factors Diet: Caffeine Intake: Alcohol Intake: Tobacco: Exercise: Other habits: Life style modifications encouraged: Barriers to learning: None If other, list here: Strategy/motivation for lifestyle change: Referral to [facility] peer partner: No Patient verbalized understanding: Yes Patient agreed with plan: Yes PCP notified: Yes P: Return to clinic/ Return to PCP clinic Clinician plan: As needed. Total time spent in pt care and education was 30 minutes. /caesar/ SAMMY [place] RN REGISTERED NURSE Signed: 12/16/2023 14:11 SAMMY [place]
--- NOTE | 2024-12-13 15:09 | A.OFFVIS_ITS ---
Vital Signs 12/13/24 15:10 Height 6 ft Weight 193 lb BMI 26.2 BP 144/88 H Blood Pressure Location Rt brachial Position Sitting Pulse 80 Pulse Source Pulse Oximeter Pulse Oximetry (%) 96 Oxygen Delivery Method Room Air Intake Visit Reasons: 6m follow up-CONF Intake Note: Patient presents for follow up medication adjustment sinemet Allergies No Known Allergies Allergy (Verified 12/13/24 15:11) HPI Comments Details: 69 -yr-old male presents for f/u visit. Pt's current PD medication regimen: Sinemet 1 tab QID. Do medication effects last between doses: Some wearing off around time of the next dose- may tremor more. Not bothersome enough to want to increase dose. ADL's: Ind Swallowing: Occasional fluids/saliva will go down wrong- mild.- had uvuloplasty on September 22 Cough: Occasional- mild Drooling: At night mild Orthostatic lightheadedness: None Constipation: None- eats raisin bran, prune juice, senna , dulcolax- which prevents any constipation. Freezing: None Stiffness: None Tremor: mild, but worse if anxious or Sinemet dose is wearing off. Falls: none , but has some near falls when he tries to turn Gait- slower Hallucinations: None Memory: Memory is not good . 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 Sleep: Sleeps w/ CPAP and Trazodone and Prazosin (uses for sleep and BP control).He wakes up at 3 am and is not able to sleep. He has occasional REM behavior disorder. [facility] Medical History Arthritis HTN (hypertension) Occasional tremors Seizures TBI (traumatic brain injury) Depression Nightmares Parkinsonism Surgical History Hx laparoscopic cholecystectomy H/O shoulder surgery History of carpal tunnel release H/O brain surgery Family History Mother Stomach cancer Social History Alcohol intake: never Patient Tobacco Use Status: Never used Tobacco Physical Exam Vital Signs: Last Vital Signs Pulse 80 12/13/24 15:10 BP 144/88 H 12/13/24 15:10 Pulse Ox 96 12/13/24 15:10 Oxygen Delivery Method Room Air 12/13/24 15:10 BMI result Body Mass Index 26.2 Const General: cooperative and no acute distress Resp Effort & Inspection: normal respiratory effort and able to speak in complete sentences Neuro Other: Expression: Mild decreased expression Voice: normal Tremor: none seen today Tone: right Ue 1 + cog wheel rigidity Dyskinesia: None FFM: Mild bradykinesia Foot taps: Bradykinesia Gait: Decreased arm swing , good stride can walk without a cane Psych: Pleasant affect. Psych Appearance: grossly normal Mental Status: mental status grossly normal Attitude: cooperative Thought process: Normal thought process present Assessment & Plan Assessment & Plan (1) Parkinsonism: Code(s): G20 - Parkinson's disease Category: Medical Qualifiers: Parkinsonism type: unspecified Qualified Code(s): G20.C - Parkinsonism, unspecified (2) Depression: Code(s): F32.A - Depression, unspecified Category: Medical Qualifiers: Depression Type: unspecified Qualified Code(s): F32.A - Depression, unspecified (3) Nightmares: Code(s): F51.5 - Nightmare disorder Category: Medical Plan Continue exercise Continue sinemet 1 tab QID.- BRAND NAME ONLY - patient had an adverse reaction to generic carbidopa/levodopa Continue Prazosin. He is doing well. Coding Level of Care Code Est Pt Level 4 (49740) Complex EM visit Add On G2211 Diagnoses Parkinsonism, unspecified Parkinsonism type G20.C Parkinsonism type: unspecified Depression, unspecified depression type F32.A Depression Type: unspecified Nightmares F51.5
[2024-12-13 15:10] VITALS: BP 144/88; PULSE 80; O2SAT 96; BMI 26.2
== END 2024-12-13 15:49 | disposition home or self-care (01) ==
LOC: HO.HSMS 15:08
PROVIDERS: PCP Internal Medicine; Visit Provider Psychiatry & Neurology Neurology
DX: G20.C Parkinsonism, unspecified (principal); F32.A Depression, unspecified; F51.5 Nightmare disorder
CPT/HCPCS: 99214; G2211

== ENCOUNTER → 2024-12-13 15:07 | Outpatient (BNVA) | payer MEDICARE, BC, SELFPAY | PROVIDERS: PCP Internal Medicine; Visit Provider Psychiatry & Neurology Neurology | DX: G20.C Parkinsonism, unspecified (principal); F32.A Depression, unspecified; F51.5 Nightmare disorder | CPT/HCPCS: 99212 ==

== ENCOUNTER 2025-06-09 13:17 | Outpatient (AMB) | payer MEDICARE, BC, SELFPAY ==
[2025-06-09 13:23] VITALS: BP 126/68; PULSE 95; O2SAT 96; BMI 27.9
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
--- OUTSIDE RECORDS SUMMARY | 2025-06-09 17:23 | XMS_ITS | Clinical Summary ---
Author Organization [facility] Prior to 11/20/[address] [place] [id number] Care Team Providers Care Baseball Pitcher Name Role Phone Basilio Saini MD Primary Care Provider [phone] Allergies No known active allergies Medications Medication [...] 1 - PCV) 2020 Influenza Vaccine (#1) 2025 RSV Adult > 60+ Yrs or Pregn ant (1 - 1-dose 75+ series) 2030 Hepatitis B Vaccines Aged Out No long er eligible based on patient's age to complete this topic RSV Ped < 20 months Aged Out No longe r eligible based on patient's age to complete this topic Care Teams Baseball Pitcher Relationship Specialty Start Date End Date Basilio Saini MD [address] [place] [id number] PCP - General Internal Medicine 06/02/18
--- OUTSIDE RECORDS SUMMARY | 2025-06-09 17:23 | XMS_ITS | Data Portability ---
Author Organization [place] - [facility], Allergy Address [address] [place] [phone] Assessment Encounter Date Assessment Date Assessment LastModified [...] his uvula. Regarding his dysphonia, I recommneded EAR MACHINE OPERATOR and he would like to wait until after his procedure. Not available 07/22/2024 11:36:26 11/19/2024 11/19/2024 69 year old male status post excision of uvula 09/22/[address] Fiore. Surgical site is well healed. Patient no longer feels like he is choking at rest. He is pleased with his voice quality and it does sound normal today. He may follow up as needed. [email or web address] Not available 11/19/2024 13:54:39 Plan of Treatment Reminders Order Date Submit Date Provider Last Modified By Organization Details Last Modified Time Details Appointments None recorded. Lab None recorded. Referral None recorded. Procedures None recorded. Surgeries palatophary ngoplasty (uvulopalat opharyngopl asty, uvulopharyn goplasty) (SURG) 2024 025 [email or web address] Not available 10:16:47 Imaging None recorded. Medication Orders None recorded. Patient TargetsNo targets recorded. Patient Instructions Encounter Date Encounter Id Patient Instructions Last Modified By Organization Details Last Modified Time 04/06/[id number] 68yo gentleman with parkinsons who presents with hoarseness and globus sensation in the setting of a urgent cholecystectomy/i ntubation in February 2024. He feels that his voice is hoarse and that he is choking on his uvula. On exam, he does have an elongated uvula. Flexible laryngoscopy shows a mild glottic gap with no significant asymmetry or abnormality. We discussed the causes of hoarseness, one of which is parkinsons. It is possible that his hoarseness and glottic gap is age related and parkinson's related. We will plan to allow his body to recover, as it has been <1month and then reevaluate. - Follow-up in 3-4 months - Reevaluate voice - consider EAR MACHINE OPERATOR -Reevaluate uvula Not available 04/06/2024 21:40:23 Reason for Referral None Reported. Results Created Date Observation Date Name Description Value Unit Range Abnormal Flag Note LastModifiedBy Organization Detail LastModifiedTime Result Notes None recorded. Problems Name Problem SNOMED Code Status Onset Date Resolution Date Notes Provider Name and Address Organization Details Recorded Time Chronic hoarseness 1872804246009 Active 2023 ANI FIORE MD [address] [place] [address], [place], [phone], [facility] 4 21:38:06 Feeling of lump in throat 304368041 Active 2023 ANI FIORE MD [address] [place], [place] [address], [phone], 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 - [facility] 5 16:17:00 Dysphonia 60782182 Active 2024 ANI FIORE MD [address] [place], [place] [address], [phone], [place] - [facility] 16:19:35 Problem Notes None recorded. Procedures Surgical History Date Name Laterality Status Provider Name and Address Organization Details Recorded Time 09/23/19 25 Excision of uvula completed ANI FIORE MD [address], [place], [phone], [facility] - [facility] 09/22/2024 15:20:13 04/06/20 24 Fiberoptic Laryngoscopy (Comprehensive) completed ANI FIORE MD [address], [place], [address], [facility] - [facility] 04/06/2024 21:37:45 procedure on gallbladder completed Saundra Hsieh [facility] [place] 04/06/2024 11:17:59 Imaging Results None recorded. [...] t Available Sinemet 25 mg-100 mg tablet TAKE 1 TAB ORALLY 4 TIMES A DAY FOR 90 DAYS PATIENT HAD A REACTION TO GENERIC CARBIDOPA [...] Available oxycodone 5 mg tablet TAKE 1 TABLET BY MOUTH EVERY 4 HOURS FOR 7 DAYS active Not Available Not Available No t Available acetaminoph en active Not Available Not [...] Details Last Updated DateTime 07/21/2024 182.88 cm 92307.47 g Imani Gill [place] - [facility] 07/21/2024 15:27:38 Date Recorded Body height Provider Name an d Address Organization Details Last Updated DateTime 11/19/2024 182.88 cm LEXI BOWIE [place] - [facility] 11/19/2024 13:23:25 Date Recorded Body height Body mass index (BMI) Body weight Provider Name and Address Organization Details Last Updated DateTime 04/06/2024 182.88 cm 27.1 kg/m2 52730.47 g Saundra Hsieh [place] - [facility] 04/06/2024 11:17:43 Social History None recorded. Functional Status None recorded. Mental Status None recorded. Family History Nothing Reported. Medical History Condition Response Allergies/Hayfever N Heart Problems N Anxiety Y Tonsil Infections N Emphysema N Migraines N Thyroid Problems N Glaucoma N Developmental Delay N Depression Y COPD N Nasal or Sinus Problems Y Anemia N Immune System Disorder N Anesthesia Complications N Heart Attack ([place]) N Other Skin Condition Y Diabetes N Rhinitis N Bleeding Disorder N Food Allergy N Hearing Loss Y Arthritis N Hyperlipidemia N Cancer N Stroke N Dementia N Nasal polyps Y Asthma N Sleep Disorder N High Cholesterol N GERD/Reflux N Liver Disease N Headaches Y Fibromyalgia N Hypertension Y Speech Delay N Kidney Disease N Past Encounters Encounter ID Performer Location Encounter Start Date Encounter Closed Date Diagnosis/Indication Diagnosis SNOMED-CT Code Diagnosis ICD10 Code Diagnosis IMO Codes Diagnosis Note [id number] ANI FIORE MD [facility] [address] [address] 04/06/2024 11:12:12 04/06/2024 11:38:50 Chronic hoarseness 3532973686 105 R49.0 Feeling of lump in throat 843066775 R09.89 [id number] ANI FIORE MD [facility] [address] [place] [address] 07/21/2024 15:21:59 07/21/2024 16:25:13 Disorder of uvula of palate 299069068 J39.9 Dysphonia 91010071 R49.9 [id number] FRANCISCO J MARQUEZ PA-C [facility] [address] [place] [address] 11/19/2024 13:13:07 11/19/2024 13:44:58 Disorder of uvula of palate 853016428 J39.9 Health Concerns Section Related Observation LastModified by Organization Detai ls LastModified Time None Recorded Concern Status LastModified by Organization Details LastModified Time None Recorded Advance Directives Directive None Recorded Payers Insurance Date Sequence Insurance Name Policy Number Policy Last Covered Member ID Last Member ID Guarantor Name 11/19/2024 1 [employer]-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 About a month ago he underwent an urgent cholecystectomy. Since that [...] voice has been quieter for some time. ANI FIORE MD [address] [place] [address], [phone], [facility] - [facility] 04/06/2024 21:40:52 07/21/2024 text/html ROS as noted in the HPI 69yo gentleman who presents today for vocal [...] He continues to have these symptoms. ANI FIORE MD [address] [facility],[address], [phone], [place] - [facility] 07/22/2024 11:36:42 11/19/2024 text/html ROS as noted in the HPI 69 year old male status post excision of uvula 09/22/[address] Fiore. He has done well postoperatively. He no longer feels like he is choking on his uvula. He and his also report that his voice has rebounded quite well since his urgent cholecystectomy/i ntubation in February 2024. He is no longer interested in voice therapy. WILLARD LILLY MD [address] [facility],[place] [address], [place], [address], [place] - [facility] 11/19/2024 16:51:25
== END 2025-06-09 13:59 | disposition home or self-care (01) ==
LOC: HO.HSMS 13:18
PROVIDERS: PCP Internal Medicine; Visit Provider Psychiatry & Neurology Neurology
DX: G20.C Parkinsonism, unspecified (principal); F32.A Depression, unspecified; F51.5 Nightmare disorder
CPT/HCPCS: 99214; G2211

== ENCOUNTER → 2025-06-09 13:17 | Outpatient (BNVA) | payer MEDICARE, BC, SELFPAY | PROVIDERS: PCP Internal Medicine; Visit Provider Psychiatry & Neurology Neurology | DX: G20.C Parkinsonism, unspecified (principal); F32.A Depression, unspecified; F51.5 Nightmare disorder | CPT/HCPCS: 99212 ==